=== PATIENT | male | born 1990 | race Caucasian/White ===

== ENCOUNTER 2020-01-31 00:13 | Inpatient (IN) ==
[2020-01-31 01:02] LABS: Hematocrit (blood only) 23.1 % (42-52); Mean Corpuscular Hemoglobin 30.9 pg (25-34); Mean Corpuscular Hgb Conc 34.6 g/dL (32-36); Mean Corpuscular Volume 89.2 fL (80-100); Mean Platelet Volume 8.6 fL (7.4-10.4); Platelet Count 344 K/uL (130-400); RDW Coefficient of Variation 12.5 % (11.5-14.5); RDW Standard Deviation 40.4 fL (36.4-46.3); Red Blood Count 2.59 M/uL (4.7-6.1); White Blood Count 6.82 K/uL (4.8-10.8)
--- NOTE | 2020-01-31 01:14 | Emergency Department Note ---
History of Present Illness General Chief complaint: Referred by Doctor Stated complaint: REF BY History of Present Illness This is a 29-year-old male that presents to the emergency department via private vehicle with complaints of "referred by ". The patient notes that he has a history of spina bifida with subsequent tethered spinal cord, and self caths via suprapubic catheter and has colostomy in place. He notes that he is status post kidney transplant performed at [facility] and when he turned 19 he transitioned to the [employer] system. He followed with Dr. Collado of nephrology. He currently is transitioning to the amount in the system from [employer] for his medical care. Patient denies any fevers, chills, chest pain or shortness of breath. He has had some muscle aches over the past few weeks but otherwise has been feeling okay. He did have Covid about a month ago. Patient also notes that he has been cathing normally. He does state that chronically the urine does appear cloudy which is not unusual for him. Home Medications Medication Instructions Recorded Confirmed Type cholecalciferol (vitamin D3) 50 50 mcg PO DAILY #30 cap 01/30/20 01/31/20 Rx mcg (2,000 unit) capsule ferrous fumarate-iron 1 cap PO .COMPLEX #100 cap 01/30/20 01/31/20 Rx polysaccharide cplx 162 mg-115.2 mg (106 mg) cap mycophenolate mofetil 250 mg 250 mg PO .COMPLEX cap 01/30/20 01/31/20 History capsule potassium chloride 20 mEq 20 meq PO DAILY #90 tab 01/30/20 01/31/20 Rx tablet,extended release pravastatin 20 mg tablet 20 mg PO DAILY #90 tab 01/30/20 01/31/20 Rx tacrolimus 1 mg capsule 4 mg PO Q12H cap 01/30/20 01/31/20 History testosterone 50 mg/5 gram (1 %) 1 packet TRANSDERMAL QAM 01/30/20 01/31/20 History transdermal gel Allergies Allergy/AdvReac Type Severity Reaction Status Date / Time bee venom protein (honey bee) Allergy edema, Verified 01/31/20 01:43 hives latex Allergy Unknown Verified 01/31/20 01:43 morphine Allergy nauea, Verified 01/31/20 01:43 vomitting Past Med/Surg History Medical History Self-catheterizes urinary bladder Surgical History Colostomy status H/O hernia repair spinal hernia History of esophagogastroduodenoscopy Hx of colonoscopy Hx of laminectomy lumbar spinal cord release Hx of removal of testicle bilateral Kidney transplanted Family History Mother Diabetes Heart disease Father Diabetes Social History Smoking Status: Never smoker Hx Alcohol Use: No Hx Substance Use: No Preferred Language: Yoruba marital status: Single Current Living Situation: Alone current occupational status: 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 Feels Safe at Home: Yes Do you think of yourself as: don't know Gender Identity: Male Review of Systems A total of 10 systems reviewed and were otherwise negative Physical Exam Vital Signs Vital Signs - 24 hr 01/31/20 00:18 01/31/20 00:53 01/31/20 01:40 Temperature 36.6 C Temperature Source Oral Pulse Rate 103 H 91 H 95 H Pulse Rate from SpO2 Sensor Respiratory Rate 16 18 12 Respiratory Depth Normal Blood Pressure 121/63 126/72 117/67 Blood Pressure Mean 82 81 79 Pulse Oximetry 97 96 97 Oxygen Delivery Method Room Air Room Air Room Air Sepsis Recent Fever Within 48 Hours No Sepsis New/Unexplained Change in Mental Status No Sepsis Action Taken by Nursing No Action Required 01/31/20 03:14 Temperature Temperature Source Pulse Rate 93 H Pulse Rate from SpO2 Sensor 90 Respiratory Rate 18 Respiratory Depth Blood Pressure 106/50 L Blood Pressure Mean 74 Pulse Oximetry 98 Oxygen Delivery Method Room Air Sepsis Recent Fever Within 48 Hours Sepsis New/Unexplained Change in Mental Status Sepsis Action Taken by Nursing VITAL SIGNS - Vital signs and nursing notes were reviewed. Stable and afebrile. GENERAL - 29-year-old male appearing his stated age who is in no acute distress. Communicates well with provider and answers questions appropriately. SKIN - Without rashes. No meningeal or petechial rash. HEAD - NC/AT. EYES - PERRL with EOMI bilaterally. Sclera anicteric. EARS - No deformities of external structures noted on gross examination bilaterally. NOSE - Midline and without cyanosis. MOUTH/OROPHARYNX - Without perioral cyanosis. NECK - Neck with FROM. No nuchal rigidity. LUNGS - Chest wall symmetric without accessory muscle use, intercostals retractions, or central cyanosis. Normal vesicular breath sounds CTA B/L. No wheezes, rales, or rhonchi appreciated. CARDIAC - RRR with S1/S2. No murmur, rubs, or gallops appreciated. EXTREMITIES - No clubbing or peripheral cyanosis. +5/5 strength noted in UE/LE bilaterally. NEUROLOGIC - Cranial nerves II through XII grossly intact. Sensory intact to light touch throughout. PSYCH - A&O, and cooperates fully with examiner. Pt is very pleasant and interacts well with examiner. Medical Decision Making Laboratory Data Result diagrams: 01/31/20 00:47 01/31/20 00:47 Lab Results 01/31/20 01/31/20 01/31/20 Range/Units 00:42 00:47 00:47 WBC 6.82 (4.8-10.8) K/uL RBC 2.59 L (4.7-6.1) M/uL Hgb 8.0 L (14.0-18.0) g/dL Hct 23.1 L (42-52) % MCV 89.2 (80-100) fL MCH 30.9 (25-34) pg MCHC 34.6 (32-36) g/dL RDW Std Deviation 40.4 (36.4-46.3) fL RDW Coeff of Abigail 12.5 (11.5-14.5) % Plt Count 344 (130-400) K/uL MPV 8.6 (7.4-10.4) fL PT (9.0-12.0) Seconds INR (0.9-1.1) APTT (21.0-31.0) Seconds PTT Ratio Sodium 132 L (136-145) mmol/L Potassium 3.1 L (3.5-5.1) mmol/L Chloride 86 L (98-107) mmol/L Carbon Dioxide 38 H (21-32) mmol/L Anion Gap 8.0 (3-11) BUN 59 H (7-18) mg/dl Creatinine 4.65 H* (0.6-1.4) mg/dl Est Cr Clr Drug Dosing Not Reportable Est GFR ( Amer) 18.4 Est GFR (Non-Af Amer) 15.9 BUN/Creatinine Ratio 12.7 (10-20) Glucose 113 H (70-99) mg/dl Calcium 8.6 (8.5-10.1) mg/dl Magnesium 1.7 L (1.8-2.4) mg/dl Total Bilirubin 0.2 (0.2-1) mg/dl AST 16 (15-37) U/L ALT 18 (12-78) U/L Alkaline Phosphatase 76 (45-117) U/L Total Protein 8.5 H (6.4-8.2) gm/dl Albumin 4.2 (3.4-5.0) gm/dl Globulin 4.3 H (2.5-4.0) gm/dl Albumin/Globulin Ratio 1.0 (0.9-2) Urine Color Yellow Urine Appearance Clear (Clear) Urine pH 7.5 (4.5-7.5) Ur Specific [place]sey 1.008 (1.000-1.030) Urine Protein Negative (Negative) Urine Glucose (UA) Negative (Negative) Urine Ketones Negative (Negative) Urine Blood 1+ H (Negative) Urine Nitrite Negative (Negative) Urine Bilirubin Negative (Negative) Urine Urobilinogen Negative (Negative) Ur Leukocyte Esterase 3+ H (Negative) Urine WBC (Auto) >30 H (0-5) /hpf Urine RBC (Auto) 0-4 (0-4) /hpf U Hyaline Cast (Auto) 5-10 H (0-5) /lpf U Epithel Cells (Auto) 5-10 H (0-5) /lpf Urine Bacteria (Auto) Negative (Negative) Blood Type Antibody Screen 01/31/20 01/31/20 Range/Units 00:47 00:47 WBC (4.8-10.8) K/uL RBC (4.7-6.1) M/uL Hgb (14.0-18.0) g/dL Hct (42-52) % MCV (80-100) fL MCH (25-34) pg MCHC (32-36) g/dL RDW Std Deviation (36.4-46.3) fL RDW Coeff of Abigail (11.5-14.5) % Plt Count (130-400) K/uL MPV (7.4-10.4) fL PT 10.8 (9.0-12.0) Seconds INR 1.0 (0.9-1.1) APTT 25.8 (21.0-31.0) Seconds PTT Ratio 0.9 Sodium (136-145) mmol/L Potassium (3.5-5.1) mmol/L Chloride (98-107) mmol/L Carbon Dioxide (21-32) mmol/L Anion Gap (3-11) BUN (7-18) mg/dl Creatinine (0.6-1.4) mg/dl Est Cr Clr Drug Dosing Est GFR ( Amer) Est GFR (Non-Af Amer) BUN/Creatinine Ratio (10-20) Glucose (70-99) mg/dl Calcium (8.5-10.1) mg/dl Magnesium (1.8-2.4) mg/dl Total Bilirubin (0.2-1) mg/dl AST (15-37) U/L ALT (12-78) U/L Alkaline Phosphatase (45-117) U/L Total Protein (6.4-8.2) gm/dl Albumin (3.4-5.0) gm/dl Globulin (2.5-4.0) gm/dl Albumin/Globulin Ratio (0.9-2) Urine Color Urine Appearance (Clear) Urine pH (4.5-7.5) Ur Specific [place] (1.000-1.030) Urine Protein (Negative) Urine Glucose (UA) (Negative) Urine Ketones (Negative) Urine Blood (Negative) Urine Nitrite (Negative) Urine Bilirubin (Negative) Urine Urobilinogen (Negative) Ur Leukocyte Esterase (Negative) Urine WBC (Auto) (0-5) /hpf Urine RBC (Auto) (0-4) /hpf U Hyaline Cast (Auto) (0-5) /lpf U Epithel Cells (Auto) (0-5) /lpf Urine Bacteria (Auto) (Negative) Blood Type A Positive Antibody Screen NEGATIVE MDM Narrative Patient was seen and evaluated as above in room C 11. Review was performed of nursing notes and vital signs. I did review pertinent previous visits and patient history. After obtaining a thorough history and physical examination the above work up was performed. He presents to us today referred by PCP over concerning and blood values from today's laboratory studies done in the outpatient setting. The patient notes that he received a phone call this evening around 10 PM. He has been feeling perhaps some muscle aches/cramps as of lately but otherwise feels okay. No fevers, chills, chest pain or shortness of breath. Unfortunately at the time of the patient's presentation we were in essentially a [facility] downtime as the sql server consultant appear to be down. Orders were placed for the patient via handwritten protocol and then entered into the system. He was given 500 cc of normal saline IV bolus. No leukocytosis. Anemia noted. There is hyponatremia, hypokalemia and creatinine of 4.65 with elevated BUN of 59. Patient does not appear to be overly dehydrated. Hypomagnesemia at 1.7. Urinalysis at this time does reveal evidence of potential UTI with urine culture pending. Type and screen initiated. It is felt that further evaluation and management the inpatient setting is warranted given the patient's laboratory abnormalities here at this time. I was notified by ER charge nurse that the clinical coordinator would like a Covid test performed on the patient. I will note that the patient stated he was Covid positive about a month ago and at this time is symptom-free. Testing is negative here. Please refer to further documentation regarding his stay. Case was discussed with the attending physician. EKG was reviewed by myself and found to be Normal Sinus Rhythm at a rate of 94 beats per minute and per my interpretation reveals no ectopy or ischemic change. QTc 460 and no previous EKGs for comparison. Patient was seen during the COVID-19 pandemic. An handwritten order was placed for continuous cardiac monitoring. The monitor shows a rate of 88 with sinus rhythm. GCS: 15 In the evaluation and treatment of this patient the following differential diagnoses were entertained: Dehydration, NATHANIEL, medication induced NATHANIEL, infection, UTI, pyelonephritis, COVID-19, among others. Impression & Plan NATHANIEL (acute kidney injury), Anemia Discharge Plan Visit Data Chief Complaint: Referred by Doctor Stated Complaint: REF BY ED Provider: Liam Kay ED Midlevel Provider: Anthony Neumann Discharge Problem: NATHANIEL (acute kidney injury), Anemia Patient Disposition: Admitted As Inpatient Condition: Good Forms Stand Alone Forms: My [facility] 20lines Prescriptions Prescriptions: No Action tacrolimus 1 mg capsule 4 mg PO Q12H RF: 0 potassium chloride 20 mEq tablet extended release 20 meq PO DAILY Qty: 90 RF: 3 mycophenolate mofetil 250 mg capsule 250 mg PO .COMPLEX RF: 0 testosterone 50 mg/5 gram (1 %) gel 1 packet transdermal QAM RF: 0 pravastatin 20 mg tablet 20 mg PO DAILY Qty: 90 RF: 3 ferrous fumarate-iron ps cmplx 162-115.2 (106) mg capsule 1 cap PO .COMPLEX Qty: 100 RF: 0 cholecalciferol (vitamin D3) 50 mcg (2,000 unit) capsule 50 mcg PO DAILY Qty: 30 RF: 0 Referrals Referrals: Grecia Bravo DO [Primary Care Provider] -
[2020-01-31 01:21] LABS: Partial Thromboplastin Ratio 0.9; Partial Thromboplastin Time 25.8 Seconds (21.0-31.0); Prothrombin Time 10.8 Seconds (9.0-12.0)
[2020-01-31 01:32] LABS: Alanine Aminotransferase 18 U/L (12-78); Albumin Level 4.2 gm/dl (3.4-5.0); Alkaline Phosphatase 76 U/L (45-117); Aspartate Aminotransferase 16 U/L (15-37); BUN Creatinine Ratio 12.7 (10-20); Bilirubin,Total 0.2 mg/dl (0.2-1); Blood Urea Nitrogen 59 mg/dl (7-18); Calcium 8.6 mg/dl (8.5-10.1); Carbon Dioxide 38 mmol/L (21-32); Chloride 86 mmol/L (98-107); Est GFR (African American) 18.4; Est GFR (Non-African American) 15.9; Globulin 4.3 gm/dl (2.5-4.0); Glucose 113 mg/dl (70-99); Magnesium 1.7 mg/dl (1.8-2.4); Potassium 3.1 mmol/L (3.5-5.1); Sodium 132 mmol/L (136-145); Total Protein 8.5 gm/dl (6.4-8.2)
[2020-01-31 01:43] LABS: Appearance Urine Clear (Clear); Bacteria Urine Automated Negative (Negative); Bilirubin Urine Negative (Negative); Blood Urine 1+ (Negative); Color Urine Yellow; Glucose Urine UA Negative (Negative); Ketones Urine Negative (Negative); Leukocyte Esterase Urine 3+ (Negative); Nitrite Urine Negative (Negative); RBC Urine Automated 0-4 /hpf (0-4); Specific Gravity Urine 1.008 (1.000-1.030); Urobilinogen Urine Negative (Negative); WBC Urine Automated >30 /hpf (0-5); pH Urine 7.5 (4.5-7.5)
[2020-01-31 02:11] LABS: Protein Urine Negative (Negative); Sulfosalicylic Acid Urine Negative (Negative)
--- NOTE | 2020-01-31 03:06 | History & Physical Report ---
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 He presents this evening for evaluation of elevated creatinine. #Acute kidney injury in the setting of a patient with a solitary transplanted kidney Patient patient was born with a congenital horseshoe kidney, surgically repaired CHOP when he was 19. Currently the patient has 1 transplanted kidney, given his solitary kidney elevated creatinine is quite concerning. Patient was in his normal state of health prior to presentation, reports no history of anything out of the ordinary that would cause renal harm. 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 He presents this evening for evaluation of elevated creatinine.Patient states other than his blood test he would have no idea of his elevated creatinine values, in other words he is asymptomatic. -LR at 125 -Avoid nephrotoxic meds -Consult nephrology -BMP twice daily until creatinine begins to trend in the correct direction -Continue transplant medications #Urinalysis concerning for urinary tract infection Given the patient's history and urinalysis findings it certainly possible the patient is developed a urinary tract infection. To that extent we will treat the patient with ceftriaxone pending culture results -DC antibiotics pending culture results #Anemia Chronic in nature, baseline hemoglobin appears to be around 8 -Trend CBC #Colostomy status Routine colostomy care FENa: LR at 125, regular diet Code Status: Full code DVT PPX: Ambulation PT/OT: Not indicated Dispo: Jorge Luisorlin Mayfield MD PGY 3, FCM This chart was completed utilizing [email or web address] voice recognition software. Grammatical errors, random word insertions, pronoun errors, and in complete sentences are an occasional consequence of the system. Any questions or concerns about the content, text, or information contained within the body of this dictation should be addressed directly to the physician for clarification. 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 He presents this evening for evaluation of elevated creatinine. The patient was in his normal state of health, reports no recent changes to his daily routine, reports no recent trauma, no recent muscle injury, no recent prolonged dehydration, no recent constitutional symptoms, reports a history of Covid approximately 1 month ago. He is currently transitioning from [facility] to [facility] for his medical care. Today he had an initial visit with his new primary care provider who obtained baseline labs.His creatinine resulted at 4.39, his baseline appears to be in the twos. Given these findings he was referred to the emergency department for further evaluation. In the emergency department a Chem-7 was repeated again demonstrating creatinine of 4.65, also hemoglobin of 8, this is a chronic issue related to his underlying kidney disease. Urinalysis demonstrated 3+ leuk esterase, and greater than 30 white blood cells. The primary team was consulted for admission given the patient's elevated creatinine in the setting of 1 transplant kidney, and questionable urinary tract infection. Primary Care Provider: Grecia Bravo, Allergies Allergy/AdvReac Type Severity Reaction Status Date / Time bee venom protein (honey bee) Allergy edema, Verified 01/31/20 01:43 hives latex Allergy Unknown Verified 01/31/20 01:43 morphine Allergy nauea, Verified 01/31/20 01:43 vomitting Home Medications Medication Instructions Recorded Confirmed Type cholecalciferol (vitamin D3) 50 50 mcg PO DAILY #30 cap 01/30/20 01/31/20 Rx mcg (2,000 unit) capsule ferrous fumarate-iron 1 cap PO .COMPLEX #100 cap 01/30/20 01/31/20 Rx polysaccharide cplx 162 mg-115.2 mg (106 mg) cap mycophenolate mofetil 250 mg 250 mg PO .COMPLEX cap 01/30/20 01/31/20 History capsule potassium chloride 20 mEq 20 meq PO DAILY #90 tab 01/30/20 01/31/20 Rx tablet,extended release pravastatin 20 mg tablet 20 mg PO DAILY #90 tab 01/30/20 01/31/20 Rx tacrolimus 1 mg capsule 4 mg PO Q12H cap 01/30/20 01/31/20 History Wheelchair (Manual or Powered) 1 ea .ROUTE DAILY #1 ea 01/31/20 01/31/20 Rx testosterone 20.25 mg/1.25 gram 2 pump TOPICAL DAILY #75 g 01/31/20 01/31/20 Rx (1.62 %) transdermal gel pump Past Med/Surg History Medical History Self-catheterizes urinary bladder Surgical History Colostomy status H/O hernia repair spinal hernia History of esophagogastroduodenoscopy Hx of colonoscopy Hx of laminectomy lumbar spinal cord release Hx of removal of testicle bilateral Kidney transplanted Family History Mother Diabetes Heart disease Father Diabetes Social History Smoking Status: Never smoker Second Hand Exposure: No; Hx Alcohol Use: Yes Hx Substance Use: No Preferred Language: Slovenian Communication Ability: Effective Filter Operator Required: No Beliefs That Will Affect Care: None marital status: Single Current Living Situation: Parent current occupational status: 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 Feels Safe at Home: Yes Do you think of yourself as: don't know Gender Identity: Male Assistive Devices: Cane Review of Systems Review of Systems: All systems reviewed & are unremarkable except as noted in HPI & below Physical Exam Physical Exam: General: No acute distress HEENT: Normocephalic atraumatic Neck: No significant lymphadenopathy, trachea midline, normal to visual inspection Cardiac: Regular rate and rhythm, normal S1, normal S2, I did not appreciated any significant murmurs rubs or gallops, I did not appreciate any significant pedal edema, No calf tenderness, capillary refill is less than 3 seconds Respiratory: Clear to auscultation bilaterally with symmetrical chest rise, I did not appreciate any significant wheezes, rales, rhonchi, no increased work of breathing GI: Normal bowel sounds, soft, nontender in all 4 quadrants, nondistended MSK: No sensory or motor changes, moves all extremities without issue, extremities are warm and well-perfused Skin: Bethany, clean, dry, intact. Neuro: Alert and oriented x4, has decreased sensation and motor innervation of the bilateral lower extremities Psych: Calm, cooperative, logical thought process Results & Data Results & Data ([facility]) Vital Signs (Past 12 Hours) Vital Signs Temp Pulse Resp BP Pulse Ox 01/31/20 01:40 95 H 12 117/67 97 01/31/20 00:53 91 H 18 126/72 96 01/31/20 00:18 36.6 C 103 H 16 121/63 97 Laboratory Results 01/31/20 01/31/20 01/31/20 Range/Units 00:47 00:47 00:47 WBC 6.82 (4.8-10.8) K/uL RBC 2.59 L (4.7-6.1) M/uL Hgb 8.0 L (14.0-18.0) g/dL Hct 23.1 L (42-52) % MCV 89.2 (80-100) fL MCH 30.9 (25-34) pg MCHC 34.6 (32-36) g/dL RDW Std Deviation 40.4 (36.4-46.3) fL RDW Coeff of Abigail 12.5 (11.5-14.5) % Plt Count 344 (130-400) K/uL MPV 8.6 (7.4-10.4) fL PT 10.8 (9.0-12.0) Seconds INR 1.0 (0.9-1.1) APTT 25.8 (21.0-31.0) Seconds PTT Ratio 0.9 Sodium (136-145) mmol/L Potassium (3.5-5.1) mmol/L Chloride (98-107) mmol/L Carbon Dioxide (21-32) mmol/L Anion Gap (3-11) BUN (7-18) mg/dl Creatinine (0.6-1.4) mg/dl Est Cr Clr Drug Dosing Est GFR ( Amer) Est GFR (Non-Af Amer) BUN/Creatinine Ratio (10-20) Glucose (70-99) mg/dl Calcium (8.5-10.1) mg/dl Magnesium (1.8-2.4) mg/dl Total Bilirubin (0.2-1) mg/dl AST (15-37) U/L ALT (12-78) U/L Alkaline Phosphatase (45-117) U/L Total Protein (6.4-8.2) gm/dl Albumin (3.4-5.0) gm/dl Globulin (2.5-4.0) gm/dl Albumin/Globulin Ratio (0.9-2) Urine Color Urine Appearance (Clear) Urine pH (4.5-7.5) Ur Specific [place] (1.000-1.030) Urine Protein (Negative) Urine Glucose (UA) (Negative) Urine Ketones (Negative) Urine Blood (Negative) Urine Nitrite (Negative) Urine Bilirubin (Negative) Urine Urobilinogen (Negative) Ur Leukocyte Esterase (Negative) Urine WBC (Auto) (0-5) /hpf Urine RBC (Auto) (0-4) /hpf U Hyaline Cast (Auto) (0-5) /lpf U Epithel Cells (Auto) (0-5) /lpf Urine Bacteria (Auto) (Negative) Blood Type A Positive Antibody Screen NEGATIVE 01/31/20 01/31/20 Range/Units 00:47 00:42 WBC (4.8-10.8) K/uL RBC (4.7-6.1) M/uL Hgb (14.0-18.0) g/dL Hct (42-52) % MCV (80-100) fL MCH (25-34) pg MCHC (32-36) g/dL RDW Std Deviation (36.4-46.3) fL RDW Coeff of Abigail (11.5-14.5) % Plt Count (130-400) K/uL MPV (7.4-10.4) fL PT (9.0-12.0) Seconds INR (0.9-1.1) APTT (21.0-31.0) Seconds PTT Ratio Sodium 132 L (136-145) mmol/L Potassium 3.1 L (3.5-5.1) mmol/L Chloride 86 L (98-107) mmol/L Carbon Dioxide 38 H (21-32) mmol/L Anion Gap 8.0 (3-11) BUN 59 H (7-18) mg/dl Creatinine 4.65 H* (0.6-1.4) mg/dl Est Cr Clr Drug Dosing Not Reportable Est GFR ( Amer) 18.4 Est GFR (Non-Af Amer) 15.9 BUN/Creatinine Ratio 12.7 (10-20) Glucose 113 H (70-99) mg/dl Calcium 8.6 (8.5-10.1) mg/dl Magnesium 1.7 L (1.8-2.4) mg/dl Total Bilirubin 0.2 (0.2-1) mg/dl AST 16 (15-37) U/L ALT 18 (12-78) U/L Alkaline Phosphatase 76 (45-117) U/L Total Protein 8.5 H (6.4-8.2) gm/dl Albumin 4.2 (3.4-5.0) gm/dl Globulin 4.3 H (2.5-4.0) gm/dl Albumin/Globulin Ratio 1.0 (0.9-2) Urine Color Yellow Urine Appearance Clear (Clear) Urine pH 7.5 (4.5-7.5) Ur Specific [place] 1.008 (1.000-1.030) Urine Protein Negative (Negative) Urine Glucose (UA) Negative (Negative) Urine Ketones Negative (Negative) Urine Blood 1+ H (Negative) Urine Nitrite Negative (Negative) Urine Bilirubin Negative (Negative) Urine Urobilinogen Negative (Negative) Ur Leukocyte Esterase 3+ H (Negative) Urine WBC (Auto) >30 H (0-5) /hpf Urine RBC (Auto) 0-4 (0-4) /hpf U Hyaline Cast (Auto) 5-10 H (0-5) /lpf U Epithel Cells (Auto) 5-10 H (0-5) /lpf Urine Bacteria (Auto) Negative (Negative) Blood Type Antibody Screen Code Status & VTE Plan Code Status full VTE Prophylaxis Plan VTE Prophylaxis will be ordered: Yes Supervising Physician Co-Signing Physician Notes Attending addendum: I have physically seen this patient, have supervised the medical residents activities, and agree with the H&P unless as otherwise noted. Assessment and Plan: Kidney transplant status/renal insufficiency- Referred to the hospital for increased creatinine of 4.39, with repeat 4.65 in ED. Will need adjustment of immunosuppressive agents baseline kidney dysfunction Wishes to change nephrology to [facility] nephrology. Rehydration with LR at 125 mils per hour Serial laboratories: BMP, magnesium and phosphorus levels Check levels of immunosuppressive agents. Empiric treatment ceftriaxone 1 g IV daily. Follow urine culture and sensitivity results Remaining orders and notations as noted Resident Activity Tracking Resident Involvement: Resident Care Provided Care Provided: Adult [facility] Medicine
[2020-01-31] MEDS ORDERED: ONDANSETRON INJ 2 MG/ML 2 ML VIAL IV PRN (06:11)
[2020-01-31] MEDS ORDERED: MELATONIN 3 MG TAB PO PRN (06:11)
[2020-01-31] MEDS ORDERED: PATIENT'S HEIGHT AND/OR WEIGHT NEEDED SCH (06:30)
[2020-01-31] MEDS: LACTATED RINGER'S 1,000 ML IV SCH ×3 (06:52→21:04)
[2020-01-31] MEDS ORDERED: TESTOSTERONE~ORDER AWAITING ACTION SCH (08:00)
[2020-01-31] MEDS: cefTRIAXone SODIUM 2,000 MG in DEXTROSE 5% 50 ML IV SCH (08:52)
[2020-01-31] MEDS: POLYETHYLENE (MIRALAX) 17 GM PACK PO SCH ×2 (08:53→21:02)
[2020-01-31] MEDS: MYCOPHENOLATE MOFETIL 250 MG CAP PO SCH ×2 (08:53→21:03)
[2020-01-31] MEDS: TACROLIMUS 1 MG CAP PO SCH ×2 (08:53→21:03)
[2020-01-31] MEDS: PRAVASTATIN SOD 20 MG TAB PO SCH (08:53)
[2020-01-31] MEDS: CHOLECALCIFEROL 1,000 UNITS 25 MCG TAB PO SCH (08:53)
[2020-01-31] MEDS: FERROUS SULFATE 325 MG TAB PO SCH ×2 (08:54→21:03)
--- NOTE | 2020-01-31 10:29 | Nephrology Consultation ---
Date of Consultation January 31, 2020 Assessment & Plan (1) NATHANIEL (acute kidney injury): Petros was admitted with NATHANIEL on routine lab with history of renal transplant, creatinine was 4.4 on admission, slightly worsened to 4.7 this morning, no baseline available. Has mild hyponatremia and hypokalemia. No hypotensive episode or any recent history of volume depletion. Unclear etiology for NATHANIEL, considering transplant status and immunosuppression differentials include acute /subacute rejection, calcium urine inhibitor nephrotoxicity, hemodynamically mediated NATHANIEL and others. blood pressure has been well controlled. Unlikely postrenal obstruction. 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 if etiology remained unclear for NATHANIEL, may need to transfer to the transplant center for allograft biopsy and further management. -- KCl 40 mEq x1 dose now will follow Thank you for allowing me to participate in your patient's care. It was a pleasure to see Petros (2) UTI (urinary tract infection): (3) Anemia: (4) Kidney transplanted: (5) Self-catheterizes urinary bladder: History of Present Illness Reason for Consultation: Acute kidney injury with history of renal transplant. Attending Physician: Trey Berger MD History of Present Illness Petros Forte is a 29-year-old young male with past medical history significant for end-stage renal disease, status post renal transplant admitted to the hospital with NATHANIEL found on routine lab. Nephrology consult was requested for further management of NATHANIEL with history of renal transplant. Electronic medical records reviewed in detail during patient's visit. 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 Petros has been otherwise in his usual state of health except some nonspecific muscle cramp for last 1 month. He had routine labs done on 01/30/2020 as part of evaluation and establishment of care with a new primary care provider. He was found to have creatinine of 4.4, BUN 60 for associated with hyponatremia and hypokalemia and was referred to ER for further management. Repeat lab in ER showed creatinine 4.7, continue to have mild hypokalemia and hyponatremia. Urinalysis was negative for proteinuria or significant hematuria but had pyuria. Blood pressure has been stable and has been otherwise asymptomatic. Was started on IV normal saline, currently LR at 125 mL/hour. he reports normal p.o. intake and urine output prior to the event. Denied any other acute illness, NSAID use, new antibiotic exposure. Denied increase colostomy output. No fever, chills, shortness of breath or chest pain. Of note he was diagnosed with coded 19 almost a month ago and he recovered from that. he has been taking his immunosuppressive medications without any side effects. 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 no records available however he reports an episode of rejection or opportunistic infection, has been tolerating his immunosuppressive medication, currently on tacrolimus 4 mg every 12 hours and mycophenolate 5 and mg twice a day. He has some chronic suprapubic catheter as well as colostomy. He reports repeated episodes of acute kidney injury requiring hospital admission which rapidly improved with IV hydration. No prior record available, unclear baseline but he reports baseline creatinine somewhere 1-2. No tenderness or pain at right lower quadrant allog raft area. he has not been following with the transplant center, has been following with [facility] nephrology, last visit was in October and recently he has been switching his care from [facility] to [facility]. Allergies Allergy/AdvReac Type Severity Reaction Status Date / Time bee venom protein (honey bee) Allergy edema, Verified 01/31/20 01:43 hives latex Allergy Unknown Verified 01/31/20 01:43 morphine Allergy nauea, Verified 01/31/20 01:43 vomitting Home Medications Medication Instructions Recorded Confirmed Type cholecalciferol (vitamin D3) 50 50 mcg PO DAILY #30 cap 01/30/20 01/31/20 Rx mcg (2,000 unit) capsule ferrous fumarate-iron 1 cap PO .COMPLEX #100 cap 01/30/20 01/31/20 Rx polysaccharide cplx 162 mg-115.2 mg (106 mg) cap mycophenolate mofetil 250 mg 250 mg PO .COMPLEX cap 01/30/20 01/31/20 History capsule potassium chloride 20 mEq 20 meq PO DAILY #90 tab 01/30/20 01/31/20 Rx tablet,extended release pravastatin 20 mg tablet 20 mg PO DAILY #90 tab 01/30/20 01/31/20 Rx tacrolimus 1 mg capsule 4 mg PO Q12H cap 01/30/20 01/31/20 History testosterone 50 mg/5 gram (1 %) 1 packet TRANSDERMAL QAM 01/30/20 01/31/20 History transdermal gel Wheelchair (Manual or Powered) 1 ea .ROUTE DAILY #1 ea 01/31/20 01/31/20 Rx Patient History Medical History Self-catheterizes urinary bladder Surgical History Colostomy status H/O hernia repair spinal hernia History of esophagogastroduodenoscopy Hx of colonoscopy Hx of laminectomy lumbar spinal cord release Hx of removal of testicle bilateral Kidney transplanted Family History Mother Diabetes Heart disease Father Diabetes Social History Smoking Status: Never smoker Second Hand Exposure: No; Hx Alcohol Use: Yes Hx Substance Use: No Preferred Language: Ug[place]an Communication Ability: Effective Hearing Care Practitioner Required: No Beliefs That Will Affect Care: None marital status: Single Current Living Situation: Parent current occupational status: 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 Feels Safe at Home: Yes Do you think of yourself as: don't know Gender Identity: Male Assistive Devices: Cane Review of Systems Review of Systems: All systems reviewed & are unremarkable except as noted in HPI & below Physical Exam Constitutional: WD/WN, vitals as above well developed and well nourished; no acute distress Eyes: PERRL, conjunctivae normal, anicteric sclerae ENMT: external ear and nose normal, oropharynx normal Ears: no hearing impairment Neck: trachea midline Respiratory: normal respiratory effort, lungs clear to auscultation no cough Auscultation: no crackles, no rales and no wheezes Cardiovascular: RRR, no murmur, no edema Gastrointestinal (Abdomen): Inspection/Auscultation: normal bowel sounds and + abdominal surgical scar Percussion/Palpation: abdomen nontender, no guarding and abdomen not rigid nontender right lower quadrant allograft area, has colostomy. Musculoskeletal: Extremities: extremities normal to inspection Gait: normal gait Skin: no rashes, warm and dry Neurologic: awake; not confused Psychiatric: A+Ox3, euthymic affect Results & Data ([facility]) Vital Signs (Past 12 Hours) Vital Signs Temp Pulse Pulse Resp BP BP Pulse Ox 01/31/20 07:20 36.6 C 88 20 111/69 96 01/31/20 06:20 36.7 C 86 18 101/57 L 98 01/31/20 05:00 88 18 100/57 L 99 01/31/20 03:14 93 H 18 106/50 L 98 01/31/20 01:40 95 H 12 117/67 97 01/31/20 00:53 91 H 18 126/72 96 01/31/20 00:18 36.6 C 103 H 16 121/63 97 PG Care Time/CCT Total # of Minutes Spent Total Time Spent with Patient: Total time spent is greater than 50% in coordination of care (as documented) at patient's floor/unit and/or counseling patient: Coding Level of Care Code 04344 Inpt Consult Level 5 Diagnoses NATHANIEL (acute kidney injury) N17.9 UTI (urinary tract infection) N39.0 Anemia D64.9 Kidney transplanted Z94.0 Self-catheterizes urinary bladder Z78.9
[2020-01-31] MEDS: POTASSIUM CHLORIDE CRTAB 20 MEQ TABCR PO SCH (11:58)
--- NOTE | 2020-01-31 14:08 | Hospitalist Progress Note ---
Date of Service January 31, 2020 Assessment & Plan (1) NATHANIEL (acute kidney injury): Unclear baseline but according to patient creatinine runs in the twos but frequently has issues keeping up with his oral intake likely secondary to colostomy. Most recently admitted to [facility] in October with Cr in 7s which improved to the 3s on discharge. Patient patient was born with a congenital horseshoe kidney, surgically repaired CHOP when he was 19. Currently the patient has 1 transplanted kidney, given his solitary kidney elevated creatinine is quite concerning. Will get US transplanted kidney with dopplers and CXR for baseline. HIM request for prior nephrology notes. (2) UTI (urinary tract infection): Possible UTI/asymptomatic bacteruria. Continue ceftriaxone pending blood and urine culture results (3) Anemia: Iron studies, B12, folate, retic count with AM labs. Suspect secondary to CKD. No signs of acute blood loss - FOB pending. (4) Kidney transplanted: -Continue mycophenolate and tacrolimus with levels with AM labs per nephrology recommendations. (5) Self-catheterizes urinary bladder: Admission and Anticipated Discharge Date Admission Date: January 31, 2020 Subjective Patient reports feeling generally well. No dysuria, flank pain, fever or chills. No chest pain, shortness of breath or dizziness with anemia. Review of Systems Review of Systems: All systems reviewed & are unremarkable except as noted in HPI & below Physical Exam Constitutional: well developed and well nourished; no acute distress Respiratory: normal respiratory effort, lungs clear to auscultation Cardiovascular: RRR, no murmur, no edema Gastrointestinal (Abdomen): normal bowel sounds, soft, nontender, no hepatosplenomegaly Genitourinary: no CVA tenderness Results & Data Results & Data ([facility]) Vital Signs (Past 12 Hours) Vital Signs Temp Pulse Pulse Resp BP BP Pulse Ox 01/31/20 07:20 36.6 C 88 20 111/69 96 01/31/20 06:20 36.7 C 86 18 101/57 L 98 01/31/20 05:00 88 18 100/57 L 99 01/31/20 03:14 93 H 18 106/50 L 98 PG Care Time/CCT Total # of Minutes Spent Total Time Spent with Patient: Total time spent is greater than 50% in coordination of care (as documented) at patient's floor/unit and/or counseling patient: Coding Level of Care Code 09743 Subseq Hosp Care Lvl 2 Diagnoses NATHANIEL (acute kidney injury) N17.9 UTI (urinary tract infection) N39.0 Anemia D64.9 Kidney transplanted Z94.0 Self-catheterizes urinary bladder Z78.9
--- NOTE | 2020-01-31 14:54 | XRay Report ---
SINGLE VIEW CHEST CLINICAL HISTORY: Acute renal insufficiency FINDINGS: An AP, portable, upright chest radiograph is obtained. No prior studies are available for c omparison at the time of dictation. The examination is degraded by portable technique and patient rot ation. The cardiomediastinal silhouette is unremarkable. The lungs and pleural spaces are clear. No pneumothorax is seen. The bony thorax is grossly intact. IMPRESSION: No active disease in the chest. ACT 112: Negative or not required by law. Electronically signed by: Brian Soares M.D. 01/31/2020 2:52 PM
--- NOTE | 2020-01-31 15:19 | Ultrasound Report ---
US renal transplant w Doppler CLINICAL HISTORY: Acute kidney injury. Evaluate renal transplant. COMPARISON STUDY: Abdomen and pelvis CT 05/12/2009. FINDINGS: The [place] kidneys are not visualized. There is a right lower quadrant renal transplant jayashree suring 13.7 cm in length. No hydronephrosis. Normal velocities within the renal transplant arteries a nd veins. No evidence for stenosis or occlusion. Normal corticomedullary differentiation of the right renal transplant. IMPRESSION: 1. The right renal transplant is within normal limits. 2. No evidence for stenosis or occlusion within the renal transplant arteries or veins. ACT 112: Negative or not required by law. Electronically signed by: Aniket Sepulveda M.D. 01/31/2020 3:17 PM
--- NOTE | 2020-01-31 17:04 | Electrocardiogram Report ---
Test Reason : Blood Pressure : / mmHG Vent. Rate : 094 BPM Atrial Rate : 094 BPM P-R Int : 116 ms QRS Dur : 094 ms QT Int : 368 ms P-R-T Axes : -12 045 025 degrees QTc Int : 460 ms Poor data quality, interpretation may be adversely affected Normal sinus rhythm Normal ECG No previous ECGs available Confirmed by Jose Larios ([id number]) on 01/31/2020 5:03:43 PM Referred By: Grecia Bravo Confirmed By:Jose Larios
[2020-01-31] MEDS: MAGNESIUM OXIDE 400 MG TAB PO SCH (17:09)
--- NOTE | 2020-01-31 22:00 | Billing Data ---
Date of Service January 31, 2020 Coding Level of Care Code 75261 Initial Inpt Care Lvl 2
[2020-02-01] MEDS: LACTATED RINGER'S 1,000 ML IV SCH ×4 (02:22→21:49)
[2020-02-01 06:40] LABS: BUN Creatinine Ratio 12.7 (10-20); Calcium 8.2 mg/dl (8.5-10.1); Creatinine Clr Calc Pharmacy 28.8 ml/min; Est GFR (African American) 23.3; Est GFR (Non-African American) 20.1; Potassium 3.3 mmol/L (3.5-5.1)
[2020-02-01 06:42] LABS: Basophils # (auto) 0.03 K/uL (0-0.2); Basophils % (auto) 0.6 %; Eosinophils # (auto) 0.07 K/uL (0-0.5); Eosinophils % (auto) 1.3 %; Hematocrit (blood only) 19.2 % (42-52); Hemoglobin 6.6 g/dL (14.0-18.0); Immature Granulocytes # (auto) 0.01 K/uL (0.00-0.02); Immature Granulocytes % (auto) 0.2 %; Lymphocytes # (auto) 1.94 K/uL (1.2-3.4); Lymphocytes % (auto) 37.2 %; Mean Corpuscular Hemoglobin 31.3 pg (25-34); Mean Corpuscular Hgb Conc 34.4 g/dL (32-36); Mean Platelet Volume 8.4 fL (7.4-10.4); Monocytes % (auto) 7.7 %; Neutrophils # (auto) 2.76 K/uL (1.4-6.5); Platelet Count 284 K/uL (130-400); RBC Morphology Unremarkable; RDW Coefficient of Variation 12.4 % (11.5-14.5); RDW Standard Deviation 40.7 fL (36.4-46.3); Red Blood Count 2.11 M/uL (4.7-6.1); Reticulocytes # 0.04 10^6/uL (0.02-0.10); White Blood Count 5.21 K/uL (4.8-10.8)
[2020-02-01 06:49] LABS: Ferritin 125.5 ng/ml (8-388)
[2020-02-01 06:52] LABS: Folate (Folic Acid) 5.8 ng/ml (>5.38)
[2020-02-01] MEDS: cefTRIAXone SODIUM 2,000 MG in DEXTROSE 5% 50 ML IV SCH (07:41)
[2020-02-01] MEDS ORDERED: POTASSIUM CHLORIDE CRTAB 20 MEQ TABCR PO ONE (08:00)
[2020-02-01] MEDS ORDERED: POTASSIUM CHLORIDE CRTAB 20 MEQ TABCR PO STA (08:50)
[2020-02-01] MEDS ORDERED: EPOETIN ALFA 40,000 UNITS/ML VIAL SQ ONE (08:54)
[2020-02-01] MEDS ORDERED: IRON SUCROSE 200 MG in 0.9 % SODIUM CHLORIDE 100 ML IV ONE (09:00)
[2020-02-01] MEDS: TACROLIMUS 1 MG CAP PO SCH ×2 (09:45→20:44)
[2020-02-01] MEDS: PRAVASTATIN SOD 20 MG TAB PO SCH (09:46)
[2020-02-01] MEDS: CHOLECALCIFEROL 1,000 UNITS 25 MCG TAB PO SCH (09:46)
[2020-02-01] MEDS: MAGNESIUM OXIDE 400 MG TAB PO SCH (09:47)
[2020-02-01] MEDS: MYCOPHENOLATE MOFETIL 250 MG CAP PO SCH ×2 (09:47→20:44)
[2020-02-01] MEDS: FERROUS SULFATE 325 MG TAB PO SCH ×2 (09:48→20:44)
[2020-02-01] MEDS: TESTOSTERONE GEL TOP SCH (09:49)
[2020-02-01] MEDS: POLYETHYLENE (MIRALAX) 17 GM PACK PO SCH ×2 (09:50→20:44)
[2020-02-01] MEDS: POTASSIUM CHLORIDE CRTAB 20 MEQ TABCR PO SCH (10:37)
--- NOTE | 2020-02-01 12:33 | Nephrology Progress Note ---
Date of Service February 01, 2020 Assessment & Plan (1) NATHANIEL (acute kidney injury): Petros was admitted with NATHANIEL on routine lab with history of renal transplant, creatinine was 4.4 on admission. He has been otherwise asymptomatic. Has history of recurrent episode of acute kidney injury several times a year over last 2 years he had several episodes of NATHANIEL and at 1 episode high his creatinine was above 7 and generally he responds very well with IV hydration and kidney function rapidly improves. Baseline seems to be around 2. had donor renal transplant ( 6 antigen mismatch, CMV positive kidney) in February 2006 at [facility] for ESRD secondary to obstructive uropathy with history of horseshoe kidney. 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 NATHANIEL resolving, hemoglobin dropped to 6.6, possibly some component of hemodilution. Patient has a history of chronic anemia, previously had many workup which was nonrevealing. he read did receive blood transfusion before. -- Okay to continue on IV fluid -- start on Venofer, will give Epogen 54788 units x1 dose today, repeat H&H in the afternoon if hemoglobin drops further, okay to give 2 units of leuko reduced PRBC. -- continue on current dose of tacrolimus and mycophenolate will follow (2) UTI (urinary tract infection): (3) Anemia: (4) Kidney transplanted: (5) Self-catheterizes urinary bladder: Admission and Anticipated Discharge Date Admission Date: January 31, 2020 Subjective Petros was seen and examined in his room this morning. Overall he is feeling well, appetite decent, now voiding normally. Denies hematuria or fresh blood with bowel movement. Blood pressure well controlled. Creatinine improved significantly, electrolyte better. Hemoglobin was found to be quite low at 6.6 this morning. Review of Systems Review of Systems: All systems reviewed & are unremarkable except as noted in Subjective Physical Exam Constitutional: WD/WN, vitals as above no acute distress and not ill appearing Neck: normal visual inspection Respiratory: normal respiratory effort, lungs clear to auscultation Cardiovascular: RRR, no murmur, no edema Skin: no rashes, warm and dry Neurologic: awake; no focal motor deficits and not confused Psychiatric: A+Ox3, euthymic affect Results & Data ([facility]) Vital Signs (Past 12 Hours) Vital Signs Temp Pulse Resp BP BP Pulse Ox 02/01/20 10:02 36.8 C 90 16 124/72 99 02/01/20 06:51 36.4 C L 97 H 20 115/68 98 PG Care Time/CCT Total # of Minutes Spent Total Time Spent with Patient: Total time spent is greater than 50% in coordination of care (as documented) at patient's floor/unit and/or counseling patient: Coding Level of Care Code 73845 Subseq Hosp Care Lvl 3 Diagnoses NATHANIEL (acute kidney injury) N17.9 UTI (urinary tract infection) N39.0 Anemia D64.9 Kidney transplanted Z94.0 Self-catheterizes urinary bladder Z78.9
[2020-02-01] MEDS: ACETAMINOPHEN 325 MG TAB PO PRN (15:21)
[2020-02-01 16:03] LABS: Hematocrit (blood only) 20.4 % (42-52)
--- NOTE | 2020-02-01 16:11 | Hospitalist Progress Note ---
Date of Service February 01, 2020 Assessment & Plan (1) NATHANIEL (acute kidney injury): Unclear baseline but according to patient creatinine runs in the twos but frequently has issues keeping up with his oral intake likely secondary to colostomy. Most recently admitted to [facility] in October with Cr in 7s which improved to the 3s on discharge. Patient patient was born with a congenital horseshoe kidney, surgically repaired CHOP when he was 19. Currently the patient has 1 transplanted kidney, given his solitary kidney elevated creatinine is quite concerning. Cr slowly improving to 4.65 -> 3.83 today. Renal US and CXR unremarkable. HIM request for prior nephrology notes - not yet obtained. Continue IV LR (can reduce rate today back to 125 ml/hr). Appreciate nephrology management. (2) UTI (urinary tract infection): Possible UTI/asymptomatic bacteruria. Continue ceftriaxone pending blood and urine culture results (3) Anemia: Iron sats 18%. Venofer per nephrology recommendations. B12 and folate WNL Reticulocyte count inappropriately normal (hopefully EPO should help with this) No signs of acute blood loss - FOB pending. (4) Kidney transplanted: Continue mycophenolate and tacrolimus. Tacrolimus levels pending. (5) Self-catheterizes urinary bladder: Admission and Anticipated Discharge Date Admission Date: January 31, 2020 Subjective Using intermittent suprapubic self catheterization with normal output per birgit ent. No significant changes to colostomy output. Feels at his baseline self. Hemoglobin decreased to 6.6 this morning. No chest pain, shortness of breath or dizziness. Discussed with Dr Boss and will try to avoid blood transfusions and use venofer and EPO. Mildly iron deficient with iron sats 18%. Patient denies any hematuria, melena or bright red blood in stool. Review of Systems Review of Systems: All systems reviewed & are unremarkable except as noted in HPI & below Physical Exam Constitutional: well developed and well nourished; no acute distress Respiratory: normal respiratory effort, lungs clear to auscultation Cardiovascular: RRR, no murmur, no edema Gastrointestinal (Abdomen): normal bowel sounds, soft, nontender, no hepatosplenomegaly Inspection/Auscultation: abdomen normal to inspection (colostomy working well, bag not removed) Skin: no rashes, warm and dry Genitourinary: no CVA tenderness Results & Data Results & Data ([facility]) Vital Signs (Past 12 Hours) Vital Signs Temp Pulse Resp BP BP Pulse Ox 02/01/20 14:26 36.9 C 96 H 16 121/67 97 02/01/20 10:02 36.8 C 90 16 124/72 99 02/01/20 06:51 36.4 C L 97 H 20 115/68 98 Diagnostic Findings US renal transplant w Doppler IMPRESSION: 1. The right renal transplant is within normal limits. 2. No evidence for stenosis or occlusion within the renal transplant arteries or veins. SINGLE VIEW CHEST IMPRESSION: No active disease in the chest. PG Care Time/CCT Total # of Minutes Spent Total Time Spent with Patient: Total time spent is greater than 50% in coordination of care (as documented) at patient's floor/unit and/or counseling patient: Coding Level of Care Code 66573 Subseq Hosp Care Lvl 2 Diagnoses NATHANIEL (acute kidney injury) N17.9 UTI (urinary tract infection) N39.0 Anemia D64.9 Kidney transplanted Z94.0 Self-catheterizes urinary bladder Z78.9
[2020-02-02] MEDS: LACTATED RINGER'S 1,000 ML IV SCH ×2 (05:24→12:58)
[2020-02-02 06:11] LABS: Hematocrit (blood only) 20.2 % (42-52); Hemoglobin 6.8 g/dL (14.0-18.0); Mean Corpuscular Hemoglobin 30.9 pg (25-34); Mean Corpuscular Hgb Conc 33.7 g/dL (32-36); Mean Corpuscular Volume 91.8 fL (80-100); Mean Platelet Volume 8.5 fL (7.4-10.4); Platelet Count 277 K/uL (130-400); RDW Coefficient of Variation 12.7 % (11.5-14.5); RDW Standard Deviation 42.3 fL (36.4-46.3)
[2020-02-02 06:37] LABS: BUN Creatinine Ratio 10.9 (10-20); Calcium 8.4 mg/dl (8.5-10.1); Creatinine Clr Calc Pharmacy 30.7 ml/min; Est GFR (African American) 25.2; Est GFR (Non-African American) 21.7; Potassium 3.8 mmol/L (3.5-5.1)
[2020-02-02] MEDS: MYCOPHENOLATE MOFETIL 250 MG CAP PO SCH ×2 (08:54→19:59)
[2020-02-02] MEDS: FERROUS SULFATE 325 MG TAB PO SCH ×2 (08:54→19:59)
[2020-02-02] MEDS: POTASSIUM CHLORIDE CRTAB 20 MEQ TABCR PO SCH (08:55)
[2020-02-02] MEDS: MAGNESIUM OXIDE 400 MG TAB PO SCH (08:55)
[2020-02-02] MEDS: POLYETHYLENE (MIRALAX) 17 GM PACK PO SCH ×2 (08:56→19:59)
[2020-02-02] MEDS: TACROLIMUS 1 MG CAP PO SCH ×2 (08:56→20:00)
[2020-02-02] MEDS: PRAVASTATIN SOD 20 MG TAB PO SCH (08:56)
[2020-02-02] MEDS: CHOLECALCIFEROL 1,000 UNITS 25 MCG TAB PO SCH (08:56)
[2020-02-02] MEDS: TESTOSTERONE GEL TOP SCH (08:57)
[2020-02-02] MEDS: IRON SUCROSE 200 MG in 0.9 % SODIUM CHLORIDE 100 ML IV SCH (09:47)
--- NOTE | 2020-02-02 11:55 | Nephrology Progress Note ---
Date of Service February 02, 2020 Assessment & Plan (1) NATHANIEL (acute kidney injury): Petros was admitted with NATHANIEL on routine lab with history of renal transplant, creatinine was 4.4 on admission. He has been otherwise asymptomatic. Has history of recurrent episode of acute kidney injury several times a year over last 2 years he had several episodes of NATHANIEL and at 1 episode high his creatinine was above 7 and generally he responds very well with IV hydration and kidney function rapidly improves. Baseline seems to be around 2. Had donor renal transplant ( 6 antigen mismatch, CMV positive kidney) in February 2006 at [facility] for ESRD secondary to obstructive uropathy with history of horseshoe kidney. 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 NATHANIEL resolving slowly, hemoglobin stable 6.8, asymptomatic, possibly some component of hemodilution. Patient has a history of chronic anemia, previously had workup which was nonrevealing. he read did receive blood transfusion before. -- decrease IV fluid to 75 ml/h -- continue on Venofer, received Epogen [id number] units x1 dose on 02/01/20 -- continue on current dose of tacrolimus and mycophenolate will follow (2) UTI (urinary tract infection): (3) Anemia: (4) Kidney transplanted: (5) Self-catheterizes urinary bladder: Admission and Anticipated Discharge Date Admission Date: January 31, 2020 Subjective Petros was seen and examined in his room this morning. Overall he is feeling well, appetite decent, now voiding normally. Blood pressure well controlled. Creatinine improving slowly, electrolyte better. Hemoglobin remained low at 6.8 this morning, no SOB, CP.. Review of Systems Review of Systems: All systems reviewed & are unremarkable except as noted in Subjective Physical Exam Constitutional: WD/WN, vitals as above no acute distress Respiratory: normal respiratory effort, lungs clear to auscultation Cardiovascular: RRR, no murmur, no edema Skin: no rashes, warm and dry Neurologic: awake; not confused Psychiatric: A+Ox3, euthymic affect Results & Data ([facility]) Vital Signs (Past 12 Hours) Vital Signs Temp Pulse Resp BP Pulse Ox 02/02/20 06:42 36.6 C 89 16 109/64 98 PG Care Time/CCT Total # of Minutes Spent Total Time Spent with Patient: Total time spent is greater than 50% in coordination of care (as documented) at patient's floor/unit and/or counseling patient: Coding Level of Care Code 64153 Subseq Hosp Care Lvl 3 Diagnoses NATHANIEL (acute kidney injury) N17.9 UTI (urinary tract infection) N39.0 Anemia D64.9 Kidney transplanted Z94.0 Self-catheterizes urinary bladder Z78.9
--- NOTE | 2020-02-02 13:28 | Hospitalist Progress Note ---
Date of Service February 02, 2020 Assessment & Plan (1) NATHANIEL (acute kidney injury): Unclear baseline but according to patient creatinine runs in the twos but frequently has issues keeping up with his oral intake likely secondary to colostomy. Most recently admitted to [facility] in October with Cr in 7s which improved to the 3s on discharge per patient recollection. 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 Cr slowly improving to 4.65 -> 3.83 -> 3.59 today. Renal US and CXR unremarkable. HIM request for prior nephrology notes - not yet obtained. Continue IV LR (reduce rate today to 75 ml/hr per nephrology recommendations). Appreciate nephrology management. (2) Anemia: Relatively stable but not improving with EPO and venofer. No signs of acute blood loss - however FOB positive therefore will start on pantoprazole 40mg IV BID and consult gastroenterology. Asymptomatic therefore will continue to hold off transfusion at present time. Iron sats 18%. Venofer per nephrology recommendations. B12 and folate WNL Reticulocyte count inappropriately normal (received EPO 01/01) (3) UTI (urinary tract infection): Ruled out. Discontinue further antibiotics. (4) Kidney transplanted: Continue mycophenolate and tacrolimus. Tacrolimus levels 5.5. (5) Self-catheterizes urinary bladder: Admission and Anticipated Discharge Date Admission Date: January 31, 2020 Subjective No change in his urine or colostomy output. Feels at his baseline self. Hemoglobin decreased to 6.8, probably hemodilution from admission hemoglobin. No chest pain, shortness of breath or dizziness. Patient denies any hematuria, melena or bright red blood in stool. Review of Systems Review of Systems: All systems reviewed & are unremarkable except as noted in HPI & below Physical Exam Constitutional: well developed and well nourished; no acute distress Respiratory: normal respiratory effort, lungs clear to auscultation Cardiovascular: RRR, no murmur, no edema Gastrointestinal (Abdomen): normal bowel sounds, soft, nontender, no hepatosplenomegaly Inspection/Auscultation: abdomen normal to inspection (colostomy working well, bag not removed) Skin: no rashes, warm and dry Neurologic: moves all extremities and awake; not confused Psychiatric: A+Ox3, euthymic affect Genitourinary: no CVA tenderness Results & Data Results & Data ([facility]) Vital Signs (Past 12 Hours) Vital Signs Temp Pulse Resp BP Pulse Ox 02/02/20 06:42 36.6 C 89 16 109/64 98 PG Care Time/CCT Total # of Minutes Spent Total Time Spent with Patient: Total time spent is greater than 50% in coordination of care (as documented) at patient's floor/unit and/or counseling patient: Coding Level of Care Code 41643 Subseq Hosp Care Lvl 2 Diagnoses NATHANIEL (acute kidney injury) N17.9 Anemia D64.9 UTI (urinary tract infection) N39.0 Kidney transplanted Z94.0 Self-catheterizes urinary bladder Z78.9
[2020-02-03] MEDS: LACTATED RINGER'S 1,000 ML IV SCH ×2 (01:37→15:07)
[2020-02-03] MEDS: ACETAMINOPHEN 325 MG TAB PO PRN ×2 (06:11→11:39)
[2020-02-03 07:35] LABS: Hematocrit (blood only) 20.1 % (42-52); Hemoglobin 6.8 g/dL (14.0-18.0); Mean Corpuscular Hemoglobin 30.8 pg (25-34); Mean Corpuscular Hgb Conc 33.8 g/dL (32-36); Mean Platelet Volume 8.3 fL (7.4-10.4); Platelet Count 278 K/uL (130-400); RDW Coefficient of Variation 12.8 % (11.5-14.5); RDW Standard Deviation 42.5 fL (36.4-46.3); Red Blood Count 2.21 M/uL (4.7-6.1); White Blood Count 4.76 K/uL (4.8-10.8)
[2020-02-03 07:50] LABS: BUN Creatinine Ratio 9.7 (10-20); Creatinine Clr Calc Pharmacy 35.6 ml/min; Est GFR (African American) 30.1
[2020-02-03] MEDS: MYCOPHENOLATE MOFETIL 250 MG CAP PO SCH ×2 (08:35→20:26)
[2020-02-03] MEDS: FERROUS SULFATE 325 MG TAB PO SCH ×2 (08:36→20:27)
[2020-02-03] MEDS: MAGNESIUM OXIDE 400 MG TAB PO SCH (08:37)
[2020-02-03] MEDS: POTASSIUM CHLORIDE CRTAB 20 MEQ TABCR PO SCH (08:37)
[2020-02-03] MEDS: POLYETHYLENE (MIRALAX) 17 GM PACK PO SCH ×3 (08:37→20:27)
[2020-02-03] MEDS: PRAVASTATIN SOD 20 MG TAB PO SCH (08:38)
[2020-02-03] MEDS: TACROLIMUS 1 MG CAP PO SCH ×2 (08:38→20:26)
[2020-02-03] MEDS: CHOLECALCIFEROL 1,000 UNITS 25 MCG TAB PO SCH (08:40)
[2020-02-03] MEDS: TESTOSTERONE GEL TOP SCH (08:40)
[2020-02-03] MEDS: IRON SUCROSE 200 MG in 0.9 % SODIUM CHLORIDE 100 ML IV SCH (08:47)
[2020-02-03] MEDS ORDERED: PANTOprazole 40 MG in SYRINGE 0 ML IV SCH (09:00)
--- NOTE | 2020-02-03 09:38 | Hospitalist Progress Note ---
Date of Service February 03, 2020 Assessment & Plan (1) NATHANIEL (acute kidney injury): * Unclear baseline but according to patient creatinine runs in the twos but frequently has issues keeping up with his oral intake likely secondary to colostomy. Did admit to lack of oral intake * Most recently admitted to [facility] in October with Cr in 7s which improved to the 3s on discharge per patient recollection. 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 * Cr slowly improving to 4.65 -> 3.83 -> 3.59 --> 3.10 today. * Renal US and CXR unremarkable. * HIM request for prior nephrology notes - not yet obtained. * Continue IV LR (reduce rate today to 75 ml/hr per nephrology recommendations). * Appreciate nephrology management-- to continue with IV Venofer transfusions * Labs in AM (2) Anemia: * Relatively stable but not improving with EPO and Venofer (although has been on continuous IVF). No signs of acute blood loss - however FOB positive therefore will start on pantoprazole 40mg IV BID and consult gastroenterology. * --> Per GI, no indication for scope at this time and will request prior records. PPI discontinued at this time * Asymptomatic therefore will continue to hold off transfusion at present time. * Iron sats 18%. * B12 and folate WNL * Reticulocyte count inappropriately normal (received EPO 01/01) * Continued venofer infusions per Nephrology (3) UTI (urinary tract infection): * Ruled out. * Discontinued further antibiotics. (4) Kidney transplanted: * Continue mycophenolate and tacrolimus. * Tacrolimus levels 5.5 Dispo: continued IVF/venofer. Possible d/c in the next 1-2 days pending repeat labs (5) Self-catheterizes urinary bladder: Admission and Anticipated Discharge Date Admission Date: January 31, 2020 Subjective Patient evaluated early this afternoon. Questioning when he would be able to eat. Discussed NPO given wait for Gi consultation but as no intervention, will order diet for now. Feeling generally well. Eating/drinking without difficulty when given something. No fever, chills, chest pain, shortness of breath, nausea, vomiting, abdominal pain, dysuria at this time. Hopeful for discharge in the next couple days. To continue IV iron transfusions as ordered by Nephrology. Questions/concerns addressed at this time. Review of Systems Review of Systems: All systems reviewed & are unremarkable except as noted in HPI & below Physical Exam Constitutional: WD/WN, vitals as above well developed and well nourished; no acute distress and not ill appearing Eyes: PERRL, conjunctivae normal, anicteric sclerae ENMT: external ear and nose normal, oropharynx normal Ears: no hearing impairment Neck: normal visual inspection and trachea midline Respiratory: normal respiratory effort, lungs clear to auscultation no cough Auscultation: no crackles, no rales and no wheezes Cardiovascular: RRR, no murmur, no edema Gastrointestinal (Abdomen): normal bowel sounds, soft, nontender, no hepatosplenomegaly Inspection/Auscultation: abdomen normal to inspection (colostomy working well, bag not removed), normal bowel sounds and + abdominal surgical scar Percussion/Palpation: abdomen nontender, no guarding and abdomen not rigid Musculoskeletal: Extremities: extremities normal to inspection Gait: normal gait Skin: no rashes, warm and dry Neurologic: moves all extremities and awake; no focal motor deficits and not confused Psychiatric: A+Ox3, euthymic affect Genitourinary: no CVA tenderness Results & Data Results & Data ([facility]) Vital Signs (Past 12 Hours) Vital Signs Temp Pulse Resp BP Pulse Ox 02/03/20 07:44 36.7 C 82 16 117/70 99 02/03/20 00:20 36.7 C 101 H 15 102/62 98 Laboratory Results 02/03/20 02/03/20 02/01/20 Range/Units 07:19 07:19 05:31 WBC 4.76 L (4.8-10.8) K/uL RBC 2.21 L (4.7-6.1) M/uL Hgb 6.8 L* (14.0-18.0) g/dL Hct 20.1 L* (42-52) % MCV 91.0 (80-100) fL MCH 30.8 (25-34) pg MCHC 33.8 (32-36) g/dL RDW Std Deviation 42.5 (36.4-46.3) fL RDW Coeff of Abigail 12.8 (11.5-14.5) % Plt Count 278 (130-400) K/uL MPV 8.3 (7.4-10.4) fL Sodium 145 (136-145) mmol/L Potassium 4.0 (3.5-5.1) mmol/L Chloride 111 H (98-107) mmol/L Carbon Dioxide 28 (21-32) mmol/L Anion Gap 6.0 (3-11) BUN 30 H (7-18) mg/dl Creatinine 3.10 H D (0.6-1.4) mg/dl Est Cr Clr Drug Dosing 35.6 ml/min Est GFR ( Amer) 30.1 Est GFR (Non-Af Amer) 26.0 BUN/Creatinine Ratio 9.7 L (10-20) Glucose 99 (70-99) mg/dl Calcium 9.0 (8.5-10.1) mg/dl Tacrolimus 5.5 PG Care Time/CCT Total # of Minutes Spent Total Time Spent with Patient: Total time spent is greater than 50% in coordination of care (as documented) at patient's floor/unit and/or counseling patient: Coding Level of Care Code 08378 Subseq Hosp Care Lvl 2 Diagnoses NATHANIEL (acute kidney injury) N17.9 Anemia D64.9 UTI (urinary tract infection) N39.0 Kidney transplanted Z94.0 Self-catheterizes urinary bladder Z78.9
--- NOTE | 2020-02-03 11:53 | Gastrointestinal Consultation ---
Date of Consultation February 03, 2020 History of Present Illness Attending Physician: Dru Espinoza MD Reason for consult: Anemia HPI: 29 yo M with complicated PMH, notable for renal transplant for horsehoe kidney, h/o colostomy for bowel obstruction, ho chronic anemia with baseline hgb around 8 per med records with nephro note stating that mult prior w/u has been negative. He was admit when he was found to have elevated creat on outpt labs; he was otherwise asymptomatic. He was also found to be anemic with hgb in 6's, without history of overt GIB, although FOBT positive. MCV is normal, ferritin 125 with low TIBC and trans sat 18%. PE: Comfortable, eating lunch, well developed. HEENT: OC clear CV: RRR Resp: CTA Abd: soft A/P: Anemia, presumably ACD or related to renal insuff - No need EGD at this time. Will obtain records from prior scopes. No need PPI therapy in pt without clinc evidence of UGIB. WIll sign off, but please reconsult as needed. Allergies Allergy/AdvReac Type Severity Reaction Status Date / Time bee venom protein (honey bee) Allergy edema, Verified 01/31/20 01:43 hives latex Allergy Unknown Verified 01/31/20 01:43 morphine Allergy nauea, Verified 01/31/20 01:43 vomitting Home Medications Medication Instructions Recorded Confirmed Type cholecalciferol (vitamin D3) 50 50 mcg PO DAILY #30 cap 01/30/20 01/31/20 Rx mcg (2,000 unit) capsule ferrous fumarate-iron 1 cap PO .COMPLEX #100 cap 01/30/20 01/31/20 Rx polysaccharide cplx 162 mg-115.2 mg (106 mg) cap mycophenolate mofetil 250 mg 250 mg PO .COMPLEX cap 01/30/20 01/31/20 History capsule potassium chloride 20 mEq 20 meq PO DAILY #90 tab 01/30/20 01/31/20 Rx tablet,extended release pravastatin 20 mg tablet 20 mg PO DAILY #90 tab 01/30/20 01/31/20 Rx tacrolimus 1 mg capsule 4 mg PO Q12H cap 01/30/20 01/31/20 History Wheelchair (Manual or Powered) 1 ea .ROUTE DAILY #1 ea 01/31/20 01/31/20 Rx testosterone 20.25 mg/1.25 gram 2 pump TOPICAL DAILY #75 g 01/31/20 01/31/20 Rx (1.62 %) transdermal gel pump Patient History Medical History Self-catheterizes urinary bladder Surgical History Colostomy status H/O hernia repair spinal hernia History of esophagogastroduodenoscopy Hx of colonoscopy Hx of laminectomy lumbar spinal cord release Hx of removal of testicle bilateral Kidney transplanted Family History Mother Diabetes Heart disease Father Diabetes Social History Smoking Status: Never smoker Second Hand Exposure: No; Hx Alcohol Use: Yes Hx Substance Use: No Preferred Language: Barbadian Communication Ability: Effective Incinerator Operator Required: No Beliefs That Will Affect Care: None marital status: Single Current Living Situation: Parent current occupational status: 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
--- NOTE | 2020-02-03 11:58 | Nephrology Progress Note ---
Date of Service February 03, 2020 Assessment & Plan (1) NATHANIEL (acute kidney injury): Petros was admitted with NATHANIEL on routine lab with history of renal transplant, creatinine was 4.4 on admission. He has been otherwise asymptomatic. Has history of recurrent episode of acute kidney injury several times a year over last 2 years he had several episodes of NATHANIEL and at 1 episode high his creatinine was above 7 and generally he responds very well with IV hydration and kidney function rapidly improves. Baseline seems to be around 2. 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 NATHANIEL resolving slowly cr down to 3.1, hemoglobin stable 6.8, asymptomatic, waiting on GI evaluation. Patient has a history of chronic anemia, previously had workup which was nonrevealing. He read did receive blood transfusion before. -- continue on IV fluid to 75 ml/h -- continue on Venofer, received Epogen 11831 units x1 dose on 02/01/20 -- continue on current dose of tacrolimus and mycophenolate --no need for blood transfusion at this time. will follow (2) UTI (urinary tract infection): (3) Anemia: (4) Kidney transplanted: (5) Self-catheterizes urinary bladder: Admission and Anticipated Discharge Date Admission Date: January 31, 2020 Subjective Petros was seen and examined in his room this morning. Overall he is feeling well, appetite decent, now voiding normally. Blood pressure well controlled. Creatinine improving slowly, down to 3.1 electrolyte better. Hemoglobin remained low but stable at 6.8 this morning, no SOB, CP. Review of Systems Review of Systems: All systems reviewed & are unremarkable except as noted in Subjective Physical Exam Constitutional: WD/WN, vitals as above no acute distress Neck: normal visual inspection Respiratory: normal respiratory effort, lungs clear to auscultation Cardiovascular: RRR, no murmur, no edema Skin: no rashes, warm and dry Neurologic: awake; not confused Psychiatric: A+Ox3, euthymic affect Results & Data ([facility]) Vital Signs (Past 12 Hours) Vital Signs Temp Pulse Resp BP Pulse Ox 02/03/20 07:44 36.7 C 82 16 117/70 99 02/03/20 00:20 36.7 C 101 H 15 102/62 98 PG Care Time/CCT Total # of Minutes Spent Total Time Spent with Patient: Total time spent is greater than 50% in coordination of care (as documented) at patient's floor/unit and/or counseling patient: Coding Level of Care Code 32355 Subseq Hosp Care Lvl 3 Diagnoses NATHANIEL (acute kidney injury) N17.9 UTI (urinary tract infection) N39.0 Anemia D64.9 Kidney transplanted Z94.0 Self-catheterizes urinary bladder Z78.9
[2020-02-04] MEDS: LACTATED RINGER'S 1,000 ML IV SCH (03:51)
[2020-02-04] MEDS: IRON SUCROSE 200 MG in 0.9 % SODIUM CHLORIDE 100 ML IV SCH (08:35)
[2020-02-04] MEDS: MYCOPHENOLATE MOFETIL 250 MG CAP PO SCH ×2 (08:39→08:40)
[2020-02-04] MEDS: POTASSIUM CHLORIDE CRTAB 20 MEQ TABCR PO SCH (08:40)
[2020-02-04] MEDS: FERROUS SULFATE 325 MG TAB PO SCH (08:40)
[2020-02-04] MEDS: PRAVASTATIN SOD 20 MG TAB PO SCH (08:41)
[2020-02-04] MEDS: POLYETHYLENE (MIRALAX) 17 GM PACK PO SCH (08:41)
[2020-02-04] MEDS: MAGNESIUM OXIDE 400 MG TAB PO SCH (08:41)
[2020-02-04] MEDS: TACROLIMUS 1 MG CAP PO SCH (08:42)
[2020-02-04] MEDS: CHOLECALCIFEROL 1,000 UNITS 25 MCG TAB PO SCH (08:43)
[2020-02-04] MEDS: TESTOSTERONE GEL TOP SCH (08:43)
[2020-02-04 08:54] LABS: Hematocrit (blood only) 20.3 % (42-52); Hemoglobin 6.9 g/dL (14.0-18.0); Mean Corpuscular Hemoglobin 31.1 pg (25-34); Mean Corpuscular Volume 91.4 fL (80-100); Mean Platelet Volume 8.5 fL (7.4-10.4); Platelet Count 274 K/uL (130-400); RDW Standard Deviation 42.9 fL (36.4-46.3); Red Blood Count 2.22 M/uL (4.7-6.1); White Blood Count 4.82 K/uL (4.8-10.8)
[2020-02-04 09:08] LABS: BUN Creatinine Ratio 8.2 (10-20); Calcium 8.7 mg/dl (8.5-10.1); Creatinine Clr Calc Pharmacy 35.4 ml/min; Est GFR (African American) 29.9; Est GFR (Non-African American) 25.8; Potassium 4.3 mmol/L (3.5-5.1)
[2020-02-04 09:10] LABS: Albumin Level 3.1 gm/dl (3.4-5.0); Calcium 8.6 mg/dl (8.5-10.1); Creatinine Clr Calc Pharmacy 35.3 ml/min; Est GFR (African American) 29.7; Est GFR (Non-African American) 25.7; Magnesium 1.3 mg/dl (1.8-2.4); Phosphorus 2.9 mg/dl (2.5-4.9); Potassium 4.2 mmol/L (3.5-5.1)
--- NOTE | 2020-02-04 10:50 | Discharge Summary ---
Date of Service February 04, 2020 Admission HPI Per Admitting Provider Patient is a 29-year-old male with a past medical history of a congenital horseshoe kidney which is been surgically corrected with a kidney transplant, currently the patient only has 1 kidney, patient has a colostomy in place, history of spina bifida with spinal cord tethering, which is been surgically repaired. He presents this evening for evaluation of elevated creatinine. The patient was in his normal state of health, reports no recent changes to his daily routine, reports no recent trauma, no recent muscle injury, no recent prolonged dehydration, no recent constitutional symptoms, reports a history of C ovid approximately 1 month ago. He is currently transitioning from [facility] to [facility] for his medical care. Today he had an initial visit with his new primary care provider who obtained baseline labs.His creatinine resulted at 4.39, his baseline appears to be in the twos. Given these findings he was referred to the emergency department for further evaluation. In the emergency department a Chem-7 was repeated again demonstrating creatinine of 4.65, also hemoglobin of 8, this is a chronic issue related to his underlying kidney disease. Urinalysis demonstrated 3+ leuk esterase, and greater than 30 white blood cells. The primary team was consulted for admission given the patient's elevated creatinine in the setting of 1 transplant kidney, and questionable urinary tract infection. Primary Care Provider: Grecia Bravo, DO Admission Exam Per Admitting Provider Physical Exam: General: No acute distress HEENT: Normocephalic atraumatic Neck: No significant lymphadenopathy, trachea midline, normal to visual inspection Cardiac: Regular rate and rhythm, normal S1, normal S2, I did not appreciated an y significant murmurs rubs or gallops, I did not appreciate any significant pedal edema, No calf tenderness, capillary refill is less than 3 seconds Respiratory: Clear to auscultation bilaterally with symmetrical chest rise, I did not appreciate any significant wheezes, rales, rhonchi, no increased work of breathing GI: Normal bowel sounds, soft, nontender in all 4 quadrants, nondistended MSK: No sensory or motor changes, moves all extremities without issue, extremities are warm and well-perfused Skin: [place], clean, dry, intact. Neuro: Alert and oriented x4, has decreased sensation and motor innervation of the bilateral lower extremities Psych: Calm, cooperative, logical thought process Principal Diagnosis Acute Kidney Injury Discharge Exam Temp Pulse Resp BP Pulse Ox 36.9 C 93 H 16 131/66 99 02/04/20 08:00 02/04/20 08:00 02/04/20 08:00 02/04/20 08:00 02/04/20 08:00 Patient is afebrile. Vital signs stable. Constitutional + overweight; no acute distress ENMT Ears: no hearing impairment Neck normal visual inspection Respiratory normal respiratory effort, lungs clear to auscultation Cardiovascular RRR, no murmur, no edema Gastrointestinal (Abdomen) Inspection/Auscultation: normal bowel sounds Percussion/Palpation: abdomen soft; abdomen nontender Colostomy bag intact Musculoskeletal Head/Neck/Chest: normocephalic and head atraumatic Psychiatric A+Ox3, euthymic affect Discharge Data Allergies Allergy/AdvReac Type Severity Reaction Status Date / Time bee venom protein (honey bee) Allergy edema, Verified 01/31/20 01:43 hives latex Allergy Unknown Verified 01/31/20 01:43 morphine Allergy nauea, Verified 01/31/20 01:43 vomitting Consultations 01/31/20 01:40 ED Decision to Admit Stat 01/31/20 06:11 Consult Nephrology Routine 01/31/20 18:01 Consult Health Information Management Routine 02/03/20 05:13 Consult Gastroenterology Routine 02/04/20 10:38 Consult [facility] patient coordinator Routine 02/04/20 10:40 Consult Health Information Management Routine Ordered Studies 01/31/20 14:30 US renal transplant w dop Routine Hospital Course (1) NATHANIEL (acute kidney injury): * Unclear baseline but according to patient creatinine runs in the twos but frequently has issues keeping up with his oral intake likely secondary to colostomy. Did admit to lack of oral intake * Most recently admitted to [facility] in October with Cr in 7s which improved to the 3s on discharge per patient recollection. 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 * Cr stable today at 3.12. Highest Cr was 4.65 on 01/30 this admission. * Renal US and CXR unremarkable. * Appreciate nephrology consult-- continue with IV Venofer transfusions (2) Anemia: * Relatively stable but not improving with EPO and Venofer (although has been on continuous IVF). No signs of acute blood loss - however FOB positive therefore was started on pantoprazole 40mg IV BID and consulted gastroenterology. * Per GI recommendations, no indication for scope at this time and will request prior records. PPI discontinued. * H&H remains stable this morning at 6.9 and 20.3. Patient remains asymptomatic. * Iron sats 18%. * B12 and folate WNL * Reticulocyte count inappropriately normal (received EPO 01/01) * Continued venofer infusions per Nephrology (3) UTI (urinary tract infection): * Ruled out. * Discontinued further antibiotics. (4) Kidney transplanted: * Continue mycophenolate and tacrolimus. * Tacrolimus levels 5.5 Dispo: Patient will be discharged home today as labs are stable and he is asymptomatic. F/u with nephrology as an outpatient in 1 week. (5) Self-catheterizes urinary bladder: Total Time Total Time Spent Total Time Spent (In Minutes): 60 minutes Total Time Includes: Examination of the Patient, Discharge Planning, Medication Reconciliation and Communication With Other Providers Discharge Plan Discharge Items Patient Disposition: Home - Self-Care Reason For Visit: NATHANIEL Discharge Diagnosis: Acute Kidney Injury Condition on Discharge: Good Activity: Resume your previous activity Lifting: None Bathing: No limitations Driving/Machine Use: Resume 3 days after discharge Non-emergency contact: Primary Care Provider Call non-emergency contact if: you have any medication questions, your symptoms worsen and you have a fever Follow-up/Referrals: Grecia Bravo DO [Primary Care Provider] - Diet: Regular Addtl Attending Provider Instructions: Follow-up with [facility] nephrology in 1 week. Follow-up with primary care in 1-2 weeks. Pending Studies at Discharge: No Stand-Alone Forms: [facility] Medications and DC Order Prescriptions: New magnesium oxide 400 mg (241.3 mg magnesium) Tablet 400 mg PO QAM 30 Days Qty: 30 RF: 0 ferrous sulfate 325 mg (65 mg iron) Tablet,Delayed Release (Dr/Ec) 650 mg PO QAM 30 Days Qty: 30 RF: 0 ferrous sulfate 325 mg (65 mg iron) Tablet,Delayed Release (Dr/Ec) 325 mg PO PM 30 Days Qty: 30 RF: 0 Continued tacrolimus 1 mg capsule 4 mg PO Q12H RF: 0 potassium chloride 20 mEq tablet extended release 20 meq PO DAILY Qty: 90 RF: 3 mycophenolate mofetil 250 mg capsule 250 mg PO .COMPLEX RF: 0 pravastatin 20 mg tablet 20 mg PO DAILY Qty: 90 RF: 3 cholecalciferol (vitamin D3) 50 mcg (2,000 unit) capsule 50 mcg PO DAILY Qty: 30 RF: 0 Wheelchair (Manual) Device 1 ea .Route DAILY Qty: 1 RF: 0 testosterone [AndroGel] 20.25 mg/1.25 gram (1.62 %) gel in metered-dose pump 2 pump topical DAILY Qty: 75 RF: 0 Discontinued ferrous fumarate-iron ps cmplx 162-115.2 (106) mg capsule 1 cap PO .COMPLEX Qty: 100 RF: 0 Discharge Orders: Discharge Order (Routine); Ordered 02/04/20 Ordered By: Gisella Gonzalez Admission Data Admit Date/Time: 01/31/20 03:11 Attending Provider: Dru Espinoza Admit Provider: Jani Mayfield I. Primary Care Provider: Grecia Bravo Other Providers: Myla Mayfield ; Gerardo Lopez ; Cole Vides ; Alayna Boss ; Jae Short ; Trey Berger ; Saeid Warren Coding Level of Care Code D/C Day Management >30 mins Diagnoses NATHANIEL (acute kidney injury) N17.9 Anemia D64.9 UTI (urinary tract infection) N39.0 Kidney transplanted Z94.0 Self-catheterizes urinary bladder Z78.9 Time Spent (min) 60
--- NOTE | 2020-02-04 11:27 | Nephrology Progress Note ---
Date of Service February 04, 2020 Assessment & Plan (1) NATHANIEL (acute kidney injury): Petros was admitted with NATHANIEL on routine lab with history of renal transplant, creatinine was 4.4 on admission. He has been otherwise asymptomatic. Has history of recurrent episode of acute kidney injury several times a year over last 2 years he had several episodes of NATHANIEL and at 1 episode high his creatinine was above 7 and generally he responds very well with IV hydration and kidney function rapidly improves. Baseline seems to be around 2. 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 NATHANIEL resolving slowly cr down to 3.1 And remained stable. hemoglobin stable 6.8, asymptomatic -- continue on oral iron on discharge, received 4 doses of Venofer, received Epogen 44325 units x1 dose on 02/01/20 -- continue on current dose of tacrolimus and mycophenolate --f/u at CKD clinic on 02/16/20, lab in 2 days and then next week. -- OK to DC home, advised due to avoid NSAID keep well hydrated. Pt was advised to contact if any evidence of active GI bleeding or hematuria. (2) UTI (urinary tract infection): (3) Anemia: (4) Kidney transplanted: (5) Self-catheterizes urinary bladder: Admission and Anticipated Discharge Date Admission Date: January 31, 2020 Subjective Petros was seen and examined in his room this morning. Overall he is feeling well, appetite decent, now voiding normally. Blood pressure well controlled. Creatinine stable at 3.1, Magnesium low, recent supplement. Hemoglobin remained low but stable at 6.9 this morning, no SOB, CP. Review of Systems Review of Systems: All systems reviewed & are unremarkable except as noted in Subjective Physical Exam Constitutional: well developed and well nourished; no acute distress Respiratory: normal respiratory effort, lungs clear to auscultation Cardiovascular: RRR, no murmur, no edema Neurologic: moves all extremities and awake; not confused Psychiatric: A+Ox3, euthymic affect Results & Data ([facility]) Vital Signs (Past 12 Hours) Vital Signs Temp Pulse Resp BP Pulse Ox 02/04/20 08:00 36.9 C 93 H 16 131/66 99 PG Care Time/CCT Total # of Minutes Spent Total Time Spent with Patient: Total time spent is greater than 50% in coordination of care (as documented) at patient's floor/unit and/or counseling patient: Coding Level of Care Code 89323 Subseq Hosp Care Lvl 3 Diagnoses NATHANIEL (acute kidney injury) N17.9 UTI (urinary tract infection) N39.0 Anemia D64.9 Kidney transplanted Z94.0 Self-catheterizes urinary bladder Z78.9
== END 2020-02-04 12:46 | disposition home or self-care (01) | DRG 683 ==
LOC: ED 00:13 → SUATTDRO 03:11 → 3N 03:11

== ENCOUNTER 2020-02-20 16:39 | Inpatient (IN) ==
[2020-02-20] MEDS ORDERED: SODIUM CHLORIDE 0.9% 1000ML 1,000 ML IV SCH (18:45)
--- NOTE | 2020-02-20 18:58 | Emergency Department Note ---
Impression & Plan NATHANIEL (acute kidney injury) ED Provider Note Provider: Cipriano Peters MD DATE OF SERVICE:02/20/2020 CHIEF COMPLAINT: Lab abnormalities HISTORY OF PRESENT ILLNESS: Patient is a 29-year-old gentleman with a history of congenital horseshoe kidney now status post transplant at [facility] 2006, colostomy, tethered spinal cord presenting today due to laboratory issues. Patient follows with [place] [facility] and has been having issues with worsening renal function with his kidney transplant. States he has been eating and drinking okay has had normal output from his ostomy but renal function worsened. States he is recently admitted for similar and usually improves with IV fluid. States a little bit of fatigue but denies URI symptoms of fever, sore throat, chest pain, or abdominal pain or nausea or vomiting. Patient states he still making a normal amount of urine. Patient states compliance with home mycophenolate and tacrolimus. Patient denies any abdominal pain or pain over his renal transp lant. REVIEW OF SYSTEMS: A total of 10 review of systems was obtained and negative except as stated above in the HPI. PAST MEDICAL HISTORY: As noted above MEDICATIONS: Reviewed home medication list SOCIAL HISTORY: Non-smoker. Single. PHYSICAL EXAM: GENERAL: alert and oriented in no acute distress on stretcher Head: normocephalic and atraumatic EYES: No injection, discharge or icterus. NECK: Trachea midline. LUNGS: Airway patent. No retractions. No tachypnea HEART: Regular rate and rhythm. No chest wall tenderness ABDOMEN: Soft and non-tender, with a colostomy in place. SKIN: Acyanotic, warm, dry, without rashes EXTREMITIES: Without swelling, tenderness or deformity NEUROLOGICAL: No aphasia. No facial droop or slurred speech. Patient's laboratory studies reviewed. Differential includes Infection, dehydration, metabolic abnormality, hypo/hyperglycemia, electrolyte disturbance, anemia, as well as other pathologies. IMPRESSION/MEDICAL DECISION MAKING: Patient presents due to worsening renal function recent admission for similar. Complicated history of renal transplant follows here with nephrology. Given some IV hydration and repeat labs were sent. Denies significant GI losses but states he is a somewhat difficult time to time maintaining good hydration. Doubt coronavirus infection. Doubt acute intra-abdominal pathology. Screening Covid test is negative. Stable anemia. No leukocytosis. Acute kidney injury noted with elevated BUN and mild hypokalemia. Patient given liter of IV fluid here and discussed with the hospitalist team and the patient were both in agreement to monitor here in the hospital renal function and hydrate for hopeful improvement. DIAGNOSIS: Acute kidney injury DISPOSITION: Hospitalist will evaluate Patient was agreeable with this plan. Past Med/Surg History Medical History (Updated 02/20/20 @ 20:01 by Cipriano Peters M.D.) Hypokalemia Hypomagnesemia Self-catheterizes urinary bladder Tethered spinal cord Surgical History Colostomy status H/O hernia repair spinal hernia History of esophagogastroduodenoscopy Hx of colonoscopy Hx of laminectomy lumbar spinal cord release Hx of removal of testicle bilateral Family History Mother Diabetes Heart disease Father Diabetes Social History Smoking Status: Never smoker Second Hand Exposure: No; Hx Alcohol Use: Yes Hx Substance Use: No Preferred Language: Yoruba Communication Ability: Effective 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 Beliefs That Will Affect Care: None marital status: Single Current Living Situation: Parent current occupational status: 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 Other Information That Helps Us Care for You: No Feels Safe at Home: Yes Safety Concerns: Feels Safe At This Time Do you think of yourself as: don't know Gender Identity: Male Assistive Devices: Cane Allergies Allergies Allergy/AdvReac Type Severity Reaction Status Date / Time bee venom protein (honey bee) Allergy edema, Verified 02/15/20 11:04 hives latex Allergy Unknown Verified 02/15/20 11:04 morphine Allergy nauea, Verified 02/15/20 11:04 vomitting Home Meds Home Medications Medication Instructions Recorded Confirmed mycophenolate mofetil 250 mg 250 mg PO .COMPLEX cap 01/30/20 02/20/20 capsule tacrolimus 1 mg capsule 4 mg PO Q12H cap 01/30/20 02/20/20 Previous Rx's Medication Instructions Recorded cholecalciferol (vitamin D3) 50 50 mcg PO DAILY #30 cap 01/30/20 mcg (2,000 unit) capsule pravastatin 20 mg tablet 20 mg PO DAILY #90 tab 01/30/20 testosterone 20.25 mg/1.25 gram 2 pump TOPICAL DAILY #75 g 01/31/20 (1.62 %) transdermal gel pump ferrous sulfate 325 mg PO PM 30 Days #30 tab 02/04/20 ferrous sulfate 650 mg PO QAM 30 Days #30 tab 02/04/20 Wheelchair (Manual or Powered) 1 ea .ROUTE DAILY #1 ea 02/13/20 epoetin jeffy 40,000 unit/mL 40,000 unit SUBCUT MONTHLY 30 Days 02/15/20 injection solution #30 ml magnesium oxide 400 mg (241.3 mg 400 mg PO DAILY #30 tab 02/15/20 magnesium) tablet Results & Data (ED) Vital Signs Vital Signs - 24 hr 02/20/20 16:53 02/20/20 19:22 02/20/20 19:23 Temperature 37.0 C Temperature Source Oral Pulse Rate 107 H Pulse Rate [Apical] 101 H Pulse Rhythm Regular Pulse Strength Normal Respiratory Rate 16 18 Respiratory Effort / Characteristics Non-Labored Respiratory Depth Normal Respiratory Pattern Regular Blood Pressure 123/72 Blood Pressure [Right Arm] 117/67 Blood Pressure Mean 89 Blood Pressure Mean [Right Arm] 83 Blood Pressure Position Sitting Pulse Oximetry 96 97 Oxygen Delivery Method Room Air Room Air Room Air Sepsis Recent Fever Within 48 Hours No Sepsis New/Unexplained Change in Mental Status N/A Sepsis Action Taken by Nursing No Action Required Laboratory Data Result diagrams: 02/20/20 19:17 02/20/20 19:17 Lab Results 02/20/20 02/20/20 02/20/20 Range/Units 19:17 19:17 19:17 WBC 5.59 (4.8-10.8) K/uL RBC 3.09 L (4.7-6.1) M/uL Hgb 9.7 L (14.0-18.0) g/dL Hct 28.5 L (42-52) % MCV 92.2 (80-100) fL MCH 31.4 (25-34) pg MCHC 34.0 (32-36) g/dL RDW Std Deviation 44.1 (36.4-46.3) fL RDW Coeff of Abigail 13.3 (11.5-14.5) % Plt Count 434 H (130-400) K/uL MPV 9.0 (7.4-10.4) fL Immature Gran % (Auto) 0.2 % Neut % (Auto) 56.6 % Lymph % (Auto) 32.9 % [place] % (Auto) 8.9 % Eos % (Auto) 0.7 % Baso % (Auto) 0.7 % Neut # (Auto) 3.16 (1.4-6.5) K/uL Lymph # (Auto) 1.84 (1.2-3.4) K/uL [place] # (Auto) 0.50 (0.11-0.59) K/uL Eos # (Auto) 0.04 (0-0.5) K/uL Baso # (Auto) 0.04 (0-0.2) K/uL Immature Gran # (Auto) 0.01 (0.00-0.02) K/uL Sodium 134 L (136-145) mmol/L Potassium 3.1 L (3.5-5.1) mmol/L Chloride 84 L (98-107) mmol/L Carbon Dioxide 41 H* (21-32) mmol/L Anion Gap 11.0 (3-11) BUN 73 H (7-18) mg/dl Creatinine 4.70 H* (0.6-1.4) mg/dl Est Cr Clr Drug Dosing Not Reportable Est GFR ( Amer) 18.2 Est GFR (Non-Af Amer) 15.7 BUN/Creatinine Ratio 15.4 (10-20) Glucose 144 H (70-99) mg/dl Calcium 8.5 (8.5-10.1) mg/dl Magnesium 1.8 (1.8-2.4) mg/dl Total Bilirubin 0.3 (0.2-1) mg/dl AST 10 L (15-37) U/L ALT 16 (12-78) U/L Alkaline Phosphatase 111 (45-117) U/L Total Protein 8.3 H (6.4-8.2) gm/dl Albumin 3.9 (3.4-5.0) gm/dl Globulin 4.4 H (2.5-4.0) gm/dl Albumin/Globulin Ratio 0.9 (0.9-2) Urine Color Yellow Urine Appearance Cloudy A (Clear) Urine pH 5.0 (4.5-7.5) Ur Specific [place] >= 1.030 (1.000-1.030) Urine Protein Negative (Negative) Urine Glucose (UA) Negative (Negative) Urine Ketones Negative (Negative) Urine Blood 3+ H (Negative) Urine Nitrite Negative (Negative) Urine Bilirubin Negative (Negative) Urine Urobilinogen Negative (Negative) Ur Leukocyte Esterase 2+ H (Negative) Urine RBC 0-4 (0-4) /hpf Urine WBC 5-10 H (0-5) /hpf Ur Epithelial Cells 0-5 (0-5) /lpf Urine Bacteria 1+ H (Negative) COVID-19 Eval Order SARS-CoV-2, RNA, NAAT (NEGATIVE) 02/20/20 02/20/20 Range/Units 19:17 19:17 WBC (4.8-10.8) K/uL RBC (4.7-6.1) M/uL Hgb (14.0-18.0) g/dL Hct (42-52) % MCV (80-100) fL MCH (25-34) pg MCHC (32-36) g/dL RDW Std Deviation (36.4-46.3) fL RDW Coeff of Abigail (11.5-14.5) % Plt Count (130-400) K/uL MPV (7.4-10.4) fL Immature Gran % (Auto) % Neut % (Auto) % Lymph % (Auto) % [place] % (Auto) % Eos % (Auto) % Baso % (Auto) % Neut # (Auto) (1.4-6.5) K/uL Lymph # (Auto) (1.2-3.4) K/uL [place] # (Auto) (0.11-0.59) K/uL Eos # (Auto) (0-0.5) K/uL Baso # (Auto) (0-0.2) K/uL Immature Gran # (Auto) (0.00-0.02) K/uL Sodium (136-145) mmol/L Potassium (3.5-5.1) mmol/L Chloride (98-107) mmol/L Carbon Dioxide (21-32) mmol/L Anion Gap (3-11) BUN (7-18) mg/dl Creatinine (0.6-1.4) mg/dl Est Cr Clr Drug Dosing Est GFR ( Amer) Est GFR (Non-Af Amer) BUN/Creatinine Ratio (10-20) Glucose (70-99) mg/dl Calcium (8.5-10.1) mg/dl Magnesium (1.8-2.4) mg/dl Total Bilirubin (0.2-1) mg/dl AST (15-37) U/L ALT (12-78) U/L Alkaline Phosphatase (45-117) U/L Total Protein (6.4-8.2) gm/dl Albumin (3.4-5.0) gm/dl Globulin (2.5-4.0) gm/dl Albumin/Globulin Ratio (0.9-2) Urine Color Urine Appearance (Clear) Urine pH (4.5-7.5) Ur Specific [place] (1.000-1.030) Urine Protein (Negative) Urine Glucose (UA) (Negative) Urine Ketones (Negative) Urine Blood (Negative) Urine Nitrite (Negative) Urine Bilirubin (Negative) Urine Urobilinogen (Negative) Ur Leukocyte Esterase (Negative) Urine RBC (0-4) /hpf Urine WBC (0-5) /hpf Ur Epithelial Cells (0-5) /lpf Urine Bacteria (Negative) COVID-19 Eval Order Covid19 IDNow atMDEC SARS-CoV-2, RNA, NAAT NEGATIVE (NEGATIVE) Administered Medications Discontinued Medications Sodium Chloride (Nss 1000ml) 1,000 mls @ 999 mls/hr IV .Q1H1M IGNACIO Stop: 02/20/20 19:45 Last Admin: 02/20/20 19:22 Dose: 999 mls/hr Documented by: [id number] Discharge Plan Visit Data Chief Complaint: Abnormal Labs/Diagnostic Testing Stated Complaint: REF'D ABNORMAL LABS ED Provider: Cipriano Peters Discharge Problem: NATHANIEL (acute kidney injury) Patient Disposition: Being Evaluated by Hospitalist Prescriptions Prescriptions: No Action Wheelchair (Manual) Device 1 ea .Route DAILY Qty: 1 RF: 0 tacrolimus 1 mg capsule 4 mg PO Q12H RF: 0 mycophenolate mofetil 250 mg capsule 250 mg PO .COMPLEX RF: 0 pravastatin 20 mg tablet 20 mg PO DAILY Qty: 90 RF: 3 cholecalciferol (vitamin D3) 50 mcg (2,000 unit) capsule 50 mcg PO DAILY Qty: 30 RF: 0 testosterone [AndroGel] 20.25 mg/1.25 gram (1.62 %) gel in metered-dose pump 2 pump topical DAILY Qty: 75 RF: 0 magnesium oxide 400 mg (241.3 mg magnesium) tablet 400 mg PO DAILY Qty: 30 RF: 2 Procrit 40,000 unit/mL solution 40,000 unit subcut MONTHLY 30 Days Qty: 30 RF: 0 ferrous sulfate 325 mg (65 mg iron) Tablet,Delayed Release (Dr/Ec) 650 mg PO QAM 30 Days Qty: 30 RF: 0 ferrous sulfate 325 mg (65 mg iron) Tablet,Delayed Release (Dr/Ec) 325 mg PO PM 30 Days Qty: 30 RF: 0 Referrals Referrals: Grecia Bravo DO [Primary Care Provider] -
[2020-02-20 19:26] LABS: Basophils # (auto) 0.04 K/uL (0-0.2); Basophils % (auto) 0.7 %; Eosinophils # (auto) 0.04 K/uL (0-0.5); Eosinophils % (auto) 0.7 %; Hematocrit (blood only) 28.5 % (42-52); Hemoglobin 9.7 g/dL (14.0-18.0); Immature Granulocytes # (auto) 0.01 K/uL (0.00-0.02); Immature Granulocytes % (auto) 0.2 %; Lymphocytes # (auto) 1.84 K/uL (1.2-3.4); Lymphocytes % (auto) 32.9 %; Mean Corpuscular Hemoglobin 31.4 pg (25-34); Mean Corpuscular Volume 92.2 fL (80-100); Monocytes % (auto) 8.9 %; Neutrophils # (auto) 3.16 K/uL (1.4-6.5); Neutrophils % (auto) 56.6 %; Platelet Count 434 K/uL (130-400); RDW Coefficient of Variation 13.3 % (11.5-14.5); RDW Standard Deviation 44.1 fL (36.4-46.3); Red Blood Count 3.09 M/uL (4.7-6.1); White Blood Count 5.59 K/uL (4.8-10.8)
[2020-02-20 19:51] LABS: Appearance Urine Cloudy (Clear); Bilirubin Urine Negative (Negative); Blood Urine 3+ (Negative); Color Urine Yellow; Glucose Urine UA Negative (Negative); Ketones Urine Negative (Negative); Leukocyte Esterase Urine 2+ (Negative); Nitrite Urine Negative (Negative); Protein Urine Negative (Negative); Specific Gravity Urine >= 1.030 (1.000-1.030); Urobilinogen Urine Negative (Negative)
[2020-02-20 19:59] LABS: Alanine Aminotransferase 16 U/L (12-78); Albumin Globulin Ratio 0.9 (0.9-2); Albumin Level 3.9 gm/dl (3.4-5.0); Alkaline Phosphatase 111 U/L (45-117); Aspartate Aminotransferase 10 U/L (15-37); BUN Creatinine Ratio 15.4 (10-20); Bilirubin,Total 0.3 mg/dl (0.2-1); Blood Urea Nitrogen 73 mg/dl (7-18); Calcium 8.5 mg/dl (8.5-10.1); Carbon Dioxide 41 mmol/L (21-32); Chloride 84 mmol/L (98-107); Est GFR (African American) 18.2; Est GFR (Non-African American) 15.7; Globulin 4.4 gm/dl (2.5-4.0); Glucose 144 mg/dl (70-99); Magnesium 1.8 mg/dl (1.8-2.4); Potassium 3.1 mmol/L (3.5-5.1); Sodium 134 mmol/L (136-145); Total Protein 8.3 gm/dl (6.4-8.2)
--- NOTE | 2020-02-20 20:01 | History & Physical Report ---
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 - pt with periodic admissions for NATHANIEL which improve with IVF treatment independent of oral intake change/output change in the last few months - Last d/c 02/01 with Cr 3.12, baseline ~3.1 - Outpt Cr acutely increased to 4.57 and 4.7 in ED - Continue mycophenolate 500/250 AM/HS - Continue tacrolimus 4mg BID - NSS + 30KCl 100cc/hr - Nephrology consulted Hypokalemia - K 3.1, Mg 1.8 - IVFM as above - KCl 20meq Q4H x3 doses - BMP daily - Mg 200mg qHS Asymptomatic Bacteruria - Pt reports has to cath at baseline, but has sensation - Urine chronically cloudy for many years - Pt denies urinary sx - Defer abx at this time History of chronic anemia 2/2 CKD - Continue iron supplementation - CBC daily - Pt on epoetin monthly - No clinical signs of bleeding at this time HLD - Continue pravastatin Hx of orchiectomy - Continue testosterone gel. Patient has brought his home medication. 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 Petros reports he had lab work done yesterday and his kidney numbers were up- trending so Dr. Boss asked him to come in for assessment. Reports it is an ongoing issue. Transplant in 2006 and last few years has been having issues with his kidney where his creatine will jump with no change in output or input and generally improves with fluid. Last admission in Dec w/ d/c on 02/03. Does not any inciting factors, but notes his kidney number flares seems to be increases in the last few months. Eating and drinking normally. Tries to drink 100oz of water a day. Appetite has been normal. Denies decreased appetite, nausea, vomiting. Eats ~3 meals a day. Reports he has been peeing normally, last about 15 minutes ago. No burning with urination. Always has cloudy urine which he says does NOT improve with antibiotics. Urine is always cloudy for years. No blood in the urine. He has some urinary incontinence at baseline, has to cath in order to urinate as baseline. no change in volume. No recent illness. No fever chills or sweats. No diarrhea or constipation. No problems with bowel incontinence or constipation at baseline. No cough, shortness of breath, chest pain, chest pressure. No recent sick contacts. He has a colostomy. Uses catheter for urination. Hx of spina bifida, can walk with a cane. Is pending evaluation by [facility] for tethered spinal cord reassessment. had surgery a few years ago, but has had slowly progressive lower extremity weakness and decreased sensation. Pending appointment setup, hasn't heard yet. no recent change in last few days. MHx: Reviewed Medications: Reviewed, las took this morning. Due for evening medications. Shx: reviewed Allergies: Morphine (nausea/vomiting), latex contact allergy (cites precautionary, hasn't had a severe skin reaction to his knowledge), and bee vencom (hives). Social: Lives in his own apartment, parents live in the apartment above. No one in his family has been ill. No tobacco product use. Rare social alcohol use, none recently. No recreational drug or medical marijuana use. Allergies Allergy/AdvReac Type Severity Reaction Status Date / Time bee venom protein (honey bee) Allergy edema, Verified 02/15/20 11:04 hives latex Allergy Unknown Verified 02/15/20 11:04 morphine Allergy nauea, Verified 02/15/20 11:04 vomitting Home Medications Medication Instructions Recorded Confirmed Type cholecalciferol (vitamin D3) 50 50 mcg PO DAILY #30 cap 01/30/20 02/20/20 Rx mcg (2,000 unit) capsule mycophenolate mofetil 250 mg 250 mg PO .COMPLEX cap 01/30/20 02/20/20 History capsule pravastatin 20 mg tablet 20 mg PO DAILY #90 tab 01/30/20 02/20/20 Rx tacrolimus 1 mg capsule 4 mg PO Q12H cap 01/30/20 02/20/20 History testosterone 20.25 mg/1.25 gram 2 pump TOPICAL DAILY #75 g 01/31/20 02/20/20 Rx (1.62 %) transdermal gel pump ferrous sulfate 325 mg PO PM 30 Days #30 tab 02/04/20 02/20/20 Rx ferrous sulfate 650 mg PO QAM 30 Days #30 tab 02/04/20 02/20/20 Rx Wheelchair (Manual or Powered) 1 ea .ROUTE DAILY #1 ea 02/13/20 02/20/20 Rx epoetin jeffy 40,000 unit/mL 40,000 unit SUBCUT MONTHLY 30 Days 02/15/20 02/15/20 Rx injection solution #30 ml magnesium oxide 400 mg (241.3 mg 400 mg PO DAILY #30 tab 02/15/20 02/20/20 Rx magnesium) tablet Past Med/Surg History Medical History (Updated 02/20/20 @ 20:01 by Cipriano Peters M.D.) Hypokalemia Hypomagnesemia Self-catheterizes urinary bladder Tethered spinal cord Surgical History Colostomy status H/O hernia repair spinal hernia History of esophagogastroduodenoscopy Hx of colonoscopy Hx of laminectomy lumbar spinal cord release Hx of removal of testicle bilateral Family History Mother Diabetes Heart disease Father Diabetes Social History Smoking Status: Never smoker Second Hand Exposure: No; Do You Dip or Chew Tobacco: No; Hx Alcohol Use: Yes Hx Substance Use: No Preferred Language: Cymro Communication Ability: Effective Deputy Editor In Chief Required: No Beliefs That Will Affect Care: None marital status: Single Current Living Situation: Parent current occupational status: 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 Other Information That Helps Us Care for You: No Feels Safe at Home: Yes Safety Concerns: Feels Safe At This Time Do you think of yourself as: don't know Gender Identity: Male Assistive Devices: Cane Review of Systems Review of Systems: Constitutional: Denies fever, chills, malaise, Eyes: Denies double vision, vision change, eye pain ENT: Denies ear pain, sore throat, sinus pain Cardiovascular: Denies chest pain, chest pressure, palpitations, extremity swelling Respiratory: Denies shortness of breath, cough, sputum production, difficulty breathing Gastrointestinal: See HPI Genitourinary: See HPI Musculoskeletal: See HPI Integumentary:Denies rash, lesions, bruising Neurological: Denies headache, numbness, tingling. See HPI Physical Exam Physical Exam: General: A&Ox3. NAD. Cooperative. HEENT: Atraumatic, normocephalic. Pulm: CTAB A&P. -wheezes, -rales, -rhonchi. Symmetrical chest rise. No increase work of breathing. No respiratory distress. Cardiac: RRR, -mrg. Radial pulses intact and symmetrical. Abdominal: Ostomy in place. Nontender, nondistended, soft. BS present. CRANIAL NERVES: II: Pupils equal and reactive, no relative afferent pupillary defect, no VF cuts III, IV, : EOM intact, no gaze preference or deviation, no nystagmus. VIII: normal hearing to speech IX, X: normal palatal elevation, no uvular deviation XII: midline tongue protrusion MOTOR: RUE: 5/5 Shoulder internal rotation, external rotation 5/5 Elbow flexion/extension, wrist flexion/extension 5/5 bicycle taxi driver strength, finger flexion/extension, interosseus LUE: 5/5 Shoulder internal rotation, external rotation 5/5 Elbow flexion/extension, wrist flexion/extension 5/5 bicycle taxi driver strength, finger flexion/extension, interosseus RLE: 5/5 to hip flexion. 4-/5 ankle dorsiflexion/plantarflexion LLE: 5/5 to hip flexion. 4-/5 ankle dorsiflexion/plantarflexion SENSORY: Sensation intact in distal extremities to soft touch without asymmetry, but bilaterally decreased in foot and ankle. Results & Data Results & Data ([facility]) Vital Signs (Past 12 Hours) Vital Signs Temp Pulse Pulse Resp BP BP Pulse Ox 02/20/20 19:23 101 H 18 117/67 97 02/20/20 16:53 37.0 C 107 H 16 123/72 96 Laboratory Results Lab Results 02/20/20 02/20/20 02/20/20 Range/Units 19:17 19:17 19:17 WBC 5.59 (4.8-10.8) K/uL RBC 3.09 L (4.7-6.1) M/uL Hgb 9.7 L (14.0-18.0) g/dL Hct 28.5 L (42-52) % MCV 92.2 (80-100) fL MCH 31.4 (25-34) pg MCHC 34.0 (32-36) g/dL RDW Std Deviation 44.1 (36.4-46.3) fL RDW Coeff of Abigail 13.3 (11.5-14.5) % Plt Count 434 H (130-400) K/uL MPV 9.0 (7.4-10.4) fL Immature Gran % (Auto) 0.2 % Neut % (Auto) 56.6 % Lymph % (Auto) 32.9 % [place] % (Auto) 8.9 % Eos % (Auto) 0.7 % Baso % (Auto) 0.7 % Neut # (Auto) 3.16 (1.4-6.5) K/uL Lymph # (Auto) 1.84 (1.2-3.4) K/uL [place] # (Auto) 0.50 (0.11-0.59) K/uL Eos # (Auto) 0.04 (0-0.5) K/uL Baso # (Auto) 0.04 (0-0.2) K/uL Immature Gran # (Auto) 0.01 (0.00-0.02) K/uL Sodium 134 L (136-145) mmol/L Potassium 3.1 L (3.5-5.1) mmol/L Chloride 84 L (98-107) mmol/L Carbon Dioxide 41 H* (21-32) mmol/L Anion Gap 11.0 (3-11) BUN 73 H (7-18) mg/dl Creatinine 4.70 H* (0.6-1.4) mg/dl Est Cr Clr Drug Dosing Not Reportable Est GFR ( Amer) 18.2 Est GFR (Non-Af Amer) 15.7 BUN/Creatinine Ratio 15.4 (10-20) Glucose 144 H (70-99) mg/dl Calcium 8.5 (8.5-10.1) mg/dl Magnesium 1.8 (1.8-2.4) mg/dl Total Bilirubin 0.3 (0.2-1) mg/dl AST 10 L (15-37) U/L ALT 16 (12-78) U/L Alkaline Phosphatase 111 (45-117) U/L Total Protein 8.3 H (6.4-8.2) gm/dl Albumin 3.9 (3.4-5.0) gm/dl Globulin 4.4 H (2.5-4.0) gm/dl Albumin/Globulin Ratio 0.9 (0.9-2) Urine Color Yellow Urine Appearance Cloudy A (Clear) Urine pH 5.0 (4.5-7.5) Ur Specific [place] >= 1.030 (1.000-1.030) Urine Protein Negative (Negative) Urine Glucose (UA) Negative (Negative) Urine Ketones Negative (Negative) Urine Blood 3+ H (Negative) Urine Nitrite Negative (Negative) Urine Bilirubin Negative (Negative) Urine Urobilinogen Negative (Negative) Ur Leukocyte Esterase 2+ H (Negative) Urine RBC 0-4 (0-4) /hpf Urine WBC 5-10 H (0-5) /hpf Ur Epithelial Cells 0-5 (0-5) /lpf Urine Bacteria 1+ H (Negative) COVID-19 Eval Order SARS-CoV-2, RNA, NAAT (NEGATIVE) 02/20/20 02/20/20 Range/Units 19:17 19:17 WBC (4.8-10.8) K/uL RBC (4.7-6.1) M/uL Hgb (14.0-18.0) g/dL Hct (42-52) % MCV (80-100) fL MCH (25-34) pg MCHC (32-36) g/dL RDW Std Deviation (36.4-46.3) fL RDW Coeff of Abigail (11.5-14.5) % Plt Count (130-400) K/uL MPV (7.4-10.4) fL Immature Gran % (Auto) % Neut % (Auto) % Lymph % (Auto) % [place] % (Auto) % Eos % (Auto) % Baso % (Auto) % Neut # (Auto) (1.4-6.5) K/uL Lymph # (Auto) (1.2-3.4) K/uL [place] # (Auto) (0.11-0.59) K/uL Eos # (Auto) (0-0.5) K/uL Baso # (Auto) (0-0.2) K/uL Immature Gran # (Auto) (0.00-0.02) K/uL Sodium (136-145) mmol/L Potassium (3.5-5.1) mmol/L Chloride (98-107) mmol/L Carbon Dioxide (21-32) mmol/L Anion Gap (3-11) BUN (7-18) mg/dl Creatinine (0.6-1.4) mg/dl Est Cr Clr Drug Dosing Est GFR ( Amer) Est GFR (Non-Af Amer) BUN/Creatinine Ratio (10-20) Glucose (70-99) mg/dl Calcium (8.5-10.1) mg/dl Magnesium (1.8-2.4) mg/dl Total Bilirubin (0.2-1) mg/dl AST (15-37) U/L ALT (12-78) U/L Alkaline Phosphatase (45-117) U/L Total Protein (6.4-8.2) gm/dl Albumin (3.4-5.0) gm/dl Globulin (2.5-4.0) gm/dl Albumin/Globulin Ratio (0.9-2) Urine Color Urine Appearance (Clear) Urine pH (4.5-7.5) Ur Specific [place] (1.000-1.030) Urine Protein (Negative) Urine Glucose (UA) (Negative) Urine Ketones (Negative) Urine Blood (Negative) Urine Nitrite (Negative) Urine Bilirubin (Negative) Urine Urobilinogen (Negative) Ur Leukocyte Esterase (Negative) Urine RBC (0-4) /hpf Urine WBC (0-5) /hpf Ur Epithelial Cells (0-5) /lpf Urine Bacteria (Negative) COVID-19 Eval Order Covid19 [facility] SARS-CoV-2, RNA, NAAT NEGATIVE (NEGATIVE) Supervising Physician Co-Signing Physician Notes Patient seen and examined, chart reviewed, case discussed with Dr. Juan and I agree with his assessment and plan as documented above. Briefly, patient is a 29yo C male with history of renal transplant with chronic allograft nephropathy presenting with elevated BUN and Cr. No additional complaints. Specifically, no fevers/chilly/dysuria/abdominal pain/nausea/vomiting/tenderness of transplant On exam he is afebrile, HD stable, NAD, resting comfortably Skin - warm, dry, intact, no rashes/lesions HEENT - NC/AT, PERRL, EOMI, MMM, Neck supple Heart - +S1/S2, regular, no m/r/g Lungs - CTA Abd - palpable transplant right lower abdomen, nontender Ext - No edema Labs and images reviewed Assessment/Plan: -IVF -Monitor renal function -Neprhology consultation appreciated -Continue immunosuppressive therapy with Mycophenolate mofetil and Tacrolimus -Remainder of plan as above Resident Activity Tracking Resident Involvement: Resident Care Provided Care Provided: Adult [facility] Medicine
[2020-02-20 20:03] LABS: Bacteria Urine 1+ (Negative); Epithelial Cell Urine 0-5 /lpf (0-5); RBC Urine 0-4 /hpf (0-4)
[2020-02-20] MEDS: POTASSIUM CHLORIDE 30 MEQ in SODIUM CHLORIDE 0.9% 1000ML 1,000 ML IV SCH (22:05)
[2020-02-20] MEDS: FERROUS SULFATE 325 MG TAB PO SCH (22:05)
[2020-02-20] MEDS: TACROLIMUS 1 MG CAP PO SCH (22:05)
[2020-02-20] MEDS: MYCOPHENOLATE MOFETIL 250 MG CAP PO SCH (22:05)
[2020-02-20] MEDS: POTASSIUM CHLORIDE CRTAB 20 MEQ TABCR PO SCH (22:06)
--- NOTE | 2020-02-20 22:40 | Billing Data ---
Date of Service February 20, 2020 Coding Level of Care Code 66897 Initial Inpt Care Lvl 3
[2020-02-21] MEDS: POTASSIUM CHLORIDE CRTAB 20 MEQ TABCR PO SCH ×2 (01:58→05:20)
--- NOTE | 2020-02-21 06:49 | Hospitalist Progress Note ---
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 - pt with periodic admissions for NATHANIEL which improve with IVF treatment independent of oral intake change/output change in the last few months - Last d/c 02/01 with Cr 3.12, baseline ~3.1 - Outpt Cr acutely increased to 4.57 and 4.7 in ED - [facility] - Continue mycophenolate 500/250 AM/HS - Continue tacrolimus 4mg BID - NSS + 30KCl 100cc/hr - Nephrology consulted Hypokalemia - K 3.1, Mg 1.8 - IVFM as above - KCl 20meq Q4H x3 doses - BMP daily - Mg 200mg qHS Asymptomatic Bacteruria - Pt reports has to cath at baseline, but has sensation - Urine chronically cloudy for many years - Pt denies urinary sx - Defer abx at this time History of chronic anemia 2/2 CKD - Continue iron supplementation - CBC daily - Pt on epoetin monthly - No clinical signs of bleeding at this time HLD - Continue pravastatin Hx of orchiectomy - Continue testosterone gel. Patient has brought his home medication. DVT PPx: SCDs Diet: Regular Dispo: Med/Surg CODE STATUS: Full Code (2) Tethered spinal cord: (3) Hypokalemia: (4) Hypomagnesemia: (5) Hx of laminectomy: (6) Colostomy status: Admission and Anticipated Discharge Date Admission Date: February 20, 2020 Subjective kidney issues last several years. labwork wednesday showed high creatinine. 2007 transplant from [facility] born w/ horseshoe kidney only symptoms was slight bilat thigh cramping. no decreased uop or dysuria denies hx kidney stones or infxns caths at home since childhood because of incontinence. no bladder control. says no change in output amojnts. no color change or blood. 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 no tobacco Review of Systems Review of Systems: Constitutional: Denies fever, chills, weight change Eyes: Denies blurry vision, vision changes Cardiovascular: Denies chest pain, palpitations Respiratory: Denies shortness of breath Gastrointestinal: Denies abdominal pain, nausea, vomiting, constipation, diarrhea Genitourinary: Denies urinary symptoms including dysuria Musculoskeletal: Denies weakness. see hpi Neurological: Denies headache, numbness, tingling, focal weakness Physical Exam Physical Exam: General: Grossly A&O. NAD. Cooperative. HEENT: Atraumatic, normocephalic. Pulm: CTAB. -wheezes, -rales, -rhonchi. No respiratory distress. Cardiac: RRR, -mrg. no le edema Abdominal: Nontender, nondistended, soft. no cva ttp Results & Data Results & Data ([facility]) Vital Signs (Past 12 Hours) Vital Signs Temp Pulse Pulse Pulse Resp BP BP 02/20/20 23:05 36.7 C 99 H 16 115/79 02/20/20 21:09 36.7 C 98 H 16 120/69 02/20/20 20:01 98 H 16 120/67 02/20/20 19:23 101 H 18 BP Pulse Ox 02/20/20 23:05 97 02/20/20 21:09 96 02/20/20 20:01 98 02/20/20 19:23 117/67 97 Resident Activity Tracking Resident Involvement: Resident Care Provided Care Provided: Adult Hospital Medicine
[2020-02-21] MEDS: POTASSIUM CHLORIDE 30 MEQ in SODIUM CHLORIDE 0.9% 1000ML 1,000 ML IV SCH ×2 (07:37→22:54)
[2020-02-21] MEDS: PRAVASTATIN SOD 20 MG TAB PO SCH (08:08)
[2020-02-21] MEDS: TACROLIMUS 1 MG CAP PO SCH ×2 (08:08→20:15)
[2020-02-21] MEDS: FERROUS SULFATE 325 MG TAB PO SCH ×2 (08:09→20:15)
[2020-02-21] MEDS: MYCOPHENOLATE MOFETIL 250 MG CAP PO SCH ×2 (08:09→20:15)
[2020-02-21] MEDS: CHOLECALCIFEROL 1,000 UNITS 25 MCG TAB PO SCH (08:09)
[2020-02-21] MEDS: MAGNESIUM OXIDE 400 MG TAB PO SCH (08:09)
[2020-02-21] MEDS: TESTOSTERONE EXT SCH (08:10)
[2020-02-21 08:16] LABS: White Blood Count 4.23 K/uL (4.8-10.8)
[2020-02-21 08:17] LABS: Basophils # (auto) 0.04 K/uL (0-0.2); Basophils % (auto) 0.9 %; Eosinophils # (auto) 0.08 K/uL (0-0.5); Eosinophils % (auto) 1.9 %; Hematocrit (blood only) 25.8 % (42-52); Hemoglobin 8.5 g/dL (14.0-18.0); Immature Granulocytes # (auto) 0.01 K/uL (0.00-0.02); Immature Granulocytes % (auto) 0.2 %; Lymphocytes # (auto) 1.78 K/uL (1.2-3.4); Lymphocytes % (auto) 42.1 %; Mean Corpuscular Hemoglobin 30.7 pg (25-34); Mean Corpuscular Hgb Conc 32.9 g/dL (32-36); Mean Corpuscular Volume 93.1 fL (80-100); Mean Platelet Volume 8.7 fL (7.4-10.4); Monocytes # (auto) 0.54 K/uL (0.11-0.59); Monocytes % (auto) 12.8 %; Neutrophils # (auto) 1.78 K/uL (1.4-6.5); Neutrophils % (auto) 42.1 %; Platelet Count 363 K/uL (130-400); RDW Coefficient of Variation 13.4 % (11.5-14.5); RDW Standard Deviation 45.3 fL (36.4-46.3); Red Blood Count 2.77 M/uL (4.7-6.1)
[2020-02-21 08:49] LABS: BUN Creatinine Ratio 16.6 (10-20); Calcium 8.8 mg/dl (8.5-10.1); Creatinine Clr Calc Pharmacy 26.3 ml/min; Est GFR (African American) 20.6; Est GFR (Non-African American) 17.8; Potassium 3.8 mmol/L (3.5-5.1)
--- NOTE | 2020-02-21 14:39 | Medical Student Progress Note ---
Date of Service February 21, 2020 Assessment & Plan (1) NATHANIEL (acute kidney injury): Petros Rand is a 29-year-old male with a pmh of chronic allograft nephropathy, renal interstitial fibrosis and tubular atrophy, calcineurin inhibitor toxicity, and recurrent NATHANIEL status post kidney transplant here for elevated Cr. Acute Kidney Injury Secondary to Hypovolemia - Outpt Cr acutely increased to 4.57 and 4.7 in ED - Last d/c 02/01 with Cr 3.12, baseline ~3.1 - pt with periodic admissions for NATHANIEL which improves with IVF treatment likely hypovolemia; however BUN/Cr ratio <20 which does not align with prerenal azotemia - FeNa Ordered, awaiting results - Order tacrolimus level to rule out nephrotoxicity - Continue mycophenolate 500/250 AM/HS - Continue tacrolimus 4mg BID - Continue rescuscitation with NSS + 30KCl 100cc/hr - Nephrology consulted; awaiting reccomendations - Continue BMP labs q24 Hypokalemia - K normalized to 3.8 from 3.1 - Repleted K with KCl 20meq Q4H x3 doses - Continue BMP q24 Asymptomatic Bacteruria - U/A on admission: 3+ blood, 2+ leukocytes, 5-10 urine WBC, 1+ bacteria - Pt self caths at baseline, has sensation, and denies f/u/d -awaiting urinary culture, defer abx at this time unless urinary culture grows bacteria History of Anemia of Chronic Disease Secondary to Renal Disease - Hgb stable 8.5 from 9.7, change in Hgb likely dilutional following fluid administration - Continue home iron supplementation - CBC daily - Pt on erythropoetin monthly - No clinical signs of bleeding at this time HLD - Continue pravastatin Hx of orchiectomy - Continue testosterone gel. Patient has brought his home medication. DVT PPx: SCDs Diet: Regular Dispo: Med/Surg CODE STATUS: Full Code (2) Tethered spinal cord: (3) Hypokalemia: (4) Hypomagnesemia: (5) Hx of laminectomy: (6) Colostomy status: Admission and Anticipated Discharge Date Admission Date: February 20, 2020 Supervising Attestation Medical Student Supervision Note: I was personally present during medical student patient encounter and independently interviewed and examined the patient and verified the restrepo history and physical, reviewed labs and image studies, discussed the case with Shameka Joyce and agree with the findings and care plan. Acute on chronic renal failure in the setting of renal transplant and chronic self catheterization - sec to dehydration - continue IV hydration. - appreciate nephrology recommendation. - Per nephro - Patient may benefit from referral to transplant Nephrology as outpatient to determine whether to substitute enteric coated mycophenolate or change to alternative immunosuppressant due to his diarrhea. Transplant referral will also be beneficial due to his advance allograft impairment Subjective Pt is a 29 yo M with a pmh of chronic allograft nephropathy, renal interstitial fibrosis, calcineurin inhibitor toxicity, and recurrent NATHANIEL status post renal transplant (2006) for horseshoe kidney on day 1 of inpatient stay for elevated Creatinine found on outpatient labs. [facility] and had labs completed 02/18 that showed elevated Creatinine. He was told to go to the ED for further assessment. He has had issues in the past where hea has had sudden elevations in Creatinine that require admission and usually resolve following fluid administration. He was last here with the same concern on 02/03. Pt states there are no inciting factors, but has noted his Creatinine elevations have become more frequent over the last few months. Today, the patient is fee ling well and has no complaints. He denies any pain. He ambulates with a cane per baseline, and has been able to do so in his room with no difficulty. He has been eating his meals accordingly and has no changes in appetite or any abdominal pain. He uses a self catheter per baseline, and has continued to do so in the inpatient setting with no sx of burning, urgency, or increased frequency.Pt has a colostomy, which has had no changes in output since admission. Review of Systems Constitutional: + fatigue (part of his baseline due to his anemia ) denies fever, chills, headache, dizziness Eyes: denies changes in vision Ear, Nose, Mouth, Throat: denies hearing loss Respiratory: denies cough, dyspnea Cardiovascular: Additional Comments: denies chest pain, palpitations Gastrointestinal: denies nausea, vomiting, abdominal pain Neurologic: +weakness, numbness Physical Exam Constitutional: WD/WN, vitals as above Eyes: PERRL, conjunctivae normal, anicteric sclerae ENMT: external ear and nose normal, oropharynx normal Neck: normal visual inspection Respiratory: normal respiratory effort, lungs clear to auscultation Cardiovascular: RRR, no murmur, no edema Gastrointestinal (Abdomen): normal bowel sounds, soft, nontender, no hepatosplenomegaly colostomy site intact Musculoskeletal: Extremities: extremities normal to inspection Neurologic: CN II-XII intact; Motor: RUE 5/5 strength, LUE 5/5 strength, RLE 4/5 strength, LLE 4/5; Sensory: decreased bilaterally on foot, ankle, and negron Results & Data ([facility]) Vital Signs (Past 12 Hours) Vital Signs Temp Pulse Resp BP Pulse Ox 02/21/20 07:50 36.4 C L 88 16 92/54 L 95
--- NOTE | 2020-02-21 15:30 | Nephrology Consultation ---
Date of Consultation February 21, 2020 Assessment & Plan (1) NATHANIEL (acute kidney injury): * Creatinine trending down w/ IV hydration * Continue hydration w/ 0.9NS at 80cc/hr (2) Kidney transplant recipient: * Baseline Cr ~ 3.0 * Continue current immunosuppressant regimen (Tacrolimus 4 mg po BID, Mycophenolate 500 mg po qAM/250 mg po qPM) (3) Dehydration: * Recurrent problem resulting in NATHANIEL * Will ask staff sonographer to measure UO and stool volume * If patient has large stool volume, may consider adding fiber supplement to slow intestinal transit * Patient may benefit from referral to transplant Nephrology as outpatient to determine whether to substitute enteric coated mycophenolate or change to alternative immunosuppressant due to his diarrhea. Transplant referral will also be beneficial due to his advance allograft impairment History of Present Illness Reason for Consultation: NATHANIEL/CKD Attending Physician: Kathy Falcon MD History of Present Illness Mr. Forte is a 29 year old white male who is seen at the request of Dr. Falcon for evaluation of NATHANIEL/CKD. Medical records in the EMR were reviewed today and are summarized as follows: Mr. Forte has a h/o spina bifida, horseshoe kidney and obstructive uropathy. He developed progressive renal dysfunction and underwent DDRT (6 antigen mismatch, CMV positive) 02/14 at [facility]. As an adult, Mr. Forte has been cared for by [facility]. Their records detail a complex history including cloacal exstrophy, gastrocystoplasty and appendicovesicostomy w/ q4 hour cath, colostomy, hypogonadism, hyperlipidemia and hypertension. Mr. Fotre has been hospitalized at least once a year due to dehydration resulting in NATHANIEL. 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 In 10/28 his creatinine was ~ 3.0. Mr. Forte established care w/ Dr. Boss 01/27. He was hospitalized at [facility] w/ dehydration and NATHANIEL. His creatinine had improved to 3.1 at the time of discharge. Recently Mr. Forte completed blood work in preparation for his Nephrology outpatient visit. Cr had risen to 4.[address] Boss advised admission for IV hydration. Mr. Forte reports drinking 100 oz (3L) water per day. He has never measured his UO. He does empty his colostomy 4 - 5x/day and reports liquid stool. He lives in [place], [place] and indicates that he would consider evaluation at [facility] or [facility] if his kidney function worsens Allergies Allergy/AdvReac Type Severity Reaction Status Date / Time bee venom protein (honey bee) Allergy edema, Verified 02/15/20 11:04 hives latex Allergy Unknown Verified 02/15/20 11:04 morphine Allergy nauea, Verified 02/15/20 11:04 vomitting Home Medications Medication Instructions Recorded Confirmed Type cholecalciferol (vitamin D3) 50 50 mcg PO DAILY #30 cap 01/30/20 02/20/20 Rx mcg (2,000 unit) capsule mycophenolate mofetil 250 mg 250 mg PO .COMPLEX cap 01/30/20 02/20/20 History capsule pravastatin 20 mg tablet 20 mg PO DAILY #90 tab 01/30/20 02/20/20 Rx tacrolimus 1 mg capsule 4 mg PO Q12H cap 01/30/20 02/20/20 History testosterone 20.25 mg/1.25 gram 2 pump TOPICAL DAILY #75 g 01/31/20 02/20/20 Rx (1.62 %) transdermal gel pump ferrous sulfate 325 mg PO PM 30 Days #30 tab 02/04/20 02/20/20 Rx ferrous sulfate 650 mg PO QAM 30 Days #30 tab 02/04/20 02/20/20 Rx Wheelchair (Manual or Powered) 1 ea .ROUTE DAILY #1 ea 02/13/20 02/20/20 Rx epoetin jeffy 40,000 unit/mL 40,000 unit SUBCUT MONTHLY 30 Days 02/15/20 02/15/20 Rx injection solution #30 ml magnesium oxide 400 mg (241.3 mg 400 mg PO DAILY #30 tab 02/15/20 02/20/20 Rx magnesium) tablet Patient History Medical History Hypokalemia Hypomagnesemia Self-catheterizes urinary bladder Tethered spinal cord Surgical History Colostomy status H/O hernia repair spinal hernia History of esophagogastroduodenoscopy Hx of colonoscopy Hx of laminectomy lumbar spinal cord release Hx of removal of testicle bilateral Family History Mother Diabetes Heart disease Father Diabetes Social History (Updated 02/21/20 @ 16:03 by Gerardo Lopez MD) Smoking Status: Never smoker Second Hand Exposure: No; Do You Dip or Chew Tobacco: No; Hx Alcohol Use: Yes Hx Substance Use: No Preferred Language: Pashto Communication Ability: Effective Head Up Operator Required: No Beliefs That Will Affect Care: None marital status: Single Current Living Situation: Parent current occupational status: 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[employer] Other Information That Helps Us Care for You: No Feels Safe at Home: Yes Safety Concerns: Feels Safe At This Time Do you think of yourself as: don't know Gender Identity: Male Assistive Devices: Cane Review of Systems Constitutional: no fever Eyes: no problem reported Ear, Nose, Mouth, Throat: no problem reported Respiratory: no dyspnea Cardiovascular: no chest pain and no edema Gastrointestinal: + diarrhea/loose stools; no abdominal pain Neurologic: no dizziness and no confusion Physical Exam Constitutional: not in distress Eyes: PERRL, conjunctivae normal, anicteric sclerae ENMT: external ear and nose normal, oropharynx normal Neck: trachea midline, no thyromegaly Respiratory: normal respiratory effort, lungs clear to auscultation Cardiovascular: RRR, no murmur, no edema Gastrointestinal (Abdomen): normal bowel sounds, soft, nontender, no hepatosplenomegaly (LLQ colostomy) Skin: no rashes, warm and dry Neurologic: awake; not confused Results & Data ([facility]) Vital Signs (Past 12 Hours) Vital Signs Temp Pulse Resp BP BP Pulse Ox 02/21/20 15:07 36.6 C 99 H 16 116/66 96 02/21/20 07:50 36.4 C L 88 16 92/54 L 95 Laboratory Tests 02/21/20 02/21/20 08:08 08:08 WBC 4.23 L Hgb 8.5 L Hct 25.8 L Plt Count 363 Sodium 138 Potassium 3.8 D Chloride 95 L Carbon Dioxide 35 H BUN 71 H Creatinine 4.24 H D Glucose 106 H PG Care Time/CCT Total # of Minutes Spent Total Time Spent with Patient: Total time spent is greater than 50% in coordination of care (as documented) at patient's floor/unit and/or counseling patient: Coding Level of Care Code 77895 Inpt Consult Level 5 Diagnoses NATHANIEL (acute kidney injury) N17.9 Kidney transplant recipient Z94.0 Dehydration E86.0
[2020-02-21] MEDS: SODIUM CHLORIDE 0.9% 1000ML 1,000 ML IV SCH (18:18)
[2020-02-21] MEDS ORDERED: Nursing to Pharmacy Communication SCH (19:45)
[2020-02-22] MEDS: SODIUM CHLORIDE 0.9% 1000ML 1,000 ML IV SCH ×3 (05:35→17:36)
[2020-02-22 07:53] LABS: Hematocrit (blood only) 24.6 % (42-52); Hemoglobin 8.2 g/dL (14.0-18.0); Mean Corpuscular Hemoglobin 31.4 pg (25-34); Mean Corpuscular Hgb Conc 33.3 g/dL (32-36); Mean Corpuscular Volume 94.3 fL (80-100); Mean Platelet Volume 8.6 fL (7.4-10.4); Platelet Count 356 K/uL (130-400); RDW Coefficient of Variation 13.2 % (11.5-14.5); RDW Standard Deviation 44.7 fL (36.4-46.3); Red Blood Count 2.61 M/uL (4.7-6.1); White Blood Count 4.74 K/uL (4.8-10.8)
[2020-02-22] MEDS: TACROLIMUS 1 MG CAP PO SCH ×2 (08:24→20:44)
[2020-02-22] MEDS: CHOLECALCIFEROL 1,000 UNITS 25 MCG TAB PO SCH (08:24)
[2020-02-22] MEDS: FERROUS SULFATE 325 MG TAB PO SCH ×2 (08:25→20:44)
[2020-02-22] MEDS: PRAVASTATIN SOD 20 MG TAB PO SCH (08:25)
[2020-02-22] MEDS: MYCOPHENOLATE MOFETIL 250 MG CAP PO SCH ×2 (08:25→20:44)
[2020-02-22] MEDS: TESTOSTERONE EXT SCH (08:26)
[2020-02-22 08:35] LABS: BUN Creatinine Ratio 15.8 (10-20); Calcium 8.5 mg/dl (8.5-10.1); Creatinine Clr Calc Pharmacy 30.1 ml/min; Est GFR (African American) 24.2; Est GFR (Non-African American) 20.9; Potassium 3.7 mmol/L (3.5-5.1)
[2020-02-22 09:34] LABS: Ferritin 166.9 ng/ml (8-388)
[2020-02-22] MEDS: MAGNESIUM OXIDE 400 MG TAB PO SCH (09:51)
--- NOTE | 2020-02-22 12:05 | Nephrology Progress Note ---
Date of Service February 22, 2020 Assessment & Plan (1) NATHANIEL (acute kidney injury): * Creatinine trending down w/ IV hydration * Continue hydration w/ 0.9NS at 80cc/hr (2) Kidney transplant recipient: * Baseline Cr ~ 3.0 * Continue current immunosuppressant regimen (Tacrolimus 4 mg po BID, Mycophenolate 500 mg po qAM/250 mg po qPM) (3) Dehydration: * Recurrent problem resulting in NATHANIEL * production staff worker has recorded 1100 cc liquid stool and 2.5L UO over the last 24 hours * Will start fiber supplement to slow intestinal transit. Will schedule for noon each day to avoid administration w/ immunosuppressant medications * As an outpatient Mr. Forte may benefit from transplant Nephrology evaluation: (1) consider substituting enteric coated mycophenolate or changing to alternative immunosuppressant due to diarrhea, (2) initiate transplant evaluation due to his advanced allograft dysfunction Admission and Anticipated Discharge Date Admission Date: February 20, 2020 Subjective Mr. Forte was seen & examined in his hospital room this morning. He reports that he is tolerating IV hydration well. He denies dyspnea. production staff worker has recorded 1100 cc liquid stool and 2.5L UO over the last 24 hours. Review of Systems Constitutional: no fever Eyes: no problem reported Ear, Nose, Mouth, Throat: no problem reported Respiratory: no dyspnea Cardiovascular: no chest pain and no edema Gastrointestinal: + diarrhea/loose stools; no abdominal pain Neurologic: no confusion Physical Exam Constitutional: not in distress Eyes: PERRL, conjunctivae normal, anicteric sclerae ENMT: external ear and nose normal, oropharynx normal Neck: trachea midline, no thyromegaly Respiratory: normal respiratory effort, lungs clear to auscultation Cardiovascular: RRR, no murmur, no edema Gastrointestinal (Abdomen): normal bowel sounds, soft, nontender, no hepatosplenomegaly (LLQ colostomy) Skin: no rashes, warm and dry Neurologic: awake; not confused Results & Data ([facility]) Vital Signs (Past 12 Hours) Vital Signs Temp Pulse Resp BP Pulse Ox 02/22/20 07:35 36.6 C 84 16 112/67 97 Laboratory Tests 02/22/20 02/22/20 07:34 07:34 WBC 4.74 L Hgb 8.2 L Hct 24.6 L Plt Count 356 Sodium 141 Potassium 3.7 Chloride 102 Carbon Dioxide 31 BUN 59 H Creatinine 3.71 H D Glucose 104 H Calcium 8.5 PG Care Time/CCT Total # of Minutes Spent Total Time Spent with Patient: Total time spent is greater than 50% in coordination of care (as documented) at patient's floor/unit and/or counseling patient: Coding Level of Care Code 91962 Subseq Hosp Care Lvl 3 Diagnoses NATHANIEL (acute kidney injury) N17.9 Kidney transplant recipient Z94.0 Dehydration E86.0
[2020-02-22] MEDS: IRON SUCROSE 200 MG in 0.9 % SODIUM CHLORIDE 100 ML IV SCH (12:57)
--- NOTE | 2020-02-22 14:43 | Hospitalist Progress Note ---
Date of Service February 22, 2020 Assessment & Plan (1) NATHANIEL (acute kidney injury): Petros Forte is a 29 y/o M w/ hx of chronic allograft nephropathy, renal interstitial fibrosis and tubular atrophy, calcineurin inhibitor toxicity, and recurrent NATHANIEL status post kidney transplant here for elevated Cr. He has remained asymptomatic and is doing well. Continue Cr downtrending w/ tentative dispo 02/23/20. Acute Kidney Injury Secondary to Hypovolemia - recurrent issue requiring hospital admissions, usually w/ resolution after IV fluids - hypovolemia 2/2 inadequate intake and diarrhea (from immunosuppressives) - Outpt Cr acutely increased to 4.57 and 4.7 in ED. - Last d/c 02/01 with Cr 3.12, baseline ~3.1 - pt with periodic admissions for NATHANIEL which improves with IVF treatment likely hypovolemia; however BUN/Cr ratio <20 which does not align with prerenal azotemia - Continue mycophenolate 500/250 AM/HS - Continue tacrolimus 4mg BID - urine osmolality low at 308 may be from chronic renal tubular damage - Nephrology consulted; continue IVF NSS 80/hr. recommends renal transplant referral outpatient to consider adjustment of renal immunosuppressives and transplant list referral - good UOP. 24 hr in/out. 4.3L in 3.7L out (2.5L straight cath, 1.1L ileostomy). - 02/20-02/21 Cr 4.24->3.71. Continue trending Cr via daily BMPs History of Anemia of Chronic Disease Secondary to Renal Disease - Hgb stable 8.5 from 9.7, change in Hgb likely dilutional following fluid administration - continue home ferrous sulfate PO - 02/21 Hb 8.2. normocytic. Per nephrology, Iron saturation 27% w/ ferritin 167 Will start IV Venofer 200 mg daily x5 dose. - Pt on erythropoietin monthly - hemmocult neg 02/21 - No clinical signs of bleeding at this time. - CBC daily Kidney transplant recipient - 2006 at [facility]) - hx of horseshoe kidney - continue immunosuppressive regimen as per above Hypokalemia, resolved - K normalized to 3.8 from 3.1 after repletion. 3.7 02/1420. - Continue BMP q24 Asymptomatic Bacteruria - U/A on admission: 3+ blood, 2+ leukocytes, 5-10 urine WBC, 1+ bacteria - Pt self caths at baseline, has sensation - urine culture negative. no indication for abx Ileostomy - continue routine care - good output HLD - Continue pravastatin Hx of orchiectomy - Continue testosterone gel FENGI: NSS 80/hr. regular diet. metamucil at noon daily started to slow diarrhea DVT PPx: SCDs Diet: Regular Dispo: Med/Surg. tentative dispo home if Cr decreases sufficiently (low 3s) CODE STATUS: Full (2) Hypokalemia: (3) Colostomy status: (4) Kidney transplant recipient: (5) Ileostomy care: (6) Self-catheterizes urinary bladder: (7) Hx of removal of testicle: Admission and Anticipated Discharge Date Admission Date: February 20, 2020 Supervising Physician Co-Signing Physician Notes Resident Physician Supervision Note: I independently interviewed and examined the patient and verified the restrepo history and physical, reviewed labs and image studies, discussed the case with the resident Dr. Johnson and agree with the findings and care plan. Subjective Mr. Forte feels well. No complaints. Denies any fever/chills, abdominal pain, or urinary symptoms. No problems w/ eating. Self-caths periodically and denies any issues. Review of Systems Review of Systems: Constitutional: Denies fever, chills Cardiovascular: Denies chest pain Respiratory: Denies shortness of breath Gastrointestinal: Denies abdominal pain, nausea, vomiting Genitourinary: Denies new urinary symptoms or dysuria Neurological: Denies headache, numbness, tingling Physical Exam 2 Physical Exam: General: Grossly A&O. NAD. Cooperative. HEENT: Atraumatic, normocephalic. Pulm: CTAB. -wheezes, -rales, -rhonchi. No respiratory distress. Cardiac: RRR, -mrg. Radial pulses intact and symmetrical. No bilateral lower extremity edema. Abdominal: Nontender, nondistended, soft. Results & Data Results & Data ([facility]) Vital Signs (Past 12 Hours) Vital Signs Temp Pulse Resp BP Pulse Ox 02/22/20 07:35 36.6 C 84 16 112/67 97 Resident Activity Tracking Resident Involvement: Resident Care Provided Care Provided: Adult [facility]
[2020-02-22] MEDS ORDERED: Nursing to Pharmacy Communication SCH (17:45)
[2020-02-22] MEDS: PSYLLIUM 58.6% POWDER PACKET PO SCH (17:47)
[2020-02-23] MEDS: SODIUM CHLORIDE 0.9% 1000ML 1,000 ML IV SCH (04:47)
[2020-02-23 06:25] LABS: Hematocrit (blood only) 25.1 % (42-52); Hemoglobin 8.4 g/dL (14.0-18.0); Mean Corpuscular Hgb Conc 33.5 g/dL (32-36); Mean Corpuscular Volume 92.6 fL (80-100); Mean Platelet Volume 8.9 fL (7.4-10.4); Platelet Count 402 K/uL (130-400); RDW Coefficient of Variation 13.2 % (11.5-14.5); RDW Standard Deviation 44.2 fL (36.4-46.3); Red Blood Count 2.71 M/uL (4.7-6.1); White Blood Count 5.11 K/uL (4.8-10.8)
[2020-02-23 07:04] LABS: BUN Creatinine Ratio 14.2 (10-20); Calcium 8.8 mg/dl (8.5-10.1); Creatinine Clr Calc Pharmacy 32.3 ml/min; Est GFR (African American) 26.4; Est GFR (Non-African American) 22.8; Potassium 3.7 mmol/L (3.5-5.1)
[2020-02-23] MEDS: MYCOPHENOLATE MOFETIL 250 MG CAP PO SCH (08:08)
[2020-02-23] MEDS: TESTOSTERONE EXT SCH (08:09)
[2020-02-23] MEDS: FERROUS SULFATE 325 MG TAB PO SCH (08:10)
[2020-02-23] MEDS: TACROLIMUS 1 MG CAP PO SCH (08:10)
[2020-02-23] MEDS: MAGNESIUM OXIDE 400 MG TAB PO SCH (08:11)
[2020-02-23] MEDS: PRAVASTATIN SOD 20 MG TAB PO SCH (08:12)
[2020-02-23] MEDS: CHOLECALCIFEROL 1,000 UNITS 25 MCG TAB PO SCH (08:12)
[2020-02-23] MEDS: IRON SUCROSE 200 MG in 0.9 % SODIUM CHLORIDE 100 ML IV SCH (08:23)
[2020-02-23] MEDS ORDERED: SODIUM CHLORIDE 0.9% 1000ML 1,000 ML IV SCH ×2 (08:30→17:00)
[2020-02-23] MEDS ORDERED: PSYLLIUM 58.6% POWDER PACKET PO SCH (09:00)
--- NOTE | 2020-02-23 11:30 | Nephrology Progress Note ---
Date of Service February 23, 2020 Assessment & Plan (1) NATHANIEL (acute kidney injury): * Creatinine trending down w/ IV hydration * Will recheck PRP this afternoon. If creatinine drops further then Mr. Forte may be discharged and follow up w/ Dr. Boss as outpatient (2) Kidney transplant recipient: * Baseline Cr ~ 3.0 * Continue current immunosuppressant regimen (Tacrolimus 4 mg po BID, Mycophenolate 500 mg po qAM/250 mg po qPM) (3) Dehydration: * Recurrent problem resulting in NATHANIEL * Continue Metamucil each day at noon to avoid administration w/ immunosuppressant medications * As an outpatient Mr. Forte may benefit from transplant Nephrology evaluation: (1) consider substituting enteric coated mycophenolate or changing to alternative immunosuppressant due to diarrhea, (2) initiate transplant evaluation due to his advanced allograft dysfunction Admission and Anticipated Discharge Date Admission Date: February 20, 2020 Subjective Mr. Forte was seen & examined in his hospital room this morning. He reports more formed stool since the addition of Metamucil. Review of Systems Constitutional: no fever Eyes: no problem reported Ear, Nose, Mouth, Throat: no problem reported Respiratory: no dyspnea Cardiovascular: no chest pain and no edema Gastrointestinal: no abdominal pain Neurologic: no confusion Physical Exam Constitutional: not in distress Eyes: PERRL, conjunctivae normal, anicteric sclerae ENMT: external ear and nose normal, oropharynx normal Neck: trachea midline, no thyromegaly Respiratory: normal respiratory effort, lungs clear to auscultation Cardiovascular: RRR, no murmur, no edema Gastrointestinal (Abdomen): normal bowel sounds, soft, nontender, no hepatosplenomegaly (LLQ colostomy) Skin: no rashes, warm and dry Neurologic: awake; not confused Results & Data ([facility]) Vital Signs (Past 12 Hours) Vital Signs Temp Pulse Resp BP Pulse Ox 02/23/20 07:43 36.5 C 94 H 14 117/68 97 02/22/20 23:36 36.6 C 86 18 90/54 L 97 Laboratory Tests 02/23/20 02/23/20 05:54 05:54 WBC 5.11 Hgb 8.4 L Hct 25.1 L Plt Count 402 H Sodium 141 Potassium 3.7 Chloride 102 Carbon Dioxide 30 BUN 49 H Creatinine 3.45 H Glucose 92 PG Care Time/CCT Total # of Minutes Spent Total Time Spent with Patient: Total time spent is greater than 50% in coordination of care (as documented) at patient's floor/unit and/or counseling patient: Coding Level of Care Code 06983 Subseq Hosp Care Lvl 3 Diagnoses NATHANIEL (acute kidney injury) N17.9 Kidney transplant recipient Z94.0 Dehydration E86.0
[2020-02-23] MEDS: PSYLLIUM 58.6% POWDER PACKET PO SCH (13:02)
[2020-02-23 13:11] LABS: BUN Creatinine Ratio 13.9 (10-20); Calcium 8.6 mg/dl (8.5-10.1); Creatinine Clr Calc Pharmacy 31.8 ml/min; Est GFR (African American) 25.9; Est GFR (Non-African American) 22.3; Potassium 3.9 mmol/L (3.5-5.1)
--- NOTE | 2020-02-23 23:28 | Discharge Summary ---
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 Petros reports he had lab work done yesterday and his kidney numbers were up- trending so Dr. Boss asked him to come in for assessment. Reports it is an ongoing issue. Transplant in 2006 and last few years has been having issues with his kidney where his creatine will jump with no change in output or input and generally improves with fluid. Last admission in Jan w/ d/c on 02/03. Does not any inciting factors, but notes his kidney number flares seems to be increases in the last few months. Eating and drinking normally. Tries to drink 100oz of water a day. Appetite has been normal. Denies decreased appetite, nausea, vomiting. Eats ~3 meals a day. Reports he has been peeing normally, last about 15 minutes ago. No burning with urination. Always has cloudy urine which he says does NOT improve with antibiotics. Urine is always cloudy for years. No blood in the urine. He has some urinary incontinence at baseline, has to cath in order to urinate as baseline. no change in volume. No recent illness. No fever chills or sweats. No diarrhea or constipation. No problems with bowel incontinence or constipation at baseline. No cough, shortness of breath, chest pain, chest pressure. No recent sick contacts. He has a colostomy. Uses catheter for urination. Hx of spina bifida, can walk with a cane. Is pending evaluation by [facility] for tethered spinal cord reassessment. had surgery a few years ago, but has had slowly progressive lower extremity weakness and decreased sensation. Pending appointment setup, hasn't heard yet. no recent change in last few days. MHx: Reviewed Medications: Reviewed, las took this morning. Due for evening medications. Shx: reviewed Allergies: Morphine (nausea/vomiting), latex contact allergy (cites precautionary, hasn't had a severe skin reaction to his knowledge), and bee vencom (hives). Social: Lives in his own apartment, parents live in the apartment above. No one in his family has been ill. No tobacco product use. Rare social alcohol use, none recently. No recreational drug or medical marijuana use. Admission Exam Per Admitting Provider General: A&Ox3. NAD. Cooperative. HEENT: Atraumatic, normocephalic. Pulm: CTAB A&P. -wheezes, -rales, -rhonchi. Symmetrical chest rise. No increase work of breathing. No respiratory distress. Cardiac: RRR, -mrg. Radial pulses intact and symmetrical. Abdominal: Ostomy in place. Nontender, nondistended, soft. BS present. CRANIAL NERVES: II: Pupils equal and reactive, no relative afferent pupillary defect, no VF cuts III, IV, : EOM intact, no gaze preference or deviation, no nystagmus. VIII: normal hearing to speech IX, X: normal palatal elevation, no uvular deviation XII: midline tongue protrusion MOTOR: RUE: 5/5 Shoulder internal rotation, external rotation 5/5 Elbow flexion/extension, wrist flexion/extension 5/5 frame tender strength, finger flexion/extension, interosseus LUE: 5/5 Shoulder internal rotation, external rotation 5/5 Elbow flexion/extension, wrist flexion/extension 5/5 frame tender strength, finger flexion/extension, interosseus RLE: 5/5 to hip flexion. 4-/5 ankle dorsiflexion/plantarflexion LLE: 5/5 to hip flexion. 4-/5 ankle dorsiflexion/plantarflexion SENSORY: Sensation intact in distal extremities to soft touch without asymmetry, but bilaterally decreased in foot and ankle. Principal Diagnosis acute kidney injury on chronic kidney disease, history of renal transplant Discharge Exam General: Grossly A&O. NAD. Cooperative. HEENT: Atraumatic, normocephalic. Pulm: CTAB. -wheezes, -rales, -rhonchi. No respiratory distress. Cardiac: RRR, -mrg. Radial pulses intact and symmetrical. Abdominal: Nontender, nondistended, soft. Ileostomy site noted. No erythema. 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 on 02/20/20 for elevated Cr. He was stable this admission and denied symptomatic complaints related to the NATHANIEL. Acute Kidney Injury Secondary to Hypovolemia - on background of CKD (~stage 4) and hx renal transplant - pt with periodic admissions for NATHANIEL which improves with IVF treatment likely hypovolemia; however BUN/Cr ratio <20 which does not align with prerenal azotemia - hypovolemia 2/2 inadequate intake and diarrhea (from outpatient immunosup pressives mycophenolate 500/250 AM/HS and tacrolimus 4mg BID, both continued this admission) - Outpt Cr acutely increased to 4.57 and 4.7 in ED. - Last d/c 02/01 with Cr 3.12, baseline ~3.1 - urine osmolality low at 308 may be from chronic renal tubular damage - no renal imaging performed this admission - IVF NSS 80/hr provided this admission. Cr improved to 3.45 (3.51 on repeat) on day of dispo. - cumulative Is/Os this admission 02/20/20-02/23/20: 10.7L in (7.5L IV fluids, 3L PO) 8L out (5.9 straight cath, 2L ileostomy). - recurrent episodes of rise in creatinine likely due to diarrhea as side effect of mycophenolate. - Nephrology consult (Dr. Lopez) recommends transplant Nephrology evaluation: (1) consider substituting enteric coated mycophenolate or changing to alternativ e immunosuppressant due to diarrhea, (2) initiate transplant evaluation due to his advanced allograft dysfunction - continue 1 packet metamucil (take separately from immunosuppressant medications) daily at noon (started this admission) to reduce diarrhea - f/u w/ outpatient nephrology (Dr. Boss) in 2 wks History of Anemia of Chronic Disease Secondary to Renal Disease - Hgb 9.7->low-mid8s this admission, change in Hgb likely partially dilutional following IV fluid administration - heme occult neg 02/21 - No clinical signs of bleeding - received 2 doses of IV Venofer 200 mg this admission - hx of receiving epo in past, none provided this admission - continue home ferrous sulfate PO as outpatient (and recheck cbc) Kidney transplant recipient - 2006 at [facility] ([facility]), hx of congenital horshoe kidney - continue immunosuppressive regimen as per above Hypokalemia, resolved - s/p repletion Asymptomatic Bacteruria - U/A on admission: 3+ blood, 2+ leukocytes, 5-10 urine WBC, 1+ bacteria - Pt self caths at baseline, has sensation - urine culture negative. no indication for abx Ileostomy - good output - continue routine care HLD - Continue pravastatin Hx of orchiectomy - Continue testosterone gel FENGI: NSS 80/hr. regular diet. metamucil at noon daily started to slow diarrhea DVT PPx: SCDs Diet: Regular Dispo: Med/Surg. tentative dispo home if Cr decreases sufficiently (low 3s) CODE STATUS: Full (2) Hypokalemia: (3) Colostomy status: (4) Kidney transplant recipient: (5) Ileostomy care: (6) Self-catheterizes urinary bladder: (7) Hx of removal of testicle: Total Time Total Time Spent Total Time Spent (In Minutes): Please see attending documentation. Discharge Plan Discharge Items Patient Disposition: Home - Self-Care Reason For Visit: NATHANIEL ON CKD, HX RENAL TRANSPLANT Discharge Diagnosis: acute kidney injury on chronic kidney disease, history of renal transplant Activity: Per Instructions section Non-emergency contact: Primary Care Provider and Electric Solderer Call non-emergency contact if: you have any medication questions, your symptoms worsen, your pain is not controlled and you have a fever Follow-up/Referrals: Alayna Boss MD [Physician] - (nephrology follow up in 2 wks after hosp discharge (02/23/20)) Grecia Bravo DO [Primary Care Provider] - (hospital follow up in 1 week) Diet: Regular Addtl Attending Provider Instructions: You were admitted to [facility] for acute kidney injury with a creatinine elevated to 4.7. You received IV fluids and nephrology (Dr. Lopez) provided recommendations. Your kidney function returned closer to your baseline and is 3.5 day of discharge home. During the admission, you did not have any symptoms. Your hemoglobin was low to 8.2. You were given IV Venofer (iron) in the hospital) Continue your home regimen of oral iron supplements. Continue Metamucil (available over the counter) 1 packet each day at noon. Avoid administration at same time w/ immunosuppressant medications. Continue your other home medications that you were taking previously. Please follow up w/ your sterile supervisor Dr. Boss ([phone]) in 2 weeks. She can help optimize your immunosuppression medications to decrease diarrhea and look into transplant referral. Follow up with primary care doctor Dr. Bravo ([phone]) in ~1 week. The appointments will be made for you and you will receive a call from the schedulers, but if you do not hear back, please call. If you develop any new or worsening symptoms including fever, chills, sweats, chest pain, chest pressure, difficulty breathing, uncontrolled nausea/vomiting, rash, wheezing, passing out or nearly passing out, bleeding, black/bloody bowel movements, or other new or concerning symptoms please call your primary care physician, or call 911 for re-evaluation in the emergency department if you are very concerned. Pending Studies at Discharge: No Stand-Alone Forms: My Spotlight, Smoking Cessation Medications and DC Order Prescriptions: New Metamucil (with sugar) 3.4 gram Powder In Packet 1 pkg PO DAILY@1200 30 Days Qty: 1 RF: 0 Continued Wheelchair (Manual) Device 1 ea .Route DAILY Qty: 1 RF: 0 tacrolimus 1 mg capsule 4 mg PO Q12H RF: 0 mycophenolate mofetil 250 mg capsule 250 mg PO .COMPLEX RF: 0 pravastatin 20 mg tablet 20 mg PO DAILY Qty: 90 RF: 3 cholecalciferol (vitamin D3) 50 mcg (2,000 unit) capsule 50 mcg PO DAILY Qty: 30 RF: 0 testosterone [AndroGel] 20.25 mg/1.25 gram (1.62 %) gel in metered-dose pump 2 pump topical DAILY Qty: 75 RF: 0 magnesium oxide 400 mg (241.3 mg magnesium) tablet 400 mg PO DAILY Qty: 30 RF: 2 Procrit 40,000 unit/mL solution 40,000 unit subcut MONTHLY 30 Days Qty: 30 RF: 0 ferrous sulfate 325 mg (65 mg iron) Tablet,Delayed Release (Dr/Ec) 650 mg PO QAM 30 Days Qty: 30 RF: 0 ferrous sulfate 325 mg (65 mg iron) Tablet,Delayed Release (Dr/Ec) 325 mg PO PM 30 Days Qty: 30 RF: 0 Discharge Orders: Discharge Order (Routine); Ordered 02/23/20 Ordered By: Shoaib Yañez/Other Patient Handouts: Dehydration Admission Data Admit Date/Time: 02/20/20 20:33 Attending Provider: Kathy Falcon Admit Provider: Cj Juan Primary Care Provider: Grecia Bravo Other Providers: Kaylan Mayfield ; Alayna Boss Other Interventions: Discharge Summary Assessment (RN) Last Done: 02/23/20 18:11 Supervising Physician Co-Signing Physician Notes Resident Physician Supervision Note: I independently interviewed and examined the patient and verified the restrepo history and physical, reviewed labs and image studies, discussed the case with the resident Dr. Johnson and agree with the findings and care plan. Resident Activity Tracking Resident Involvement: Resident Care Provided Care Provided: Adult Hospital Medicine
== END 2020-02-23 19:08 | disposition home or self-care (01) | DRG 683 ==
LOC: ED 16:39 → 3W 20:33 → SUATTDRO 20:33 → 3W 20:53

== ENCOUNTER 2020-03-05 12:22 | Inpatient (IN) ==
[2020-03-05] MEDS ORDERED: SODIUM CHLORIDE 0.9% 1000ML 1,000 ML IV SCH (12:45)
--- NOTE | 2020-03-05 12:46 | Emergency Department Note ---
History of Present Illness General Chief complaint: Abnormal Labs/Diagnostic Testing Stated complaint: ABNORMAL LAB RESULTS, REFERRED Time Seen by Provider: 03/05/20 12:39 History of Present Illness This is a 29-year-old male that presents to the emergency department via private vehicle with complaints of "referred by ". The patient notes that he has a history of spina bifida. He self caths and has been doing this as usual without difficulty. Kidney transplant was performed at [facility] >10 years ago and now that he is an adult has transitioned care to the [facility]. The patient notes that he had routine labs performed yesterday and was notified of significant creatinine elevation and recommended to go to the ED for further evaluation and management. The patient notes that he does not have any symptoms at this time. He notes he feels well. He denies any fevers, chills, nausea, vomiting, chest pain or shortness of breath. No diarrhea. He denies any pain at all. Home Medications Medication Instructions Recorded Confirmed Type mycophenolate mofetil 250 mg 250 mg PO .COMPLEX cap 01/30/20 03/05/20 History capsule tacrolimus 1 mg capsule 4 mg PO Q12H cap 01/30/20 03/05/20 History testosterone 20.25 mg/1.25 gram 2 pump TOPICAL DAILY #75 g 01/31/20 03/05/20 Rx (1.62 %) transdermal gel pump Wheelchair (Manual or Powered) 1 ea .ROUTE DAILY #1 ea 02/13/20 03/04/20 Rx magnesium oxide 400 mg (241.3 mg 400 mg PO DAILY #30 tab 02/15/20 03/05/20 Rx magnesium) tablet psyllium husk (with sugar) 1 pkg PO DAILY@1200 30 Days #1 ea 02/23/20 03/05/20 Rx [Metamucil (with sugar)] cholecalciferol (vitamin D3) 50 mcg PO QAM 03/05/20 03/05/20 History pravastatin 20 mg PO QAM 03/05/20 03/05/20 History Allergies Allergy/AdvReac Type Severity Reaction Status Date / Time bee venom protein (honey bee) Allergy edema, Verified 03/05/20 13:47 hives latex Allergy Unknown Verified 03/05/20 13:47 morphine Allergy nauea, Verified 03/05/20 13:47 vomitting Past Med/Surg History Medical History Hypokalemia Hypomagnesemia Self-catheterizes urinary bladder Tethered spinal cord Surgical History Colostomy status History of orchiectomy Kidney transplant recipient Family History Mother Diabetes Heart disease Father Diabetes Social History Smoking Status: Never smoker Second Hand Exposure: No; Hx Alcohol Use: Yes Hx Substance Use: No Preferred Language: [place] Communication Ability: Effective Head Of Ict Required: No Beliefs That Will Affect Care: None marital status: Single Current Living Situation: Parent current occupational status: 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[employer], [employer] Feels Safe at Home: Yes Do you think of yourself as: don't know Gender Identity: Male Assistive Devices: Cane Review of Systems A total of 10 systems reviewed and were otherwise negative Physical Exam Vital Signs Vital Signs - 24 hr 03/05/20 12:36 03/05/20 14:08 03/05/20 14:23 Temperature 36.2 C L Temperature Source Temporal Artery Scan Pulse Rate 106 H 93 H 100 H Respiratory Rate 18 23 17 Respiratory Effort / Characteristics Non-Labored Spontaneous Respiratory Depth Normal Respiratory Pattern Regular Blood Pressure 115/70 117/63 Blood Pressure [Right Arm] Blood Pressure Mean 85 81 Blood Pressure Mean [Right Arm] Blood Pressure Position Sitting Pulse Oximetry 97 Oxygen Delivery Method Room Air Sepsis Recent Fever Within 48 Hours No Sepsis New/Unexplained Change in Mental Status N/A Sepsis Action Taken by Nursing No Action Required 03/05/20 14:30 03/05/20 15:00 03/05/20 15:30 Temperature Temperature Source Pulse Rate 99 H 93 H 93 H Respiratory Rate 19 20 23 Respiratory Effort / Characteristics Respiratory Depth Respiratory Pattern Blood Pressure Blood Pressure [Right Arm] Blood Pressure Mean Blood Pressure Mean [Right Arm] Blood Pressure Position Pulse Oximetry Oxygen Delivery Method Sepsis Recent Fever Within 48 Hours Sepsis New/Unexplained Change in Mental Status Sepsis Action Taken by Nursing 03/05/20 16:00 03/05/20 16:30 03/05/20 16:34 Temperature Temperature Source Pulse Rate 93 H 91 H Respiratory Rate 16 18 Respiratory Effort / Characteristics Respiratory Depth Respiratory Pattern Blood Pressure Blood Pressure [Right Arm] 120/60 Blood Pressure Mean Blood Pressure Mean [Right Arm] 80 Blood Pressure Position Pulse Oximetry Oxygen Delivery Method Sepsis Recent Fever Within 48 Hours Sepsis New/Unexplained Change in Mental Status Sepsis Action Taken by Nursing VITAL SIGNS - Vital signs and nursing notes were reviewed. Stable and afebrile. GENERAL - 29-year-old male appearing his stated age who is in no acute distress. Communicates well with provider and answers questions appropriately. SKIN - Without rashes. No meningeal or petechial rash. HEAD - NC/AT. EYES - PERRL with EOMI bilaterally. Sclera anicteric. EARS - No deformities of external structures noted on gross examination bilaterally. NOSE - Midline and without cyanosis. No epistaxis or purulent drainage noted. MOUTH/OROPHARYNX - Without perioral cyanosis. NECK - Neck with FROM. No nuchal rigidity. LUNGS - Chest wall symmetric without accessory muscle use, intercostals retractions, or central cyanosis. Normal vesicular breath sounds CTA B/L. No wheezes, rales, or rhonchi appreciated. CARDIAC - RRR with S1/S2. No murmur, rubs, or gallops appreciated. ABDOMEN - Abdominal contour normal without pulsations or visible masses. BS normoactive all four quadrants. No tenderness, palpable masses, hepatosplenomegaly, or ascites noted. NEUROLOGIC - Cranial nerves II through XII grossly intact. PSYCH - A&O, and cooperates fully with examiner. Pt is very pleasant and interacts well with examiner. Course Administered Medications Discontinued Medications Sodium Chloride (Nss 1000ml) 1,000 mls @ 500 mls/hr IV .Q2H IGNACIO Stop: 03/05/20 14:44 Last Admin: 03/05/20 13:26 Dose: 500 mls/hr Documented by: [id number] Potassium Chloride ([place] / Wtr) 10 meq in 100 mls @ 100 mls/hr IV ONE ONE Stop: 03/05/20 14:54 Last Admin: 03/05/20 14:05 Dose: 100 mls/hr Documented by: [id number] Medical Decision Making Laboratory Data Result diagrams: 03/05/20 13:00 03/05/20 13:00 Lab Results 03/05/20 03/05/20 03/05/20 Range/Units 13:00 13:00 15:12 WBC 6.38 (4.8-10.8) K/uL RBC 3.06 L (4.7-6.1) M/uL Hgb 9.6 L (14.0-18.0) g/dL Hct 27.3 L (42-52) % MCV 89.2 (80-100) fL MCH 31.4 (25-34) pg MCHC 35.2 (32-36) g/dL RDW Std Deviation 41.9 (36.4-46.3) fL RDW Coeff of Abigail 12.8 (11.5-14.5) % Plt Count 345 (130-400) K/uL MPV 9.5 (7.4-10.4) fL Immature Gran % (Auto) 0.2 % Neut % (Auto) 66.1 % Lymph % (Auto) 25.1 % Louisa % (Auto) 7.5 % Eos % (Auto) 0.8 % Baso % (Auto) 0.3 % Neut # (Auto) 4.22 (1.4-6.5) K/uL Lymph # (Auto) 1.60 (1.2-3.4) K/uL Louisa # (Auto) 0.48 (0.11-0.59) K/uL Eos # (Auto) 0.05 (0-0.5) K/uL Baso # (Auto) 0.02 (0-0.2) K/uL Immature Gran # (Auto) 0.01 (0.00-0.02) K/uL Sodium 132 L (136-145) mmol/L Potassium 2.8 L (3.5-5.1) mmol/L Chloride 81 L (98-107) mmol/L Carbon Dioxide 40 H (21-32) mmol/L Anion Gap 11.0 (3-11) BUN 89 H (7-18) mg/dl Creatinine 5.80 H* D (0.6-1.4) mg/dl Est Cr Clr Drug Dosing 19.1 ml/min Est GFR ( Amer) 14.1 Est GFR (Non-Af Amer) 12.2 BUN/Creatinine Ratio 15.6 (10-20) Glucose 160 H (70-99) mg/dl Calcium 7.8 L (8.5-10.1) mg/dl Magnesium 1.9 (1.8-2.4) mg/dl Total Bilirubin 0.3 (0.2-1) mg/dl AST 8 L (15-37) U/L ALT 14 (12-78) U/L Alkaline Phosphatase 104 (45-117) U/L Total Protein 7.8 (6.4-8.2) gm/dl Albumin 3.9 (3.4-5.0) gm/dl Globulin 3.9 (2.5-4.0) gm/dl Albumin/Globulin Ratio 1.0 (0.9-2) COVID-19 Eval [facility] SARS-CoV-2, RNA, NAAT (NEGATIVE) 03/05/20 Range/Units 15:12 WBC (4.8-10.8) K/uL RBC (4.7-6.1) M/uL Hgb (14.0-18.0) g/dL Hct (42-52) % MCV (80-100) fL MCH (25-34) pg MCHC (32-36) g/dL RDW Std Deviation (36.4-46.3) fL RDW Coeff of Abigail (11.5-14.5) % Plt Count (130-400) K/uL MPV (7.4-10.4) fL Immature Gran % (Auto) % Neut % (Auto) % Lymph % (Auto) % Louisa % (Auto) % Eos % (Auto) % Baso % (Auto) % Neut # (Auto) (1.4-6.5) K/uL Lymph # (Auto) (1.2-3.4) K/uL Louisa # (Auto) (0.11-0.59) K/uL Eos # (Auto) (0-0.5) K/uL Baso # (Auto) (0-0.2) K/uL Immature Gran # (Auto) (0.00-0.02) K/uL Sodium (136-145) mmol/L Potassium (3.5-5.1) mmol/L Chloride (98-107) mmol/L Carbon Dioxide (21-32) mmol/L Anion Gap (3-11) BUN (7-18) mg/dl Creatinine (0.6-1.4) mg/dl Est Cr Clr Drug Dosing ml/min Est GFR ( Amer) Est GFR (Non-Af Amer) BUN/Creatinine Ratio (10-20) Glucose (70-99) mg/dl Calcium (8.5-10.1) mg/dl Magnesium (1.8-2.4) mg/dl Total Bilirubin (0.2-1) mg/dl AST (15-37) U/L ALT (12-78) U/L Alkaline Phosphatase (45-117) U/L Total Protein (6.4-8.2) gm/dl Albumin (3.4-5.0) gm/dl Globulin (2.5-4.0) gm/dl Albumin/Globulin Ratio (0.9-2) COVID-19 Eval Order SARS-CoV-2, RNA, NAAT NEGATIVE (NEGATIVE) MDM Narrative Patient was seen and evaluated as above in room A12. Review was performed of nursing notes and vital signs. I did review pertinent previous visits and patient history. After obtaining a thorough history and physical examination the above work up was performed. Patient presents to us today after being notified of significantly elevated creatinine based on most recent blood draw yesterday. The patient is nontoxic on examination. He is well-appearing. He has no complaints at this time noting no unusual symptoms. Options of care were discussed with the patient. IV access established. Labs w ere obtained. He was hydrated here with IV fluids. There is no leukocytosis. There is stable anemia. The patient does have significant elevation of his creatinine at this time at 5.8. BUN 89. Patient does have decreased sodium, potassium, chloride. Glucose 160. Calcium 7.8. COVID-19 testing negative. Given the patient's elevation of creatinine beyond his baseline in the setting of kidney transplant do believe that further evaluation and management in inpatient setting is warranted. Case discussed with the hospitalist. Please refer to further documentation regarding his stay. Case was discussed with the attending physician. GCS: 15 In the evaluation and treatment of this patient the following differential diagnoses were entertained: Infection, electrolyte disturbance, bladder outlet obstruction, dehydration, among others. Impression & Plan NATHANIEL (acute kidney injury), Anemia, Hyponatremia, Hypokalemia Discharge Plan Visit Data Chief Complaint: Abnormal Labs/Diagnostic Testing Stated Complaint: ABNORMAL LAB RESULTS, REFERRED ED Provider: Sang An ED Midlevel Provider: Anthony Neumann Discharge Problem: NATHANIEL (acute kidney injury), Anemia, Hyponatremia, Hypokalemia Patient Disposition: Admitted As Inpatient Condition: Good Discharge Instructions Interventions: ED Discharge Assessment Last Done: 03/05/20 16:53
[2020-03-05 13:12] LABS: Basophils # (auto) 0.02 K/uL (0-0.2); Basophils % (auto) 0.3 %; Eosinophils # (auto) 0.05 K/uL (0-0.5); Eosinophils % (auto) 0.8 %; Hematocrit (blood only) 27.3 % (42-52); Hemoglobin 9.6 g/dL (14.0-18.0); Immature Granulocytes # (auto) 0.01 K/uL (0.00-0.02); Immature Granulocytes % (auto) 0.2 %; Lymphocytes % (auto) 25.1 %; Mean Corpuscular Hemoglobin 31.4 pg (25-34); Mean Corpuscular Hgb Conc 35.2 g/dL (32-36); Mean Corpuscular Volume 89.2 fL (80-100); Mean Platelet Volume 9.5 fL (7.4-10.4); Monocytes # (auto) 0.48 K/uL (0.11-0.59); Monocytes % (auto) 7.5 %; Neutrophils # (auto) 4.22 K/uL (1.4-6.5); Neutrophils % (auto) 66.1 %; Platelet Count 345 K/uL (130-400); RDW Coefficient of Variation 12.8 % (11.5-14.5); RDW Standard Deviation 41.9 fL (36.4-46.3); Red Blood Count 3.06 M/uL (4.7-6.1); White Blood Count 6.38 K/uL (4.8-10.8)
[2020-03-05 13:39] LABS: Albumin Level 3.9 gm/dl (3.4-5.0); BUN Creatinine Ratio 15.6 (10-20); Bilirubin,Total 0.3 mg/dl (0.2-1); Calcium 7.8 mg/dl (8.5-10.1); Creatinine Clr Calc Pharmacy 19.1 ml/min; Est GFR (African American) 14.1; Est GFR (Non-African American) 12.2; Globulin 3.9 gm/dl (2.5-4.0); Magnesium 1.9 mg/dl (1.8-2.4); Potassium 2.8 mmol/L (3.5-5.1); Total Protein 7.8 gm/dl (6.4-8.2)
[2020-03-05] MEDS ORDERED: POTASSIUM CHLORIDE / WTR 10 MEQ/100 ML PLCT IV ONE (13:55)
--- NOTE | 2020-03-05 14:40 | History & Physical Report ---
Date of Service March 05, 2020 Assessment & Plan (1) NATHANIEL (acute kidney injury): Mr. 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 His abnormal laboratory results including a serum Creatinine of 5.80 mg/dl (baseline is 3.0), serum K of 2.8 mmol/L, serum Na of 132 mmol/L, elevated bicarb level, and a BUN of 89. His serum Creatinine climbed from 3.45 mg/dl on 02/23/2020 up to 4.89 mg/dl yesterday, and up to 5.8 mg/dl today. Overall, patient feels fatigued and has noticed mild cramping of peripheral muscles -- but otherwise feels at baseline. He denies any twitches or involuntary muscle movements. He has been eating and drinking normally. He drinks about 50 to 100 ounces of fluid daily. He straight caths himself 4 to 5 time per day. His stool/colostomy output is less since being on Metamucil. Patient denies any nausea, vomiting, diarrhea, or focal abdominal pain. He denies any discomfort at his renal graft site. He denies any urinary symptoms, specifically denying any urinary urgency or frequency. Urinary outputs are stable. He denies any dark urine, cloudy urine, or malodorous urine. No back or flank pain or colic. He denies any fevers or chills. Recommend the following: -- Admit to Med-Surg unit. -- Rehydrate with IV NSS at 125 ml/hour x 2 liters . -- Monitor daily labs, daily renal panel, CBC with diff. -- Urine analysis, C&S ordered and obtained. -- Nephrology consult. Dr. [place] aware. -- Continue usual medications. -- Check BMP after 1st 500 ml NSS with KCl infusion complete. (2) Hypokalemia: -- As outlined above. (3) Hyponatremia: -- As outlined above. (4) CKD (chronic kidney disease) stage 4, GFR 15-29 ml/min: -- Followed by Dr. Boss. -- Serum Creatinine climbed from 3.45 mg/dl on 02/23/2020 up to 4.89 mg/dl ye , and up to 5.8 mg/dl today. (5) Anemia: -- Associated with Kidney disease. -- Current Hgb is 9.6 g/dl. -- Received Venofer during last hospitalization in Mid February 2020. -- Approved to begin Epogen 20,000 units q 2 weeks. History of Present Illness Chief Complaint: -- NATHANIEL. -- Abnormal Labs. Primary Care Provider: Grecia Bravo DO Mr. 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 These include a serum Creatinine of 5.80 mg/dl (baseline is 3.0), serum K of 2.8 mmol/L, serum Na of 132 mmol/L, elevated bicarb level, and a BUN of 89. Overall, patient feels fatigued and has noticed mild cramping of peripheral muscles -- but otherwise feels at baseline. He denies any twitches or involuntary muscle movements. He has been eating and drinking normally. He drinks about 50 to 100 ounces of fluid daily. He straight caths himself 4 to 5 time per. His stool/colostomy output is much less since being on Metamucil. Patient denies any nausea, vomiting, diarrhea, or focal abdominal pain. He denies any discomfort at his renal graft site. He denies any urinary symptoms, specifically denying any urinary urgency or frequency. Urinary outputs are stable. He denies any dark urine, cloudy urine, or malodorous urine. No back or flank pain or colic. He denies any fevers or chills. Allergies Allergy/AdvReac Type Severity Reaction Status Date / Time bee venom protein (honey bee) Allergy edema, Verified 03/05/20 13:47 hives latex Allergy Unknown Verified 03/05/20 13:47 morphine Allergy nauea, Verified 03/05/20 13:47 vomitting Home Medications Medication Instructions Recorded Confirmed Type mycophenolate mofetil 250 mg 250 mg PO .COMPLEX cap 01/30/20 03/05/20 History capsule tacrolimus 1 mg capsule 4 mg PO Q12H cap 01/30/20 03/05/20 History testosterone 20.25 mg/1.25 gram 2 pump TOPICAL DAILY #75 g 01/31/20 03/05/20 Rx (1.62 %) transdermal gel pump Wheelchair (Manual or Powered) 1 ea .ROUTE DAILY #1 ea 02/13/20 03/04/20 Rx magnesium oxide 400 mg (241.3 mg 400 mg PO DAILY #30 tab 02/15/20 03/05/20 Rx magnesium) tablet psyllium husk (with sugar) 1 pkg PO DAILY@1200 30 Days #1 ea 02/23/20 03/05/20 Rx [Metamucil (with sugar)] cholecalciferol (vitamin D3) 50 mcg PO QAM 03/05/20 03/05/20 History pravastatin 20 mg PO QAM 03/05/20 03/05/20 History Past Med/Surg History Medical History Hypokalemia Hypomagnesemia Self-catheterizes urinary bladder Tethered spinal cord Surgical History Colostomy status History of orchiectomy Kidney transplant recipient Family History Mother Diabetes Heart disease Father Diabetes Social History Smoking Status: Never smoker Second Hand Exposure: No; Hx Alcohol Use: Yes Hx Substance Use: No Preferred Language: Welsh Communication Ability: Effective Picture Booker Required: No Beliefs That Will Affect Care: None marital status: Single Current Living Situation: Parent current occupational status: 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 Mucous membranes are dry. HEENT: Head is atraumatic, normocephalic. EOM's intact. Facies symmetric. No perioral cyanosis. No uremic robert. NECK: No JVD. JVP is at the level of the clavicle sitting upright. Carotid upstrokes are + 2 bilaterally. CHEST/LUNGS: Clear to auscultation throughout all lung roberson. No wheezes, rales, or crackles. CVS: S1 and S2 are regular without obvious murmurs, gallops, or rubs. PMI is nondisplaced. No lifts, heaves, or thrills. No abdominal aortic or renal bruits. ABDOMINAL EXAM: Bowel sounds are present. No masses, organomegaly, or tenderness. LLQ colostomy is present. No RLQ tenderness over his grafted kidney . EXTREMITIES: No clubbing or cyanosis. No edema. Intact posterior tibial and radial pulses bilaterally. NEUROLOGIC EXAM: Patient is awake, alert, and oriented. Pleasant and cooperative. Answers questions appropriately. Speech is clear. Gait pattern not assessed. He ambulates with cane. Heating [employer] Cooling Technician shows NSR with rates in the 90's. Constitutional: WD/WN, vitals as above Eyes: normal visual roberson by confrontation and + anicteric sclerae Neck: normal visual inspection and trachea midline Respiratory: normal respiratory effort, lungs clear to auscultation Cardiovascular: Rate/Rhythm: regular rate and regular rhythm Gastrointestinal (Abdomen): Inspection/Auscultation: abdomen not distended Percussion/Palpation: abdomen soft; abdomen nontender Musculoskeletal: Head/Neck/Chest: normocephalic and head atraumatic Neg for peripheral LE edema, + pedal pulses Skin: no rashes, warm and dry Neurologic: awake; not confused Speech / Cognition: normal speech Psychiatric: A+Ox3, euthymic affect Lymphatic: Exam as done by Nydia Thornton DO Results & Data Results & Data ([facility]) Vital Signs (Past 12 Hours) Vital Signs Temp Pulse Resp BP Pulse Ox 03/05/20 12:36 36.2 C L 106 H 18 115/70 97 Laboratory Results Laboratory Results - last 24 hr 03/05/20 03/05/20 13:00 13:00 WBC 6.38 RBC 3.06 L Hgb 9.6 L Hct 27.3 L MCV 89.2 MCH 31.4 MCHC 35.2 RDW Std Deviation 41.9 RDW Coeff of Abigail 12.8 Plt Count 345 MPV 9.5 Immature Gran % (Auto) 0.2 Neut % (Auto) 66.1 Lymph % (Auto) 25.1 [place] % (Auto) 7.5 Eos % (Auto) 0.8 Baso % (Auto) 0.3 Neut # (Auto) 4.22 Lymph # (Auto) 1.60 [place] # (Auto) 0.48 Eos # (Auto) 0.05 Baso # (Auto) 0.02 Immature Gran # (Auto) 0.01 Sodium 132 L Potassium 2.8 L Chloride 81 L Carbon Dioxide 40 H Anion Gap 11.0 BUN 89 H Creatinine 5.80 H* D Est Cr Clr Drug Dosing 19.1 Est GFR ( Amer) 14.1 Est GFR (Non-Af Amer) 12.2 BUN/Creatinine Ratio 15.6 Glucose 160 H Calcium 7.8 L Magnesium 1.9 Total Bilirubin 0.3 AST 8 L ALT 14 Alkaline Phosphatase 104 Total Protein 7.8 Albumin 3.9 Globulin 3.9 Albumin/Globulin Ratio 1.0 Diagnostic Findings US Renal Transplant with Doppler 01/31/2020: FINDINGS: The [place] kidneys are not visualized. There is a right lower quadrant renal transplant measuring 13.7 cm in length. No hydronephrosis. Normal velocities within the renal transplant arteries and veins. No evidence for stenosis or occlusion. Normal corticomedullary differentiation of the right nhi al transplant. IMPRESSION: 1. The right renal transplant is within normal limits. 2. No evidence for stenosis or occlusion within the renal transplant arteries or veins. Medications Administered Discontinued Medications Sodium Chloride (Nss 1000ml) 1,000 mls @ 500 mls/hr IV .Q2H IGNACIO Stop: 03/05/20 14:44 Last Admin: 03/05/20 13:26 Dose: 500 mls/hr Documented by: [id number] Potassium Chloride ([place] / Wtr) 10 meq in 100 mls @ 100 mls/hr IV ONE ONE Stop: 03/05/20 14:54 Last Admin: 03/05/20 14:05 Dose: 100 mls/hr Documented by: [id number] Code Status & VTE Plan VTE Prophylaxis Plan VTE Prophylaxis will be ordered: Yes Supervising Physician Co-Signing Physician Notes Pt seen and examined by me. Pt was referred to the ED after labs drawn after an outpt visit showed worsening renal function. He has had some muscle cramping, but otherwise feels his usual. Denies chest pain or SOB. Tolerating PO without issue. Agree with HPI/ROS as noted by [place] See above for my exam in PE section Agree with plan as outlined above ARF with hypoK with hx of renal transplant Cr was 4.8 yesterday, 5.8 on admission Follows with Dr. Boss as outpt, renal c/s pending Baseline cr is 3.4 PG Care Time/CCT Total # of Minutes Spent Total Time Spent with Patient: Total time spent is greater than 50% in coordination of care (as documented) at patient's floor/unit and/or counseling patient: 50 Coding Level of Care Code 62154 Initial Inpt Care Lvl 3 Diagnoses NATHANIEL (acute kidney injury) N17.9 Hypokalemia E87.6 Hyponatremia E87.1 CKD (chronic kidney disease) stage 4, GFR 15-29 ml/min N18.4 Anemia D64.9 Time Spent (min) 65
[2020-03-05] MEDS ORDERED: ZOLPIDEM TARTRATE 5 MG TAB PO PRN (17:19)
[2020-03-05] MEDS ORDERED: ACETAMINOPHEN 325 MG TAB PO PRN (17:19)
[2020-03-05] MEDS ORDERED: ALUMINUM/MAGNESIUM SUSP 30 ML UDC PO PRN (17:19)
[2020-03-05] MEDS ORDERED: ONDANSETRON INJ 2 MG/ML 2 ML VIAL IV PRN (17:19)
[2020-03-05 18:24] LABS: BUN Creatinine Ratio 16.7 (10-20); Calcium 7.7 mg/dl (8.5-10.1); Creatinine Clr Calc Pharmacy 20.8 ml/min; Est GFR (African American) 15.5; Est GFR (Non-African American) 13.4
[2020-03-05 18:44] LABS: Appearance Urine Turbid (Clear); Bacteria Urine Automated 1+ (Negative); Bilirubin Urine Negative (Negative); Blood Urine 3+ (Negative); Color Urine Yellow; Glucose Urine UA Negative (Negative); Ketones Urine Negative (Negative); Leukocyte Esterase Urine 3+ (Negative); Nitrite Urine Negative (Negative); Protein Urine Trace (Negative); RBC Urine Automated 0-4 /hpf (0-4); Specific Gravity Urine 1.014 (1.000-1.030); Urobilinogen Urine Negative (Negative); WBC Urine Automated >30 /hpf (0-5)
[2020-03-05] MEDS: SODIUM CHLORIDE 0.9% 1000ML 1,000 ML IV SCH (19:03)
[2020-03-05] MEDS: TACROLIMUS 1 MG CAP PO SCH (20:35)
[2020-03-05] MEDS: MYCOPHENOLATE MOFETIL 250 MG CAP PO SCH (20:35)
--- NOTE | 2020-03-05 21:43 | Nephrology Consultation ---
Date of Consultation March 05, 2020 Assessment & Plan (1) NATHANIEL (acute kidney injury): Non-oliguric. Prerenal physiology related to a history of high ostomy output. Noted significant chronic changes on last biopsy, notably IFTA. IVF being appropriately provided to encourage positive fluid balance at least 1-1.5 L/d. Allograft US from January reviewed. No obstruction or vascular compromise. Document strict I/O's. Repeat metabolic profile in the AM. Petros had noted at [facility] suggested to him that IVF could be arranged outpatient as needed. 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 He is ~14 years post transplant. He denies any history of rejection. PRA unknown. [place] level acceptable at 5.5 in January. At this time, it would be reasonable to minimize CNI use. I deferred adjusting the dose without talking to Petros in more detail but would certainly consider dose reduction if kidney function does not significantly improve in the next 24-48 hours. Continue CellCept as Rx. Referral for relisting to be made once discharged. (3) Hypokalemia: Replacement ordered. Recheck in AM with Mg+ level. (4) Anemia: Venofer infusions provided during prior admission. Epo will be provided in the AM. History of Present Illness Reason for Consultation: NATHANIEL, kidney transplant Requesting Physician: Nydia Thornton DO Attending Physician: Nydia Thornton DO History of Present Illness Mr. Petros Forte is a 29 year-old white male with a h/o spina bifida, horseshoe kidney, and obstructive uropathy. He developed progressive renal dysfunction and underwent DDRT (6 antigen mismatch, CMV positive) 02/14 at [facility]. Medical history includes cloacal exstrophy, gastrocystoplasty and appendicovesicostomy w/ q4 hour cath, colostomy with high output, hypogonadism, hyperlipidemia and hypertension. This is Petros's 3rd hospitalization at [facility] in the past 2 months. Petros was hospitalized earlier in this month and in January with dehydration resulting in NATHANIEL. In 2018 a transplant allograft biopsy revealed IFTA w/ chronic changes c/w CNI toxicity as well as ATN. Tacro level was found to be 5.5 in January. Earlier this month, he was discharged from [facility] with a creatinine of 3.5 mg/dL. In 10/28 creatinine was ~ 3.0. Mr. Forte established care w/ Dr. Boss 01/27. He was hospitalized at [facility] w/ dehydration and NATHANIEL. His creatinine had improved to 3.1 at the time of discharge. Today, after follow up laboratory studies demonstrated worsening kidney function, Petros was referred back to the ER for admission. I discussed the patient's case and overall plan of care with Dr. Boss as well as Beau Mendosa PA-C today. Mr. Forte reports drinking 100 oz (3L) water per day. He has never measured his UO. He does empty his colostomy 4 - 5x/day and reports liquid stool. He lives in [place], [place] and indicates that he would consider evaluation at [facility] or [facility] if his kidney function worsens. He has briefly discussed dialysis options with Dr. Boss in the past but states that he has not personally explored home dialysis options. Allergies Allergy/AdvReac Type Severity Reaction Status Date / Time bee venom protein (honey bee) Allergy edema, Verified 03/05/20 13:47 hives latex Allergy Unknown Verified 03/05/20 13:47 morphine Allergy nauea, Verified 03/05/20 13:47 vomitting Home Medications Medication Instructions Recorded Confirmed Type mycophenolate mofetil 250 mg 250 mg PO .COMPLEX cap 01/30/20 03/05/20 History capsule tacrolimus 1 mg capsule 4 mg PO Q12H cap 01/30/20 03/05/20 History testosterone 20.25 mg/1.25 gram 2 pump TOPICAL DAILY #75 g 01/31/20 03/05/20 Rx (1.62 %) transdermal gel pump Wheelchair (Manual or Powered) 1 ea .ROUTE DAILY #1 ea 02/13/20 03/04/20 Rx magnesium oxide 400 mg (241.3 mg 400 mg PO DAILY #30 tab 02/15/20 03/05/20 Rx magnesium) tablet psyllium husk (with sugar) 1 pkg PO DAILY@1200 30 Days #1 ea 02/23/20 03/05/20 Rx [Metamucil (with sugar)] cholecalciferol (vitamin D3) 50 mcg PO QAM 03/05/20 03/05/20 History pravastatin 20 mg PO QAM 03/05/20 03/05/20 History Patient History Medical History Hypokalemia Hypomagnesemia Self-catheterizes urinary bladder Tethered spinal cord Surgical History Colostomy status History of orchiectomy Kidney transplant recipient Family History Mother Diabetes Heart disease Father Diabetes Social History Smoking Status: Never smoker Second Hand Exposure: No; Hx Alcohol Use: Yes Alcohol type: wine Hx Substance Use: No Preferred Language: [place]se Communication Ability: Effective Mechanical Oxidizer Required: No Beliefs That Will Affect Care: None marital status: Single Current Living Situation: Parent and Family current occupational status: 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[employer], 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 Other Information That Helps Us Care for You: No Feels Safe at Home: Yes Safety Concerns: Feels Safe At This Time Do you think of yourself as: don't know Gender Identity: Male Assistive Devices: Contacts Review of Systems Review of Systems: All systems reviewed & are unremarkable except as noted in HPI & below Physical Exam Constitutional: well developed; no acute distress Eyes: no scleral abnormality and no corneal abnormality ENMT: Mouth: no oral mucosal abnormality and oral mucous membranes not dry Neck: normal visual inspection and trachea midline Respiratory: normal respiratory effort Auscultation: lungs clear to auscultation bilaterally Cardiovascular: Rate/Rhythm: regular rate Heart Sounds: normal S1 and normal S2 Extremities: no edema Musculoskeletal: Extremities: no cyanosis and no clubbing Skin: normal turgor; no lesions Neurologic: Motor/Sensory: no tremor and no asterixis Psychiatric: Orientation: alert and oriented x 3 Results & Data ([facility]) Vital Signs (Past 12 Hours) Vital Signs Temp Pulse Pulse Resp BP BP Pulse Ox 03/05/20 17:20 36.6 C 92 H 20 120/72 95 03/05/20 16:34 120/60 03/05/20 16:30 91 H 18 03/05/20 16:00 93 H 16 03/05/20 15:30 93 H 23 03/05/20 15:00 93 H 20 03/05/20 14:30 99 H 19 03/05/20 14:23 100 H 17 03/05/20 14:08 93 H 23 117/63 03/05/20 12:36 36.2 C L 106 H 18 115/70 97 Laboratory Results Laboratory Results - last 24 hr 03/05/20 03/05/20 03/05/20 13:00 13:00 15:12 WBC 6.38 RBC 3.06 L Hgb 9.6 L Hct 27.3 L MCV 89.2 MCH 31.4 MCHC 35.2 RDW Std Deviation 41.9 RDW Coeff of Abigail 12.8 Plt Count 345 MPV 9.5 Immature Gran % (Auto) 0.2 Neut % (Auto) 66.1 Lymph % (Auto) 25.1 [place] % (Auto) 7.5 Eos % (Auto) 0.8 Baso % (Auto) 0.3 Neut # (Auto) 4.22 Lymph # (Auto) 1.60 [place] # (Auto) 0.48 Eos # (Auto) 0.05 Baso # (Auto) 0.02 Immature Gran # (Auto) 0.01 Sodium 132 L Potassium 2.8 L Chloride 81 L Carbon Dioxide 40 H Anion Gap 11.0 BUN 89 H Creatinine 5.80 H* D Est Cr Clr Drug Dosing 19.1 Est GFR ( Amer) 14.1 Est GFR (Non-Af Amer) 12.2 BUN/Creatinine Ratio 15.6 Glucose 160 H Calcium 7.8 L Magnesium 1.9 Total Bilirubin 0.3 AST 8 L ALT 14 Alkaline Phosphatase 104 Total Protein 7.8 Albumin 3.9 Globulin 3.9 Albumin/Globulin Ratio 1.0 Urine Color Urine Appearance Urine pH Ur Specific [place] Urine Protein Urine Glucose (UA) Urine Ketones Urine Blood Urine Nitrite Urine Bilirubin Urine Urobilinogen Ur Leukocyte Esterase Urine WBC (Auto) Urine RBC (Auto) U Hyaline Cast (Auto) U Epithel Cells (Auto) Urine Bacteria (Auto) COVID-19 Eval Order Covid19 IDNow [facility] SARS-CoV-2, RNA, NAAT 03/05/20 03/05/20 03/05/20 15:12 17:47 Unknown WBC RBC Hgb Hct MCV MCH MCHC RDW Std Deviation RDW Coeff of Abigail Plt Count MPV Immature Gran % (Auto) Neut % (Auto) Lymph % (Auto) [place] % (Auto) Eos % (Auto) Baso % (Auto) Neut # (Auto) Lymph # (Auto) [place] # (Auto) Eos # (Auto) Baso # (Auto) Immature Gran # (Auto) Sodium 134 L Potassium 3.0 L Chloride 86 L Carbon Dioxide 40 H Anion Gap 8.0 BUN 90 H Creatinine 5.36 H* D Est Cr Clr Drug Dosing 20.8 Est GFR ( Amer) 15.5 Est GFR (Non-Af Amer) 13.4 BUN/Creatinine Ratio 16.7 Glucose 103 H Calcium 7.7 L Magnesium Total Bilirubin AST ALT Alkaline Phosphatase Total Protein Albumin Globulin Albumin/Globulin Ratio Urine Color Yellow Urine Appearance Turbid A Urine pH 5.0 Ur Specific [place] 1.014 Urine Protein Trace H Urine Glucose (UA) Negative Urine Ketones Negative Urine Blood 3+ H Urine Nitrite Negative Urine Bilirubin Negative Urine Urobilinogen Negative Ur Leukocyte Esterase 3+ H Urine WBC (Auto) >30 H Urine RBC (Auto) 0-4 U Hyaline Cast (Auto) 1-5 U Epithel Cells (Auto) 10-20 H Urine Bacteria (Auto) 1+ H COVID-19 Eval Order SARS-CoV-2, RNA, NAAT NEGATIVE PG Care Time/CCT Total # of Minutes Spent Total Time Spent with Patient: Total time spent is greater than 50% in coordination of care (as documented) at patient's floor/unit and/or counseling patient: Coding Level of Care Code 73436 Inpt Consult Level 4 Diagnoses NATHANIEL (acute kidney injury) N17.9 Kidney transplant status Z94.0 Hypokalemia E87.6 Anemia D64.9
[2020-03-06] MEDS ORDERED: TESTOSTERONE SCH
[2020-03-06] MEDS: SODIUM CHLORIDE 0.9% 1000ML 1,000 ML IV SCH ×3 (03:23→23:38)
[2020-03-06] MEDS: TACROLIMUS 1 MG CAP PO SCH ×2 (06:26→16:58)
[2020-03-06 07:00] LABS: Basophils # (auto) 0.02 K/uL (0-0.2); Basophils % (auto) 0.4 %; Eosinophils # (auto) 0.07 K/uL (0-0.5); Eosinophils % (auto) 1.4 %; Hematocrit (blood only) 23.1 % (42-52); Immature Granulocytes # (auto) 0.01 K/uL (0.00-0.02); Immature Granulocytes % (auto) 0.2 %; Lymphocytes % (auto) 39.3 %; Mean Corpuscular Hemoglobin 31.1 pg (25-34); Mean Corpuscular Hgb Conc 34.6 g/dL (32-36); Mean Corpuscular Volume 89.9 fL (80-100); Mean Platelet Volume 9.4 fL (7.4-10.4); Monocytes # (auto) 0.49 K/uL (0.11-0.59); Monocytes % (auto) 9.6 %; Neutrophils % (auto) 49.1 %; Platelet Count 298 K/uL (130-400); RDW Coefficient of Variation 12.8 % (11.5-14.5); RDW Standard Deviation 41.2 fL (36.4-46.3); Red Blood Count 2.57 M/uL (4.7-6.1); White Blood Count 5.09 K/uL (4.8-10.8)
[2020-03-06 07:35] LABS: Albumin Level 3.2 gm/dl (3.4-5.0); Calcium 7.4 mg/dl (8.5-10.1); Creatinine Clr Calc Pharmacy 23.1 ml/min; Est GFR (African American) 17.6; Est GFR (Non-African American) 15.2; Phosphorus 6.3 mg/dl (2.5-4.9); Potassium 2.9 mmol/L (3.5-5.1)
[2020-03-06] MEDS: MYCOPHENOLATE MOFETIL 250 MG CAP PO SCH ×2 (08:39→20:27)
[2020-03-06] MEDS: CHOLECALCIFEROL 1,000 UNITS 25 MCG TAB PO SCH (08:40)
[2020-03-06] MEDS: PRAVASTATIN SOD 20 MG TAB PO SCH (08:40)
[2020-03-06] MEDS: TESTOSTERONE 50 MG TOP SCH (08:41)
[2020-03-06] MEDS ORDERED: POTASSIUM CHLORIDE CRTAB 20 MEQ TABCR PO ONE (09:00)
[2020-03-06] MEDS ORDERED: MAGNESIUM OXIDE 400 MG TAB PO SCH (09:00)
[2020-03-06] MEDS ORDERED: EPOETIN ALFA 40,000 UNITS/ML VIAL SQ ONE (09:00)
[2020-03-06] MEDS ORDERED: POTASSIUM CHLORIDE / WTR 10 MEQ/100 ML PLCT IV ONE (09:00)
--- NOTE | 2020-03-06 10:44 | Nephrology Progress Note ---
Date of Service March 06, 2020 Assessment & Plan (1) NATHANIEL (acute kidney injury): Non-oliguric. No emergent role for HD. Electrolytes and volume status acceptable. Denies uremic symptoms. Prerenal physiology related to a history of high ostomy output. Significant chronic changes on last biopsy, notably IFTA. IVF being appropriately provided to encourage positive fluid balance at least 1- 1.5 L/d. Will continue once current infusion complete. Allograft US from January reviewed. No obstruction or vascular compromise. Document strict I/O's. Repeat metabolic profile in the AM. Petros had noted at [facility] suggested to him that IVF could be arranged outpatient as needed. Potassium replacement for hypokalemia ordered today. Will recheck labs this afternoon. 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 He is ~14 years post transplant. He denies any history of rejection. PRA unknown. Tacro level acceptable at 5.5 in January. At this time, it would be reasonable to minimize CNI use. Tacro reduced to 1 mg twice daily for now. (3) Hypokalemia: Replacement ordered. Recheck in AM with Mg+ level. (4) Anemia: Venofer infusions provided during prior admission. Procrit [id number] units SQ provided today. Admission and Anticipated Discharge Date Admission Date: March 05, 2020 Subjective No acute events overnight. No complaints this AM. Tolerating IVF. No change in ostomy output. No fevers or chills. Appetite is good. Review of Systems Review of Systems: All systems reviewed & are unremarkable except as noted in HPI & below Physical Exam Constitutional: well developed; no acute distress Eyes: no scleral abnormality and no corneal abnormality ENMT: Mouth: no oral mucosal abnormality and oral mucous membranes not dry Neck: normal visual inspection and trachea midline Respiratory: normal respiratory effort Auscultation: lungs clear to auscultation bilaterally Cardiovascular: Rate/Rhythm: regular rate Heart Sounds: normal S1 and normal S2 Extremities: no edema Gastrointestinal (Abdomen): Percussion/Palpation: abdomen soft; abdomen nontender RLQ renal allograft not tender, no bruit Musculoskeletal: Extremities: no cyanosis and no clubbing Skin: normal turgor; no lesions Neurologic: Motor/Sensory: no tremor and no asterixis Psychiatric: Orientation: alert and oriented x 3 Results & Data ([facility]) Vital Signs (Past 12 Hours) Vital Signs Temp Pulse Resp BP Pulse Ox 03/06/20 07:10 36.6 C 95 H 18 111/61 94 03/05/20 22:59 36.7 C 95 H 18 112/68 97 Laboratory Results Laboratory Results - last 24 hr 03/05/20 03/05/20 03/05/20 13:00 13:00 15:12 WBC 6.38 RBC 3.06 L Hgb 9.6 L Hct 27.3 L MCV 89.2 MCH 31.4 MCHC 35.2 RDW Std Deviation 41.9 RDW Coeff of Abigail 12.8 Plt Count 345 MPV 9.5 Immature Gran % (Auto) 0.2 Neut % (Auto) 66.1 Lymph % (Auto) 25.1 [place] % (Auto) 7.5 Eos % (Auto) 0.8 Baso % (Auto) 0.3 Neut # (Auto) 4.22 Lymph # (Auto) 1.60 [place] # (Auto) 0.48 Eos # (Auto) 0.05 Baso # (Auto) 0.02 Immature Gran # (Auto) 0.01 Sodium 132 L Potassium 2.8 L Chloride 81 L Carbon Dioxide 40 H Anion Gap 11.0 BUN 89 H Creatinine 5.80 H* D Est Cr Clr Drug Dosing 19.1 Est GFR ( Amer) 14.1 Est GFR (Non-Af Amer) 12.2 BUN/Creatinine Ratio 15.6 Glucose 160 H Calcium 7.8 L Phosphorus Magnesium 1.9 Total Bilirubin 0.3 AST 8 L ALT 14 Alkaline Phosphatase 104 Total Protein 7.8 Albumin 3.9 Globulin 3.9 Albumin/Globulin Ratio 1.0 Urine Color Urine Appearance Urine pH Ur Specific [place] Urine Protein Urine Glucose (UA) Urine Ketones Urine Blood Urine Nitrite Urine Bilirubin Urine Urobilinogen Ur Leukocyte Esterase Urine WBC (Auto) Urine RBC (Auto) U Hyaline Cast (Auto) U Epithel Cells (Auto) Urine Bacteria (Auto) Tacrolimus COVID-19 Eval Order Covid19 IDNow [facility] SARS-CoV-2, RNA, NAAT 03/05/20 03/05/20 03/05/20 15:12 17:47 Unknown WBC RBC Hgb Hct MCV MCH MCHC RDW Std Deviation RDW Coeff of Abigail Plt Count MPV Immature Gran % (Auto) Neut % (Auto) Lymph % (Auto) [place] % (Auto) Eos % (Auto) Baso % (Auto) Neut # (Auto) Lymph # (Auto) [place] # (Auto) Eos # (Auto) Baso # (Auto) Immature Gran # (Auto) Sodium 134 L Potassium 3.0 L Chloride 86 L Carbon Dioxide 40 H Anion Gap 8.0 BUN 90 H Creatinine 5.36 H* D Est Cr Clr Drug Dosing 20.8 Est GFR ( Amer) 15.5 Est GFR (Non-Af Amer) 13.4 BUN/Creatinine Ratio 16.7 Glucose 103 H Calcium 7.7 L Phosphorus Magnesium Total Bilirubin AST ALT Alkaline Phosphatase Total Protein Albumin Globulin Albumin/Globulin Ratio Urine Color Yellow Urine Appearance Turbid A Urine pH 5.0 Ur Specific [place] 1.014 Urine Protein Trace H Urine Glucose (UA) Negative Urine Ketones Negative Urine Blood 3+ H Urine Nitrite Negative Urine Bilirubin Negative Urine Urobilinogen Negative Ur Leukocyte Esterase 3+ H Urine WBC (Auto) >30 H Urine RBC (Auto) 0-4 U Hyaline Cast (Auto) 1-5 U Epithel Cells (Auto) 10-20 H Urine Bacteria (Auto) 1+ H Tacrolimus COVID-19 Eval Order SARS-CoV-2, RNA, NAAT NEGATIVE 03/06/20 03/06/20 03/06/20 06:25 06:25 06:25 WBC 5.09 RBC 2.57 L Hgb 8.0 L Hct 23.1 L MCV 89.9 MCH 31.1 MCHC 34.6 RDW Std Deviation 41.2 RDW Coeff of Abigail 12.8 Plt Count 298 MPV 9.4 Immature Gran % (Auto) 0.2 Neut % (Auto) 49.1 Lymph % (Auto) 39.3 [place] % (Auto) 9.6 Eos % (Auto) 1.4 Baso % (Auto) 0.4 Neut # (Auto) 2.50 Lymph # (Auto) 2.00 [place] # (Auto) 0.49 Eos # (Auto) 0.07 Baso # (Auto) 0.02 Immature Gran # (Auto) 0.01 Sodium 137 Potassium 2.9 L Chloride 91 L Carbon Dioxide 40 H Anion Gap 6.0 BUN 87 H Creatinine 4.84 H* D Est Cr Clr Drug Dosing 23.1 Est GFR ( Amer) 17.6 Est GFR (Non-Af Amer) 15.2 BUN/Creatinine Ratio 18.0 Glucose 122 H Calcium 7.4 L Phosphorus 6.3 H Magnesium Total Bilirubin AST ALT Alkaline Phosphatase Total Protein Albumin 3.2 L Globulin Albumin/Globulin Ratio Urine Color Urine Appearance Urine pH Ur Specific [place] Urine Protein Urine Glucose (UA) Urine Ketones Urine Blood Urine Nitrite Urine Bilirubin Urine Urobilinogen Ur Leukocyte Esterase Urine WBC (Auto) Urine RBC (Auto) U Hyaline Cast (Auto) U Epithel Cells (Auto) Urine Bacteria (Auto) Tacrolimus Pending COVID-19 Eval Order SARS-CoV-2, RNA, NAAT PG Care Time/CCT Total # of Minutes Spent Total Time Spent with Patient: Total time spent is greater than 50% in coordination of care (as documented) at patient's floor/unit and/or counseling patient: Coding Level of Care Code 80777 Subseq Hosp Care Lvl 3 Diagnoses NATHANIEL (acute kidney injury) N17.9 Kidney transplant status Z94.0 Hypokalemia E87.6 Anemia D64.9
[2020-03-06] MEDS: PSYLLIUM 58.6% POWDER PACKET PO SCH (12:53)
[2020-03-06 17:32] LABS: Calcium 7.7 mg/dl (8.5-10.1); Creatinine Clr Calc Pharmacy 23.1 ml/min; Est GFR (African American) 17.7; Est GFR (Non-African American) 15.2; Potassium 3.3 mmol/L (3.5-5.1)
[2020-03-06] MEDS: POTASSIUM CHLORIDE CRTAB 20 MEQ TABCR PO SCH (20:27)
--- NOTE | 2020-03-06 22:21 | Hospitalist Progress Note ---
Date of Service March 06, 2020 Assessment & Plan (1) NATHANIEL (acute kidney injury): [facility] [place] [address] History & Physical ReportSigned Patient: SAMSON FORTEAdmit Date: 03/05/20MR#: [id number] Phy: Nydia ThorntonDOAcct ID:[id number] Phy: Grecia Bravo DOBirth Date: 1990Fam Phy:Age: 29Location: 3NSex: M Room/Bed: [facility] cc: Alayna Boss MD; aJe Short DO; Grecia Bravo DO~ *NOTICE TO RECEIVING CONSTITUTION PARTY/AGENCY This information is strictly Confidential and protected under [place] law. [place] law prohibits you from making any further disclosure of this information unless further disclosure is expressly permitted by the written consent of the person to whom it pertains or is authorized by law. A general authorization for the release of medical or other information is not sufficient for this purpose. Hospital accepts no responsibility if the information is made available to any other person, INCLUDING THE PATIENT. Date of Service March 05, 2020 Assessment & Plan (1) NATHANIEL (acute kidney injury): Mr. 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 His abnormal laboratory results including a serum Creatinine of 5.80 mg/dl (baseline is 3.0), serum K of 2.8 mmol/L, serum Na of 132 mmol/L, elevated bicarb level, and a BUN of 89. His serum Creatinine climbed from 3.45 mg/dl on 02/23/2020 up to 4.89 mg/dl yesterday, and up to 5.8 mg/dl today. Overall, patient feels fatigued and has noticed mild cramping of peripheral muscles -- but otherwise feels at baseline. He denies any twitches or involuntary muscle movements. He has been eating and drinking normally. He drinks about 50 to 100 ounces of fluid daily. He straight caths himself 4 to 5 time per day. His stool/colostomy output is less since being on Metamucil. Patient denies any nausea, vomiting, diarrhea, or focal abdominal pain. He denies any discomfort at his renal graft site. He denies any urinary symptoms, specifically denying any urinary urgency or frequency. Urinary outputs are stable. He denies any dark urine, cloudy urine, or malodorous urine. No back or flank pain or colic. He denies any fevers or chills. Recommend the following: -- Admit to Med-Surg unit. -- Rehydrate with IV NSS at 125 ml/hour x 2 liters . -- Monitor daily labs, daily renal panel, CBC with diff. -- Urine analysis, C&S ordered and obtained. -- Nephrology consult. Dr. Short aware. -- Continue usual medications. -- Check BMP after 1st 500 ml NSS with KCl infusion complete. On day 2 of hopsital stay: Will continue IVF and closely monitor renal function. This has gradually improved from 5.8 to 4.8 (2) Hypokalemia: \ -- As outlined above. (3) Hyponatremia: as above. (4) CKD (chronic kidney disease) stage 4, GFR 15-29 ml/min: -- Followed by Dr. Boss. -- Serum Creatinine climbed from 3.45 mg/dl on 02/23/2020 up to 4.89 mg/dl yesterday, and up to 5.8 mg/dl today. (5) Anemia: -- Associated with Kidney disease. -- Current Hgb is 9.6 g/dl. -- Received Venofer during last hospitalization in Mid February 2020. -- Approved to begin Epogen 20,000 units q 2 weeks. Admission and Anticipated Discharge Date Admission Date: March 05, 2020 Subjective Patient reports feeling well, he has no new complaints. Review of Systems Review of Systems: All systems reviewed & are unremarkable except as noted in HPI & below Physical Exam Physical Exam: Constitutional: WD/WN, vitals as above Eyes: normal visual roberson by confrontation and + anicteric sclerae Neck: normal visual inspection and trachea midline Respiratory: normal respiratory effort, lungs clear to auscultation Cardiovascular: Rate/Rhythm: regular rate and regular rhythm Gastrointestinal (Abdomen): Inspection/Auscultation: abdomen not distended Percussion/Palpation: abdomen soft; abdomen nontender Musculoskeletal: Head/Neck/Chest: normocephalic and head atraumatic Neg for peripheral LE edema, + pedal pulses Skin: no rashes, warm and dry Neurologic: awake; not confused Speech / Cognition: normal speech Psychiatric: A+Ox3, euthymic affect Results & Data Results & Data ([facility]) Vital Signs (Past 12 Hours) Vital Signs Temp Pulse Resp BP Pulse Ox 03/06/20 15:53 36.6 C 87 18 102/64 97 PG Care Time/CCT Total # of Minutes Spent Total Time Spent with Patient: Total time spent is greater than 50% in coordination of care (as documented) at patient's floor/unit and/or counseling patient: Coding Level of Care Code 35745 Subseq Hosp Care Lvl 3 Diagnoses NATHANIEL (acute kidney injury) N17.9 Hypokalemia E87.6 Hyponatremia E87.1 CKD (chronic kidney disease) stage 4, GFR 15-29 ml/min N18.4 Anemia D64.9 Time Spent (min) 35
[2020-03-07] MEDS: TACROLIMUS 1 MG CAP PO SCH ×2 (05:13→16:38)
[2020-03-07] MEDS: SODIUM CHLORIDE 0.9% 1000ML 1,000 ML IV SCH ×2 (05:14→10:20)
[2020-03-07 07:18] LABS: Basophils # (auto) 0.03 K/uL (0-0.2); Basophils % (auto) 0.6 %; Eosinophils # (auto) 0.06 K/uL (0-0.5); Eosinophils % (auto) 1.2 %; Hematocrit (blood only) 23.2 % (42-52); Hemoglobin 7.9 g/dL (14.0-18.0); Immature Granulocytes # (auto) 0.01 K/uL (0.00-0.02); Immature Granulocytes % (auto) 0.2 %; Lymphocytes # (auto) 1.78 K/uL (1.2-3.4); Lymphocytes % (auto) 35.4 %; Mean Corpuscular Hemoglobin 31.1 pg (25-34); Mean Corpuscular Hgb Conc 34.1 g/dL (32-36); Mean Corpuscular Volume 91.3 fL (80-100); Mean Platelet Volume 9.3 fL (7.4-10.4); Monocytes # (auto) 0.46 K/uL (0.11-0.59); Monocytes % (auto) 9.1 %; Neutrophils # (auto) 2.69 K/uL (1.4-6.5); Neutrophils % (auto) 53.5 %; Platelet Count 294 K/uL (130-400); RDW Standard Deviation 43.1 fL (36.4-46.3); Red Blood Count 2.54 M/uL (4.7-6.1); White Blood Count 5.03 K/uL (4.8-10.8)
[2020-03-07 07:53] LABS: Albumin Level 3.1 gm/dl (3.4-5.0); BUN Creatinine Ratio 16.2 (10-20); Calcium 8.2 mg/dl (8.5-10.1); Creatinine Clr Calc Pharmacy 27.5 ml/min; Est GFR (African American) 21.8; Est GFR (Non-African American) 18.8; Potassium 3.2 mmol/L (3.5-5.1)
[2020-03-07 07:54] LABS: Phosphorus 4.7 mg/dl (2.5-4.9)
[2020-03-07 07:55] LABS: Anisocytosis Present; Basophilic Stippling 1+
[2020-03-07] MEDS ORDERED: POTASSIUM CHLORIDE / WTR 10 MEQ/100 ML PLCT IV ONE (08:43)
[2020-03-07] MEDS: MYCOPHENOLATE MOFETIL 250 MG CAP PO SCH ×2 (08:52→21:02)
[2020-03-07] MEDS: PRAVASTATIN SOD 20 MG TAB PO SCH (08:53)
[2020-03-07] MEDS: CHOLECALCIFEROL 1,000 UNITS 25 MCG TAB PO SCH (08:53)
[2020-03-07] MEDS: POTASSIUM CHLORIDE CRTAB 20 MEQ TABCR PO SCH ×3 (08:54→21:02)
[2020-03-07] MEDS: TESTOSTERONE 50 MG TOP SCH (08:56)
--- NOTE | 2020-03-07 10:39 | Nephrology Progress Note ---
Date of Service March 07, 2020 Assessment & Plan (1) NATHANIEL (acute kidney injury): Non-oliguric. No emergent role for HD. Electrolytes and volume status acceptable. Denies uremic symptoms. Prerenal physiology related to a history of high ostomy output. Significant chronic changes on last biopsy, notably IFTA. IVF being appropriately provided to encourage positive fluid balance at least 1- 1.5 L/d. Will complete current infusion as a 500 ml bolus and monitor I/O's. Additional fluid bolus to be provided this afternoon as needed. Allograft US from January reviewed. No obstruction or vascular compromise. Document strict I/O's. Repeat metabolic profile in the AM. Petros had noted at [facility] suggested to him that IVF could be arranged outpatient as needed. Potassium replacement for hypokalemia ordered today. Will recheck labs this afternoon. 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 He is ~14 years post transplant. He denies any history of rejection. PRA unknown. Tacro level acceptable at 5.5 in January. To minimize CNI exposure, Tacro reduced to 1 mg twice daily yesterday. (3) Hypokalemia: Replacement ordered. Recheck in AM with Mg+ level. (4) Anemia: Venofer infusions provided during prior admission. Procrit 89574 units SQ provided yesterday. Admission and Anticipated Discharge Date Admission Date: March 05, 2020 Subjective No acute events overnight. Petros feels well. Appetite is good. Ostomy output stable. Tolerating IVF well. Review of Systems Review of Systems: All systems reviewed & are unremarkable except as noted in HPI & below Physical Exam Constitutional: well developed; no acute distress Eyes: no scleral abnormality and no corneal abnormality ENMT: Mouth: no oral mucosal abnormality and oral mucous membranes not dry Neck: normal visual inspection and trachea midline Respiratory: normal respiratory effort Auscultation: lungs clear to auscultation bilaterally Cardiovascular: Rate/Rhythm: regular rate Heart Sounds: normal S1 and normal S2 Extremities: no edema Gastrointestinal (Abdomen): Percussion/Palpation: abdomen soft; abdomen nontender Allograft non tender. No bruit. Musculoskeletal: Extremities: no cyanosis and no clubbing Skin: normal turgor; no lesions Neurologic: Motor/Sensory: no tremor and no asterixis Psychiatric: Orientation: alert and oriented x 3 Results & Data ([facility]) Vital Signs (Past 12 Hours) Vital Signs Temp Pulse Resp BP BP Pulse Ox 03/07/20 07:30 36.7 C 93 H 18 123/76 97 03/06/20 23:00 36.6 C 93 H 16 111/65 96 Laboratory Results Laboratory Results - last 24 hr 03/06/20 03/06/20 03/06/20 06:25 06:31 16:48 WBC RBC Hgb Hct MCV MCH MCHC RDW Std Deviation RDW Coeff of Abigail Plt Count MPV Immature Gran % (Auto) Neut % (Auto) Lymph % (Auto) [place] % (Auto) Eos % (Auto) Baso % (Auto) Neut # (Auto) Lymph # (Auto) [place] # (Auto) Eos # (Auto) Baso # (Auto) Immature Gran # (Auto) Basophilic Stippling Anisocytosis Sodium 139 Potassium 3.3 L Chloride 94 L Carbon Dioxide 38 H Anion Gap 7.0 BUN 81 H Creatinine 4.82 H* Est Cr Clr Drug Dosing 23.1 Est GFR ( Amer) 17.7 Est GFR (Non-Af Amer) 15.2 BUN/Creatinine Ratio 17.0 Glucose 117 H Calcium 7.7 L Phosphorus Magnesium 1.8 Albumin Tacrolimus 03/07/20 03/07/20 06:50 06:50 WBC 5.03 RBC 2.54 L Hgb 7.9 L Hct 23.2 L MCV 91.3 MCH 31.1 MCHC 34.1 RDW Std Deviation 43.1 RDW Coeff of Abigail 13.0 Plt Count 294 MPV 9.3 Immature Gran % (Auto) 0.2 Neut % (Auto) 53.5 Lymph % (Auto) 35.4 [place] % (Auto) 9.1 Eos % (Auto) 1.2 Baso % (Auto) 0.6 Neut # (Auto) 2.69 Lymph # (Auto) 1.78 [place] # (Auto) 0.46 Eos # (Auto) 0.06 Baso # (Auto) 0.03 Immature Gran # (Auto) 0.01 Basophilic Stippling 1+ Anisocytosis Present Sodium 142 Potassium 3.2 L Chloride 102 Carbon Dioxide 34 H Anion Gap 6.0 BUN 66 H Creatinine 4.05 H D Est Cr Clr Drug Dosing 27.5 Est GFR ( Amer) 21.8 Est GFR (Non-Af Amer) 18.8 BUN/Creatinine Ratio 16.2 Glucose 102 H Calcium 8.2 L Phosphorus 4.7 D Magnesium Albumin 3.1 L Tacrolimus PG Care Time/CCT Total # of Minutes Spent Total Time Spent with Patient: Total time spent is greater than 50% in coordination of care (as documented) at patient's floor/unit and/or counseling patient: Coding Level of Care Code 06498 Subseq Hosp Care Lvl 3 Diagnoses NATHANIEL (acute kidney injury) N17.9 Kidney transplant status Z94.0 Hypokalemia E87.6 Anemia D64.9
[2020-03-07] MEDS: PSYLLIUM 58.6% POWDER PACKET PO SCH (11:35)
[2020-03-07 15:50] LABS: BUN Creatinine Ratio 14.3 (10-20); Creatinine Clr Calc Pharmacy 26.8 ml/min; Est GFR (African American) 21.1; Est GFR (Non-African American) 18.2; Magnesium 1.5 mg/dl (1.8-2.4); Potassium 3.4 mmol/L (3.5-5.1)
[2020-03-07] MEDS ORDERED: NORMOSOL-R 1,000 ML IV ONE (17:40)
--- NOTE | 2020-03-07 18:02 | Hospitalist Progress Note ---
Date of Service March 07, 2020 Assessment & Plan (1) NATHANIEL (acute kidney injury): Mr. 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 His abnormal laboratory results including a serum Creatinine of 5.80 mg/dl (baseline is 3.0), serum K of 2.8 mmol/L, serum Na of 132 mmol/L, elevated bicarb level, and a BUN of 89. His serum Creatinine climbed from 3.45 mg/dl on 02/23/2020 up to 4.89 mg/dl yesterday, and up to 5.8 mg/dl today. Overall, patient feels fatigued and has noticed mild cramping of peripheral muscles -- but otherwise feels at baseline. He denies any twitches or involuntary muscle movements. He has been eating and drinking normally. He drinks about 50 to 100 ounces of fluid daily. He straight caths himself 4 to 5 time per day. His stool/colostomy output is less since being on Metamucil. Patient denies any nausea, vomiting, diarrhea, or focal abdominal pain. He denies any discomfort at his renal graft site. He denies any urinary symptoms, specifically denying any urinary urgency or frequency. Urinary outputs are stable. He denies any dark urine, cloudy urine, or malodorous urine. No back or flank pain or colic. He denies any fevers or chills. Recommend the following: -- Admit to Med-Surg unit. -- Rehydrate with IV NSS at 125 ml/hour x 2 liters . -- Monitor daily labs, daily renal panel, CBC with diff. -- Urine analysis, C&S ordered and obtained. -- Nephrology consult. Dr. Han aware. -- Continue usual medications. -- Check BMP after 1st 500 ml NSS with KCl infusion complete. On day 3 of hospital stay: Creatinine has improved from 5.8 to 4.0. Will continue with intermittent boluses of IVF. will continue to monitor BMP. (2) Hypokalemia: -- As outlined above. (3) Hyponatremia: as above. (4) CKD (chronic kidney disease) stage 4, GFR 15-29 ml/min: -- Followed by Dr. Boss. -- as above. (5) Anemia: -- Associated with Kidney disease. -- Current Hgb is 9.6 g/dl. -- Received Venofer during last hospitalization in Mid February 2020. -- Approved to begin Epogen 20,000 units q 2 weeks. Admission and Anticipated Discharge Date Admission Date: March 05, 2020 Subjective Patient reports feeling well. He has no new complaints at this time. Review of Systems Review of Systems: All systems reviewed & are unremarkable except as noted in HPI & below Physical Exam Physical Exam: Constitutional: WD/WN, vitals as above Eyes: normal visual roberson by confrontation and + anicteric sclerae Neck: normal visual inspection and trachea midline Respiratory: normal respiratory effort, lungs clear to auscultation Cardiovascular: Rate/Rhythm: regular rate and regular rhythm Gastrointestinal (Abdomen): Inspection/Auscultation: abdomen not distended Percussion/Palpation: abdomen soft; abdomen nontender Musculoskeletal: Head/Neck/Chest: normocephalic and head atraumatic Neg for peripheral LE edema, + pedal pulses Skin: no rashes, warm and dry Neurologic: awake; not confused Speech / Cognition: normal speech Psychiatric: A+Ox3, euthymic affect Results & Data Results & Data ([facility]) Vital Signs (Past 12 Hours) Vital Signs Temp Pulse Resp BP BP Pulse Ox 03/07/20 15:21 36.7 C 83 18 141/84 H 99 03/07/20 07:30 36.7 C 93 H 18 123/76 97 PG Care Time/CCT Total # of Minutes Spent Total Time Spent with Patient: Total time spent is greater than 50% in coordination of care (as documented) at patient's floor/unit and/or counseling p atient: Coding Level of Care Code 17340 Subseq Hosp Care Lvl 2 Diagnoses NATHANIEL (acute kidney injury) N17.9 Hypokalemia E87.6 Hyponatremia E87.1 CKD (chronic kidney disease) stage 4, GFR 15-29 ml/min N18.4 Anemia D64.9
[2020-03-07] MEDS: MAGNESIUM SULFATE / D5W 1 GM/100 ML BAG IV SCH ×2 (19:17→21:02)
[2020-03-08] MEDS: TACROLIMUS 1 MG CAP PO SCH ×2 (05:13→17:10)
[2020-03-08 06:34] LABS: Basophils # (auto) 0.02 K/uL (0-0.2); Basophils % (auto) 0.3 %; Eosinophils # (auto) 0.08 K/uL (0-0.5); Eosinophils % (auto) 1.3 %; Hematocrit (blood only) 24.4 % (42-52); Hemoglobin 8.2 g/dL (14.0-18.0); Immature Granulocytes # (auto) 0.04 K/uL (0.00-0.02); Immature Granulocytes % (auto) 0.6 %; Lymphocytes # (auto) 1.81 K/uL (1.2-3.4); Lymphocytes % (auto) 28.5 %; Mean Corpuscular Hemoglobin 30.9 pg (25-34); Mean Corpuscular Hgb Conc 33.6 g/dL (32-36); Mean Corpuscular Volume 92.1 fL (80-100); Monocytes # (auto) 0.51 K/uL (0.11-0.59); Neutrophils # (auto) 3.88 K/uL (1.4-6.5); Neutrophils % (auto) 61.3 %; Platelet Count 297 K/uL (130-400); RDW Coefficient of Variation 13.1 % (11.5-14.5); RDW Standard Deviation 43.6 fL (36.4-46.3); Red Blood Count 2.65 M/uL (4.7-6.1); White Blood Count 6.34 K/uL (4.8-10.8)
[2020-03-08 07:02] LABS: Albumin Level 3.1 gm/dl (3.4-5.0); BUN Creatinine Ratio 13.5 (10-20); Calcium 8.9 mg/dl (8.5-10.1); Creatinine Clr Calc Pharmacy 30.7 ml/min; Est GFR (African American) 24.9; Est GFR (Non-African American) 21.5; Potassium 3.8 mmol/L (3.5-5.1)
[2020-03-08 07:10] LABS: Phosphorus 3.9 mg/dl (2.5-4.9)
[2020-03-08] MEDS ORDERED: NORMOSOL-R 1,000 ML IV ONE ×2 (08:35→17:34)
[2020-03-08] MEDS: MAGNESIUM SULFATE / D5W 1 GM/100 ML BAG IV SCH ×2 (09:25→11:11)
[2020-03-08] MEDS: TESTOSTERONE 50 MG TOP SCH (09:25)
[2020-03-08] MEDS: PRAVASTATIN SOD 20 MG TAB PO SCH (09:26)
[2020-03-08] MEDS: POTASSIUM CHLORIDE CRTAB 20 MEQ TABCR PO SCH ×2 (09:26→20:23)
[2020-03-08] MEDS: CHOLECALCIFEROL 1,000 UNITS 25 MCG TAB PO SCH (09:27)
[2020-03-08] MEDS: MYCOPHENOLATE MOFETIL 250 MG CAP PO SCH ×2 (09:27→20:23)
--- NOTE | 2020-03-08 10:14 | Nephrology Progress Note ---
Date of Service March 08, 2020 Assessment & Plan (1) NATHANIEL (acute kidney injury): Non-oliguric. No emergent role for HD. Electrolytes and volume status acceptable. Denies uremic symptoms. Prerenal physiology related to a history of high ostomy output. Significant chronic changes on last biopsy, notably IFTA. IVF being appropriately provided to encourage positive fluid balance at least 1- 1.5 L/d. Additional 1 L Normosol bolus provided this AM. Additional fluid bolus to be provided this afternoon as needed. Allograft US from January reviewed. No obstruction or vascular compromise. Document strict I/O's. Repeat metabolic profile this afternoon. I reached out to [employer] contact Lottie Schneider ([phone]) for Petros this AM. Ostomy output ~1-1.5 L per day. Unclear at this time if additional fluid might be required on an outpatient basis to prevent future hospitalization but this is certainly a consideration. Additional Magnesium Sulfate 2 gm provided this AM. 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 He is ~14 years post transplant. He denies any history of rejection. PRA unknown. Tacro level acceptable at 5.5 in January. To minimize CNI exposure, Tacro reduced to 1 mg BID. (3) Hypokalemia: Remains on KCl 20 mEq BID. (4) Anemia: Venofer infusions provided during prior admission. Procrit [id number] units SQ provided 03/06/20. Admission and Anticipated Discharge Date Admission Date: March 05, 2020 Subjective No acute events overnight. Petros feels well this AM. Appetite is good. Ostomy output stable. SBP dropped ~10 mmHg with sitting to standing. No orthostatic symptoms reported. Review of Systems Review of Systems: All systems reviewed & are unremarkable except as noted in HPI & below Physical Exam Constitutional: well developed; no acute distress Eyes: no scleral abnormality and no corneal abnormality ENMT: Mouth: no oral mucosal abnormality and oral mucous membranes not dry Neck: normal visual inspection and trachea midline Respiratory: normal respiratory effort Auscultation: lungs clear to auscultation bilaterally Cardiovascular: Rate/Rhythm: regular rate Heart Sounds: normal S1 and rojas l S2 Extremities: no edema Gastrointestinal (Abdomen): Percussion/Palpation: abdomen soft; abdomen nontender Musculoskeletal: Extremities: no cyanosis and no clubbing Skin: normal turgor; no lesions Neurologic: Motor/Sensory: no tremor and no asterixis Psychiatric: Orientation: alert and oriented x 3 Results & Data ([facility]) Vital Signs (Past 12 Hours) Vital Signs Temp Pulse Resp BP BP Pulse Ox 03/08/20 07:20 36.8 C 80 16 102/62 94 03/07/20 22:56 36.8 C 77 15 110/71 97 Laboratory Results Laboratory Results - last 24 hr 03/07/20 03/08/20 03/08/20 15:16 06:08 06:08 WBC 6.34 RBC 2.65 L Hgb 8.2 L Hct 24.4 L MCV 92.1 MCH 30.9 MCHC 33.6 RDW Std Deviation 43.6 RDW Coeff of Abigail 13.1 Plt Count 297 MPV 9.0 Immature Gran % (Auto) 0.6 Neut % (Auto) 61.3 Lymph % (Auto) 28.5 Dickens % (Auto) 8.0 Eos % (Auto) 1.3 Baso % (Auto) 0.3 Neut # (Auto) 3.88 Lymph # (Auto) 1.81 Dickens # (Auto) 0.51 Eos # (Auto) 0.08 Baso # (Auto) 0.02 Immature Gran # (Auto) 0.04 H Sodium 143 143 Potassium 3.4 L 3.8 Chloride 105 105 Carbon Dioxide 34 H 29 Anion Gap 4.0 9.0 BUN 59 H 49 H Creatinine 4.16 H 3.63 H D Est Cr Clr Drug Dosing 26.8 30.7 Est GFR ( Amer) 21.1 24.9 Est GFR (Non-Af Amer) 18.2 21.5 BUN/Creatinine Ratio 14.3 13.5 Glucose 139 H 107 H Calcium 8.0 L 8.9 Phosphorus 3.9 Magnesium 1.5 L Albumin 3.1 L PG Care Time/CCT Total # of Minutes Spent Total Time Spent with Patient: Total time spent is greater than 50% in coordination of care (as documented) at patient's floor/unit and/or counseling patient: Coding Level of Care Code 11861 Subseq Hosp Care Lvl 3 Diagnoses NATHANIEL (acute kidney injury) N17.9 Kidney transplant status Z94.0 Hypokalemia E87.6 Anemia D64.9
[2020-03-08] MEDS: PSYLLIUM 58.6% POWDER PACKET PO SCH (12:27)
[2020-03-08 15:49] LABS: BUN Creatinine Ratio 12.3 (10-20); Calcium 8.7 mg/dl (8.5-10.1); Creatinine Clr Calc Pharmacy 31.1 ml/min; Est GFR (African American) 25.2; Est GFR (Non-African American) 21.7; Magnesium 2.7 mg/dl (1.8-2.4)
--- NOTE | 2020-03-08 21:19 | Hospitalist Progress Note ---
Date of Service March 08, 2020 Assessment & Plan (1) NATHANIEL (acute kidney injury): Mr. 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 His abnormal laboratory results including a serum Creatinine of 5.80 mg/dl (baseline is 3.0), serum K of 2.8 mmol/L, serum Na of 132 mmol/L, elevated bicarb level, and a BUN of 89. His serum Creatinine climbed from 3.45 mg/dl on 02/23/2020 up to 4.89 mg/dl yesterday, and up to 5.8 mg/dl today. Overall, patient feels fatigued and has noticed mild cramping of peripheral muscles -- but otherwise feels at baseline. He denies any twitches or involuntary muscle movements. He has been eating and drinking normally. He drinks about 50 to 100 ounces of fluid daily. He straight caths himself 4 to 5 time per day. His stool/colostomy output is less since being on Metamucil. Patient denies any nausea, vomiting, diarrhea, or focal abdominal pain. He denies any discomfort at his renal graft site. He denies any urinary symptoms, specifically denying any urinary urgency or frequency. Urinary outputs are stable. He denies any dark urine, cloudy urine, or malodorous urine. No back or flank pain or colic. He denies any fevers or chills. Recommend the following: -- Admit to Med-Surg unit. -- Rehydrate with IV NSS at 125 ml/hour x 2 liters . -- Monitor daily labs, daily renal panel, CBC with diff. -- Urine analysis, C&S ordered and obtained. -- Nephrology consult. Dr. Han aware. -- Continue usual medications. -- Check BMP after 1st 500 ml NSS with KCl infusion complete. On day 4 of hospital stay: Creatinine has improved from 5.8 to below 4. Will continue with intermittent boluses of IVF. will continue to monitor BMP. Possible discharge in AM. (2) Hypokalemia: -- As outlined above. (3) Hyponatremia: as above. (4) CKD (chronic kidney disease) stage 4, GFR 15-29 ml/min: -- Followed by Dr. Boss. -- as above. (5) Anemia: -- Associated with Kidney disease. -- Current Hgb is 9.6 g/dl. -- Received Venofer during last hospitalization in Mid February 2020. -- Approved to begin Epogen 20,000 units q 2 weeks. Admission and Anticipated Discharge Date Admission Date: March 05, 2020 Subjective Patient reports feeling well. He has no new complaints. Review of Systems Review of Systems: All systems reviewed & are unremarkable except as noted in HPI & below Physical Exam Physical Exam: Constitutional: WD/WN, vitals as above Eyes: normal visual roberson by confrontation and + anicteric sclerae Neck: normal visual inspection and trachea midline Respiratory: normal respiratory effort, lungs clear to auscultation Cardiovascular: Rate/Rhythm: regular rate and regular rhythm Gastrointestinal (Abdomen): Inspection/Auscultation: abdomen not distended Percussion/Palpation: abdomen soft; abdomen nontender Musculoskeletal: Head/Neck/Chest: normocephalic and head atraumatic Neg for peripheral LE edema, + pedal pulses Skin: no rashes, warm and dry Neurologic: awake; not confused Speech / Cognition: normal speech Psychiatric: A+Ox3, euthymic affect Results & Data Results & Data ([facility]) Vital Signs (Past 12 Hours) Vital Signs Temp Pulse Resp BP Pulse Ox 03/08/20 15:44 36.7 C 93 H 18 109/68 95 PG Care Time/CCT Total # of Minutes Spent Total Time Spent with Patient: Total time spent is greater than 50% in coordination of care (as documented) at patient's floor/unit and/or counseling patient: Coding Level of Care Code 46019 Subseq Hosp Care Lvl 2 Diagnoses NATHANIEL (acute kidney injury) N17.9 Hypokalemia E87.6 Hyponatremia E87.1 CKD (chronic kidney disease) stage 4, GFR 15-29 ml/min N18.4 Anemia D64.9 Time Spent (min) 25
[2020-03-09] MEDS: TACROLIMUS 1 MG CAP PO SCH ×2 (05:50→17:19)
[2020-03-09 06:24] LABS: Albumin Level 3.1 gm/dl (3.4-5.0); BUN Creatinine Ratio 11.6 (10-20); Calcium 8.6 mg/dl (8.5-10.1); Creatinine Clr Calc Pharmacy 32.7 ml/min; Est GFR (African American) 26.8; Est GFR (Non-African American) 23.1; Magnesium 2.3 mg/dl (1.8-2.4)
[2020-03-09 06:25] LABS: Phosphorus 4.1 mg/dl (2.5-4.9)
[2020-03-09] MEDS ORDERED: NORMOSOL-R 2,000 ML IV ONE (09:05)
[2020-03-09] MEDS ORDERED: LOPERAMIDE HCL 2 MG CAP PO STA (09:05)
[2020-03-09] MEDS: POTASSIUM CHLORIDE CRTAB 20 MEQ TABCR PO SCH ×2 (09:27→21:06)
[2020-03-09] MEDS: MYCOPHENOLATE MOFETIL 250 MG CAP PO SCH ×2 (09:28→21:07)
[2020-03-09] MEDS: CHOLECALCIFEROL 1,000 UNITS 25 MCG TAB PO SCH (09:28)
[2020-03-09] MEDS: PRAVASTATIN SOD 20 MG TAB PO SCH (09:28)
[2020-03-09] MEDS: TESTOSTERONE 50 MG TOP SCH (09:29)
--- NOTE | 2020-03-09 10:18 | Nephrology Progress Note ---
Date of Service March 09, 2020 Assessment & Plan (1) NATHANIEL (acute kidney injury): * NATHANIEL improved w/ IV hydration * Patient has 1 - 1.5 L liquid stool/day + 1 - 1.5 L UO/day + 0.8 - 1 L insensible losses * Continue IV hydration * Start Loperamide 4 mg po daily to slow intestinal transit. Consider consultation w/ GI if patient has continued liquid stool * Monitor PRP * May need to consider weekly IV hydration via home health at time of discharge ([facility] Lottie Schneider [phone]) (2) Kidney transplant status: * Baseline Cr ~ 3.0 * Continue current immunosuppressant regimen (Tacrolimus 1 mg po BID, Mycophenolate 500 mg po qAM/250 mg po qPM) (3) Hypokalemia: * Corrected * Remains on KCl 20 mEq BID (4) Anemia: * Venofer infusions provided during prior admission. Procrit [id number] units SQ provided 03/06/20 Admission and Anticipated Discharge Date Admission Date: March 05, 2020 Subjective Mr. Forte was seen & examined in his hospital room this morning. He reports that his ostomy output is still liquid but the volume has been less while using Psyllium each day. He is tolerating IV hydration without dyspnea or LE swelling. Review of Systems Constitutional: no fever Eyes: no problem reported Ear, Nose, Mouth, Throat: no problem reported Respiratory: no dyspnea Cardiovascular: no chest pain and no edema Gastrointestinal: + diarrhea/loose stools; no abdominal pain Genitourinary: no dysuria, no urinary hesitancy and no hematuria Musculoskeletal: no back pain Integumentary: no rash Neurologic: no confusion Physical Exam Constitutional: not in distress Eyes: PERRL, conjunctivae normal, anicteric sclerae ENMT: external ear and nose normal, oropharynx normal Neck: trachea midline, no thyromegaly Respiratory: normal respiratory effort, lungs clear to auscultation Cardiovascular: RRR, no murmur, no edema Gastrointestinal (Abdomen): normal bowel sounds, soft, nontender, no hepatosplenomegaly (ostomy w/ liquid stool) Skin: no rashes, warm and dry Neurologic: awake; not confused Results & Data ([facility]) Vital Signs (Past 12 Hours) Vital Signs Temp Pulse Resp BP Pulse Ox 03/09/20 07:12 36.4 C L 78 16 101/62 98 03/08/20 22:59 36.8 C 93 H 16 127/79 100 Laboratory Tests 03/08/20 03/09/20 06:08 05:39 WBC 6.34 Hgb 8.2 L Hct 24.4 L Plt Count 297 Sodium 142 Potassium 4.0 Chloride 108 H Carbon Dioxide 30 BUN 40 H Creatinine 3.41 H Glucose 109 H Calcium 8.6 Phosphorus 4.1 Magnesium 2.3 Albumin 3.1 L PG Care Time/CCT Total # of Minutes Spent Total Time Spent with Patient: Total time spent is greater than 50% in coordination of care (as documented) at patient's floor/unit and/or counseling patient: Coding Level of Care Code 22058 Subseq Hosp Care Lvl 3 Diagnoses NATHANIEL (acute kidney injury) N17.9 Kidney transplant status Z94.0 Hypokalemia E87.6 Anemia D64.9
[2020-03-09] MEDS: PSYLLIUM 58.6% POWDER PACKET PO SCH (11:43)
[2020-03-09 14:49] LABS: BUN Creatinine Ratio 10.1 (10-20); Creatinine Clr Calc Pharmacy 32.5 ml/min; Est GFR (African American) 26.6; Potassium 4.2 mmol/L (3.5-5.1)
--- NOTE | 2020-03-09 15:57 | Hospitalist Progress Note ---
Date of Service March 09, 2020 Assessment & Plan (1) NATHANIEL (acute kidney injury): Mr. 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 His abnormal laboratory results including a serum Creatinine of 5.80 mg/dl (baseline is 3.0), serum K of 2.8 mmol/L, serum Na of 132 mmol/L, elevated bicarb level, and a BUN of 89. His serum Creatinine climbed from 3.45 mg/dl on 02/23/2020 up to 4.89 mg/dl yesterday, and up to 5.8 mg/dl today. Overall, patient feels fatigued and has noticed mild cramping of peripheral muscles -- but otherwise feels at baseline. He denies any twitches or involuntary muscle movements. He has been eating and drinking normally. He drinks about 50 to 100 ounces of fluid daily. He straight caths himself 4 to 5 time per day. His stool/colostomy output is less since being on Metamucil. Patient denies any nausea, vomiting, diarrhea, or focal abdominal pain. He denies any discomfort at his renal graft site. He denies any urinary symptoms, specifically denying any urinary urgency or frequency. Urinary outputs are stable. He denies any dark urine, cloudy urine, or malodorous urine. No back or flank pain or colic. He denies any fevers or chills. Recommend the following: -- Admit to Med-Surg unit. -- Rehydrate with IV NSS at 125 ml/hour x 2 liters . -- Monitor daily labs, daily renal panel, CBC with diff. -- Urine analysis, C&S ordered and obtained. -- Nephrology consult. Dr. Han aware. -- Continue usual medications. On day 5 of hospital stay: Creatinine has improved from 5.8 to 3.4. Will continue with intermittent boluses of IVF. will continue to monitor BMP. -- will do another bolus today in afternoon. -appears main culprit is elevated output of ileostomy (2) Hypokalemia: -- As outlined above. (3) Hyponatremia: as above. (4) CKD (chronic kidney disease) stage 4, GFR 15-29 ml/min: -- Followed by Dr. Boss. -- as above. (5) Anemia: -- Associated with Kidney disease. -- Current Hgb is 9.6 g/dl. -- Received Venofer during last hospitalization in Mid February 2020. -- Approved to begin Epogen 20,000 units q 2 weeks. Admission and Anticipated Discharge Date Admission Date: March 05, 2020 Subjective Patient reports doing well. He has no new complaints at this time. Review of Systems Review of Systems: All systems reviewed & are unremarkable except as noted in HPI & below Physical Exam Constitutional: WD/WN, vitals as above well developed and well nourished Neck: normal visual inspection Respiratory: normal respiratory effort; no respiratory distress Psychiatric: A+Ox3, euthymic affect Results & Data Results & Data ([facility]) Vital Signs (Past 12 Hours) Vital Signs Temp Pulse Resp BP Pulse Ox 03/09/20 07:12 36.4 C L 78 16 101/62 98 PG Care Time/CCT Total # of Minutes Spent Total Time Spent with Patient: Total time spent is greater than 50% in coordination of care (as documented) at patient's floor/unit and/or counseling patient: Coding Level of Care Code 30451 Subseq Hosp Care Lvl 2 Diagnoses NATHANIEL (acute kidney injury) N17.9 Hypokalemia E87.6 Hyponatremia E87.1 CKD (chronic kidney disease) stage 4, GFR 15-29 ml/min N18.4 Anemia D64.9 Time Spent (min) 25
[2020-03-09] MEDS ORDERED: NORMOSOL-R 500 ML IV ONE (19:38)
[2020-03-10] MEDS: TACROLIMUS 1 MG CAP PO SCH (05:52)
[2020-03-10 06:54] LABS: BUN Creatinine Ratio 9.9 (10-20); Calcium 9.1 mg/dl (8.5-10.1); Creatinine Clr Calc Pharmacy 34.9 ml/min; Potassium 4.6 mmol/L (3.5-5.1)
[2020-03-10] MEDS ORDERED: NORMOSOL-R 2,000 ML IV ONE (08:05)
[2020-03-10] MEDS ORDERED: LOPERAMIDE HCL 2 MG CAP PO STA (08:05)
[2020-03-10] MEDS: TESTOSTERONE 50 MG TOP SCH (08:17)
[2020-03-10] MEDS: MYCOPHENOLATE MOFETIL 250 MG CAP PO SCH (08:18)
[2020-03-10] MEDS: PRAVASTATIN SOD 20 MG TAB PO SCH (08:19)
[2020-03-10] MEDS: CHOLECALCIFEROL 1,000 UNITS 25 MCG TAB PO SCH (08:19)
[2020-03-10] MEDS ORDERED: LOPERAMIDE HCL 2 MG CAP PO SCH (09:00)
--- NOTE | 2020-03-10 09:51 | Nephrology Progress Note ---
Date of Service March 10, 2020 Assessment & Plan (1) NATHANIEL (acute kidney injury): * NATHANIEL improved w/ IV hydration (Cr down to 3.2 this am) * Patient has 1 - 1.5 L liquid stool/day + 1 - 1.5 L UO/day + 0.8 - 1 L insensible losses * Continue IV hydration * Start Loperamide 2 mg po daily to slow intestinal transit. Consider consultation w/ GI if patient has continued liquid stool * Monitor PRP * If discharge is anticipated, recommend continuing Psyllium & Loperamide. Please arrange for [employer] to place peripheral IV and provide 1 L 0.9 NS IV on a weekly basis ([facility] Lottie Levinez [phone]). Have patient follow up w/ Dr. Boss within 7 - 14 days ([phone]) for ongoing monitoring/management (2) Kidney transplant status: * Baseline Cr ~ 3.0 * Continue current immunosuppressant regimen (Tacrolimus 1 mg po BID, M ycophenolate 500 mg po qAM/250 mg po qPM) (3) Hypokalemia: * Corrected * Remains on KCl 20 mEq BID (4) Anemia: * Venofer infusions provided during prior admission. Procrit [id number] units SQ provided 03/06/20 Admission and Anticipated Discharge Date Admission Date: March 05, 2020 Subjective Mr. Forte was seen & examined in his hospital room this morning. He reports that his ostomy output is still liquid but the volume has been less while using Psyllium each day. He received one dose loperamide yesterday. He denies abdominal pain. Review of Systems Constitutional: no fever Eyes: no problem reported Ear, Nose, Mouth, Throat: no problem reported Respiratory: no dyspnea Cardiovascular: no chest pain and no edema Gastrointestinal: + diarrhea/loose stools; no abdominal pain Genitourinary: no dysuria, no urinary hesitancy and no hematuria Musculoskeletal: no back pain Integumentary: no rash Neurologic: no confusion Physical Exam Constitutional: not in distress Eyes: PERRL, conjunctivae normal, anicteric sclerae ENMT: external ear and nose normal, oropharynx normal Neck: trachea midline, no thyromegaly Respiratory: normal respiratory effort, lungs clear to auscultation Cardiovascular: RRR, no murmur, no edema Gastrointestinal (Abdomen): normal bowel sounds, soft, nontender, no hepatosplenomegaly (ostomy w/ liquid stool) Skin: no rashes, warm and dry Neurologic: awake; not confused Results & Data ([facility]) Vital Signs (Past 12 Hours) Vital Signs Temp Pulse Resp BP BP Pulse Ox 03/10/20 09:30 36.4 C L 81 16 96/58 L 114/73 98 03/10/20 07:43 36.4 C L 81 16 96/58 L 98 03/09/20 23:02 36.8 C 79 16 114/73 98 Laboratory Tests 03/10/20 05:50 Sodium 140 Potassium 4.6 Chloride 108 H Carbon Dioxide 26 BUN 32 H Creatinine 3.20 H Glucose 100 H PG Care Time/CCT Total # of Minutes Spent Total Time Spent with Patient: Total time spent is greater than 50% in coordination of care (as documented) at patient's floor/unit and/or counseling patient: Coding Level of Care Code 87284 Subseq Hosp Care Lvl 3 Diagnoses NATHANIEL (acute kidney injury) N17.9 Kidney transplant status Z94.0 Hypokalemia E87.6 Anemia D64.9
--- NOTE | 2020-03-10 12:59 | Discharge Summary ---
Date of Service March 10, 2020 Admission HPI Per Admitting Provider Mr. 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 These include a serum Creatinine of 5.80 mg/dl (baseline is 3.0), serum K of 2.8 mmol/L, serum Na of 132 mmol/L, elevated bicarb level, and a BUN of 89. Overall, patient feels fatigued and has noticed mild cramping of peripheral muscles -- but otherwise feels at baseline. He denies any twitches or involuntary muscle movements. He has been eating and drinking normally. He drinks about 50 to 100 ounces of fluid daily. He straight caths himself 4 to 5 time per. His stool/colostomy output is much less since being on Metamucil. Patient denies any nausea, vomiting, diarrhea, or focal abdominal pain. He denies any discomfort at his renal graft site. He denies any urinary symptoms, specifically denying any urinary urgency or frequency. Urinary outputs are stable. He denies any dark urine, cloudy urine, or malodorous urine. No back or flank pain or colic. He denies any fevers or chills. Principal Diagnosis NATHANIEL Discharge Exam Constitutional WD/WN, vitals as above well developed and well nourished Neck normal visual inspection Respiratory normal respiratory effort, lungs clear to auscultation normal respiratory effort; no respiratory distress Auscultation: lungs clear to auscultation bilaterally Cardiovascular RRR, no murmur, no edema Skin no rashes, warm and dry Psychiatric A+Ox3, euthymic affect Discharge Data Allergies Allergy/AdvReac Type Severity Reaction Status Date / Time bee venom protein (honey bee) Allergy edema, Verified 03/05/20 13:47 hives latex Allergy Unknown Verified 03/05/20 13:47 morphine Allergy nauea, Verified 03/05/20 13:47 vomitting Consultations 03/05/20 14:23 ED Decision to Admit Stat 03/05/20 17:19 Consult Nephrology Routine Hospital Course (1) NATHANIEL (acute kidney injury): Mr. 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 His abnormal laboratory results including a serum Creatinine of 5.80 mg/dl (baseline is 3.0), serum K of 2.8 mmol/L, serum Na of 132 mmol/L, elevated bicarb level, and a BUN of 89. His serum Creatinine climbed from 3.45 mg/dl on 02/23/2020 up to 4.89 mg/dl yesterday, and up to 5.8 mg/dl today. Overall, patient feels fatigued and has noticed mild cramping of peripheral muscles -- but otherwise feels at baseline. He denies any twitches or involuntary muscle movements. He has been eating and drinking normally. He drinks about 50 to 100 ounces of fluid daily. He straight caths himself 4 to 5 time per day. His stool/colostomy output is less since being on Metamucil. Patient denies any nausea, vomiting, diarrhea, or focal abdominal pain. He denies any discomfort at his renal graft site. He denies any urinary symptoms, specifically denying any urinary urgency or frequency. Urinary outputs are stable. He denies any dark urine, cloudy urine, or malodorous urine. No back or flank pain or colic. He denies any fevers or chills. Recommend the following: -- Admit to Med-Surg unit. -- Patient rehydrated with IVF -- Nephrology consult. Dr. Han barth. -- Continue usual medications. On day 6 of hospital stay: Creatinine has improved from 5.8 to 3.2. ordered additional 2 liter bolus of IVF -appears main culprit is elevated output of ileostomy. will follow up with home health and nephro as an outpatient. may require intermittent IVF likely at [facility]. will recommend loperamide to help improve GI water reabsorption by increasing GI transit time (2) Hypokalemia: -- As outlined above. (3) Hyponatremia: as above. (4) CKD (chronic kidney disease) stage 4, GFR 15-29 ml/min: -- Followed by Dr. Boss. -- as above. (5) Anemia: -- Associated with Kidney disease. -- Current Hgb is 9.6 g/dl. -- Received Venofer during last hospitalization in Mid February 2020. -- Approved to begin Epogen 20,000 units q 2 weeks. Total Time Total Time Spent Total Time Spent (In Minutes): 32 Total Time Includes: Examination of the Patient, Discharge Planning and Medication Reconciliation Discharge Plan Discharge Items Patient Disposition: Home - Home Health Services Reason For Visit: NATHANIEL Discharge Diagnosis: Acute kidney injury Condition on Discharge: Good Activity: Resume your previous activity Non-emergency contact: Primary Care Provider Call non-emergency contact if: you have any medication questions Follow-up/Referrals: Grecia Bravo DO [Primary Care Provider] - Diet: Regular Addtl Attending Provider Instructions: You have been hospitalized for an acute medical problem. During your stay at [facility], we have made an effort to correct the problem that brought you to the hospital while keeping you as comfortable as possible. IV fluids and medications were used to bring your condition under control and your discharge instructions will include directions for any medications you should take after leaving the hospital. Please make sure you see your Primary Care Provider as part of your follow up plan. Will recommend that home helath comes to your house twice a week. Check blood work and give you IV fluids on an as needed basis. Pending Studies at Discharge: No Stand-Alone Forms: My [facility], Smoking Cessation Medications and DC Order Prescriptions: New loperamide 2 mg Capsule 4 mg PO DAILY Qty: 60 RF: 0 potassium chloride [Klor-Con M20] 20 mEq Tablet,Er Particles/Crystals 20 meq PO DAILY Qty: 30 RF: 0 Continued Wheelchair (Manual) Device 1 ea .Route DAILY Qty: 1 RF: 0 tacrolimus 1 mg capsule 4 mg PO Q12H RF: 0 mycophenolate mofetil 250 mg capsule 250 mg PO .COMPLEX RF: 0 testosterone [AndroGel] 20.25 mg/1.25 gram (1.62 %) gel in metered-dose pump 2 pump topical DAILY Qty: 75 RF: 0 magnesium oxide 400 mg (241.3 mg magnesium) tablet 400 mg PO DAILY Qty: 30 RF: 2 pravastatin 20 mg tablet 20 mg PO QAM RF: 0 cholecalciferol (vitamin D3) 50 mcg (2,000 unit) capsule 50 mcg PO QAM RF: 0 Metamucil (with sugar) 3.4 gram Powder In Packet 1 pkg PO DAILY@1200 30 Days Qty: 1 RF: 0 Discharge Orders: Discharge Order (Routine); Ordered 03/10/20 Ordered By: Kush Yañez/Other Patient Handouts: Kidney Failure Self Care, Acute Kidney Failure Dc Admission Data Admit Date/Time: 03/05/20 15:35 Attending Provider: Kush Morse Admit Provider: Nydia Thornton Primary Care Provider: Grecia Bravo Other Providers: Nydia Thornton ; Myla Mayfield ; Gerardo Lopez ; Cole Vides ; Alayna Boss ; Jae Short Other Interventions: Discharge Summary Assessment (RN) Last Done: 03/10/20 09:30 Coding Level of Care Code D/C Day Management >30 mins Diagnoses NATHANIEL (acute kidney injury) N17.9 Hypokalemia E87.6 Hyponatremia E87.1 CKD (chronic kidney disease) stage 4, GFR 15-29 ml/min N18.4 Anemia D64.9 Time Spent (min) 32
== END 2020-03-10 12:26 | disposition home health service (06) | DRG 683 ==
LOC: ED 12:22 → 3N 15:35 → SUATTDRO 15:35 → 3N 16:53

== ENCOUNTER 2020-10-17 12:59 | Inpatient (IN) ==
[2020-10-17 14:25] LABS: Alanine Aminotransferase 11 U/L (12-78); Albumin Level 4.6 gm/dl (3.4-5.0); Alkaline Phosphatase 66 U/L (45-117); Aspartate Aminotransferase 13 U/L (15-37); BUN Creatinine Ratio 10.4 (10-20); Bilirubin,Total 0.7 mg/dl (0.2-1); Blood Urea Nitrogen 103 mg/dl (7-18); Calcium 10.3 mg/dl (8.5-10.1); Carbon Dioxide 43 mmol/L (21-32); Chloride 63 mmol/L (98-107); Est GFR (African American) 7.4 ml/min; Est GFR (Non-African American) 6.3 ml/min; Globulin 4.6 gm/dl (2.5-4.0); Glucose 185 mg/dl (70-99); Lipase 113 U/L (73-393); Potassium 2.1 mmol/L (3.5-5.1); Sodium 124 mmol/L (136-145); Total Protein 9.2 gm/dl (6.4-8.2)
[2020-10-17] MEDS ORDERED: SODIUM CHLORIDE 0.9% 1000ML 500 ML IV ONE (14:30)
[2020-10-17] MEDS ORDERED: SODIUM CHLORIDE 0.9% 1000ML 1,000 ML IV STA (14:30)
[2020-10-17] MEDS ORDERED: POTASSIUM CHLORIDE / WTR 10 MEQ/100 ML PLCT IV ONE (14:30)
[2020-10-17 14:35] LABS: Basophils # (auto) 0.02 K/uL (0-0.2); Basophils % (auto) 0.3 %; Eosinophils # (auto) 0.01 K/uL (0-0.5); Eosinophils % (auto) 0.1 %; Hematocrit (blood only) 26.5 % (42-52); Hemoglobin 9.4 g/dL (14.0-18.0); Immature Granulocytes # (auto) 0.02 K/uL (0.00-0.02); Immature Granulocytes % (auto) 0.3 %; Lymphocytes # (auto) 0.59 K/uL (1.2-3.4); Mean Corpuscular Hemoglobin 31.6 pg (25-34); Mean Corpuscular Hgb Conc 35.5 g/dL (32-36); Mean Corpuscular Volume 89.2 fL (80-100); Mean Platelet Volume 9.7 fL (7.4-10.4); Monocytes # (auto) 0.56 K/uL (0.11-0.59); Monocytes % (auto) 7.6 %; Neutrophils # (auto) 6.17 K/uL (1.4-6.5); Neutrophils % (auto) 83.7 %; Platelet Count 329 K/uL (130-400); RDW Standard Deviation 39.3 fL (36.4-46.3); Red Blood Count 2.97 M/uL (4.7-6.1); White Blood Count 7.37 K/uL (4.8-10.8)
[2020-10-17] MEDS ORDERED: ONDANSETRON INJ 2 MG/ML 2 ML VIAL ONE (14:37)
[2020-10-17] MEDS ORDERED: ONDANSETRON INJ 2 MG/ML 2 ML VIAL IV STA (14:37)
--- NOTE | 2020-10-17 14:37 | Emergency Department Note ---
Impression & Plan Acute renal failure (ARF), End-stage renal disease (ESRD), Acute hyponatremia, Hypokalemia, Vomiting ED Provider Note INFORMANT: Patient ED PROVIDER(S): Jose Marlow MD CHIEF COMPLAINT: Vomiting PLAN: Disposition: Admitted Condition: Good Outpatient prescription management: none Referral: None MEDICAL DECISION MAKING: Patient presented because of nausea and vomiting. He was concerned by dehydration. He has end-stage renal disease. Patient was hydrated with normal saline. He was given IV Zofran. His electrolytes revealed a sodium of 124 and potassium of 2.1. IV potassium was administered. CT imaging of the abdomen pelvis did not reveal any acute findings. Further management will be necessary in the hospital. Consultation was made with the [facility] service. The patient was evaluated and admitted for further management. Triage Nursing notes reviewed and agree them. Vital Signs: reviewed and remarkable for tachycardia Differential diagnosis: Etiologies such as NATHANIEL, dehydration, electrolyte abnormality, gastroenteritis, food borne illness, infections, appendicitis, diverticulitis, inflammatory bowel disease, GI bleed, biliary pathology, as well as others were entertained. Diagnostics interpreted by me: ECG: none Cardiac Monitoring: Cardiac monitoring ordered by me: The patient was placed on continuous cardiac monitoring and observed. It revealed a sinus tachycardia at 115 beats per minute without ectopy or evidence of dysrhythmia. Imaging studies: CT scan of pelvis reveals renal transplant. No acute pathology noted. I refer you to the EMR for further details. HPI: The patient is a 30 year old male who presents to the Emergency Room with complaints of vomiting. This started last few days and is persisting. The patient also notes the following associated symptoms, weakness, fatigue, nausea, abdominal discomfort. Hx of renal transplant followed by Dr Boss. The patient has found no relieving factors. Current pain is rated as 0/10. Pt denies LOC, headache, fevers, chills, diaphoresis, visual changes, neck pain, chest pain, breathing difficulties, back pain, melena, hematochezia, urinary symptoms, numbness, lymphadenopathy, rash, or other complaints. ROS: See above HPI for pertinent positives & negatives. A total of 10 systems reviewed and were otherwise negative. PAST MEDICAL HISTORY:See Below , ESRD PAST SURGICAL HISTORY:See Below, renal transplant FAMILY HISTORY:See Below SOCIAL HISTORY:See Below, never smoker HOME MEDICATIONS:See Below ALLERGIES:See Below VITALS:See Below PHYSICAL EXAMINATION: GENERAL: Awake, alert, ill-appearing, in mild distress HENT: Normocephalic, atraumatic. Oropharynx unremarkable. EYES: Normal conjunctiva. Sclera non-icteric. NECK: Inspection normal. Non-tender. Supple. No nuchal rigidity. FROM. No masses. RESPIRATORY: Clear to auscultation. No wheezes. No rales. Normal respiratory effort. CARDIAC: tachycardic rate. Normal rhythm. No murmurs. No rubs. Extremities warm and well perfused. Pulses equal. No JVD. GI: Soft, non-distended. Mild diffuse tenderness to palpation. No rebound or guarding. No masses. RECTAL: Deferred. MUSCULOSKELETAL: Atraumatic. Chest examination reveals no tenderness. The back is symmetrical on inspection without obvious abnormality. There is no CVA tenderness to palpation. No joint edema. LOWER EXTREMITIES: Calves are equal size bilaterally and non-tender. No edema. No discoloration. NEURO: Normal sensorium. No sensory or motor deficits noted. SKIN: No rash or jaundice noted. 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 Boss, upcoming AVF for possible future dialysis History of COVID-19 Dx 12/28/19 ([facility]) > symptoms at time of decreased taste and smell, mild cough > recovered at home/resolved Hyperlipidemia Low bone mass Primary hypogonadism in male Secondary hyperparathyroidism of renal origin Self-catheterizes urinary bladder ~4x/day Tethered spinal cord Spina Bifida - s/p neurosurgical intervention "several years ago" - has had gradually progressive subsequent distal weakness/numbness Vitamin D deficiency Surgical History A-V fistula Left AVF creation (04/19/20): MAC + PNB at [facility] Revision left AV fistula (05/31/20): LMA#5.0 unique Colostomy status Since History of colonoscopy History of orchiectomy History of surgery s/p Gastrocystoplasty, 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 Kidney transplant recipient 2006 Family History Mother Diabetes Heart disease Father Diabetes Other No family history of adverse response to anesthesia Social History Smoking Status: Never smoker Second Hand Exposure: No; Do You Dip or Chew Tobacco: No; Tobacco Cessation Education Requested by Patient: No Hx Alcohol Use: Yes Alcohol type: beer and wine Hx Substance Use: No Preferred Language: Senegalese Communication Ability: Effective Chief Accounting Officer Required: No Beliefs That Will Affect Care: None marital status: Single Current Living Situation: Parent and Family current occupational status: 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[employer] Other Information That Helps Us Care for You: No Feels Safe at Home: Yes Safety Concerns: Feels Safe At This Time Do you think of yourself as: don't know Gender Identity: Male Assistive Devices: Walker and Wheelchair Allergies Allergies Allergy/AdvReac Type Severity Reaction Status Date / Time bee venom protein (honey bee) Allergy Intermediate Edema, Verified 10/17/20 16:44 hives latex Allergy Unknown Unknown Verified 10/17/20 16:44 morphine AdvReac Mild N/V Verified 10/17/20 16:44 Home Meds Home Medications Medication Instructions Recorded Confirmed tacrolimus 1 mg capsule, 5 mg PO Q12H cap 01/30/20 10/17/20 immediate-release (Prograf) cholecalciferol (vitamin D3) 50 50 mcg PO QAM 03/05/20 10/17/20 mcg (2,000 unit) capsule pravastatin 20 mg tablet 20 mg PO QAM 03/05/20 10/17/20 testosterone 1 % (50 mg/5 gram) 50 mg TRANSDERMAL QAM 04/09/20 10/17/20 transdermal gel packet loperamide 2 mg capsule 4 mg PO QAM PRN 10/17/20 10/17/20 Previous Rx's Medication Instructions Recorded calcitriol 0.5 mcg capsule 0.5 mcg PO DAILY #90 cap 07/18/20 potassium chloride 20 mEq 20 meq PO QAM #90 tab 07/24/20 tablet,extended release(part/cryst) (Klor-Con M) sevelamer carbonate 800 mg tablet 800 mg PO TID #90 tab 07/28/20 (Renvela) mycophenolate mofetil 250 mg 250 mg PO .COMPLEX #270 cap 09/27/20 capsule Results & Data (ED) Vital Signs Vital Signs - 24 hr 10/17/20 13:04 10/17/20 13:46 10/17/20 13:48 Temperature 36.8 C Temperature Source Temporal Artery Scan Pulse Rate 113 H 106 H Pulse Rate [Apical] 109 H Pulse Rate from SpO2 Sensor 108 H Respiratory Rate 20 20 24 Respiratory Effort / Characteristics Non-Labored Spontaneous Non-Labored Spontaneous Respiratory Depth Normal Normal Respiratory Pattern Regular Blood Pressure 96/63 L Blood Pressure [Left Arm] Blood Pressure Mean 74 Blood Pressure Mean [Left Arm] Blood Pressure Position Sitting Pulse Oximetry 100 99 100 Oxygen Delivery Method Room Air Room Air Sepsis Recent Fever Within 48 Hours No Sepsis New/Unexplained Change in Mental Status N/A Sepsis Action Taken by Nursing No Action Required 10/17/20 14:00 10/17/20 14:03 10/17/20 16:10 Temperature Temperature Source Pulse Rate 101 H 106 H Pulse Rate [Apical] Pulse Rate from SpO2 Sensor 101 H 106 H Respiratory Rate 24 17 Respiratory Effort / Characteristics Respiratory Depth Respiratory Pattern Blood Pressure 106/63 Blood Pressure [Left Arm] 101/69 Blood Pressure Mean 77 Blood Pressure Mean [Left Arm] 79 Blood Pressure Position Pulse Oximetry 96 100 Oxygen Delivery Method Sepsis Recent Fever Within 48 Hours Sepsis New/Unexplained Change in Mental Status Sepsis Action Taken by Nursing Laboratory Data Result diagrams: 10/17/20 13:42 10/17/20 18:10 Lab Results 10/17/20 10/17/20 10/17/20 Range/Units 13:42 13:42 14:53 WBC 7.37 (4.8-10.8) K/uL RBC 2.97 L (4.7-6.1) M/uL Hgb 9.4 L (14.0-18.0) g/dL Hct 26.5 L (42-52) % MCV 89.2 (80-100) fL MCH 31.6 (25-34) pg MCHC 35.5 (32-36) g/dL RDW Std Deviation 39.3 (36.4-46.3) fL RDW Coeff of Abigail 12.0 (11.5-14.5) % Plt Count 329 (130-400) K/uL MPV 9.7 (7.4-10.4) fL Immature Gran % (Auto) 0.3 % Neut % (Auto) 83.7 % Lymph % (Auto) 8.0 % [place] % (Auto) 7.6 % Eos % (Auto) 0.1 % Baso % (Auto) 0.3 % Neut # (Auto) 6.17 (1.4-6.5) K/uL Lymph # (Auto) 0.59 L (1.2-3.4) K/uL [place] # (Auto) 0.56 (0.11-0.59) K/uL Eos # (Auto) 0.01 (0-0.5) K/uL Baso # (Auto) 0.02 (0-0.2) K/uL Immature Gran # (Auto) 0.02 (0.00-0.02) K/uL Sodium 124 L (136-145) mmol/L Potassium 2.1 L* (3.5-5.1) mmol/L Chloride 63 L (98-107) mmol/L Carbon Dioxide 43 H* (21-32) mmol/L Anion Gap 18.0 H (3-11) BUN 103 H (7-18) mg/dl Creatinine 9.89 H* (0.6-1.4) mg/dl Est Cr Clr Drug Dosing Not Reportable Est GFR ( Amer) 7.4 ml/min Est GFR (Non-Af Amer) 6.3 ml/min BUN/Creatinine Ratio 10.4 (10-20) Glucose 185 H (70-99) mg/dl Calcium 10.3 H (8.5-10.1) mg/dl Total Bilirubin 0.7 (0.2-1) mg/dl AST 13 L (15-37) U/L ALT 11 L (12-78) U/L Alkaline Phosphatase 66 (45-117) U/L Total Protein 9.2 H (6.4-8.2) gm/dl Albumin 4.6 (3.4-5.0) gm/dl Globulin 4.6 H (2.5-4.0) gm/dl Albumin/Globulin Ratio 1.0 (0.9-2) Lipase 113 (73-393) U/L COVID-19 Eval Order Covid19 at [facility] SARS-CoV-2 (PCR) (Negative) 10/17/20 Range/Units 14:53 WBC (4.8-10.8) K/uL RBC (4.7-6.1) M/uL Hgb (14.0-18.0) g/dL Hct (42-52) % MCV (80-100) fL MCH (25-34) pg MCHC (32-36) g/dL RDW Std Deviation (36.4-46.3) fL RDW Coeff of Abigail (11.5-14.5) % Plt Count (130-400) K/uL MPV (7.4-10.4) fL Immature Gran % (Auto) % Neut % (Auto) % Lymph % (Auto) % [place] % (Auto) % Eos % (Auto) % Baso % (Auto) % Neut # (Auto) (1.4-6.5) K/uL Lymph # (Auto) (1.2-3.4) K/uL [place] # (Auto) (0.11-0.59) K/uL Eos # (Auto) (0-0.5) K/uL Baso # (Auto) (0-0.2) K/uL Immature Gran # (Auto) (0.00-0.02) K/uL Sodium (136-145) mmol/L Potassium (3.5-5.1) mmol/L Chloride (98-107) mmol/L Carbon Dioxide (21-32) mmol/L Anion Gap (3-11) BUN (7-18) mg/dl Creatinine (0.6-1.4) mg/dl Est Cr Clr Drug Dosing Est GFR ( Amer) ml/min Est GFR (Non-Af Amer) ml/min BUN/Creatinine Ratio (10-20) Glucose (70-99) mg/dl Calcium (8.5-10.1) mg/dl Total Bilirubin (0.2-1) mg/dl AST (15-37) U/L ALT (12-78) U/L Alkaline Phosphatase (45-117) U/L Total Protein (6.4-8.2) gm/dl Albumin (3.4-5.0) gm/dl Globulin (2.5-4.0) gm/dl Albumin/Globulin Ratio (0.9-2) Lipase (73-393) U/L COVID-19 Eval Order SARS-CoV-2 (PCR) NEGATIVE (Negative) Administered Medications Acetaminophen (Acetaminophen 325 Mg Tab) 650 mg PO Q4H PRN PRN Reason: Pain or Fever Stop: 11/16/20 18:02 Last Admin: 10/17/20 22:44 Dose: 650 mg Documented by: [id number] Lactated Ringer's (Lr) 1,000 mls @ 125 mls/hr IV .Q8H IGNACIO Stop: 11/16/20 16:14 Last Admin: 10/17/20 18:44 Dose: 125 mls/hr Documented by: [id number] Famotidine 20 mg/ Syringe 5 mls @ 2.5 mls/min IV DAILY IGNACIO Stop: 11/16/20 18:29 Last Admin: 10/17/20 19:57 Dose: 2.5 mls/min Documented by: [id number] Melatonin (Melatonin 3 Mg Tab) 3 mg PO HS PRN PRN Reason: Sleep Stop: 11/16/20 21:28 Last Admin: 10/17/20 21:49 Dose: 3 mg Documented by: [id number] Miscellaneous (Order Awaiting Action [Testosterone 1 % (50 Mg/5 Gram) Gel In Packet]) 1 ea N/A QS IGNACIO Stop: 11/17/20 00:00 Last Admin: 10/17/20 23:01 Dose: Not Given Documented by: [id number] Mycophenolate Mofetil (Mycophenolate Mofetil 250 Mg Cap) 250 mg PO HS IGNACIO Stop: 11/16/20 20:59 Last Admin: 10/17/20 20:49 Dose: 250 mg Documented by: [id number] Tacrolimus (Tacrolimus 1 Mg Cap) 5 mg PO Q12H IGNACIO Stop: 11/16/20 18:59 Last Admin: 10/17/20 20:49 Dose: 5 mg Documented by: [id number] Discontinued Medications Sodium Chloride (Nss 1000ml) 1,000 mls @ 125 mls/hr IV .Q8H STA Stop: 10/17/20 22:29 Last Infusion: 10/17/20 19:00 Dose: 0 mls/hr Documented by: [id number] Admin: 10/17/20 16:08 Dose: 125 mls/hr Documented by: [id number] Sodium Chloride (Nss 1000ml) 500 mls @ 999 mls/hr IV .Q31M ONE Stop: 10/17/20 15:00 Last Infusion: 10/17/20 16:06 Dose: 0 mls/hr Documented by: [id number] Admin: 10/17/20 14:45 Dose: 999 mls/hr Documented by: [id number] Potassium Chloride ([place] / Wtr) 10 meq in 100 mls @ 100 mls/hr IV ONE ONE Stop: 10/17/20 15:29 Last Infusion: 10/17/20 15:50 Dose: 0 mls/hr Documented by: [id number] Admin: 10/17/20 14:46 Dose: 100 mls/hr Documented by: [id number] Potassium Chloride ([place] / Wtr) 10 meq in 100 mls @ 100 mls/hr IV Q1H STA Stop: 10/17/20 17:14 Last Infusion: 10/17/20 17:39 Dose: 0 mls/hr Documented by: [id number] Admin: 10/17/20 16:33 Dose: 100 mls/hr Documented by: [id number] Potassium Chloride ([place] / Wtr) 10 meq in 100 mls @ 100 mls/hr IV Q1H IGNACIO Stop: 10/17/20 23:14 Last Admin: 10/17/20 22:44 Dose: 100 mls/hr Documented by: [id number] Infusion: 10/17/20 22:44 Dose: 100 mls/hr Documented by: [id number] Admin: 10/17/20 21:49 Dose: 100 mls/hr Documented by: [id number] Metoclopramide HCl (Metoclopramide Hcl Inj 5 Mg/Ml 2 Ml Vial) 5 mg IV ONE ONE Stop: 10/17/20 15:32 Last Admin: 10/17/20 16:06 Dose: 5 mg Documented by: [id number] Ondansetron HCl (Ondansetron Inj 2 Mg/Ml 2 Ml Vial) 4 mg IV NOW STA Stop: 10/17/20 14:38 Last Admin: 10/17/20 14:45 Dose: 4 mg Documented by: [id number] Ondansetron HCl (Ondansetron Inj 2 Mg/Ml 2 Ml Vial) Confirm Administered Dose 4 mg .ROUTE .STK-MED ONE Stop: 10/17/20 14:38 Last Admin: 10/17/20 14:45 Dose: Not Given Documented by: [id number] Potassium Chloride (Potassium Chloride Crtab 20 Meq Tabcr) 20 meq PO NOW STA Stop: 10/17/20 16:17 Last Admin: 10/17/20 16:35 Dose: 20 meq Documented by: [id number] Potassium Chloride (Potassium Chloride Crtab 20 Meq Tabcr) 40 meq PO NOW STA Stop: 10/17/20 20:53 Last Admin: 10/17/20 21:19 Dose: 40 meq Documented by: [id number] Potassium Chloride (Potassium Chloride Crtab 20 Meq Tabcr) 20 meq PO NOW STA Stop: 10/17/20 20:53 Last Admin: 10/17/20 21:19 Dose: 20 meq Documented by: [id number] Imaging Data Radiologist's Impression: Abdomen/Pelvis CT 10/17/20 14:[address] WITHOUT CONTRAST CT DOSE: 428.06 mGy.cm HISTORY: Acute vomiting with renal failure vomiting, acute renal failure TECHNIQUE: Multiaxial CT images of the abdomen and pelvis were performed without contrast. A dose lowering technique was utilized adhering to the principles of ALARA. COMPARISON STUDY: CT abdomen and pelvis 09/27/2020, 03/27/2020 FINDINGS: Trace pericardial effusion. Clear lung bases. No pneumatosis or pneumoperitoneum. The unenhanced spleen, pancreas, adrenal glands, gallbladder and liver appear unremarkable. Right lower quadrant renal allograft limits. Hydronephrosis. Atrophic left lower quadrant renal allograft with associated hydronephrosis is unchanged. Partial distention of the urinary bladder with chronic wall thickening. Unchanged calcification of the central pelvis on image 362. There is decreased size of the previously described retroperitoneal adenopathy with several subcentimeter para-aortic and pericaval lymph nodes measuring up to approximately 7 mm. No bowel obstruction or bowel wall thickening. Left lower quadrant ostomy redemonstrated. 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 No acute fracture or suspicious bone lesion identified. IMPRESSION: 1. Unremarkable appearance of the right pelvic kidney allograft without hydronephrosis. 2. Unchanged appearance of the atrophic left lower quadrant renal allograft with associated hydronephrosis. 3. No bowel obstruction or bowel wall thickening. Left lower quadrant colostomy redemonstrated. 4. Chronic findings as above. ACT 112: Negative or not required by law. The above report was generated using voice recognition software. It may contain grammatical, syntax or spelling errors. Electronically signed by: Cholo Bonilla M.D. 10/17/2020 4:11 PM Discharge Plan Visit Data Chief Complaint: Vomiting Stated Complaint: KIDNEY ISSUES, VOMITING ED Provider: Jose Marlow Discharge Problem: Acute renal failure (ARF), End-stage renal disease (ESRD), Acute hyponatremia, Hypokalemia, Vomiting Patient Disposition: Admitted As Inpatient Discharge Instructions Interventions: ED Discharge Assessment Last Done: 10/17/20 17:31
[2020-10-17] MEDS ORDERED: METOCLOPRAMIDE HCL INJ 5 MG/ML 2 ML VIAL IV ONE (15:31)
--- NOTE | 2020-10-17 15:51 | History & Physical Report ---
Date of Service October 17, 2020 Assessment & Plan (1) Nausea & vomiting: Plan: Acute onset- ? VGE as source- normal WBC no abdominal tenderness - doubt toxicity as he has been on his tacrolimus for years- tacrolimus level sent - normal CT scan of abdomen and pelvis, normal biliary labs - Supportive care for now with symptom control - IVF LR at 125ml/hour - Zofran and Reglan IV for nausea/vomitting - Famotidine 20mg IV - Clears - Urine culture pending - VBG- - Lactate- (2) Acute renal failure (ARF): Plan: PARADI OPERATOR increase from 3-9.8 -- ARF - Appears pre-renal on chronic ESRD - Hydrate as above - Follow K, PARADI OPERATOR, NA - Appreciate Nephrology assistance (3) Acute hyponatremia: Plan: Likley secondary to volume loss from vomitting - LR at 125- BMP q6 hours, more frequently if needed - Goal would be 6-8MMOL correction over 24 hours - Likely to increase quickly once intravascular volume is restored- follow - Asymptomatic (4) Metabolic alkalosis: Plan: Consistent with vomiting and contraction alkalosis - VBG pedning - replete volume - control vomiting - Gap 18 with normal lactate - gap secondary to BUN/PARADI OPERATOR and vomiting (5) End-stage renal disease (ESRD): Plan: As above - no acute dialysis need at this time - continues to work through creation of fistulas as per HPI - Continue sevelimir, cholecalciferol, vitamin D (6) Hypokalemia: Plan: As above K 2.1- 30MEQ IV and 20 MEQ PO - BMP q4-6 hours - follow (7) Kidney transplant status: Plan: Continue tacrolimus and mycophenelate - Tacrolimus level sent- this is a send out - Is back on the waiting list for another transplant (8) History of immunosuppressive therapy: Plan: As above (9) Tethered spinal cord: Plan: As per HPI- wheelchair dependant follows with neurology (10) Self-catheterizes urinary bladder: Plan: Patient brought his catheters from home - 14Fr - continue QID or more as needed History of Present Illness Primary Care Provider: Grecia Perry-Shelley Bravo, DO 30 YOM with past medical history of: COVID, CKD 4, chronic allograft nephropathy, CNI toxicity and recurrent NATHANIEL, renal transplant (14 years ago), spina bifida, cloacal exstrophy and myelomeningocele repair, bladder augmentation, catheterization channel for bladder emptying at age 7, does have urine come through urethra as well. He is currently back on the transplant list secondary to length of time from first transplant and CKD. He is maintained on mycophenolate and tacrolimus for his transplant medications. His baseline PARADI OPERATOR is normally around 3. Patient has been following with vascular surgery for creation and planning of fistula creation. He had a creation x3 to his left brachiocephalic which failed x3, he is supposed to have another attempt next month and vein mapping to his right arm has been completed. Patient comes in today for nausea/vomiting, weakness, and feeling run down. The patient states that this has been ongoing for the past week but got worse over the past 24 hours. He denies any food intake that started these symptoms and denies any other sick contacts with same symptoms. The patient reports that he has thrown up about 3-4 times per day for the past 2 days and it is green bilious in nature. He denies any fevers or chills, or any abdominal pain. He also has an ostomy with no change in his output in terms of volume or consistency. He continues to straight cath himself through his channel 3-4 times per day and has not noticed any change in his urine color or odor. The vomiting starts with nausea, and then followed by a wave of heat and then cold feeling, he has felt like he was going pass out twice since this started, but he denies any room spinning or other vertiginousness feelings. In the EMD the patient received 10meq of KCL, 500ml saline bolus, and CT scan of the abdomen and pelvis and routine labs. His lab work resulted with hypokalemia, hyponatremia, elevated HCO3, and increase in PARADI OPERATOR to 9.89. I have added on a tacrolimus level, VBG, and lactate levels. IVF of LR of 125ml/hour, and continue with potassium supplementation and symptom control. Nephrology has been consulted and appreciate Dr. Hinson assistance. Allergies Allergy/AdvReac Type Severity Reaction Status Date / Time bee venom protein (honey bee) Allergy Intermediate Edema, Verified 10/17/20 16:44 hives latex Allergy Unknown Unknown Verified 10/17/20 16:44 morphine AdvReac Mild N/V Verified 10/17/20 16:44 Home Medications Medication Instructions Recorded Confirmed Type tacrolimus 1 mg capsule, 5 mg PO Q12H cap 01/30/20 10/17/20 History immediate-release (Prograf) cholecalciferol (vitamin D3) 50 50 mcg PO QAM 03/05/20 10/17/20 History mcg (2,000 unit) capsule pravastatin 20 mg tablet 20 mg PO QAM 03/05/20 10/17/20 History testosterone 1 % (50 mg/5 gram) 50 mg TRANSDERMAL QAM 04/09/20 10/17/20 History transdermal gel packet calcitriol 0.5 mcg capsule 0.5 mcg PO DAILY #90 cap 07/18/20 10/17/20 Rx potassium chloride 20 mEq 20 meq PO QAM #90 tab 07/24/20 10/17/20 Rx tablet,extended release(part/cryst) (Klor-Con M) sevelamer carbonate 800 mg tablet 800 mg PO TID #90 tab 07/28/20 10/17/20 Rx (Renvela) mycophenolate mofetil 250 mg 250 mg PO .COMPLEX #270 cap 09/27/20 10/17/20 Rx capsule loperamide 2 mg capsule 4 mg PO QAM PRN 10/17/20 10/17/20 History Past Med/Surg History Medical History (Updated 10/18/20 @ 11:14 by Alayna Boss MD) Anemia Secondary to chronic disease and iron deficiency AV fistula LUE (non-functioning) Chronic kidney disease, stage 4 (severe) s/p kidney transplant (2006), 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 Boss, upcoming AVF for possible future dialysis ESRD needing dialysis History of COVID-19 Dx 12/28/19 ([facility]) > symptoms at time of decreased taste and smell, mild cough > recovered at home/resolved Hyperlipidemia Low bone mass Primary hypogonadism in male Secondary hyperparathyroidism of renal origin Self-catheterizes urinary bladder ~4x/day Tethered spinal cord Spina Bifida - s/p neurosurgical intervention "several years ago" - has had gradually progressive subsequent distal weakness/numbness Vitamin D deficiency Surgical History A-V fistula Left AVF creation (04/19/20): MAC + PNB at [facility] Revision left AV fistula (05/31/20): LMA#5.0 unique Colostomy status Since History of colonoscopy History of orchiectomy History of surgery s/p Gastrocystoplasty, Appendicovesicostomy w/ q4 hour cath (secondary to cloacal exstrophy) LENA Boyce as Kidney transplant recipient 2006 Family History Mother Diabetes Heart disease Father Diabetes Other No family history of adverse response to anesthesia Social History Smoking Status: Never smoker Second Hand Exposure: No; Do You Dip or Chew Tobacco: No; Tobacco Cessation Education Requested by Patient: No Hx Alcohol Use: Yes Alcohol type: beer and wine Hx Substance Use: No Preferred Language: Slovenian Communication Ability: Effective Pharmaceutical Engineer Required: No Beliefs That Will Affect Care: None marital status: Single Current Living Situation: Parent and Family current occupational status: 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[employer], [employer] Other Information That Helps Us Care for You: No Feels Safe at Home: Yes Safety Concerns: Feels Safe At This Time Do you think of yourself as: don't know Gender Identity: Male Assistive Devices: Wheelchair Review of Systems Review of Systems: REVIEW OF SYSTEMS: Constitutional: No fever, sweats or chills Eyes: No diplopia, no worsening or blurred vision ENT: normal hearing, no trouble swallowing Respiratory: (+) URI symptoms last week (cough and throat mucous), currently No cough, sputum, dyspnea at rest or on exertion Cardiovascular: No chest pain, tightness or palpitations Abdomen: (+) nausea, vomiting, No pain, diarrhea or constipation Musculoskeletal: No joint pain, calf pain, swelling Neurologic: as per HPI, mostly wheelchair dependant : (+) straight cath and chronic urine leakage from urethra Psychiatric: No anxiety or depression Skin: No rash or itch Physical Exam Physical Exam: PHYSICAL EXAM: General: awake, alert, no apparent distress Head: Normocephalic, atraumatic ENT: PERRL, EOMI, no pharyngeal exudate, mucous membranes dry Neuro: AAO x 3, speech clear and appropriate, Chest: equal rise and fall of the chest, no accessory muscle use, no heaves or thrills, Clear to auscultation, on room air, Cardiac: Regular rate and rhythm, telemetry reviewed-NSR, skin warm dry, cap refill <3 seconds, peripheral pulses +2 no JVD, no murmur, no edema GI: NABS x 4 quadrants, soft, nontender to palpation, no rebound, guarding or tenderness : catheterization channel has no drainage and not tender, no CVA tenderness, Extremities: Normal inspection, no peripheral edema or erythema, calfs nontender to palpation Psych: Normal mood and affect Skin: no rash or erythema Results & Data Results & Data ([facility]) Vital Signs (Past 12 Hours) Vital Signs Temp Pulse Pulse Resp BP BP Pulse Ox 10/17/20 14:03 101/69 10/17/20 14:00 101 H 24 96 10/17/20 13:48 106 H 24 100 10/17/20 13:46 109 H 20 99 10/17/20 13:04 36.8 C 113 H 20 96/63 L 100 Laboratory Results Abnormal lab results 10/17/20 10/17/20 Range/Units 13:42 13:42 RBC 2.97 L (4.7-6.1) M/uL Hgb 9.4 L (14.0-18.0) g/dL Hct 26.5 L (42-52) % Lymph # (Auto) 0.59 L (1.2-3.4) K/uL Sodium 124 L (136-145) mmol/L Potassium 2.1 L* (3.5-5.1) mmol/L Chloride 63 L (98-107) mmol/L Carbon Dioxide 43 H* (21-32) mmol/L Anion Gap 18.0 H (3-11) BUN 103 H (7-18) mg/dl Creatinine 9.89 H* (0.6-1.4) mg/dl Glucose 185 H (70-99) mg/dl Calcium 10.3 H (8.5-10.1) mg/dl AST 13 L (15-37) U/L ALT 11 L (12-78) U/L Total Protein 9.2 H (6.4-8.2) gm/dl Globulin 4.6 H (2.5-4.0) gm/dl Diagnostic Findings Abdomen/Pelvis CT 10/17/20 14:[address] WITHOUT CONTRAST CT DOSE: 428.06 mGy.cm HISTORY: Acute vomiting with renal failure vomiting, acute renal failure TECHNIQUE: Multiaxial CT images of the abdomen and pelvis were performed without contrast. A dose lowering technique was utilized adhering to the principles of ALARA. COMPARISON STUDY: CT abdomen and pelvis 09/27/2020, 03/27/2020 FINDINGS: Trace pericardial effusion. Clear lung bases. No pneumatosis or pneumoperitoneum. The unenhanced spleen, pancreas, adrenal glands, gallbladder and liver appear unremarkable. Right lower quadrant renal allograft limits. Hydronephrosis. Atrophic left lower quadrant renal allograft with associated hydronephrosis is unchanged. Partial distention of the urinary bladder with chronic wall thickening. Unchanged calcification of the central pelvis on image 362. There is decreased size of the previously described retroperitoneal adenopathy with several subcentimeter para-aortic and pericaval lymph nodes measuring up to approximately 7 mm. No bowel obstruction or bowel wall thickening. Left lower quadrant ostomy redemonstrated. 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 No acute fracture or suspicious bone lesion identified. IMPRESSION: 1. Unremarkable appearance of the right pelvic kidney allograft without hydronephrosis. 2. Unchanged appearance of the atrophic left lower quadrant renal allograft with associated hydronephrosis. 3. No bowel obstruction or bowel wall thickening. Left lower quadrant colostomy redemonstrated. 4. Chronic findings as above. ACT 112: Negative or not required by law. The above report was generated using voice recognition software. It may contain grammatical, syntax or spelling errors. Electronically signed by: Cholo Bonilla M.D. 10/17/2020 4:11 PM Medications Administered Home Medications tacrolimus 1 mg capsule, immediate-release (Prograf) 4 mg PO Q12H cap 01/30/20 [History Confirmed 08/22/20] cholecalciferol (vitamin D3) 50 mcg (2,000 unit) capsule 50 mcg PO QAM 03/05/20 [History Confirmed 08/22/20] pravastatin 20 mg tablet 20 mg PO QAM 03/05/20 [History Confirmed 08/22/20] testosterone 1 % (50 mg/5 gram) transdermal gel packet 50 mg TRANSDERMAL QAM 04/09/20 [History Confirmed 08/22/20] calcitriol 0.5 mcg capsule 0.5 mcg PO DAILY #90 cap 07/18/20 [Rx Confirmed 08/22/20] potassium chloride 20 mEq tablet,extended release(part/cryst) (Klor-Con M) 20 meq PO QAM #90 tab 07/24/20 [Rx Confirmed 08/22/20] sevelamer carbonate 800 mg tablet (Renvela) 800 mg PO TID #90 tab 07/28/20 [Rx Confirmed 08/22/20] mycophenolate mofetil 250 mg capsule 250 mg PO .COMPLEX #270 cap 09/27/20 [Rx] loperamide 2 mg capsule 4 mg PO QAM PRN 10/17/20 [History Confirmed 10/17/20] Active Medications Sodium Chloride (Nss 1000ml) 1,000 mls @ 125 mls/hr IV .Q8H STA Stop: 10/17/20 22:29 Last Admin: 10/17/20 16:08 Dose: 125 mls/hr Documented by: Lactated Ringer's (Lr) 1,000 mls @ 125 mls/hr IV .Q8H IGNACIO Stop: 11/16/20 16:14 Potassium Chloride (K Nato / Wtr) 10 meq in 100 mls @ 100 mls/hr IV Q1H STA Stop: 10/17/20 17:14 Last Admin: 10/17/20 16:33 Dose: 100 mls/hr Documented by: Sodium Chloride (Nss 1000ml) 1,000 mls @ 125 mls/hr IV .Q8H STA Stop: 10/17/20 22:29 Last Admin: 10/17/20 16:08 Dose: 125 mls/hr Documented by: [id number] Potassium Chloride (K [place]ato / Wtr) 10 meq in 100 mls @ 100 mls/hr IV Q1H STA Stop: 10/17/20 17:14 Last Admin: 10/17/20 16:33 Dose: 100 mls/hr Documented by: [id number] Discontinued Medications Sodium Chloride (Nss 1000ml) 500 mls @ 999 mls/hr IV .Q31M ONE Stop: 10/17/20 15:00 Last Infusion: 10/17/20 16:06 Dose: 0 mls/hr Documented by: [id number] Admin: 10/17/20 14:45 Dose: 999 mls/hr Documented by: [id number] Potassium Chloride (K Nato / Wtr) 10 meq in 100 mls @ 100 mls/hr IV ONE ONE Stop: 10/17/20 15:29 Last Infusion: 10/17/20 15:50 Dose: 0 mls/hr Documented by: [id number] Admin: 10/17/20 14:46 Dose: 100 mls/hr Documented by: [id number] Metoclopramide HCl (Metoclopramide Hcl Inj 5 Mg/Ml 2 Ml Vial) 5 mg IV ONE ONE Stop: 10/17/20 15:32 Last Admin: 10/17/20 16:06 Dose: 5 mg Documented by: [id number] Ondansetron HCl (Ondansetron Inj 2 Mg/Ml 2 Ml Vial) 4 mg IV NOW STA Stop: 10/17/20 14:38 Last Admin: 10/17/20 14:45 Dose: 4 mg Documented by: [id number] Ondansetron HCl (Ondansetron Inj 2 Mg/Ml 2 Ml Vial) Confirm Administered Dose 4 mg .ROUTE .STK-MED ONE Stop: 10/17/20 14:38 Last Admin: 10/17/20 14:45 Dose: Not Given Documented by: [id number] Potassium Chloride (Potassium Chloride Crtab 20 Meq Tabcr) 20 meq PO NOW STA Stop: 10/17/20 16:17 Last Admin: 10/17/20 16:35 Dose: 20 meq Documented by: [id number] ECG Additional Comments: pending on admission Code Status & VTE Plan Code Status CODE: FULL VTE: SCDs Supervising Physician Co-Signing Physician Notes During face to face encounter with patient, obtained a physical and history. My history and physcial examination did not differ from above. I reviewed above note and agree with it. I discussed plan with SOM Schaffer and the patient. All questions were answered. will consult Nephro, as patient may require hemodialysis. PG Care Time/CCT Total # of Minutes Spent Total Time Spent with Patient: Total time spent is greater than 50% in coordination of care (as documented) at patient's floor/unit and/or counseling patient: Coding Level of Care Code 86596 Initial Inpt Care Lvl 3 Diagnoses Nausea & vomiting R11.2 End-stage renal disease (ESRD) N18.6 Acute hyponatremia E87.1 Hypokalemia E87.6 Kidney transplant status Z94.0 History of immunosuppressive therapy Z92.25 Tethered spinal cord Q06.8 Self-catheterizes urinary bladder Z78.9 Acute renal failure (ARF) N17.9 Metabolic alkalosis E87.3
--- NOTE | 2020-10-17 16:13 | CT Scan Report ---
ABDOMEN AND PELVIS CT WITHOUT CONTRAST CT DOSE: 428.06 mGy.cm HISTORY: Acute vomiting with renal failure vomiting, acute renal failure TECHNIQUE: Multiaxial CT images of the abdomen and pelvis were performed without contrast. A dose lo wering technique was utilized adhering to the principles of ALARA. COMPARISON STUDY: CT abdomen and pelvis 09/27/2020, 03/27/2020 FINDINGS: Trace pericardial effusion. Clear lung bases. No pneumatosis or pneumoperitoneum. The unenh anced spleen, pancreas, adrenal glands, gallbladder and liver appear unremarkable. Right lower quadrant renal allograft limits. Hydronephrosis. Atrophic left lower quadrant renal allograft with associated hydronephrosis is unchan ged. Partial distention of the urinary bladder with chronic wall thickening. Unchanged calcification of the central pelvis on image 362. There is decreased size of the previously described retroperitone al adenopathy with several subcentimeter para-aortic and pericaval lymph nodes measuring up to approx imately 7 mm. No bowel obstruction or bowel wall thickening. Left lower quadrant ostomy redemonstrated. 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 No acute fracture or suspicious bone lesion identified. IMPRESSION: 1. Unremarkable appearance of the right pelvic kidney allograft without hydronephrosis. 2. Unchanged appearance of the atrophic left lower quadrant renal allograft with associated hydroneph rosis. 3. No bowel obstruction or bowel wall thickening. Left lower quadrant colostomy redemonstrated. 4. Chronic findings as above. ACT 112: Negative or not required by law. The above report was generated using voice recognition software. It may contain grammatical, syntax o r spelling errors. Electronically signed by: Cholo Bonilla M.D. 10/17/2020 4:11 PM
[2020-10-17] MEDS ORDERED: POTASSIUM CHLORIDE / WTR 10 MEQ/100 ML PLCT IV STA (16:15)
[2020-10-17] MEDS ORDERED: POTASSIUM CHLORIDE CRTAB 20 MEQ TABCR PO STA ×3 (16:16→20:52)
[2020-10-17] MEDS ORDERED: LOPERAMIDE HCL 2 MG CAP PO PRN (18:03)
[2020-10-17] MEDS ORDERED: METOCLOPRAMIDE HCL INJ 5 MG/ML 2 ML VIAL IV PRN (18:03)
[2020-10-17] MEDS ORDERED: ONDANSETRON INJ 2 MG/ML 2 ML VIAL IV PRN (18:03)
[2020-10-17] MEDS: LACTATED RINGER'S 1,000 ML IV SCH (18:44)
[2020-10-17 19:04] LABS: BUN Creatinine Ratio 11.2 (10-20); Blood Urea Nitrogen 107 mg/dl (7-18); Calcium 9.5 mg/dl (8.5-10.1); Carbon Dioxide 45 mmol/L (21-32); Chloride 69 mmol/L (98-107); Est GFR (African American) 7.5 ml/min; Est GFR (Non-African American) 6.5 ml/min; Glucose 115 mg/dl (70-99); Sodium 125 mmol/L (136-145)
[2020-10-17 19:37] LABS: Base Excess VBG 30.3 mEq/L; Oxygen Saturation VBG 64.8 %; pH VBG 7.71 (7.36-7.41)
[2020-10-17] MEDS: FAMOTIDINE 20 MG in SYRINGE 3 ML IV SCH (19:57)
[2020-10-17 20:44] LABS: Potassium 2.6 mmol/L (3.5-5.1)
[2020-10-17] MEDS: TACROLIMUS 1 MG CAP PO SCH (20:49)
[2020-10-17] MEDS ORDERED: MYCOPHENOLATE MOFETIL 250 MG CAP PO SCH (21:00)
[2020-10-17] MEDS ORDERED: SEVELAMER HCL 800 MG TABLET PO SCH (21:00)
[2020-10-17] MEDS: MELATONIN 3 MG TAB PO PRN (21:49)
[2020-10-17] MEDS: POTASSIUM CHLORIDE / WTR 10 MEQ/100 ML PLCT IV SCH ×2 (21:49→22:44)
[2020-10-17] MEDS: ACETAMINOPHEN 325 MG TAB PO PRN (22:44)
[2020-10-18 01:55] LABS: Anion Gap 0 (3-11); Blood Urea Nitrogen 104 mg/dl (7-18); Calcium 8.9 mg/dl (8.5-10.1); Carbon Dioxide 55 mmol/L (21-32); Chloride 72 mmol/L (98-107); Est GFR (African American) 7.8 ml/min; Est GFR (Non-African American) 6.7 ml/min; Glucose 128 mg/dl (70-99); Sodium 127 mmol/L (136-145)
[2020-10-18] MEDS ORDERED: POTASSIUM CHLORIDE CRTAB 20 MEQ TABCR PO STA (02:01)
[2020-10-18] MEDS: NORMOSOL-R 1,000 ML IV SCH ×4 (02:40→23:15)
[2020-10-18] MEDS: ACETAMINOPHEN 325 MG TAB PO PRN ×2 (02:42→19:28)
[2020-10-18] MEDS: POTASSIUM CHLORIDE / WTR 10 MEQ/100 ML PLCT IV SCH ×2 (02:43→03:46)
[2020-10-18] MEDS: LACTATED RINGER'S 1,000 ML IV SCH (02:49)
[2020-10-18 03:03] LABS: Appearance Urine Clear (Clear); Bacteria Urine Automated Negative (Negative); Bilirubin Urine Negative (Negative); Blood Urine 2+ (Negative); Color Urine Yellow; Epithelial Cell Urine Auto >30 /lpf (0-5); Glucose Urine UA Negative (Negative); Ketones Urine Negative (Negative); Leukocyte Esterase Urine 3+ (Negative); Nitrite Urine Negative (Negative); RBC Urine Automated 0-4 /hpf (0-4); Specific Gravity Urine 1.013 (1.000-1.030); Urobilinogen Urine Negative (Negative); pH Urine >= 9.0 (4.5-7.5)
[2020-10-18 03:07] LABS: Protein Urine 2+ (Negative)
[2020-10-18] MEDS ORDERED: ACETAMINOPHEN 500 MG TAB PO STA (05:07)
[2020-10-18] MEDS: TACROLIMUS 1 MG CAP PO SCH ×2 (05:23→21:15)
[2020-10-18 07:19] LABS: Hematocrit (blood only) 20.2 % (42-52); Mean Corpuscular Hemoglobin 31.5 pg (25-34); Mean Corpuscular Hgb Conc 34.7 g/dL (32-36); Mean Platelet Volume 9.3 fL (7.4-10.4); Platelet Count 243 K/uL (130-400); RDW Coefficient of Variation 12.3 % (11.5-14.5); RDW Standard Deviation 40.7 fL (36.4-46.3); Red Blood Count 2.22 M/uL (4.7-6.1); White Blood Count 4.79 K/uL (4.8-10.8)
[2020-10-18 07:40] LABS: Albumin Level 3.4 gm/dl (3.4-5.0); BUN Creatinine Ratio 10.7 (10-20); Calcium 8.8 mg/dl (8.5-10.1); Creatinine Clr Calc Pharmacy 11.6 ml/min; Est GFR (African American) 7.8 ml/min; Est GFR (Non-African American) 6.7 ml/min; Magnesium 2.1 mg/dl (1.8-2.4); Potassium 3.4 mmol/L (3.5-5.1)
[2020-10-18 07:43] LABS: Basophils # (auto) 0.01 K/uL (0-0.2); Basophils % (auto) 0.2 %; Eosinophils # (auto) 0.04 K/uL (0-0.5); Eosinophils % (auto) 0.8 %; Immature Granulocytes # (auto) 0.01 K/uL (0.00-0.02); Immature Granulocytes % (auto) 0.2 %; Lymphocytes # (auto) 1.71 K/uL (1.2-3.4); Lymphocytes % (auto) 35.7 %; Monocytes % (auto) 8.4 %; Neutrophils # (auto) 2.62 K/uL (1.4-6.5); Neutrophils % (auto) 54.7 %; RBC Morphology Unremarkable
[2020-10-18 08:07] LABS: Phosphorus 6.8 mg/dl (2.5-4.9)
[2020-10-18] MEDS ORDERED: EPOETIN ALFA 40,000 UNITS/ML VIAL IV SCH (08:30)
[2020-10-18] MEDS ORDERED: MYCOPHENOLATE MOFETIL 250 MG CAP PO SCH (09:00)
[2020-10-18] MEDS: SEVELAMER HCL 800 MG TABLET PO SCH ×3 (09:16→17:10)
[2020-10-18] MEDS: CHOLECALCIFEROL 1,000 UNITS 25 MCG TAB PO SCH (09:18)
[2020-10-18] MEDS: CALCITRIOL 0.25 MCG CAPSULE PO SCH (09:18)
[2020-10-18] MEDS: POTASSIUM CHLORIDE CRTAB 20 MEQ TABCR PO SCH (09:18)
[2020-10-18] MEDS: PRAVASTATIN SOD 20 MG TAB PO SCH (09:18)
[2020-10-18] MEDS: FAMOTIDINE 20 MG in SYRINGE 3 ML IV SCH (09:25)
[2020-10-18 09:55] LABS: Ferritin 748.6 ng/ml (8-388)
[2020-10-18] MEDS ORDERED: ceFAZolin 1000MG 1,000 MG/7.5 ML SYR IV ONE (10:17)
--- NOTE | 2020-10-18 10:17 | Consultation ---
Date of Consultation October 18, 2020 Assessment & Plan (1) Acute renal failure (ARF): Patient for permcath insertion for dialysis. I have discussed the risks options and benefits of the procedure with the patient. The patient understands the risks options and benefits and agrees to the procedure. History of Present Illness Reason for Consultation: Acute kidney injury Attending Physician: Kush Morse History of Present Illness This is a 30yo male with a failing kidney transplant. He has had failed fistul as in the past. He was admitted at this time with dehydration and acute kidney injury. He is need of dialysis at this time. Permcath is recommended for access at this time. Allergies Allergy/AdvReac Type Severity Reaction Status Date / Time bee venom protein (honey bee) Allergy Intermediate Edema, Verified 10/17/20 16:44 hives latex Allergy Unknown Unknown Verified 10/17/20 16:44 morphine AdvReac Mild N/V Verified 10/17/20 16:44 Home Medications Medication Instructions Recorded Confirmed Type tacrolimus 1 mg capsule, 5 mg PO Q12H cap 01/30/20 10/17/20 History immediate-release (Prograf) cholecalciferol (vitamin D3) 50 50 mcg PO QAM 03/05/20 10/17/20 History mcg (2,000 unit) capsule pravastatin 20 mg tablet 20 mg PO QAM 03/05/20 10/17/20 History testosterone 1 % (50 mg/5 gram) 50 mg TRANSDERMAL QAM 04/09/20 10/17/20 History transdermal gel packet calcitriol 0.5 mcg capsule 0.5 mcg PO DAILY #90 cap 07/18/20 10/17/20 Rx potassium chloride 20 mEq 20 meq PO QAM #90 tab 07/24/20 10/17/20 Rx tablet,extended release(part/cryst) (Klor-Con M) sevelamer carbonate 800 mg tablet 800 mg PO TID #90 tab 07/28/20 10/17/20 Rx (Renvela) mycophenolate mofetil 250 mg 250 mg PO .COMPLEX #270 cap 09/27/20 10/17/20 Rx capsule loperamide 2 mg capsule 4 mg PO QAM PRN 10/17/20 10/17/20 History Patient History Medical History Anemia Secondary to chronic disease and iron deficiency AV fistula LUE (non-functioning) Chronic kidney disease, stage 4 (severe) s/p kidney transplant (2006), 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 Boss, upcoming AVF for possible future dialysis History of COVID-19 Dx 12/28/19 ([facility]) > symptoms at time of decreased taste and smell, mild cough > recovered at home/resolved Hyperlipidemia Low bone mass Primary hypogonadism in male Secondary hyperparathyroidism of renal origin Self-catheterizes urinary bladder ~4x/day Tethered spinal cord Spina Bifida - s/p neurosurgical intervention "several years ago" - has had gradually progressive subsequent distal weakness/numbness Vitamin D deficiency Surgical History A-V fistula Left AVF creation (04/19/20): MAC + PNB at [facility] Revision left AV fistula (05/31/20): LMA#5.0 unique Colostomy status Since History of colonoscopy History of orchiectomy History of surgery s/p Gastrocystoplasty, Appendicovesicostomy w/ q4 hour cath (secondary to cloacal exstrophy) LENA Carli as infant Kidney transplant recipient 2006 Family History Mother Diabetes Heart disease Father Diabetes Other No family history of adverse response to anesthesia Social History Smoking Status: Never smoker Second Hand Exposure: No; Do You Dip or Chew Tobacco: No; Tobacco Cessation Education Requested by Patient: No Hx Alcohol Use: Yes Alcohol type: beer and wine Hx Substance Use: No Preferred Language: Cape Verdean Communication Ability: Effective Track Rider Required: No Beliefs That Will Affect Care: None marital status: Single Current Living Situation: Parent and Family current occupational status: 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[employer], [employer] Other Information That Helps Us Care for You: No Feels Safe at Home: Yes Safety Concerns: Feels Safe At This Time Do you think of yourself as: don't know Gender Identity: Male Assistive Devices: Walker and Wheelchair Review of Systems Review of Systems: All systems reviewed & are unremarkable except as noted in HPI & below Physical Exam Constitutional: WD/WN, vitals as above Respiratory: normal respiratory effort, lungs clear to auscultation Cardiovascular: RRR, no murmur, no edema Extremities: normal capillary refill; no AV fistula Gastrointestinal (Abdomen): normal bowel sounds, soft, nontender, no hepatosplenomegaly Musculoskeletal: no cyanosis or clubbing, extremities motor strength 5/5 Neurologic: CN's II-XI intact bilaterally and moves all extremities Psychiatric: Orientation: alert and oriented x 3 Results & Data ([facility]) Vital Signs (Past 12 Hours) Vital Signs Temp Pulse Pulse Resp BP Pulse Ox 10/18/20 07:47 36.4 C L 82 18 99/57 L 97 10/18/20 03:42 36.3 C L 90 16 93/60 L 96 10/17/20 23:27 104 H 10/17/20 22:39 36.8 C 94 H 17 103/56 L 99
--- NOTE | 2020-10-18 10:21 | Nephrology Consultation ---
Date of Consultation October 18, 2020 Assessment & Plan (1) ESRD needing dialysis: (2) Hypokalemia: (3) Acute hyponatremia: (4) Acute renal failure (ARF): (5) Metabolic alkalosis: (6) Anemia: (7) Secondary hyperparathyroidism of renal origin: (8) Kidney transplant status: Petros was admitted with NATHANIEL and multiple electrolyte abnormality with advanced CKD with history of renal transplant. Has been having repeated hospitalization last more than a year with AK I which eventually improved with volume resuscitation. He has been getting IV fluid weekly at home but currently he seems to have developed advanced uremic symptoms including fatigue, low energy, nausea and vomiting, as well as worsening anemia and multiple electrolyte abnormality. We discussed in detail that overall clinical scenario suggests that he reached end-stage renal disease and need to be started on intermittent hemodialysis. Patient is agreeable to the plan. -- Appreciate vascular surgery help with tunneled dialysis catheter placement. Plan for 2 hours dialysis this afternoon with low blood flow and 3 hours tomorrow. -- Consult case management for outpatient dialysis set up at [facility] -- will discontinue mycophenolate and continue on current dose of tacrolimus and in future will start tapering down slowly. -- Epogen 23432 units x 1 dose with dialysis today. -- Start on Nephrocaps daily and continue on Renvela with each meal. -- Right arm nephrology precaution for future vascular access, has follow-up with vascular surgery in 2 weeks. will follow Thank you for the consult. It was a pleasure to see Petros History of Present Illness Reason for Consultation: End-stage renal disease, in need for hemodialysis Attending Physician: Kush Morse History of Present Illness Petros Forte is a 30-year-old young male with advanced CKD with status post renal transplant admitted to the hospital with NATHANIEL and multiple electrolyte abnormality. Nephrology consult was requested for further management of NATHANIEL with history of renal transplant. Electronic medical records reviewed in detail during patient's visit. 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 Petros has advanced CKD, baseline creatinine lately has been running around 4.5. He has repeated episodes of hospital admission for acute kidney injury over last 1 year. Usually he improves within few days with IV hydration. With his history of ostomy, it was thought that he gets volume depleted with high ostomy output and he has been getting IV hydration weekly for last 3-4 months. His ostomy output has been normal. He has been voiding normally. However, over last few weeks he has been having generalized weakness with and fatigue and overall feeling exhausted and having no energy. Around with car so he started having nausea, poor p.o. intake and over last 24 hour the nausea worsened and he started having bilious vomiting. he denies abdominal pain, shortness of breath, chest pain. No fever or chills. On admission his creatinine was 9.5 with BUN around 105. Had multiple electrolyte abnormality including hypokalemia, metabolic alkalosis and hyponatremia. Blood pressure was acceptable. Clinically he was thought to be volume depleted and started on IV fluid and electrolyte replacement. His renal function and electrolyte monitored every 6 hours and this morning his creatinine and BUN stayed same with slight improvement in electrolyte abnormality. Overall he feels about the same, no energy, appetite poor. CT abdomen pelvis was otherwise unremarkable but concerning for mild pericardial effusion although he denies any chest pain. Petros has history of spina Bifida and horseshoe kidney, the he received a renal transplant in 2017 at [facility] ( [facility] no records available however he reports an episode of rejection or opportunistic infection, has been tolerating his immunosuppressive medication, currently on tacrolimus 4 mg every 12 hours and mycophenolate 5 and mg twice a day. He has chronic suprapubic catheter as well as colostomy. Baseline creatinine lately has been around 4-4.5. He had 3 AVF in left upper extremity and all 3 of them failed to mature. Currently following with vascular surgery and plan to have a percutaneous AV fistula in next 2-3 weeks. He was referred for kidney transplant evaluation however refused from , [facility] and valente mancini, now following with Elan Hamilton. Last night we had long discussion and explained to Petros that he is in need of starting on dialysis however he was hesitant and wanted to think about it more.This morning he still feels about the same and renal function staying same without significant improvement. After detailed discussion he was agreeable to start on dialysis. Allergies Allergy/AdvReac Type Severity Reaction Status Date / Time bee venom protein (honey bee) Allergy Intermediate Edema, Verified 10/17/20 16:44 hives latex Allergy Unknown Unknown Verified 10/17/20 16:44 morphine AdvReac Mild N/V Verified 10/17/20 16:44 Home Medications Medication Instructions Recorded Confirmed Type tacrolimus 1 mg capsule, 5 mg PO Q12H cap 01/30/20 10/17/20 History immediate-release (Prograf) cholecalciferol (vitamin D3) 50 50 mcg PO QAM 03/05/20 10/17/20 History mcg (2,000 unit) capsule pravastatin 20 mg tablet 20 mg PO QAM 03/05/20 10/17/20 History testosterone 1 % (50 mg/5 gram) 50 mg TRANSDERMAL QAM 04/09/20 10/17/20 History transdermal gel packet calcitriol 0.5 mcg capsule 0.5 mcg PO DAILY #90 cap 07/18/20 10/17/20 Rx potassium chloride 20 mEq 20 meq PO QAM #90 tab 07/24/20 10/17/20 Rx tablet,extended release(part/cryst) (Klor-Con M) sevelamer carbonate 800 mg tablet 800 mg PO TID #90 tab 07/28/20 10/17/20 Rx (Renvela) mycophenolate mofetil 250 mg 250 mg PO .COMPLEX #270 cap 09/27/20 10/17/20 Rx capsule loperamide 2 mg capsule 4 mg PO QAM PRN 10/17/20 10/17/20 History Patient History Medical History (Updated 10/18/20 @ 11:14 by Alayna Boss MD) Anemia Secondary to chronic disease and iron deficiency AV fistula LUE (non-functioning) Chronic kidney disease, stage 4 (severe) s/p kidney transplant (2006), 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 Boss, upcoming AVF for possible future dialysis ESRD needing dialysis History of COVID-19 Dx 12/28/19 ([facility]) > symptoms at time of decreased taste and smell, mild cough > recovered at home/resolved Hyperlipidemia Low bone mass Primary hypogonadism in male Secondary hyperparathyroidism of renal origin Self-catheterizes urinary bladder ~4x/day Tethered spinal cord Spina Bifida - s/p neurosurgical intervention "several years ago" - has had gradually progressive subsequent distal weakness/numbness Vitamin D deficiency Surgical History A-V fistula Left AVF creation (04/19/20): MAC + PNB at [facility] Revision left AV fistula (05/31/20): LMA#5.0 unique Colostomy status Since History of colonoscopy History of orchiectomy History of surgery s/p Gastrocystoplasty, 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 Kidney transplant recipient 2006 Family History Mother Diabetes Heart disease Father Diabetes Other No family history of adverse response to anesthesia Social History Smoking Status: Never smoker Second Hand Exposure: No; Do You Dip or Chew Tobacco: No; Tobacco Cessation Education Requested by Patient: No Hx Alcohol Use: Yes Alcohol type: beer and wine Hx Substance Use: No Preferred Language: Venezuelan Communication Ability: Effective Air Crew Officer Required: No Beliefs That Will Affect Care: None marital status: Single Current Living Situation: Parent and Family current occupational status: 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 Physical Exam Constitutional: no acute distress pale Eyes: + anicteric sclerae ENMT: external ear and nose normal, oropharynx normal Ears: no hearing impairment Neck: trachea midline Respiratory: normal respiratory effort, lungs clear to auscultation no cough Auscultation: no crackles, no rales and no wheezes Cardiovascular: RRR, no murmur, no edema Gastrointestinal (Abdomen): Inspection/Auscultation: abdomen normal to inspection and normal bowel sounds Percussion/Palpation: abdomen nontender, no guarding and abdomen not rigid Musculoskeletal: Extremities: extremities normal to inspection Skin: no rashes, warm and dry Neurologic: moves all extremities and awake Psychiatric: A+Ox3, euthymic affect Results & Data ([facility]) Vital Signs (Past 12 Hours) Vital Signs Temp Pulse Pulse Resp BP Pulse Ox 10/18/20 07:47 36.4 C L 82 18 99/57 L 97 10/18/20 03:42 36.3 C L 90 16 93/60 L 96 10/17/20 23:27 104 H 10/17/20 22:39 36.8 C 94 H 17 103/56 L 99 PG Care Time/CCT Total # of Minutes Spent Total Time Spent with Patient: Total time spent is greater than 50% in coordination of care (as documented) at patient's floor/unit and/or counseling patient: Coding Level of Care Code 61490 Initial Inpt Care Lvl 3 Diagnoses ESRD needing dialysis N18.6; Z99.2 Hypokalemia E87.6 Acute hyponatremia E87.1 Acute renal failure (ARF) N17.9 Metabolic alkalosis E87.3 Anemia D64.9 Secondary hyperparathyroidism of renal origin N25.81 Kidney transplant status Z94.0
[2020-10-18] MEDS ORDERED: HEPARIN SOD (PORCINE) 5,000 UNITS/ML VIAL ONE (10:32)
--- NOTE | 2020-10-18 10:32 | Pre Anesthesia Assessment ---
Date of Service October 18, 2020 Pre Sedation Assessment Vital Signs Temp Pulse Pulse Pulse Resp BP BP 10/18/20 10:19 36.8 C 89 89 18 10/18/20 07:47 36.4 C L 82 18 99/57 L 10/18/20 03:42 36.3 C L 90 16 93/60 L 10/17/20 23:27 104 H 10/17/20 22:39 36.8 C 94 H 17 103/56 L 10/17/20 19:58 36.6 C 100 H 16 10/17/20 18:10 36.5 C 95 H 18 110/61 10/17/20 18:06 10/17/20 16:10 106 H 17 106/63 10/17/20 14:03 101/69 10/17/20 14:00 101 H 24 10/17/20 13:48 106 H 24 10/17/20 13:46 109 H 20 10/17/20 13:04 36.8 C 113 H 20 96/63 L BP Pulse Ox 10/18/20 10:19 107/59 L 95 10/18/20 07:47 97 10/18/20 03:42 96 10/17/20 23:27 10/17/20 22:39 99 10/17/20 19:58 102/65 100 10/17/20 18:10 100 10/17/20 18:06 100 10/17/20 16:10 100 10/17/20 14:03 10/17/20 14:00 96 10/17/20 13:48 100 10/17/20 13:46 99 10/17/20 13:04 100 Cardiovascular RRR, no murmur, no edema Respiratory normal respiratory effort, lungs clear to auscultation Pre-Sedation Airway Assessment Smoking Status: Never smoker Hx Sleep Apnea: No Short, Thick Neck: No Thyromental Distance: > or= 3.5 Finger Breadths Oral Cavity: + WNL Mallampati Class: I ASA: ASA4 NPO Status Date of Last Intake of Fluids: 10/18/20 Time of Last Intake of Fluids: 00:00 Last Oral Intake of Fluids Comment: sip of water with meds this am Date of Last Intake of Solid Food: 10/18/20 Time of Last Intake of Solid Foods: 00:00 Procedure Planning Contraindications for Sedation: none Current Medications Reviewed: Yes Notes The planned sedation has been discussed with the patient. Informed Consent was obtained. I have identified the patient, determined the appropriateness of sedation and have assessed the patient immediately prior to the procedure. All medicine(s) and interventions are by my order.
[2020-10-18] MEDS ORDERED: MIDAZOLAM HCL 1 MG/ML 2ML VIAL ONE (10:33)
[2020-10-18] MEDS ORDERED: fentaNYL citrate 100 MCG/2 ML VIAL ONE (10:33)
--- NOTE | 2020-10-18 11:05 | Operative Report ---
Post Operative Report Pre & Post Diagnosis Operation Date: 10/18/20 10:00 Pre-Op Diagnosis: Acute Kidney Injury Post-Op Diagnosis: Acute Kidney Injury I identified the patient and participated in the time-out.: Yes Procedure Operation Date: 10/18/20 10:00 Actual Procedures p Perm Catheter Insertion, Right Internal Jugular Approach, Ultrasound Localization of Right Internal Jugular Vein, Fluroscopy for Positioning, Moderate Sedation [id number] - Christos Tobin MD Surgeon Christos Tobin MD University Registrar none Estimated Blood Loss 3 Findings Consistent with Post-Op Diagnosis Specimens none Anesthesia Type RN Sedation Complications none Disposition Accompanied Patient To Recovery: No Disposition: Recovery Room Indications This is a 30-year-old male with a failing kidney transplant. He was admitted with dehydration and acute worsening of his renal function. Dialysis was recommended. PermCath was recommended for temporary access. I have discussed the risks options and benefits of the procedure with the patient. The patient understands the risks options and benefits and agrees to the procedure. Description of Procedure Patient was taken to the angio suite and placed in the supine position. The right side of the neck and chest wall were prepped and draped in a sterile manner. The patient was identified and a timeout performed. Local anesthesia was then administered to the appropriate areas of the neck and chest wall. Ultrasound was then used to locate the right internal jugular vein. The vein compressed easily, had no filing defects, and was patent. The vein was then punctured under direct ultrasound imaging. A guidewire was then passed centrally under fluoroscopic imaging. A stab wound was then made in the anterior chest wall and a 19 cm permcath was passed from the stab wound on the chest wall to the puncture site on the neck. The puncture site was then dilated till the 14Fr peel away sheath was inserted. The permcath was then inserted through the sheath to a central position in the distal superior vena cava. The peel away sheath was then removed. The catheter was then sutured in place using nylon sutures. The puncture was then closed using a 4-0 Vicryl subcuticular suture. Dermabond was used for a dressing on the puncture site. Both ports aspirated and flushed easily and were then packed with heparin. A sterile dressing was applied to the catheter. The patient left the operation room in satisfactory condition and tolerated the procedure well. All needle and sponge counts were correct at the end of the procedure. I attest to the content of the Intraoperative Record and any orders documented therein. Any exceptions are noted below.
--- NOTE | 2020-10-18 11:10 | Post Anesthesia Assessment ---
Date of Service October 18, 2020 Post Sedation Assessment Vital Signs Temp Pulse Pulse Pulse Resp BP BP 10/18/20 11:06 89 18 113/67 10/18/20 11:01 89 18 115/66 10/18/20 10:57 89 18 116/63 10/18/20 10:52 91 H 18 115/67 10/18/20 10:47 91 H 18 118/64 10/18/20 10:42 96 H 18 114/72 10/18/20 10:19 36.8 C 89 89 18 10/18/20 07:47 36.4 C L 82 18 99/57 L 10/18/20 03:42 36.3 C L 90 16 93/60 L 10/17/20 23:27 104 H 10/17/20 22:39 36.8 C 94 H 17 103/56 L 10/17/20 19:58 36.6 C 100 H 16 10/17/20 18:10 36.5 C 95 H 18 110/61 10/17/20 18:06 10/17/20 16:10 106 H 17 106/63 10/17/20 14:03 101/69 10/17/20 14:00 101 H 24 10/17/20 13:48 106 H 24 10/17/20 13:46 109 H 20 10/17/20 13:04 36.8 C 113 H 20 96/63 L BP Pulse Ox 10/18/20 11:06 99 10/18/20 11:01 99 10/18/20 10:57 100 10/18/20 10:52 100 10/18/20 10:47 100 10/18/20 10:42 100 10/18/20 10:19 107/59 L 95 10/18/20 07:47 97 10/18/20 03:42 96 10/17/20 23:27 10/17/20 22:39 99 10/17/20 19:58 102/65 100 10/17/20 18:10 100 10/17/20 18:06 100 10/17/20 16:10 100 10/17/20 14:03 10/17/20 14:00 96 10/17/20 13:48 100 10/17/20 13:46 99 10/17/20 13:04 100 Recovery Score Activity: Moves 4 extremities Respiration: Deep Breath/Cough Circulation: +/-20% PreAnes Value Consciousness: Fully Awake Oxygen Saturation: > 92% On Room Air Post Anesthesia Score: 10 Discharge Sedation Level of Care: Fast Track Phase II Post Sedation Plan On clinical assessment, the patient appears to have tolerated the sedation without complications. Patient is recovering as anticipated. Patient will continue to be monitored by nursing and may be discharged when sedation discharge criteria are met per below protocol. Upon Completions of procedure up to 15 minutes continue every 5 minute vital signs and the P.A.R. score; then discharge to a Phase I or Fast Track to Phase II per the following guidelines: * Discharge Patient to appropriate Phase II area if PAR is 8 or greater or return to pre- procedure baseline. The post - procedure orders will be as directed. * If PAR score is less than 8 or not return to pre-procedure baseline then patient will follow Phase I monitoring till PAR is reached for Phase II. The Phase I may be done in procedure room or may call to secure a Phase I area. * If naloxone or flumazenil are used for reversal, hold in Phase I for continued monitoring from when last reversal dose was given for a minimum of 60 minutes or longer pending the nurse and/or physician discretion of patient condition before discharge to Phase II. Please call the Sedation Physician to re-evaluate and complete post-note for discharge to Phase II area. Do NOT discharge from procedure sedation or Phase 1 until post- sedation evaluation note is complete by procedure /sedation MD Sedation Discharge Instructions to be given to the patient at discharge to home.
[2020-10-18] MEDS ORDERED: LIDOCAINE 1% LOCAL 20 ML VIAL INJ ONE (11:11)
[2020-10-18 12:45] LABS: Hepatitis B Surface Ab Quant < 3.10 mIU/mL (>or=10mIU/mL Immune); Hepatitis B Surface Antibody Non-Immune
[2020-10-18 12:56] LABS: Hepatitis B Surf Ag Rflx Conf Neg (Neg)
[2020-10-18] MEDS ORDERED: SODIUM CHLORIDE 0.9% 250 ML IV PRN (14:18)
[2020-10-18 14:25] LABS: Hematocrit (blood only) 21.7 % (42-52); Hemoglobin 7.2 g/dL (14.0-18.0)
--- NOTE | 2020-10-18 18:00 | Electrocardiogram Report ---
Test Reason : Blood Pressure : / mmHG Vent. Rate : 082 BPM Atrial Rate : 082 BPM P-R Int : 142 ms QRS Dur : 106 ms QT Int : 412 ms P-R-T Axes : 073 071 042 degrees QTc Int : 481 ms Normal sinus rhythm Prolonged QT Abnormal ECG When compared with ECG of 27-MAR-2020 13:20, Nonspecific T wave abnormality no longer evident in Lateral leads Confirmed by Hernesto Juárez ([id number]) on 10/18/2020 5:59:44 PM Referred By: REFERRED SELF Confirmed By:Amol Juárez
--- NOTE | 2020-10-18 21:13 | Hospitalist Progress Note ---
Date of Service October 18, 2020 Assessment & Plan (1) Nausea & vomiting: Plan: Acute onset- ? VGE as source- normal WBC no abdominal tenderness - doubt toxicity as he has been on his tacrolimus for years- tacrolimus level sent - normal CT scan of abdomen and pelvis, normal biliary labs - Supportive care for now with symptom control - IVF LR at 125ml/hour - Zofran and Reglan IV for nausea/vomitting - Famotidine 20mg IV (2) Acute renal failure (ARF): Plan: CARD DOFFER increase from 3-9.8 -- ARF - Appears pre-renal on chronic ESRD - Hydrate as above - Follow K, CARD DOFFER, NA - Appreciate Nephrology assistance will get Hemodyalisis today (3) Acute hyponatremia: Plan: Likley secondary to volume loss from vomitting - LR at 125- improved to 127 - Goal would be 6-8MMOL correction over 24 hours - Likely to increase quickly once intravascular volume is restored- follow - Asymptomatic (4) Metabolic alkalosis: Plan: Consistent with vomiting and contraction alkalosis - will have Hemodialysis. (5) End-stage renal disease (ESRD): Plan: As above - no acute dialysis need at this time - continues to work through creation of fistulas as per HPI - Continue sevelimir, cholecalciferol, vitamin D (6) Hypokalemia: Plan: As above replaced. (7) Kidney transplant status: Plan: Continue tacrolimus and mycophenelate - Tacrolimus level sent- this is a send out - Is back on the waiting list for another transplant (8) History of immunosuppressive therapy: Plan: As above (9) Tethered spinal cord: Plan: As per HPI- wheelchair dependant follows with neurology (10) Self-catheterizes urinary bladder: Plan: Patient brought his catheters from home - 14Fr - continue QID or more as needed Admission and Anticipated Discharge Date Admission Date: October 17, 2020 Subjective Patient reports no new symptoms. Review of Systems Review of Systems: All systems reviewed & are unremarkable except as noted in HPI & below Physical Exam Physical Exam: General: awake, alert, no apparent distress Head: Normocephalic, atraumatic ENT: PERRL, EOMI, no pharyngeal exudate, mucous membranes dry Neuro: AAO x 3, speech clear and appropriate, Chest: equal rise and fall of the chest, no accessory muscle use, no heaves or thrills, Clear to auscultation, on room air, Cardiac: Regular rate and rhythm, telemetry reviewed-NSR, skin warm dry, cap refill <3 seconds, peripheral pulses +2 no JVD, no murmur, no edema GI: NABS x 4 quadrants, soft, nontender to palpation, no rebound, guarding or tenderness : catheterization channel has no drainage and not tender, no CVA tenderness, Extremities: Normal inspection, no peripheral edema or erythema, calfs nontender to palpation Psych: Normal mood and affect Skin: no rash or erythema Results & Data Results & Data ([facility]) Vital Signs (Past 12 Hours) Vital Signs Temp Pulse Pulse Pulse Pulse Resp BP 10/18/20 20:30 36.9 C 86 10/18/20 20:00 87 94/68 L 10/18/20 19:40 85 104/62 10/18/20 19:20 96 H 98/62 L 10/18/20 19:00 85 105/53 L 10/18/20 18:40 88 103/57 L 10/18/20 18:20 94 H 99/52 L 10/18/20 18:13 87 105/60 10/18/20 18:06 36.6 C 88 10/18/20 15:46 36.6 C 90 22 10/18/20 12:47 96 H 18 10/18/20 12:15 96 H 16 10/18/20 11:55 36.4 C L 92 H 18 10/18/20 11:45 96 H 16 10/18/20 11:30 95 H 16 10/18/20 11:06 89 18 10/18/20 11:01 89 18 10/18/20 10:57 89 18 10/18/20 10:52 91 H 18 10/18/20 10:47 91 H 18 10/18/20 10:42 96 H 18 10/18/20 10:19 36.8 C 89 89 18 BP BP Pulse Ox 10/18/20 20:30 108/66 10/18/20 20:00 10/18/20 19:40 10/18/20 19:20 10/18/20 19:00 10/18/20 18:40 10/18/20 18:20 10/18/20 18:13 10/18/20 18:06 09/10/21 15:46 135/78 96 10/18/20 12:47 112/67 98 10/18/20 12:15 108/66 97 10/18/20 11:55 102/63 97 10/18/20 11:45 99/68 L 97 10/18/20 11:30 110/65 98 10/18/20 11:06 113/67 99 10/18/20 11:01 115/66 99 10/18/20 10:57 116/63 100 10/18/20 10:52 115/67 100 10/18/20 10:47 118/64 100 10/18/20 10:42 114/72 100 10/18/20 10:19 107/59 L 95 PG Care Time/CCT Total # of Minutes Spent Total Time Spent with Patient: Total time spent is greater than 50% in coordination of care (as documented) at patient's floor/unit and/or counseling patient: Coding Level of Care Code 28068 Subseq Hosp Care Lvl 2 Diagnoses Nausea & vomiting R11.2 Acute renal failure (ARF) N17.9 Acute hyponatremia E87.1 Metabolic alkalosis E87.3 End-stage renal disease (ESRD) N18.6 Hypokalemia E87.6 Kidney transplant status Z94.0 History of immunosuppressive therapy Z92.25 Tethered spinal cord Q06.8 Self-catheterizes urinary bladder Z78.9 Time Spent (min) 25
[2020-10-18] MEDS ORDERED: MoRPHine SULFATE 2 MG/ML CARP IV PRN (21:59)
[2020-10-18] MEDS ORDERED: traMADol HCL 50 MG TABLET PO PRN ×2 (22:18→22:24)
[2020-10-18] MEDS: MELATONIN 3 MG TAB PO PRN (23:15)
[2020-10-18] MEDS ORDERED: traMADol HCL 50 MG TABLET PO STA (23:50)
[2020-10-19] MEDS ORDERED: HYDROmorphone INJ 0.5 MG/0.5 ML SYR IV STA ×2 (01:56→05:54)
[2020-10-19] MEDS: ACETAMINOPHEN 325 MG TAB PO PRN ×3 (05:15→18:26)
[2020-10-19] MEDS: TACROLIMUS 1 MG CAP PO SCH ×2 (06:04→18:24)
[2020-10-19 07:12] LABS: Basophils # (auto) 0.02 K/uL (0-0.2); Basophils % (auto) 0.5 %; Eosinophils # (auto) 0.06 K/uL (0-0.5); Eosinophils % (auto) 1.4 %; Hematocrit (blood only) 21.7 % (42-52); Hemoglobin 7.2 g/dL (14.0-18.0); Immature Granulocytes # (auto) 0.03 K/uL (0.00-0.02); Immature Granulocytes % (auto) 0.7 %; Lymphocytes # (auto) 1.67 K/uL (1.2-3.4); Lymphocytes % (auto) 39.5 %; Mean Corpuscular Hemoglobin 31.2 pg (25-34); Mean Corpuscular Hgb Conc 33.2 g/dL (32-36); Mean Corpuscular Volume 93.9 fL (80-100); Mean Platelet Volume 8.8 fL (7.4-10.4); Monocytes # (auto) 0.44 K/uL (0.11-0.59); Monocytes % (auto) 10.4 %; Neutrophils # (auto) 2.01 K/uL (1.4-6.5); Neutrophils % (auto) 47.5 %; Platelet Count 251 K/uL (130-400); RDW Coefficient of Variation 12.4 % (11.5-14.5); RDW Standard Deviation 42.2 fL (36.4-46.3); Red Blood Count 2.31 M/uL (4.7-6.1); White Blood Count 4.23 K/uL (4.8-10.8)
[2020-10-19 07:38] LABS: RBC Morphology Unremarkable
[2020-10-19 08:05] LABS: Albumin Level 3.5 gm/dl (3.4-5.0); BUN Creatinine Ratio 9.4 (10-20); Calcium 9.4 mg/dl (8.5-10.1); Creatinine Clr Calc Pharmacy 16.3 ml/min; Est GFR (African American) 12.1 ml/min; Est GFR (Non-African American) 10.4 ml/min; Phosphorus 4.8 mg/dl (2.5-4.9); Potassium 3.6 mmol/L (3.5-5.1)
[2020-10-19] MEDS: SEVELAMER HCL 800 MG TABLET PO SCH ×3 (08:05→17:29)
[2020-10-19] MEDS: POTASSIUM CHLORIDE CRTAB 20 MEQ TABCR PO SCH (08:05)
[2020-10-19] MEDS: PRAVASTATIN SOD 20 MG TAB PO SCH (08:05)
[2020-10-19] MEDS: CALCITRIOL 0.25 MCG CAPSULE PO SCH (08:05)
[2020-10-19] MEDS: NEPHROCAPS PO SCH (08:06)
[2020-10-19] MEDS: CHOLECALCIFEROL 1,000 UNITS 25 MCG TAB PO SCH (08:06)
[2020-10-19] MEDS: traMADol HCL 50 MG TABLET PO PRN ×2 (09:37→22:05)
--- NOTE | 2020-10-19 12:15 | Nephrology Progress Note ---
Date of Service October 19, 2020 Assessment & Plan (1) ESRD needing dialysis: Plan: TDC placed by Dr. Tobin 10/18. 1st HD treatment completed 10/18 without complications. Adequate clearance. Orders for treatment today entered into EMR and reviewed with dialysis nurse. 2.5 hrs at Qb 300 with minimal UF. Petros was seen and evaluated during HD. He is tolerating HD well. Medications are appropriately dosed for IHD. (2) Hypokalemia: Plan: Encourage dietary intake. Repeat metabolic profile tomorrow AM. (3) Acute hyponatremia: Plan: Improved with HD. Monitor I/O's. (4) Metabolic alkalosis: Plan: HCO3 adjusted with HD. (5) Anemia: Plan: Epogen 37566 units provided yesterday. Hgb stable. Tsat 36 is acceptable. Will monitor. (6) Secondary hyperparathyroidism of renal origin: Plan: Calcitriol 0.5 daily. Sevelamer QAC. (7) Kidney transplant status: Plan: Remains on tacro + Cellcept per home Rx. Admission and Anticipated Discharge Date Admission Date: October 17, 2020 Subjective No acute events overnight. Completed 1st HD treatment yesterday without complications. Petros was seen and evaluated during hemodialysis today. He is tolerating HD well. No complaints or concerns. Qb at goal via TDC. Review of Systems Review of Systems: All systems reviewed & are unremarkable except as noted in HPI & below Constitutional: + fatigue Physical Exam Constitutional: well developed; no acute distress Eyes: no scleral abnormality and no corneal abnormality ENMT: Mouth: no oral mucosal abnormality and oral mucous membranes not dry Neck: normal visual inspection and trachea midline RIJ TDC Respiratory: normal respiratory effort Auscultation: lungs clear to auscultation bilaterally Cardiovascular: Rate/Rhythm: regular rate Heart Sounds: normal S1 and normal S2 Extremities: no edema Musculoskeletal: Extremities: no cyanosis and no clubbing Skin: normal turgor; no lesions Neurologic: Motor/Sensory: no tremor and no asterixis Psychiatric: Orientation: alert and oriented x 3 Results & Data ([facility]) Vital Signs (Past 12 Hours) Vital Signs Temp Pulse Pulse Resp BP BP Pulse Ox 10/19/20 12:00 82 92/62 L 10/19/20 11:40 90 111/60 10/19/20 11:19 85 101/61 10/19/20 11:00 92 H 104/67 10/19/20 10:40 91 H 101/61 10/19/20 10:20 91 H 105/70 10/19/20 09:55 89 113/69 10/19/20 09:45 36.5 C 92 H 10/19/20 08:00 89 10/19/20 07:35 36.6 C 83 18 103/65 96 10/19/20 04:18 36.7 C 79 18 104/64 98 10/19/20 00:25 36.6 C 72 18 104/75 95 Laboratory Results Laboratory Results - last 24 hr 10/18/20 10/18/20 10/18/20 11:52 11:52 14:10 WBC RBC Hgb 7.2 L Hct 21.7 L MCV MCH MCHC RDW Std Deviation RDW Coeff of Abigail Plt Count MPV Immature Gran % (Auto) Neut % (Auto) Lymph % (Auto) Cecil % (Auto) Eos % (Auto) Baso % (Auto) Neut # (Auto) Lymph # (Auto) Cecil # (Auto) Eos # (Auto) Baso # (Auto) Immature Gran # (Auto) RBC Morphology Sodium Potassium Chloride Carbon Dioxide Anion Gap BUN Creatinine Est Cr Clr Drug Dosing Est GFR ( Amer) Est GFR (Non-Af Amer) BUN/Creatinine Ratio Glucose Calcium Phosphorus Albumin Hep Bs Antigen Neg Hep Bs Antibody Non-Immune Hep Bs Antibody, Quant < 3.10 L Hep B Core IgM Ab NON-REACTIVE Blood Type Antibody Screen Crossmatch 10/18/20 10/19/20 10/19/20 14:14 06:48 06:48 WBC 4.23 L RBC 2.31 L Hgb 7.2 L Hct 21.7 L MCV 93.9 MCH 31.2 MCHC 33.2 RDW Std Deviation 42.2 RDW Coeff of Abigail 12.4 Plt Count 251 MPV 8.8 Immature Gran % (Auto) 0.7 Neut % (Auto) 47.5 Lymph % (Auto) 39.5 Cecil % (Auto) 10.4 Eos % (Auto) 1.4 Baso % (Auto) 0.5 Neut # (Auto) 2.01 Lymph # (Auto) 1.67 Cecil # (Auto) 0.44 Eos # (Auto) 0.06 Baso # (Auto) 0.02 Immature Gran # (Auto) 0.03 H RBC Morphology Unremarkable Sodium 136 D Potassium 3.6 Chloride 95 L Carbon Dioxide 35 H Anion Gap 5.0 BUN 62 H Creatinine 6.57 H* D Est Cr Clr Drug Dosing 16.3 Est GFR ( Amer) 12.1 Est GFR (Non-Af Amer) 10.4 BUN/Creatinine Ratio 9.4 L Glucose 106 H Calcium 9.4 Phosphorus 4.8 D Albumin 3.5 Hep Bs Antigen Hep Bs Antibody Hep Bs Antibody, Quant Hep B Core IgM Ab Blood Type A Positive Antibody Screen NEGATIVE Crossmatch See Detail PG Care Time/CCT Total # of Minutes Spent Total Time Spent with Patient: Total time spent is greater than 50% in coordination of care (as documented) at patient's floor/unit and/or counseling patient: Coding Level of Care Code 81871 Subseq Hosp Care Lvl 3 Diagnoses ESRD needing dialysis N18.6; Z99.2 Hypokalemia E87.6 Acute hyponatremia E87.1 Metabolic alkalosis E87.3 Anemia D64.9 Secondary hyperparathyroidism of renal origin N25.81 Kidney transplant status Z94.0
[2020-10-19] MEDS: NORMOSOL-R 1,000 ML IV SCH ×2 (13:07→16:27)
[2020-10-19] MEDS: FAMOTIDINE 20 MG in SYRINGE 3 ML IV SCH (13:21)
--- NOTE | 2020-10-19 20:59 | Hospitalist Progress Note ---
Date of Service October 19, 2020 Assessment & Plan (1) Nausea & vomiting: Plan: Acute onset- ? VGE as source- normal WBC no abdominal tenderness - doubt toxicity as he has been on his tacrolimus for years- tacrolimus level sent - normal CT scan of abdomen and pelvis, normal biliary labs - Supportive care for now with symptom control -symptoms imprved. -IVF cut down. -patient received second dialysis today. 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 (5) End-stage renal disease (ESRD): Plan: As above - no acute dialysis need at this time - continues to work through creation of fistulas as per HPI - Continue sevelimir, cholecalciferol, vitamin D (6) Hypokalemia: Plan: As above replaced. 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 He states dialysis has taen a lot out of him. Review of Systems Review of Systems: All systems reviewed & are unremarkable except as noted in HPI & below Physical Exam Physical Exam: General: awake, alert, no apparent distress Head: Normocephalic, atraumatic ENT: PERRL, EOMI, no pharyngeal exudate, mucous membranes dry Neuro: AAO x 3, speech clear and appropriate, Chest: equal rise and fall of the chest, no accessory muscle use, no heaves or thrills, Clear to auscultation, on room air, Cardiac: Regular rate and rhythm, telemetry reviewed-NSR, skin warm dry, cap refill <3 seconds, peripheral pulses +2 no JVD, no murmur, no edema GI: NABS x 4 quadrants, soft, nontender to palpation, no rebound, guarding or tenderness : catheterization channel has no drainage and not tender, no CVA tenderness, Extremities: Normal inspection, no peripheral edema or erythema, calfs nontender to palpation Psych: Normal mood and affect Skin: no rash or erythema Results & Data Results & Data ([facility]) Vital Signs (Past 12 Hours) Vital Signs Temp Pulse Pulse Pulse Resp BP BP 10/19/20 19:43 36.6 C 84 17 108/70 10/19/20 15:19 36.4 C L 84 18 99/63 L 10/19/20 15:00 91 H 10/19/20 13:00 36.6 C 84 16 106/62 10/19/20 12:41 36.5 C 80 99/57 L 10/19/20 12:39 83 90/59 L 10/19/20 12:22 82 91/57 L 10/19/20 12:00 82 92/62 L 10/19/20 11:40 90 111/60 10/19/20 11:19 85 101/61 10/19/20 11:00 92 H 104/67 10/19/20 10:40 91 H 101/61 10/19/20 10:20 91 H 105/70 10/19/20 09:55 89 113/69 10/19/20 09:45 36.5 C 92 H Pulse Ox 10/19/20 19:43 100 10/19/20 15:19 99 10/19/20 15:00 10/19/20 13:00 98 10/19/20 12:41 10/19/20 12:39 10/19/20 12:22 10/19/20 12:00 10/19/20 11:40 10/19/20 11:19 10/19/20 11:00 10/19/20 10:40 10/19/20 10:20 10/19/20 09:55 10/19/20 09:45 PG Care Time/CCT Total # of Minutes Spent Total Time Spent with Patient: Total time spent is greater than 50% in coordination of care (as documented) at patient's floor/unit and/or counseling patient: Coding Level of Care Code 98082 Subseq Hosp Care Lvl 2 Diagnoses Nausea & vomiting R11.2 Acute renal failure (ARF) N17.9 Acute hyponatremia E87.1 Metabolic alkalosis E87.3 End-stage renal disease (ESRD) N18.6 Hypokalemia E87.6 Kidney transplant status Z94.0 History of immunosuppressive therapy Z92.25 Tethered spinal cord Q06.8 Self-catheterizes urinary bladder Z78.9 Time Spent (min) 25
[2020-10-20] MEDS: ACETAMINOPHEN 325 MG TAB PO PRN ×2 (02:10→22:43)
[2020-10-20] MEDS: MELATONIN 3 MG TAB PO PRN ×2 (02:10→22:43)
[2020-10-20] MEDS: NORMOSOL-R 1,000 ML IV SCH ×2 (02:58→16:10)
[2020-10-20 06:13] LABS: Basophils # (auto) 0.02 K/uL (0-0.2); Basophils % (auto) 0.4 %; Eosinophils # (auto) 0.13 K/uL (0-0.5); Eosinophils % (auto) 2.6 %; Hematocrit (blood only) 21.8 % (42-52); Hemoglobin 7.6 g/dL (14.0-18.0); Immature Granulocytes # (auto) 0.06 K/uL (0.00-0.02); Immature Granulocytes % (auto) 1.2 %; Lymphocytes % (auto) 39.9 %; Mean Corpuscular Hemoglobin 31.7 pg (25-34); Mean Corpuscular Hgb Conc 34.9 g/dL (32-36); Mean Corpuscular Volume 90.8 fL (80-100); Mean Platelet Volume 8.7 fL (7.4-10.4); Neutrophils % (auto) 47.9 %; Platelet Count 243 K/uL (130-400); RDW Coefficient of Variation 12.5 % (11.5-14.5); RDW Standard Deviation 41.7 fL (36.4-46.3); White Blood Count 5.01 K/uL (4.8-10.8)
[2020-10-20 06:30] LABS: RBC Morphology Unremarkable
[2020-10-20] MEDS: TACROLIMUS 1 MG CAP PO SCH ×2 (06:31→18:02)
[2020-10-20 06:54] LABS: BUN Creatinine Ratio 6.8 (10-20); Calcium 9.1 mg/dl (8.5-10.1); Creatinine Clr Calc Pharmacy 25.4 ml/min; Est GFR (African American) 20.5 ml/min; Est GFR (Non-African American) 17.7 ml/min; Potassium 3.7 mmol/L (3.5-5.1)
[2020-10-20] MEDS: POTASSIUM CHLORIDE CRTAB 20 MEQ TABCR PO SCH (08:02)
[2020-10-20] MEDS: CHOLECALCIFEROL 1,000 UNITS 25 MCG TAB PO SCH (08:02)
[2020-10-20] MEDS: SEVELAMER HCL 800 MG TABLET PO SCH ×3 (08:02→16:10)
[2020-10-20] MEDS: FAMOTIDINE 20 MG in SYRINGE 3 ML IV SCH (08:02)
[2020-10-20] MEDS: CALCITRIOL 0.25 MCG CAPSULE PO SCH (08:03)
[2020-10-20] MEDS: PRAVASTATIN SOD 20 MG TAB PO SCH (08:03)
[2020-10-20] MEDS: NEPHROCAPS PO SCH (08:03)
--- NOTE | 2020-10-20 10:44 | Nephrology Progress Note ---
Date of Service October 20, 2020 Assessment & Plan (1) ESRD needing dialysis: Plan: TDC placed by Dr. Tobin 10/18. 1st HD treatment completed 10/18 without complications. 2nd treatment completed yesterday. Adequate clearance achieved with dialysis. Electrolytes controlled. Volume status acceptable. Next HD treatment will be tomorrow. Medications are appropriately dosed for IHD. Care coordination consulted to assist with arranging outpatient HD at [facility] as outpatient. (2) Anemia: Plan: Epogen 26744 units provided 10/18. Hgb stable. Tsat 36 is acceptable. Will monitor. (3) Secondary hyperparathyroidism of renal origin: Plan: Calcitriol 0.5 daily. Sevelamer QAC. (4) Kidney transplant status: Plan: Remains on tacro + Cellcept per home Rx. Tacro trough pending. Admission and Anticipated Discharge Date Admission Date: October 17, 2020 Subjective No acute events overnight. Petros feels well this AM. He notes that dialysis was tiring but he feels better this AM. Nausea improved. Appetite remains decreased. Petros would like to continue IVF for now. Review of Systems Review of Systems: All systems reviewed & are unremarkable except as noted in HPI & below Constitutional: + fatigue Physical Exam Constitutional: well developed; no acute distress Eyes: no scleral abnormality and no corneal abnormality ENMT: Mouth: no oral mucosal abnormality and oral mucous membranes not dry Neck: normal visual inspection and trachea midline RIJ TDC Respiratory: normal respiratory effort Auscultation: lungs clear to auscultation bilaterally Cardiovascular: Rate/Rhythm: regular rate Heart Sounds: normal S1 and normal S2 Extremities: no edema Musculoskeletal: Extremities: no cyanosis and no clubbing Skin: normal turgor; no lesions Neurologic: Motor/Sensory: no tremor and no asterixis Psychiatric: Orientation: alert and oriented x 3 Results & Data ([facility]) Vital Signs (Past 12 Hours) Vital Signs Temp Pulse Pulse Pulse Resp BP BP 10/20/20 08:00 86 10/20/20 07:56 36.5 C 89 18 110/63 10/20/20 05:00 36.5 C 91 H 18 101/60 10/19/20 22:47 36.6 C 83 17 126/80 Pulse Ox 10/20/20 08:00 10/20/20 07:56 98 10/20/20 05:00 99 10/19/20 22:47 100 Laboratory Results Laboratory Results - last 24 hr 10/20/20 10/20/20 05:58 05:58 WBC 5.01 RBC 2.40 L Hgb 7.6 L Hct 21.8 L MCV 90.8 MCH 31.7 MCHC 34.9 RDW Std Deviation 41.7 RDW Coeff of Abigail 12.5 Plt Count 243 MPV 8.7 Immature Gran % (Auto) 1.2 Neut % (Auto) 47.9 Lymph % (Auto) 39.9 [place] % (Auto) 8.0 Eos % (Auto) 2.6 Baso % (Auto) 0.4 Neut # (Auto) 2.40 Lymph # (Auto) 2.00 [place] # (Auto) 0.40 Eos # (Auto) 0.13 Baso # (Auto) 0.02 Immature Gran # (Auto) 0.06 H RBC Morphology Unremarkable Sodium 136 Potassium 3.7 Chloride 99 Carbon Dioxide 30 Anion Gap 7.0 BUN 29 H D Creatinine 4.23 H D Est Cr Clr Drug Dosing 25.4 Est GFR ( Amer) 20.5 Est GFR (Non-Af Amer) 17.7 BUN/Creatinine Ratio 6.8 L Glucose 134 H Calcium 9.1 PG Care Time/CCT Total # of Minutes Spent Total Time Spent with Patient: Total time spent is greater than 50% in coordination of care (as documented) at patient's floor/unit and/or counseling patient: Coding Level of Care Code 78828 Subseq Hosp Care Lvl 3 Diagnoses ESRD needing dialysis N18.6; Z99.2 Anemia D64.9 Secondary hyperparathyroidism of renal origin N25.81 Kidney transplant status Z94.0
[2020-10-20] MEDS: traMADol HCL 50 MG TABLET PO PRN (12:24)
--- NOTE | 2020-10-20 19:39 | Hospitalist Progress Note ---
Date of Service October 20, 2020 Assessment & Plan (1) Nausea & vomiting: Plan: Acute onset like secondary to Acute renal failure. - doubt toxicity as he has been on his tacrolimus for years- tacrolimus level sent - normal CT scan of abdomen and pelvis, normal biliary labs - Supportive care for now with symptom control -symptoms improved. -Patient has had 2 sessions of hemodialysis which he has tolerated. 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 (5) End-stage renal disease (ESRD): Plan: As above - no acute dialysis need at this time - continues to work through creation of fistulas as per HPI - Continue sevelimir, cholecalciferol, vitamin D (6) Hypokalemia: Plan: As above replaced. 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 Review of Systems Review of Systems: All systems reviewed & are unremarkable except as noted in HPI & below Physical Exam Physical Exam: General: awake, alert, no apparent distress Head: Normocephalic, atraumatic ENT: PERRL, EOMI, no pharyngeal exudate, mucous membranes dry Neuro: AAO x 3, speech clear and appropriate, Chest: Clear to auscultation, on room air, perm cath noted on right side of chest. Cardiac: Regular rate and rhythm, telemetry reviewed-NSR, skin warm dry, cap refill <3 seconds, peripheral pulses +2 no JVD, no murmur, no edema GI: NABS x 4 quadrants, soft, nontender to palpation, no rebound, guarding or tenderness : catheterization channel has no drainage and not tender, no CVA tenderness, Extremities: Normal inspection, no peripheral edema or erythema, calfs nontender to palpation Psych: Normal mood and affect Skin: no rash or erythema Results & Data Results & Data ([facility]) Vital Signs (Past 12 Hours) Vital Signs Temp Pulse Pulse Resp BP Pulse Ox 10/20/20 16:00 88 10/20/20 15:29 36.8 C 88 18 124/73 100 10/20/20 11:56 37.0 C 95 H 20 121/82 98 10/20/20 08:00 86 10/20/20 07:56 36.5 C 89 18 110/63 98 PG Care Time/CCT Total # of Minutes Spent Total Time Spent with Patient: Total time spent is greater than 50% in coordination of care (as documented) at patient's floor/unit and/or counseling patient: Coding Level of Care Code 90943 Subseq Hosp Care Lvl 2 Diagnoses Nausea & vomiting R11.2 Acute renal failure (ARF) N17.9 Acute hyponatremia E87.1 Metabolic alkalosis E87.3 End-stage renal disease (ESRD) N18.6 Hypokalemia E87.6 Kidney transplant status Z94.0 History of immunosuppressive therapy Z92.25 Tethered spinal cord Q06.8 Self-catheterizes urinary bladder Z78.9
[2020-10-21] MEDS: NORMOSOL-R 1,000 ML IV SCH ×2 (03:39→19:03)
[2020-10-21 06:28] LABS: Hematocrit (blood only) 23.9 % (42-52); Hemoglobin 8.1 g/dL (14.0-18.0)
[2020-10-21] MEDS ORDERED: SODIUM CHLORIDE 0.9% 1000ML 1,000 ML IV PRN (07:00)
[2020-10-21] MEDS ORDERED: HEPARIN SOD (PORCINE) 1000 UNIT/ML IV ONE (07:00)
[2020-10-21 07:16] LABS: Albumin Level 3.4 gm/dl (3.4-5.0); BUN Creatinine Ratio 7.1 (10-20); Calcium 9.2 mg/dl (8.5-10.1); Creatinine Clr Calc Pharmacy 23.9 ml/min; Est GFR (African American) 18.7 ml/min; Est GFR (Non-African American) 16.1 ml/min; Phosphorus 3.3 mg/dl (2.5-4.9); Potassium 3.8 mmol/L (3.5-5.1)
[2020-10-21] MEDS: TACROLIMUS 1 MG CAP PO SCH ×2 (07:21→19:56)
[2020-10-21] MEDS: CHOLECALCIFEROL 1,000 UNITS 25 MCG TAB PO SCH (07:21)
[2020-10-21] MEDS: PRAVASTATIN SOD 20 MG TAB PO SCH (07:21)
[2020-10-21] MEDS: POTASSIUM CHLORIDE CRTAB 20 MEQ TABCR PO SCH (07:21)
[2020-10-21] MEDS: NEPHROCAPS PO SCH (07:22)
[2020-10-21] MEDS: CALCITRIOL 0.25 MCG CAPSULE PO SCH (07:22)
[2020-10-21] MEDS: SEVELAMER HCL 800 MG TABLET PO SCH ×3 (07:22→16:08)
[2020-10-21] MEDS: FAMOTIDINE 20 MG in SYRINGE 3 ML IV SCH (08:02)
--- NOTE | 2020-10-21 14:27 | Hospitalist Progress Note ---
Date of Service October 21, 2020 Assessment & Plan (1) Nausea & vomiting: Plan: Metabolic in the negative acute renal failure -Tacrolimus stable for many years, level drawn 10/17 pending. Low suspicion for toxicity CTabdomen/pelvis: No acute findings -symptoms improved following dialysis, patient feels nearly back to normal - Zofran and Reglan IV for nausea/vomiting - Famotidine 20mg IV (2) Acute renal failure (ARF): Plan: Acute renal failure Acute on chronic ESRD, transplantation Creatinine increase from 3-9.8 prior to dialysis Patient completed dialysis sessions, 10/21 session delayed due to staffing to [facility] able to start dialysis Wednesday if patient discharged 10/22. Case discussed with Dr. Mcconnell and dialysis information communicated with the help of case management (3) Acute hyponatremia: Plan: 2/2 volume contraction and vomiting, normalized with repletion and treatment as otherwise noted Asymptomatic (4) Metabolic alkalosis: Plan: -Consistent with vomiting and contraction alkalosis - treated with Hemodialysis. (5) End-stage renal disease (ESRD): Plan: Worsened with acute renal failure, dialysis catheter placed as noted in ARF - Continue sevelimir, cholecalciferol, vitamin D Anticipate MWF dialysis as outpatient follow-up to GI (6) Hypokalemia: Plan: As above replaced. 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 He reports he feels better, 95% back to normal, and 5% tired. He feels like the dialysis has helped, and he feels like he is almost ready to go home. He denies pain, confusion, lightheadedness, dizziness, chest pain, chest pressure, fever, chills at time of assessment. No voiced additional questions or concerns. Review of Systems Review of Systems: Constitutional: See HPI Eyes: Denies vision change ENT: Denies ear pain, sore throat, sinus pain Cardiovascular: Denies Chest pain, chest pressure, palpitations, extremity swelling Respiratory: Denies shortness of breath, cough, sputum production, difficulty breathing Gastrointestinal: Denies abdominal pain, nausea, vomiting, constipation, diarrhea Genitourinary: Denies dysuria, urinary frequency Musculoskeletal: Denies acute pain Integumentary:Denies acute rash, lesions, bruising Neurological: Denies headache, numbness, tingling, acute focal weakness Physical Exam Physical Exam: General: A&Ox3. NAD. Cooperative. HEENT: Atraumatic, normocephalic. Pupils equal and responsive to light. Visual acuity grossly intact, hearing grossly intact. Right IJ tunnel catheter in place, C/D/I. Pulm: CTAB A&P. -wheezes, -rales, -rhonchi. Symmetrical chest rise. No increase work of breathing. No respiratory distress. Cardiac: RRR, -mrg. Radial pulses intact and symmetrical. Abdominal: Nontender, nondistended, soft. BS present. Extremities: Warm, dry Results & Data Results & Data ([facility]) Vital Signs (Past 12 Hours) Vital Signs Temp Pulse Pulse Pulse Resp BP Pulse Ox 10/21/20 11:56 36.5 C 74 20 131/79 96 10/21/20 08:00 87 10/21/20 07:27 36.5 C 91 H 20 126/77 100 10/21/20 03:46 36.7 C 81 81 16 112/70 99 PG Care Time/CCT Total # of Minutes Spent Total Time Spent with Patient: Total time spent is greater than 50% in coordin ation of care (as documented) at patient's floor/unit and/or counseling patient: Coding Level of Care Code 77097 Subseq Hosp Care Lvl 3 Diagnoses Nausea & vomiting R11.2 Acute renal failure (ARF) N17.9 Acute hyponatremia E87.1 Metabolic alkalosis E87.3 End-stage renal disease (ESRD) N18.6 Hypokalemia E87.6 Kidney transplant status Z94.0 History of immunosuppressive therapy Z92.25 Tethered spinal cord Q06.8 Self-catheterizes urinary bladder Z78.9
--- NOTE | 2020-10-21 16:49 | Nephrology Progress Note ---
Date of Service October 21, 2020 Assessment & Plan (1) ESRD needing dialysis: Plan: TDC placed by Dr. Tobin 10/18. 1st HD treatment completed 10/18 without complications. 2nd treatment completed Wednesday. Adequate clearance achieved with dialysis. Orders for dialysis today entered into EMR and reviewed with HD nurse. Medications are appropriately dosed for IHD. Care coordination consulted to assist with arranging outpatient HD at [facility] as outpatient. (2) Anemia: Plan: Epogen 48517 units provided 10/18. Hgb stable. Tsat 36 is acceptable. Will monitor. (3) Secondary hyperparathyroidism of renal origin: Plan: Calcitriol 0.5 daily. Sevelamer QAC. (4) Kidney transplant status: Plan: Remains on tacro + Cellcept per home Rx. Tacro trough pending. Admission and Anticipated Discharge Date Admission Date: October 17, 2020 Subjective No acute events overnight. Petros was seen and evaluated this AM. No complaints. Appetite notably improved. Denied significant nausea. Review of Systems Constitutional: no weight loss, no weight gain and no problem reported Eyes: no problem reported Ear, Nose, Mouth, Throat: no problem reported Respiratory: no problem reported Cardiovascular: no problem reported Gastrointestinal: no problem reported Musculoskeletal: no problem reported Integumentary: no problem reported Neurologic: no problem reported Psychiatric: no problem reported Endocrine: no problem reported Hematologic / Lymphatic: no problem reported Physical Exam Constitutional: well developed; no acute distress Eyes: no scleral abnormality and no corneal abnormality ENMT: Mouth: no oral mucosal abnormality and oral mucous membranes not dry Neck: normal visual inspection and trachea midline Respiratory: normal respiratory effort Auscultation: lungs clear to auscultation bilaterally Cardiovascular: Rate/Rhythm: regular rate Heart Sounds: normal S1 and normal S2 Extremities: no edema Musculoskeletal: Extremities: no cyanosis and no clubbing Skin: normal turgor; no lesions Neurologic: Motor/Sensory: no tremor and no asterixis Psychiatric: Orientation: alert and oriented x 3 Results & Data ([facility]) Vital Signs (Past 12 Hours) Vital Signs Temp Pulse Pulse Pulse Resp BP Pulse Ox 10/21/20 16:11 37.1 C 80 10/21/20 16:00 73 10/21/20 11:56 36.5 C 74 20 131/79 96 10/21/20 08:00 87 10/21/20 07:27 36.5 C 91 H 20 126/77 100 Laboratory Results Laboratory Results - last 24 hr 10/18/20 10/21/20 10/21/20 14:14 06:08 06:08 Hgb 8.1 L Hct 23.9 L Sodium 137 Potassium 3.8 Chloride 101 Carbon Dioxide 28 Anion Gap 8.0 BUN 33 H Creatinine 4.57 H* D Est Cr Clr Drug Dosing 23.9 Est GFR ( Amer) 18.7 Est GFR (Non-Af Amer) 16.1 BUN/Creatinine Ratio 7.1 L Glucose 132 H Calcium 9.2 Phosphorus 3.3 D Albumin 3.4 Crossmatch See Detail PG Care Time/CCT Total # of Minutes Spent Total Time Spent with Patient: Total time spent is greater than 50% in coordination of care (as documented) at patient's floor/unit and/or counseling patient: Coding Level of Care Code 62421 Subseq Hosp Care Lvl 3 Diagnoses ESRD needing dialysis N18.6; Z99.2 Anemia D64.9 Secondary hyperparathyroidism of renal origin N25.81 Kidney transplant status Z94.0
[2020-10-21] MEDS: HEPARIN SOD (PORCINE) 1000 UNIT/ML IV SCH ×2 (18:34→18:35)
[2020-10-21] MEDS: MELATONIN 3 MG TAB PO PRN (23:22)
[2020-10-22] MEDS: TACROLIMUS 1 MG CAP PO SCH (06:13)
[2020-10-22] MEDS: SEVELAMER HCL 800 MG TABLET PO SCH ×2 (07:54→11:50)
[2020-10-22] MEDS: CHOLECALCIFEROL 1,000 UNITS 25 MCG TAB PO SCH (07:55)
[2020-10-22] MEDS: CALCITRIOL 0.25 MCG CAPSULE PO SCH (07:55)
[2020-10-22] MEDS: PRAVASTATIN SOD 20 MG TAB PO SCH (07:55)
[2020-10-22] MEDS: NEPHROCAPS PO SCH (07:55)
[2020-10-22 08:21] LABS: BUN Creatinine Ratio 5.5 (10-20); Calcium 8.9 mg/dl (8.5-10.1); Creatinine Clr Calc Pharmacy 29.3 ml/min; Est GFR (African American) 24.1 ml/min; Est GFR (Non-African American) 20.8 ml/min; Phosphorus 2.7 mg/dl (2.5-4.9); Potassium 4.1 mmol/L (3.5-5.1)
[2020-10-22] MEDS: FAMOTIDINE 20 MG in SYRINGE 3 ML IV SCH (08:39)
[2020-10-22] MEDS: POTASSIUM CHLORIDE CRTAB 20 MEQ TABCR PO SCH (08:39)
--- NOTE | 2020-10-22 09:58 | Nephrology Progress Note ---
Date of Service October 22, 2020 Assessment & Plan (1) ESRD needing dialysis: Plan: No need for additional dialysis today. TDC placed by Dr. Tobin 10/18. 1st HD treatment completed 10/18 without complications. Medications are appropriately dosed for IHD. Care coordination consulted to assist with arranging outpatient HD at [facility] as outpatient. (2) Anemia: Plan: Epogen 29574 units provided 10/18. Hgb stable. Tsat 36 is acceptable. Will monitor. (3) Secondary hyperparathyroidism of renal origin: Plan: Calcitriol 0.5 daily. Sevelamer QAC. (4) Kidney transplant status: Plan: Remains on tacro + Cellcept per home Rx. Tacro trough pending. Admission and Anticipated Discharge Date Admission Date: October 17, 2020 Subjective No acute events overnight. HD completed last evening without complications. Petros feels well this AM. Review of Systems Review of Systems: All systems reviewed & are unremarkable except as noted in HPI & below Physical Exam Constitutional: well developed; no acute distress Eyes: no scleral abnormality and no corneal abnormality ENMT: Mouth: no oral mucosal abnormality and oral mucous membranes not dry Neck: normal visual inspection and trachea midline Respiratory: normal respiratory effort Auscultation: lungs clear to auscultation bilaterally Cardiovascular: Rate/Rhythm: regular rate Heart Sounds: normal S1 and normal S2 Extremities: no edema Musculoskeletal: Extremities: no cyanosis and no clubbing Skin: normal turgor; no lesions Neurologic: Motor/Sensory: no tremor and no asterixis Psychiatric: Orientation: alert and oriented x 3 Results & Data ([facility]) Vital Signs (Past 12 Hours) Vital Signs Temp Pulse Pulse Resp BP BP Pulse Ox 10/22/20 08:00 81 10/22/20 07:25 37.0 C 89 19 120/79 99 10/22/20 03:56 37.0 C 85 16 107/62 98 10/21/20 23:08 36.8 C 95 H 20 111/66 100 10/21/20 22:20 96 H Laboratory Results Laboratory Results - last 24 hr 10/17/20 10/18/20 10/22/20 13:42 14:14 06:58 Sodium 141 Potassium 4.1 Chloride 110 H Carbon Dioxide 27 Anion Gap 4.0 BUN 20 H Creatinine 3.70 H D Est Cr Clr Drug Dosing 29.3 Est GFR ( Amer) 24.1 Est GFR (Non-Af Amer) 20.8 BUN/Creatinine Ratio 5.5 L Glucose 103 H Calcium 8.9 Phosphorus 2.7 Tacrolimus 3.7 L Crossmatch See Detail PG Care Time/CCT Total # of Minutes Spent Total Time Spent with Patient: Total time spent is greater than 50% in coordination of care (as documented) at patient's floor/unit and/or counseling patient: Coding Level of Care Code 36446 Subseq Hosp Care Lvl 3 Diagnoses ESRD needing dialysis N18.6; Z99.2 Anemia D64.9 Secondary hyperparathyroidism of renal origin N25.81 Kidney transplant status Z94.0
[2020-10-22] MEDS: NORMOSOL-R 1,000 ML IV SCH (11:33)
--- NOTE | 2020-10-22 12:05 | Discharge Summary ---
Date of Service October 22, 2020 Admission HPI Per Admitting Provider 30 YOM with past medical history of: COVID, CKD 4, chronic allograft nephropathy, CNI toxicity and recurrent NATHANIEL, renal transplant (14 years ago), spina bifida, cloacal exstrophy and myelomeningocele repair, bladder augmentation, catheterization channel for bladder emptying at age 7, does have urine come through urethra as well. He is currently back on the transplant list secondary to length of time from first transplant and CKD. He is maintained on mycophenolate and tacrolimus for his transplant medications. His baseline [employer] is normally around 3. Patient has been following with vascular surgery for cre ation and planning of fistula creation. He had a creation x3 to his left brachiocephalic which failed x3, he is supposed to have another attempt next month and vein mapping to his right arm has been completed. Patient comes in today for nausea/vomiting, weakness, and feeling run down. The patient states that this has been ongoing for the past week but got worse over the past 24 hours. He denies any food intake that started these symptoms and denies any other sick contacts with same symptoms. The patient reports that he has thrown up about 3-4 times per day for the past 2 days and it is green bilious in nature. He denies any fevers or chills, or any abdominal pain. He also has an ostomy with no change in his output in terms of volume or consistency. He continues to straight cath himself through his channel 3-4 times per day and has not noticed any change in his urine color or odor. The vomiting starts with nausea, and then followed by a wave of heat and then cold feeling, he has felt like he was going pass out twice since this started, but he denies any room spinning or other vertiginousness feelings. In the EMD the patient received 10meq of KCL, 500ml saline bolus, and CT scan of the abdomen and pelvis and routine labs. His lab work resulted with hypokalemia, hyponatremia, elevated HCO3, and increase in [employer]NA[employer]ST to 9.89. I have added on a tacrolimus level, VBG, and lactate levels. IVF of LR of 125ml/hour, and continue with potassium supplementation and symptom control. Nephrology has been consulted and appreciate Dr. Hinson assistance. Admission Exam Per Admitting Provider PHYSICAL EXAM: General: awake, alert, no apparent distress Head: Normocephalic, atraumatic ENT: PERRL, EOMI, no pharyngeal exudate, mucous membranes dry Neuro: AAO x 3, speech clear and appropriate, Chest: equal rise and fall of the chest, no accessory muscle use, no heaves or thrills, Clear to auscultation, on room air, Cardiac: Regular rate and rhythm, telemetry reviewed-NSR, skin warm dry, cap refill <3 seconds, peripheral pulses +2 no JVD, no murmur, no edema GI: NABS x 4 quadrants, soft, nontender to palpation, no rebound, guarding or tenderness : catheterization channel has no drainage and not tender, no CVA tenderness, Extremities: Normal inspection, no peripheral edema or erythema, calfs nontender to palpation Psych: Normal mood and affect Skin: no rash or erythema Principal Diagnosis Acute renal failure/ESRD requiring dialysis Discharge Exam General: A&Ox3. NAD. Cooperative. HEENT: Atraumatic, normocephalic. Dual acuity and hearing grossly intact. Pulm: CTAB A&P. -wheezes, -rales, -rhonchi. Symmetrical chest rise. No increase work of breathing. No respiratory distress. Cardiac: RRR, -mrg. Radial pulses intact and symmetrical. Abdominal: Nontender, nondistended, soft. BS present. Extremities: Lower extremities in contracted position, slightly spastic at baseline. Moves upper extremities equally, 5/5 mosaic layer strength. Station to soft touch in fingers intact. Radial pulse PT pulse intact and symmetrical bilaterally. No peripheral edema appreciated. Discharge Data Allergies Allergy/AdvReac Type Severity Reaction Status Date / Time bee venom protein (honey bee) Allergy Intermediate Edema, Verified 10/17/20 16:44 hives latex Allergy Unknown Unknown Verified 10/17/20 16:44 morphine AdvReac Mild N/V Verified 10/17/20 16:44 Consultations 10/17/20 15:07 ED Decision to Admit Stat 10/17/20 18:03 Consult Nephrology Routine 10/18/20 08:08 Consult Vascular Surgery Stat Procedures Performed Operation Date: 10/18/20 10:00 Actual Procedures p Perm Catheter Insertion, Right Internal Jugular Approach, Ultrasound Localization of Right Internal Jugular Vein, Fluroscopy for Positioning, Moderate Sedation [id number](Right) - Christos oTbin MD Ordered Studies 10/17/20 14:30 CT abd pelvis wo con Stat 10/18/20 09:45 EV cvc insrt tunnel wo prt/retail coordinator Routine US EV guide vascular access Routine Hospital Course (1) Nausea & vomiting: Petros Rand is a 30-year-old male who presented with nausea/vomiting and fatigue in the setting of acute renal failure. He has a history of kidney transplantation on immunosuppressive medications. Tacrolimus level drawn on admission was low. Suspect patient has had acute renal failure with low levels of tacrolimus potentially contributing to decline. He was treated with dialysis following placement of a tunneled catheter with rapid improvement in his symptoms. He has been scheduled with follow-up to his outpatient providers and with vascular surgery for creation of a dialysis fistula, anticipate continuing Wednesday dialysis. To do as outpatient 1. Follow-up with vascular for fistula evaluation/formation 2. Follow-up with nephrology for continued monitoring 3. Mondays dialysis Metabolic in the setting of acute renal failure -Tacrolimus stable for many years, level drawn 10/17 pending. Low suspicion for toxicity on admission. CTabdomen/pelvis: No acute findings -symptoms improved following dialysis, patient rapidly felt back to normal. - Zofran and Reglan IV given for nausea/vomiting which resolved following dialysis - Famotidine 20mg IV for gastric protection was used, (2) Acute renal failure (ARF): Acute renal failure 2/2 likely 2/2 allograft rejection Acute on chronic ESRD, transplantation Creatinine increase from 3-9.8 prior to dialysis Tunneled dialysis catheter placed during admission without complication. Patient was assessed and scheduled to vascular, anticipate fistula formation as outpatient. Patient completed dialysis as noted [email or web address] able to start dialysis Monday 10/23. Patient was assessed day of discharge by nephrology, did not require urgent dialysis that day and was discharged to a follow-up dialysis on Wednesday. (3) Acute hyponatremia: 2/2 volume contraction and vomiting, normalized with repletion and treatment as otherwise noted Asymptomatic (4) Metabolic alkalosis: -Consistent with vomiting and contraction alkalosis - treated with Hemodialysis. (5) End-stage renal disease (ESRD): Worsened with acute renal failure, dialysis catheter placed as noted in ARF - Continue sevelimir, cholecalciferol, vitamin D Anticipate MWF dialysis as outpatient follow-up to nephrology, pending fistula formation with ocular follow-up (6) Hypokalemia: As above replaced. (7) Kidney transplant status: Continue tacrolimus and mycophenelate - Tacrolimus level sent 10/17, 3.7. 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 Discharge Plan Discharge Items Patient Disposition: Home - Self-Care Reason For Visit: VOMITING, WITH NATHANIEL, HYPONATREMIA, HYPOKALEMIA Discharge Diagnosis: Acute renal failure Activity: Resume your previous activity Non-emergency contact: Primary Care Provider and Shipping Coordinator Call non-emergency contact if: you have any medication questions, your symptoms worsen, your pain is not controlled, your pain is worsening, your pain is unusual for you, your pain is concerning for you and you have a fever Follow-up/Referrals: Alayna Boss MD [Physician] - Grecia Bravo-DO Shelley [Primary Care Provider] - Christos Tobin MD [Physician] - Diet: Dialysis Renal Addtl Attending Provider Instructions: You were seen in the hospital for nausea/vomiting, weakness, and fatigue. You were found to be in acute renal failure, and were treated with dialysis after a tunneled dialysis line was placed. Your symptoms improved, but you will continue to require dialysis as an outpatient. Follow-up is being scheduled for you with vascular surgery for fistula formation evaluation. Being scheduled with dialysis as noted below. You will require additional follow-up as noted below. An appointment is being made for you with your primary care provider Dr. Bravo. You should be seen within 1 week. If you do not receive a call within 48 hours to confirm your appointment, please call her office at [phone]. An appointment is being made for you for follow-up with nephrology. You should be seen within 2 weeks. If you do not receive a call to confirm your appointment, please call their office at [phone]. A follow-up appointment for evaluation for fistula creation for dialysis treatment is being scheduled for you with vascular surgery. You should be seen within 2 weeks. If you do not receive a call to confirm your appointment, please call their office at You have had care established with [facility], and it is anticipated that you will likely have dialysis on a Wednesday schedule. If you do not receive a call from their office, or need to change her appointment please call their office at [phone], If you develop any new or worsening symptoms including fever, chills, sweats, chest pain, chest pressure, difficulty breathing, uncontrolled nausea/vomiting, rash, wheezing, passing out or nearly passing out, bleeding, black/bloody bowel movements, or other new or concerning symptoms please call your primary care physician at [phone], or call 911 for re-evaluation in the emergency department if you are very concerned. Pending Studies at Discharge: No Stand-Alone Forms: My [facility], Smoking Cessation Medications and DC Order Prescriptions: New Renal Caps 1 mg Capsule 1 cap PO QAM 30 Days Qty: 30 RF: 0 Continued calcitriol 0.5 mcg capsule 0.5 mcg PO DAILY Qty: 90 RF: 3 potassium chloride [Klor-Con M20] 20 mEq tablet,ER particles/crystals 20 meq PO QAM Qty: 90 RF: 3 sevelamer carbonate [Renvela] 800 mg tablet 800 mg PO TID Qty: 90 RF: 2 mycophenolate mofetil 250 mg capsule 250 mg PO .COMPLEX Qty: 270 RF: 3 pravastatin 20 mg tablet 20 mg PO QAM RF: 0 cholecalciferol (vitamin D3) 50 mcg (2,000 unit) capsule 50 mcg PO QAM RF: 0 testosterone 1 % (50 mg/5 gram) gel in packet 50 mg transdermal QAM RF: 0 loperamide 2 mg capsule 4 mg PO QAM PRN (Reason: Loose Stool) RF: 0 tacrolimus [Prograf] 1 mg capsule 5 mg PO Q12H Qty: 0 RF: 0 Discharge Orders: Discharge Order (Routine); Ordered 10/22/20 Ordered By: Cj Juan Admission Data Admit Date/Time: 10/17/20 16:29 Attending Provider: Cj Juan Admit Provider: Kush Morse Primary Care Provider: Grecia Bravo Other Providers: Kush Morse ; Alayna Boss ; Christos Tobin Coding Level of Care Code D/C DAY MANAGEMENT >30 MINS Diagnoses Nausea & vomiting R11.2 Acute renal failure (ARF) N17.9 Acute hyponatremia E87.1 Metabolic alkalosis E87.3 End-stage renal disease (ESRD) N18.6 Hypokalemia E87.6 Kidney transplant status Z94.0 History of immunosuppressive therapy Z92.25 Tethered spinal cord Q06.8 Self-catheterizes urinary bladder Z78.9
== END 2020-10-22 15:38 | disposition home or self-care (01) | DRG 683 ==
LOC: ED 12:59 → SUATTDRO 16:29 → 2S 16:29

== ENCOUNTER 2022-08-21 02:37 | Inpatient (IN) ==
[2022-08-21] MEDS ORDERED: SODIUM CHLORIDE 0.9% 1000ML 500 ML IV ONE (02:48)
--- NOTE | 2022-08-21 02:57 | Emergency Department Note ---
History of Present Illness General Chief complaint: Urinary Symptoms Stated complaint: UTI Time Seen by Provider: 08/21/22 02:43 History of Present Illness This is a 32-year-old male presenting to the emergency department for evaluation of possible UTI. Patient has an extensive and complicated past medical history. He is a kidney transplant patient (april 2022 at [facility]) with chronic kidney disease. He does have colostomy. He was admitted to [facility] in [place] last month from 07/26 to 07/31 for complicated urinary tract infection. Patient was treated with vancomycin, but had a allergic reaction to this. Cultures of the urine were resistant to Bactrim but susceptible to cephalosporins. Patient was treated with cefepime in the hospital and ultimately discharged and transition to [facility]. The patient is on tacrolimus and Prograf. He is considered immune compromised. Patient states his fever at home was 102 F, and he elected to come to this facility. He has had symptoms for about 12 hours. He did take Tylenol prior to coming to the ER, this seems to have improved his fever. Home Medications Medication Instructions Recorded Confirmed Type diphenhydramine HCl 25 mg capsule 25 mg PO DAILY PRN Insomnia 05/27/22 08/21/22 History (Benadryl) docusate sodium 100 mg tablet 100 mg PO DAILY PRN 05/27/22 07/31/22 History famotidine 20 mg tablet 20 mg PO DAILY 05/27/22 08/21/22 History melatonin 3 mg capsule 6 mg PO HS PRN Insomnia 05/27/22 08/21/22 History mycophenolate mofetil 250 mg 500 mg PO BID 05/27/22 08/21/22 History capsule nystatin 100,000 unit/mL oral 5 ml PO TID 05/27/22 07/31/22 History suspension prednisone 10 mg tablet 5 mg PO DAILY 05/27/22 08/21/22 History sulfamethoxazole 400 1 tab PO DAILY 05/27/22 08/21/22 History mg-trimethoprim 80 mg tablet (Bactrim) valganciclovir 450 mg tablet 450 mg PO DAILY 05/27/22 08/21/22 History (Valcyte) Ostomy supplies to include wafers #60 ea 07/21/22 07/31/22 Rx and pouches cefdinir 300 mg capsule 300 mg PO BID 07/31/22 07/31/22 History tacrolimus 0.5 mg capsule, 0.5 mg PO PM 07/31/22 08/21/22 History immediate-release tacrolimus 1 mg capsule, 1 mg PO .am 07/31/22 08/21/22 History immediate-release tacrolimus 5 mg capsule, 5 mg PO Q12H 07/31/22 08/21/22 History immediate-release needle (disp) 18 G 18 gauge x 1" #100 ea 08/18/22 Rx (BD Regular Bevel [place]) syringe with needle 3 mL 25 x 5/8" #100 ea 08/18/22 Rx (CareTouch Luer Lock Syringe with needle) testosterone cypionate 100 mg/mL 100 mg subcut Q7D #10 mL 08/18/22 08/21/22 Rx intramuscular oil pravastatin 20 mg tablet 40 mg PO QPM 08/21/22 08/21/22 History Allergies Allergy/AdvReac Type Severity Reaction Status Date / Time bee venom protein (honey bee) Allergy Intermediate Edema, Verified 05/27/22 12:39 hives latex Allergy Unknown Unknown Verified 05/27/22 12:39 morphine AdvReac Mild N/V Verified 05/27/22 12:39 Past Med/Surg History Medical History Acute hyponatremia Anemia Secondary to chronic disease and iron deficiency AV fistula LUE (non-functioning) Chronic kidney disease, stage 4 (severe) s/p kidney transplant (2006), 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 Boss End-stage renal disease (ESRD) ESRD on hemodialysis Dialysis Wed/Wed/Wed in [facility] (started beginning October 2020) History of COVID-19 Dx 12/28/19 ([facility]) > symptoms at time of decreased taste and smell, mild cough > recovered at home/resolved Hyperlipidemia Hypokalemia Kidney transplant recipient (~2006) Low bone mass Metabolic alkalosis Nausea & vomiting Primary hypogonadism in male Problem with dialysis access Secondary hyperparathyroidism of renal origin Self-catheterizes urinary bladder ~4x/day Tethered spinal cord Tethered spinal cord Spina Bifida - s/p neurosurgical intervention "several years ago" - has had gradually progressive subsequent distal weakness/numbness Vitamin D deficiency Surgical History A-V fistula Left AVF creation (04/19/20): MAC + PNB at [facility] Revision left AV fistula (05/31/20): LMA#5.0 unique Revision Left AV fistula (07/18/20) Colostomy status Since H/O hernia repair spinal hernia History of colonoscopy History of esophagogastroduodenoscopy History of orchiectomy History of surgery s/p Gastrocystoplasty, 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[employer] Feels Safe at Home: Yes Do you think of yourself as: don't know Gender Identity: Male Assistive Devices: Contacts, Walker and Wheelchair Review of Systems A total of 10 systems reviewed and were otherwise negative Physical Exam Vital Signs Vital Signs - 24 hr 08/21/22 02:40 08/21/22 03:37 08/21/22 04:13 Temperature 36.7 C Temperature Source Temporal Artery Scan Pulse Rate 110 H 94 H 89 Respiratory Rate 18 20 22 Respiratory Effort / Characteristics Non-Labored Respiratory Depth Normal Blood Pressure 120/70 106/68 Blood Pressure Mean 86 80 Pulse Oximetry 97 96 95 Oxygen Delivery Method Room Air Room Air Room Air Sepsis Recent Fever Within 48 Hours Yes Sepsis New/Unexplained Change in Mental Status No Sepsis Action Taken by Nursing No Action Required VITALS: Vitals are noted on the nurse's note and reviewed by myself. Vital signs stable. GENERAL: White male who appears in no acute distress. HEAD: Normocephalic atraumatic. HEART: Regular rate and rhythm without murmurs gallops or rubs. LUNGS: Clear to auscultation bilaterally without wheezes, rales or rhonchi. No retractions or accessory muscle use. ABDOMEN: Positive normal bowel sounds x 4. Soft, nontender, without masses or organomegaly. No guarding or rebound tenderness. MUSCULOSKELETAL: No muscle atrophy, erythema, or edema noted. Full range of motion in all extremities Course Administered Medications Discontinued Medications Cefepime HCl (Cefepime 2,000 Mg/20 Ml Vial) Confirm Administered Dose 2,000 mg .ROUTE .[facility] ONE Stop: 08/21/22 03:40 Last Admin: 08/21/22 03:43 Dose: Not Given Documented By: QGV Sodium Chloride (Nss 1000ml) 500 mls @ 999 mls/hr IV .Q31M ONE Stop: 08/21/22 03:18 Last Infusion: 08/21/22 05:07 Dose: 0 mls/hr Documented By: Admin: 08/21/22 03:43 Dose: 999 mls/hr Documented By: QGV Cefepime HCl 2,000 mg/ Syringe 20 mls @ 5 mls/min IV NOW STA; Protocol Stop: 08/21/22 03:01 Last Admin: 08/21/22 03:42 Dose: 5 mls/min Documented By: QGV Medical Decision Making Differential Diagnosis Differential diagnosis: Etiologies such as viral syndrome, otitis, pharyngitis, pneumonia, influenza, meningitis, urinary tract infection, septic arthritis, soft tissue infectious process, intra-abdominal process, sepsis, bacteremia, as well as others were entertained. Laboratory Data 08/21/22 03:10 08/21/22 03:10 Lab Results 08/21/22 08/21/22 08/21/22 Range/Units 03:01 03:10 03:10 WBC 3.69 L (4.8-10.8) K/ul RBC 3.27 L (4.70-6.10) M/uL Hgb 10.1 L (14.0-18.0) g/dl Hct 29.4 L (42.0-52.0) % MCV 89.9 (80.0-100.0) fL MCH 30.9 (25.0-34.0) pg MCHC 34.4 (32.0-36.0) g/dL RDW Std Deviation 41.4 (36.4-46.3) fL RDW Coeff of Abigail 12.6 (11.5-14.5) % Plt Count 238 (130-400) K/uL MPV 9.4 (9.4-12.4) fL Immature Gran % (Auto) 0.8 % Neut % (Auto) 68.0 % Lymph % (Auto) 14.4 % [place] % (Auto) 15.7 % Eos % (Auto) 0.3 % Baso % (Auto) 0.8 % Neut # (Auto) 2.51 (1.40-6.50) K/uL Lymph # (Auto) 0.53 L (1.2-3.4) K/uL [place] # (Auto) 0.58 (0.11-0.59) K/uL Eos # (Auto) 0.01 (0-0.50) K/uL Baso # (Auto) 0.03 (0-0.2) K/uL Immature Gran # (Auto) 0.03 (0.01-0.20) K/uL RBC Morphology Unremarkable Sodium 133 L (136-145) mmol/L Potassium 4.0 (3.5-5.1) mmol/L Chloride 101 (98-107) mmol/L Carbon Dioxide 24 (21-32) mmol/L Anion Gap 8 (3-11) BUN 28 H (6-23) mg/dl Creatinine 1.56 H (0.6-1.4) mg/dl Est Cr Clr Drug Dosing Not Reportable Est GFR ( Amer) 67.6 ml/min Est GFR (Non-Af Amer) 58.3 ml/min BUN/Creatinine Ratio 17.9 (10-20) Glucose 130 H (70-99(Fasting)) mg/dl Lactate (0.4-2.0) mmol/L Calcium 9.2 (8.6-10.3) mg/dl Magnesium 1.4 L (1.7-2.4) mg/dl Total Bilirubin 0.4 (0.2-1.0) mg/dl Direct Bilirubin 0.1 (0-0.2) mg/dl AST 18 (13-39) U/L ALT 28 (7-52) U/L Alkaline Phosphatase 141 H (34-104) U/L Troponin I High Sens < 2.3 (0-20) pg/ml Total Protein 7.3 (6.0-8.3) gm/dl Albumin 4.1 (3.4-5.0) gm/dl Procalcitonin (0-0.5) ng/ml Urine Color Urine Appearance (Clear) Urine pH (4.5-7.5) Ur Specific [place] (1.000-1.030) Urine Protein (Negative) Urine Glucose (UA) (Negative) Urine Ketones (Negative) Urine Blood (Negative) Urine Nitrite (Negative) Urine Bilirubin (Negative) Urine Urobilinogen (Negative) Ur Leukocyte Esterase (Negative) Urine WBC (Auto) (0-5) /hpf Urine RBC (Auto) (0-4) /hpf U Hyaline Cast (Auto) (0-5) /lpf U Epithel Cells (Auto) (0-5) /lpf Urine Bacteria (Auto) (Negative) Ur Renal Epithelial Cell SARS-CoV-2, RNA, NAAT NEGATIVE (NEGATIVE) 08/21/22 08/21/22 08/21/22 Range/Units 03:10 03:10 03:51 WBC (4.8-10.8) K/ul RBC (4.70-6.10) M/uL Hgb (14.0-18.0) g/dl Hct (42.0-52.0) % MCV (80.0-100.0) fL MCH (25.0-34.0) pg MCHC (32.0-36.0) g/dL RDW Std Deviation (36.4-46.3) fL RDW Coeff of Abigail (11.5-14.5) % Plt Count (130-400) K/uL MPV (9.4-12.4) fL Immature Gran % (Auto) % Neut % (Auto) % Lymph % (Auto) % [place] % (Auto) % Eos % (Auto) % Baso % (Auto) % Neut # (Auto) (1.40-6.50) K/uL Lymph # (Auto) (1.2-3.4) K/uL [place] # (Auto) (0.11-0.59) K/uL Eos # (Auto) (0-0.50) K/uL Baso # (Auto) (0-0.2) K/uL Immature Gran # (Auto) (0.01-0.20) K/uL RBC Morphology Sodium (136-145) mmol/L Potassium (3.5-5.1) mmol/L Chloride (98-107) mmol/L Carbon Dioxide (21-32) mmol/L Anion Gap (3-11) BUN (6-23) mg/dl Creatinine (0.6-1.4) mg/dl Est Cr Clr Drug Dosing Est GFR ( Amer) ml/min Est GFR (Non-Af Amer) ml/min BUN/Creatinine Ratio (10-20) Glucose (70-99(Fasting)) mg/dl Lactate 0.6 (0.4-2.0) mmol/L Calcium (8.6-10.3) mg/dl Magnesium (1.7-2.4) mg/dl Total Bilirubin (0.2-1.0) mg/dl Direct Bilirubin (0-0.2) mg/dl AST (13-39) U/L ALT (7-52) U/L Alkaline Phosphatase (34-104) U/L Troponin I High Sens (0-20) pg/ml Total Protein (6.0-8.3) gm/dl Albumin (3.4-5.0) gm/dl Procalcitonin 0.11 (0-0.5) ng/ml Urine Color Dark Yellow Urine Appearance Turbid A (Clear) Urine pH 5.0 (4.5-7.5) Ur Specific [place] 1.022 (1.000-1.030) Urine Protein 3+ H (Negative) Urine Glucose (UA) Negative (Negative) Urine Ketones Negative (Negative) Urine Blood 3+ H (Negative) Urine Nitrite Negative (Negative) Urine Bilirubin Negative (Negative) Urine Urobilinogen Negative (Negative) Ur Leukocyte Esterase 3+ H (Negative) Urine WBC (Auto) >30 H (0-5) /hpf Urine RBC (Auto) 5-10 H (0-4) /hpf U Hyaline Cast (Auto) 0 (0-5) /lpf U Epithel Cells (Auto) >30 H (0-5) /lpf Urine Bacteria (Auto) Negative (Negative) Ur Renal Epithelial Cell Not Reportable SARS-CoV-2, RNA, NAAT (NEGATIVE) MDM Narrative Physical exam and history were performed. Nursing notes, EMR, and Medication List were personally reviewed. No social concerns were identified as barriers to patients care. Patient appears to have concerns for urinary tract infection. Medically he is complicated and is considered immunocompromise. IV access was established and labs were obtained. Urine collected. Blood culture was gathered. Patient was gently hydrated with normal saline. After reviewing the [facility] records he was given IV cefepime, as the seem to be treatment for his previous UTI. Patient's blood work is as above and was reviewed. He does not have a significantly elevated white blood cell count or bandemia. He is mildly anemic, which is expected. BUN and creatinine are slightly elevated from his [facility] labs, where his creat was 1.3, and now it is 1.5. Urine does have esterase and white cells, but also has a large amount of epithelial. His mag is low at 1.4. COVID is negative. Case was discussed with the on-call hospitalist team. The patient does not seem well for discharge and will likely need monitoring for his symptoms. Case was discussed with the hospitalist who will evaluate the patient in ER. Please see their dictation for further patient course, plan, disposition. The chart was completed utilizing [employer] Speech Voice Recognition Software. Grammatical errors, random word insertions, pronoun errors, and incomplete sentences are an occasional consequence of this system due to software limitations, ambient noise, and hardware issues. Any formal questions or concerns about the content, text, or information contained within the body of this dictation should be directly addressed to the provider for clarification. . Attending Attestation: Dallas Peters MD independently saw and evaluated this patient and agree with history and physical is otherwise documented by the physician seismic survey assistant. See their note for full details. Patient immuno suppressed with recent renal transplant. Renal function not far off however does have evidence of infection. Reviewed cultures from [facility] as well as prior cultures here. Given that the cultures from prior episode here were from several years ago we will cover with cefepime. Given immunosuppressed state will bring in for further care. Patient resting comfortably in bed. Impression & Plan Hypomagnesemia, Urinary tract infection, Kidney transplant status Discharge Plan Visit Data Chief Complaint: Urinary Symptoms Stated Complaint: UTI ED Provider: Cipriano Peters ED Midlevel Provider: Jae Manning Discharge Problem: Hypomagnesemia, Urinary tract infection, Kidney transplant status Forms Stand Alone Forms: My [facility] [employer] Prescriptions Prescriptions: No Action (DME) Ostomy supplies to include wafers and pouches See Rx Instructions .Route .MEDSUPPLY Qty: 60 0RF Rx Instructions: As directed (DME) needle (disp) 18 G [BD Regular Bevel [place]] 18 gauge x 1" needle See Rx Instructions .ROUTE .MEDSUPPLY Qty: 100 0RF Rx Instructions: use with testosterone (DME) CareTouch Luer Lock Syr-needle 3 mL 25 x 5/8" syringe See Rx Instructions .Route Qty: 100 0RF Rx Instructions: use with testosterone testosterone cypionate 100 mg/mL oil 100 mg subcut Q7D Qty: 10 0RF Rx Instructions: PDMP Queried ok to fill DS 08/18/22 mycophenolate mofetil 250 mg capsule 500 mg PO BID sulfamethoxazole-trimethoprim [Bactrim] 400-80 mg tablet 1 tab PO DAILY valganciclovir [Valcyte] 450 mg tablet 450 mg PO DAILY nystatin 100,000 unit/mL suspension 5 ml PO TID Patient Comments: after every meal. Rx Instructions: swish and swallow famotidine 20 mg tablet 20 mg PO DAILY prednisone 10 mg tablet 5 mg PO DAILY docusate sodium 100 mg tablet 100 mg PO DAILY PRN melatonin 3 mg capsule 6 mg PO HS PRN (Reason: Insomnia) diphenhydramine HCl [Benadryl] 25 mg capsule 25 mg PO DAILY PRN (Reason: Insomnia) tacrolimus 1 mg capsule 1 mg PO .am Rx Instructions: Take with 5 mg for a total of 6 mg in the am cefdinir 300 mg capsule 300 mg PO BID Rx Instructions: x 10 days tacrolimus 0.5 mg capsule 0.5 mg PO PM Rx Instructions: Take with 5mg for a total of 5.5mg in pm tacrolimus 5 mg capsule 5 mg PO Q12H pravastatin 20 mg tablet 40 mg PO QPM Referrals Referrals: Grecia Bravo DO [Primary Care Provider] -
[2022-08-21] MEDS ORDERED: CEFEPIME 2,000 MG in SYRINGE 0 ML IV STA (02:58)
[2022-08-21 03:28] LABS: Hematocrit (blood only) 29.4 % (42.0-52.0); Hemoglobin 10.1 g/dl (14.0-18.0); Mean Corpuscular Hemoglobin 30.9 pg (25.0-34.0); Mean Corpuscular Hgb Conc 34.4 g/dL (32.0-36.0); Mean Corpuscular Volume 89.9 fL (80.0-100.0); Mean Platelet Volume 9.4 fL (9.4-12.4); Platelet Count 238 K/uL (130-400); RDW Coefficient of Variation 12.6 % (11.5-14.5); RDW Standard Deviation 41.4 fL (36.4-46.3); Red Blood Count 3.27 M/uL (4.70-6.10); White Blood Count 3.69 K/ul (4.8-10.8)
[2022-08-21] MEDS ORDERED: CEFEPIME 2,000 MG/20 ML VIAL ONE (03:39)
[2022-08-21 03:45] LABS: Alanine Aminotransferase 28 U/L (7-52); Albumin Level 4.1 gm/dl (3.4-5.0); Alkaline Phosphatase 141 U/L (34-104); Anion Gap 8 (3-11); Aspartate Aminotransferase 18 U/L (13-39); BUN Creatinine Ratio 17.9 (10-20); Bilirubin Direct 0.1 mg/dl (0-0.2); Bilirubin,Total 0.4 mg/dl (0.2-1.0); Blood Urea Nitrogen 28 mg/dl (6-23); Calcium 9.2 mg/dl (8.6-10.3); Carbon Dioxide 24 mmol/L (21-32); Chloride 101 mmol/L (98-107); Est GFR (African American) 67.6 ml/min; Est GFR (Non-African American) 58.3 ml/min; Glucose 130 mg/dl (70-99(Fasting)); Magnesium 1.4 mg/dl (1.7-2.4); Sodium 133 mmol/L (136-145); Total Protein 7.3 gm/dl (6.0-8.3)
[2022-08-21 03:50] LABS: Troponin I High Sensitivity < 2.3 pg/ml (0-20)
[2022-08-21 03:51] LABS: Basophils # (auto) 0.03 K/uL (0-0.2); Basophils % (auto) 0.8 %; Eosinophils # (auto) 0.01 K/uL (0-0.50); Eosinophils % (auto) 0.3 %; Immature Granulocytes # (auto) 0.03 K/uL (0.01-0.20); Immature Granulocytes % (auto) 0.8 %; Lymphocytes # (auto) 0.53 K/uL (1.2-3.4); Lymphocytes % (auto) 14.4 %; Monocytes # (auto) 0.58 K/uL (0.11-0.59); Monocytes % (auto) 15.7 %; Neutrophils # (auto) 2.51 K/uL (1.40-6.50); RBC Morphology Unremarkable
[2022-08-21 04:01] LABS: Appearance Urine Turbid (Clear); Bacteria Urine Automated Negative (Negative); Bilirubin Urine Negative (Negative); Blood Urine 3+ (Negative); Color Urine Dark Yellow; Epithelial Cell Urine Auto >30 /lpf (0-5); Glucose Urine UA Negative (Negative); Ketones Urine Negative (Negative); Leukocyte Esterase Urine 3+ (Negative); Nitrite Urine Negative (Negative); Protein Urine 3+ (Negative); Specific Gravity Urine 1.022 (1.000-1.030); Urobilinogen Urine Negative (Negative); WBC Urine Automated >30 /hpf (0-5)
[2022-08-21 05:02] LABS: Cast Urine Automated 0 /lpf (0-5)
--- NOTE | 2022-08-21 05:49 | History & Physical Report ---
Date of Service August 21, 2022 Assessment & Plan (1) Fever: Plan: 32yo male with history of ESRD s/p renal transplant in April 2022 at [facility], on immunosuppressive therapy with CellCept, Prograf and Prednisone presents with symptom of fever/chills/nausea and vomiting x 1 prior to arrival. Also states his urine is cloudy - concern for UTI. Has history of ESBL Klebsiella bacteremia in the past. Afebrile, tachycardic on arrival otherwise HD stable. Nontoxic in appearance. Labs as above, UA does not strongly suggest infection - culture sent -Admit to medical -Follow blood and urine cultures -Meropenem empiric treatment given history of ESBL bacteremia until culture negative -Tylenol as needed (2) Kidney transplant status: Plan: BUN of 28, Cr of 1.56 Continue Prograf and Cellcept. Continue Prednisone (3) Hyperlipidemia: Plan: Chronic. Continue Pravastatin F/E/N - Heplock. Mg repletion ordered with 2gm IV Mg, Heart healthy diet as tolerated Ppx - Lovenox Code - Full Dispo - Admit to medical History of Present Illness Chief Complaint: fever Primary Care Provider: DO Petros Frederick Jann is a 32yo male with history of renal failure s/p renal transplant performed at [facility] in April 2022 on antirejection therapy with Prograf and CellCept as well as Prednisone 5mg daily presenting with fever, concern for UTI. Patient was recently admitted to [facility] in [place] from 07/26/22 - 07/31/22 with complicated UTI. He was treated with Vancomycin which he had an allergic reaction to then transitioned to Cefepime. Patient overall did well. He was discharged home to complete a course of Omnicef. He reports fever and chills for the last two days as high as 102.3 as well as cloudy urine. He has had some nausea as well and one episode of non-bloody/non-bilious emesis. Patient denies abdominal pain or pain over his transplant. Denies chest pain, palpitations, cough SOB. Denies dysuria, hematuria. No additional complaints at this time. In the ER he is afebrile, initially Tachycardic with HR of 110 bpm now normal at 89. HD stable and non-toxic in appearance. ER Course: Cefepime NSS Allergies Allergy/AdvReac Type Severity Reaction Status Date / Time bee venom protein (honey bee) Allergy Intermediate Edema, Verified 05/27/22 12:39 hives latex Allergy Unknown Unknown Verified 05/27/22 12:39 vancomycin Allergy Unknown Verified 08/21/22 06:03 morphine AdvReac Mild N/V Verified 05/27/22 12:39 Home Medications Medication Instructions Recorded Confirmed Type diphenhydramine HCl 25 mg capsule 25 mg PO DAILY PRN Insomnia 05/27/22 08/21/22 History (Benadryl) docusate sodium 100 mg tablet 100 mg PO DAILY PRN 05/27/22 07/31/22 History famotidine 20 mg tablet 20 mg PO DAILY 05/27/22 08/21/22 History melatonin 3 mg capsule 6 mg PO HS PRN Insomnia 05/27/22 08/21/22 History mycophenolate mofetil 250 mg 500 mg PO BID 05/27/22 08/21/22 History capsule nystatin 100,000 unit/mL oral 5 ml PO TID 05/27/22 07/31/22 History suspension prednisone 10 mg tablet 5 mg PO DAILY 05/27/22 08/21/22 History sulfamethoxazole 400 1 tab PO DAILY 05/27/22 08/21/22 History mg-trimethoprim 80 mg tablet (Bactrim) valganciclovir 450 mg tablet 450 mg PO DAILY 05/27/22 08/21/22 History (Valcyte) Ostomy supplies to include wafers #60 ea 07/21/22 07/31/22 Rx and pouches cefdinir 300 mg capsule 300 mg PO BID 07/31/22 07/31/22 History tacrolimus 0.5 mg capsule, 0.5 mg PO PM 07/31/22 08/21/22 History immediate-release tacrolimus 1 mg capsule, 1 mg PO .am 07/31/22 08/21/22 History immediate-release tacrolimus 5 mg capsule, 5 mg PO Q12H 07/31/22 08/21/22 History immediate-release needle (disp) 18 G 18 gauge x 1" #100 ea 08/18/22 Rx (BD Regular Bevel [place]) syringe with needle 3 mL 25 x 5/8" #100 ea 08/18/22 Rx (CareTouch Luer Lock Syringe with needle) testosterone cypionate 100 mg/mL 100 mg subcut Q7D #10 mL 08/18/22 08/21/22 Rx intramuscular oil pravastatin 20 mg tablet 40 mg PO QPM 08/21/22 08/21/22 History Past Med/Surg History Medical History (Updated 08/21/22 @ 06:06 by Kaylan Mayfield DO) Anemia Secondary to chronic disease and iron deficiency AV fistula LUE (non-functioning) Chronic kidney disease, stage 4 (severe) s/p kidney transplant (2006), 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 Boss Hyperlipidemia Kidney transplant recipient (~2006) Low bone mass Metabolic alkalosis Primary hypogonadism in male Problem with dialysis access Secondary hyperparathyroidism of renal origin Self-catheterizes urinary bladder ~4x/day Tethered spinal cord Tethered spinal cord Spina Bifida - s/p neurosurgical intervention "several years ago" - has had gradually progressive subsequent distal weakness/numbness Vitamin D deficiency Surgical History A-V fistula Left AVF creation (04/19/20): MAC + PNB at [facility] Revision left AV fistula (05/31/20): LMA#5.0 unique Revision Left AV fistula (07/18/20) Colostomy status Since H/O hernia repair spinal hernia History of colonoscopy History of esophagogastroduodenoscopy History of orchiectomy History of surgery s/p Gastrocystoplasty, 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, [employer] Feels Safe at Home: Yes Do you think of yourself as: don't know Gender Identity: Male Assistive Devices: Contacts, Walker and Wheelchair Review of Systems Review of Systems: All systems reviewed & are unremarkable except as noted in HPI & below Physical Exam Physical Exam: General: patient resting comfortably, NAD, non-toxic in appearance, AA&O x 4 Skin: warm, dry, intact, no rashes or lesions HEENT: NC/AT, PERRL, EOMI, anicteric sclera, conjunctiva without injection, external ear normal to inspection and nontender, nares patent, moist mucus membranes, dentition intact, no oropharyngeal lesions, neck supple, trachea midline, no LAD, no thyromegaly, no JVD Heart: +S1/S2, regular, no m/r/g Lungs: equal air entry bilaterally, no rales/rhonchi/wheezes Abd: +BS, soft, NT/ND, no masses/organomegaly/ascites, no pain over transplant in RLQ Ext: warm, 2+ pulses in UE/LE bilaterally, no clubbing/cyanosis or edema Neuro: nonfocal, patient AA&O x 4, speech intact, no facial droop, moving all extremities on command with equal strength 5/5 Results & Data Results & Data Vital Signs (Past 12 Hours) Vital Signs Temp Pulse Resp BP Pulse Ox O2 Del Method 08/21/22 04:13 89 22 106/68 95 Room Air 08/21/22 03:37 94 H 20 96 Room Air 08/21/22 02:40 36.7 C 110 H 18 120/70 97 Room Air Laboratory Results Laboratory Results WBC 3.69 K/ul (4.8-10.8) L 08/21/22 03:10 RBC 3.27 M/uL (4.70-6.10) L 08/21/22 03:10 Hgb 10.1 g/dl (14.0-18.0) L 08/21/22 03:10 Hct 29.4 % (42.0-52.0) L 08/21/22 03:10 MCV 89.9 fL (80.0-100.0) 08/21/22 03:10 MCH 30.9 pg (25.0-34.0) 08/21/22 03:10 MCHC 34.4 g/dL (32.0-36.0) 08/21/22 03:10 RDW Std Deviation 41.4 fL (36.4-46.3) 08/21/22 03:10 RDW Coeff of Abigail 12.6 % (11.5-14.5) 08/21/22 03:10 Plt Count 238 K/uL (130-400) 08/21/22 03:10 MPV 9.4 fL (9.4-12.4) 08/21/22 03:10 Immature Gran % (Auto) 0.8 % 08/21/22 03:10 Neut % (Auto) 68.0 % 08/21/22 03:10 Lymph % (Auto) 14.4 % 08/21/22 03:10 Park % (Auto) 15.7 % 08/21/22 03:10 Eos % (Auto) 0.3 % 08/21/22 03:10 Baso % (Auto) 0.8 % 08/21/22 03:10 Neut # (Auto) 2.51 K/uL (1.40-6.50) 08/21/22 03:10 Lymph # (Auto) 0.53 K/uL (1.2-3.4) L 08/21/22 03:10 Park # (Auto) 0.58 K/uL (0.11-0.59) 08/21/22 03:10 Eos # (Auto) 0.01 K/uL (0-0.50) 08/21/22 03:10 Baso # (Auto) 0.03 K/uL (0-0.2) 08/21/22 03:10 Immature Gran # (Auto) 0.03 K/uL (0.01-0.20) 08/21/22 03:10 RBC Morphology Unremarkable 08/21/22 03:10 Sodium 133 mmol/L (136-145) L 08/21/22 03:10 Potassium 4.0 mmol/L (3.5-5.1) 08/21/22 03:10 Chloride 101 mmol/L (98-107) 08/21/22 03:10 Carbon Dioxide 24 mmol/L (21-32) 08/21/22 03:10 Anion Gap 8 (3-11) 08/21/22 03:10 BUN 28 mg/dl (6-23) H 08/21/22 03:10 Creatinine 1.56 mg/dl (0.6-1.4) H 08/21/22 03:10 Est Cr Clr Drug Dosing Not Reportable 08/21/22 03:10 Est GFR ( Amer) 67.6 ml/min 08/21/22 03:10 Est GFR (Non-Af Amer) 58.3 ml/min 08/21/22 03:10 BUN/Creatinine Ratio 17.9 (10-20) 08/21/22 03:10 Glucose 130 mg/dl (70-99(Fasting)) H 08/21/22 03:10 Lactate 0.6 mmol/L (0.4-2.0) 08/21/22 03:10 Calcium 9.2 mg/dl (8.6-10.3) 08/21/22 03:10 Magnesium 1.4 mg/dl (1.7-2.4) L 08/21/22 03:10 Total Bilirubin 0.4 mg/dl (0.2-1.0) 08/21/22 03:10 Direct Bilirubin 0.1 mg/dl (0-0.2) 08/21/22 03:10 AST 18 U/L (13-39) 08/21/22 03:10 ALT 28 U/L (7-52) 08/21/22 03:10 Alkaline Phosphatase 141 U/L (34-104) H 08/21/22 03:10 Troponin I High Sens < 2.3 pg/ml (0-20) 08/21/22 03:10 Total Protein 7.3 gm/dl (6.0-8.3) 08/21/22 03:10 Albumin 4.1 gm/dl (3.4-5.0) 08/21/22 03:10 Procalcitonin 0.11 ng/ml (0-0.5) 08/21/22 03:10 Urine Color Dark Yellow 08/21/22 03:51 Urine Appearance Turbid (Clear) A 08/21/22 03:51 Urine pH 5.0 (4.5-7.5) 08/21/22 03:51 Ur Specific [place] 1.022 (1.000-1.030) 08/21/22 03:51 Urine Protein 3+ (Negative) H 08/21/22 03:51 Urine Glucose (UA) Negative (Negative) 08/21/22 03:51 Urine Ketones Negative (Negative) 08/21/22 03:51 Urine Blood 3+ (Negative) H 08/21/22 03:51 Urine Nitrite Negative (Negative) 08/21/22 03:51 Urine Bilirubin Negative (Negative) 08/21/22 03:51 Urine Urobilinogen Negative (Negative) 08/21/22 03:51 Ur Leukocyte Esterase 3+ (Negative) H 08/21/22 03:51 Urine WBC (Auto) >30 /hpf (0-5) H 08/21/22 03:51 Urine RBC (Auto) 5-10 /hpf (0-4) H 08/21/22 03:51 U Hyaline Cast (Auto) 0 /lpf (0-5) 08/21/22 03:51 U Epithel Cells (Auto) >30 /lpf (0-5) H 08/21/22 03:51 Urine Bacteria (Auto) Negative (Negative) 08/21/22 03:51 Ur Renal Epithelial Cell Not Reportable 08/21/22 03:51 SARS-CoV-2, RNA, NAAT NEGATIVE (NEGATIVE) 08/21/22 03:01 PG Care Time/CCT Total # of Minutes Spent Total Time Spent with Patient: Total time spent is greater than 50% in coordination of care (as documented) at patient's floor/unit and/or counseling patient: Coding Level of Care Code 94847 INT INP/OBS CARE 2/55MIN Diagnoses Fever R50.9 Kidney transplant status Z94.0 Hyperlipidemia E78.5
--- NOTE | 2022-08-21 06:55 | XRay Report ---
XR chest 1V portable HISTORY: 32 years-old Male Sepsis COMPARISON: 03/27/2020 TECHNIQUE: AP view of the chest FINDINGS: Cardiomediastinal and hilar silhouettes are within normal limits. No pneumothorax, pleural effusion, airspace consolidation or pulmonary edema. Bones appear grossly intact. IMPRESSION: No acute process. ACT 112: Negative or not required by law. The above report was generated using voice recognition software. It may contain grammatical, syntax o r spelling errors. Electronically signed by: Cholo Bonilla M.D. 08/21/2022 6:54 AM
[2022-08-21] MEDS ORDERED: ONDANSETRON INJ 2 MG/ML 2 ML VIAL IV PRN (08:20)
--- NOTE | 2022-08-21 09:08 | Hospitalist Progress Note ---
Date of Service August 21, 2022 Assessment & Plan (1) Fever: Plan: 32 yo male with history of ESRD s/p renal transplant in April 2022 at [facility], on immunosuppressive therapy with CellCept, Prograf and Prednisone presents with symptom of fever/chills/nausea and vomiting x 1 prior to arrival. Also states his urine is cloudy - concern for UTI. Has history of ESBL Klebsiella bacteremia in the past. Afebrile and tachycardic on arrival, otherwise HD stable. Non-toxic in appearance. UA negative for bacteria, >30 WBCs, neg nitrites, 3+ LE, 3+ blood. UCx pending, recent history of Enterobacter UTI 3 weeks ago. Placed on meropenem in ER due to Hx ESBL bacteremia, can continue this at this time and await cultures. (2) Kidney transplant status: Plan: Hx horseshoe kidney s/p renal transplant in April 2022 (second renal transplant in life) Last creatinine in early August of 1.[address] Gil Hernandez ([facility]) BUN of 28, Cr of 1.56 on admission, possibly prerenal azotemia, received IVF on admission and now encouraging oral intake Continue Prograf, Cellcept, Prednisone (3) Hyperlipidemia: Plan: Chronic. Continue Pravastatin Admission and Anticipated Discharge Date Admission Date: August 21, 2022 Subjective Patient with improvement in fevers, chills, no further nausea or emesis. Denies abdominal pain. Review of Systems Review of Systems: All systems reviewed & are unremarkable except as noted in Subjective Physical Exam Constitutional: WD/WN, vitals as above Respiratory: normal respiratory effort, lungs clear to auscultation Cardiovascular: RRR, no murmur, no edema Gastrointestinal (Abdomen): normal bowel sounds, soft, nontender, no hepatosplenomegaly vertical midline scar noted to abdomen, colostomy bag left abdomen Skin: no rashes, warm and dry Psychiatric: A+Ox3, euthymic affect Results & Data Results & Data Vital Signs (Past 12 Hours) Vital Signs Temp Pulse Pulse Pulse Resp BP BP 08/21/22 08:00 36.4 C L 97 H 18 118/74 08/21/22 07:48 95 H 18 119/72 08/21/22 06:01 74 18 113/67 08/21/22 04:13 36.9 C 08/21/22 04:13 89 22 106/68 08/21/22 03:37 94 H 20 08/21/22 02:40 36.7 C 110 H 18 120/70 Pulse Ox O2 Del Method 08/21/22 08:00 99 Room Air 08/21/22 07:48 98 Room Air 08/21/22 06:01 96 Room Air 08/21/22 04:13 08/21/22 04:13 95 Room Air 08/21/22 03:37 96 Room Air 08/21/22 02:40 97 Room Air PG Care Time/CCT Total # of Minutes Spent Total Time Spent with Patient: Total time spent is greater than 50% in coordination of care (as documented) at patient's floor/unit and/or counseling patient: Coding Level of Care Code None Diagnoses Fever R50.9 Kidney transplant status Z94.0 Hyperlipidemia E78.5
[2022-08-21] MEDS: MAGNESIUM SULFATE / D5W 1 GM/100 ML BAG IV SCH ×2 (09:54→11:57)
[2022-08-21] MEDS: SULFA/TRIMETH 400/80MG TAB PO SCH (10:01)
[2022-08-21] MEDS: FAMOTIDINE 20 MG TAB PO SCH (10:01)
[2022-08-21] MEDS: VALGANCICLOVIR HCL 450 MG TABLET PO SCH (10:02)
[2022-08-21] MEDS: MYCOPHENOLATE MOFETIL 250 MG CAP PO SCH ×2 (10:02→21:23)
[2022-08-21] MEDS: predniSONE 5 MG TAB PO SCH (10:02)
[2022-08-21] MEDS: ENOXAPARIN INJ 40 MG/0.4 ML SYR SQ SCH (10:03)
[2022-08-21] MEDS: TACROLIMUS 1 MG CAP PO SCH ×3 (10:03→21:24)
[2022-08-21] MEDS: MEROPENEM 500 MG in SYRINGE 0 ML IV SCH ×3 (10:03→21:23)
--- NOTE | 2022-08-21 12:13 | Electrocardiogram Report ---
Test Reason : Blood Pressure : / mmHG Vent. Rate : 101 BPM Atrial Rate : 101 BPM P-R Int : 126 ms QRS Dur : 084 ms QT Int : 326 ms P-R-T Axes : 027 046 023 degrees QTc Int : 422 ms Sinus tachycardia Nonspecific T wave abnormality Abnormal ECG When compared with ECG of 04-NOV-2020 09:00, No significant change was found Confirmed by Hernesto Juárez ([id number]) on 08/21/2022 12:13:07 PM Referred By: REFERRED SELF Confirmed By:Amol Juárez
[2022-08-21] MEDS: ACETAMINOPHEN 325 MG TAB PO PRN (17:33)
[2022-08-21] MEDS: TACROLIMUS 0.5 MG CAP PO SCH (21:24)
[2022-08-21] MEDS: PRAVASTATIN SOD 40 MG TAB PO SCH (21:24)
[2022-08-21] MEDS: diphenhydrAMINE Capsule 25 MG CAP PO PRN (21:28)
[2022-08-21] MEDS: MELATONIN 3 MG TAB PO PRN (21:28)
[2022-08-22] MEDS: ACETAMINOPHEN 325 MG TAB PO PRN ×2 (03:25→09:06)
[2022-08-22] MEDS: MEROPENEM 500 MG in SYRINGE 0 ML IV SCH ×4 (03:26→20:40)
[2022-08-22 07:57] LABS: Hematocrit (blood only) 30.1 % (42.0-52.0); Hemoglobin 10.4 g/dl (14.0-18.0); Mean Corpuscular Hemoglobin 31.1 pg (25.0-34.0); Mean Corpuscular Hgb Conc 34.6 g/dL (32.0-36.0); Mean Corpuscular Volume 90.1 fL (80.0-100.0); Mean Platelet Volume 9.3 fL (9.4-12.4); Platelet Count 247 K/uL (130-400); RDW Coefficient of Variation 12.4 % (11.5-14.5); RDW Standard Deviation 40.7 fL (36.4-46.3); Red Blood Count 3.34 M/uL (4.70-6.10); White Blood Count 3.44 K/ul (4.8-10.8)
--- NOTE | 2022-08-22 08:02 | Hospitalist Progress Note ---
Date of Service August 22, 2022 Assessment & Plan (1) Fever: Plan: 32 yo male with history of ESRD s/p renal transplant in April 2022 at [facility], on immunosuppressive therapy with CellCept, Prograf and Prednisone presents with symptom of fever/chills/nausea and vomiting x 1 prior to arrival. Also states his urine is cloudy - concern for UTI. Has history of ESBL Klebsiella bacteremia in the past. Afebrile and tachycardic on arrival, otherwise HD stable. Non-toxic in appearance. UA negative for bacteria, >30 WBCs, neg nitrites, 3+ LE, 3+ blood. UCx with GNR x2 (awaiting finished results), recent history of Enterobacter UTI 3 weeks ago. Placed on meropenem in ER due to Hx ESBL bacteremia, can continue this at this time and await cultures. BCx will be 48 hours 08/23 at 6am. (2) Kidney transplant status: Plan: Hx horseshoe kidney s/p renal transplant in April 2022 (second renal transplant in life) Last creatinine in early August of 1.[address] Gil gonzalez ([facility]), case discussed with him this admission BUN of 28, Cr of 1.56 on admission improved to 1.3, possibly prerenal azotemia, received IVF on admission and now encouraging oral intake Continue Prograf, Cellcept, Prednisone (3) Hyperlipidemia: Plan: Chronic. Continue Pravastatin Admission and Anticipated Discharge Date Admission Date: August 21, 2022 Subjective No acute overnight events. No fevers, abdominal pain, chills, nausea. Review of Systems Review of Systems: All systems reviewed & are unremarkable except as noted in Subjective Physical Exam Constitutional: WD/WN, vitals as above Respiratory: normal respiratory effort, lungs clear to auscultation Cardiovascular: RRR, no murmur, no edema Gastrointestinal (Abdomen): normal bowel sounds, soft, nontender, no hepatosplenomegaly vertical midline scar noted to abdomen, colostomy bag left abdomen Skin: no rashes, warm and dry Psychiatric: A+Ox3, euthymic affect Results & Data Results & Data Vital Signs (Past 12 Hours) Vital Signs Temp Pulse Resp BP Pulse Ox O2 Del Method 08/21/22 21:21 36.6 C 81 18 144/98 H 97 Room Air PG Care Time/CCT Total # of Minutes Spent Total Time Spent with Patient: Total time spent is greater than 50% in coordination of care (as documented) at patient's floor/unit and/or counseling patient: Coding Level of Care Code 62027 SUB INP/OBS CARE 3/50MIN Diagnoses Fever R50.9 Kidney transplant status Z94.0 Hyperlipidemia E78.5
[2022-08-22 08:06] LABS: Albumin Level 3.8 gm/dl (3.4-5.0); BUN Creatinine Ratio 17.6 (10-20); Bilirubin Direct 0.1 mg/dl (0-0.2); Bilirubin,Total 0.3 mg/dl (0.2-1.0); Calcium 9.3 mg/dl (8.6-10.3); Creatinine Clr Calc Pharmacy 88.1 ml/min; Est GFR (African American) 83.5 ml/min; Potassium 3.9 mmol/L (3.5-5.1); Total Protein 7.1 gm/dl (6.0-8.3)
[2022-08-22] MEDS: SULFA/TRIMETH 400/80MG TAB PO SCH (08:51)
[2022-08-22] MEDS: TACROLIMUS 1 MG CAP PO SCH ×2 (08:51→20:39)
[2022-08-22] MEDS: MYCOPHENOLATE MOFETIL 250 MG CAP PO SCH ×2 (08:51→20:39)
[2022-08-22] MEDS: FAMOTIDINE 20 MG TAB PO SCH (08:51)
[2022-08-22] MEDS: ENOXAPARIN INJ 40 MG/0.4 ML SYR SQ SCH (08:52)
[2022-08-22] MEDS: VALGANCICLOVIR HCL 450 MG TABLET PO SCH (08:52)
[2022-08-22] MEDS: predniSONE 5 MG TAB PO SCH (08:52)
[2022-08-22] MEDS: TACROLIMUS 0.5 MG CAP PO SCH (20:39)
[2022-08-22] MEDS: PRAVASTATIN SOD 40 MG TAB PO SCH (20:40)
[2022-08-22] MEDS: diphenhydrAMINE Capsule 25 MG CAP PO PRN (20:46)
[2022-08-22] MEDS: MELATONIN 3 MG TAB PO PRN (20:46)
[2022-08-23] MEDS: MEROPENEM 500 MG in SYRINGE 0 ML IV SCH (04:26)
--- NOTE | 2022-08-23 07:39 | Discharge Summary ---
Discharge Summary Date of Service August 23, 2022 Admission HPI Per Admitting Provider Petros Forte is a 32yo male with history of renal failure s/p renal transplant performed at [facility] in April 2022 on antirejection therapy with Prograf and CellCept as well as Prednisone 5mg daily presenting with fever, concern for UTI. Patient was recently admitted to [facility] in [place] from 07/26/22 - 07/31/22 with complicated UTI. He was treated with Vancomycin which he had an allergic reaction to then transitioned to Cefepime. Patient overall did well. He was discharged home to complete a course of Omnicef. He reports fever and chills for the last two days as high as 102.3 as well as cloudy urine. He has had some nausea as well and one episode of non-bloody/non-bilious emesis. Patient denies abdominal pain or pain over his transplant. Denies chest pain, palpitations, cough SOB. Denies dysuria, hematuria. No additional complaints at this time. In the ER he is afebrile, initially Tachycardic with HR of 110 bpm now normal at 89. HD stable and non-toxic in appearance. ER Course: Cefepime NSS Admission Exam Per Admitting Provider General: patient resting comfortably, NAD, non-toxic in appearance, AA&O x 4 Skin: warm, dry, intact, no rashes or lesions HEENT: NC/AT, PERRL, EOMI, anicteric sclera, conjunctiva without injection, external ear normal to inspection and nontender, nares patent, moist mucus membranes, dentition intact, no oropharyngeal lesions, neck supple, trachea midline, no LAD, no thyromegaly, no JVD Heart: +S1/S2, regular, no m/r/g Lungs: equal air entry bilaterally, no rales/rhonchi/wheezes Abd: +BS, soft, NT/ND, no masses/organomegaly/ascites, no pain over transplant in RLQ Ext: warm, 2+ pulses in UE/LE bilaterally, no clubbing/cyanosis or edema Neuro: nonfocal, patient AA&O x 4, speech intact, no facial droop, moving all extremities on command with equal strength 5/5 Principal Dx & Hospital Course #1 = Principal Diagnosis (1) Fever: 32 yo male with history of ESRD s/p renal transplant in April 2022 at [facility], on immunosuppressive therapy with CellCept, Prograf and Prednisone presents with symptom of fever/chills/nausea and vomiting x 1 prior to arrival. Also states his urine is cloudy - concern for UTI. Has history of ESBL Klebsiella bacteremia in the past. Afebrile and tachycardic on arrival, otherwise HD stable. Non-toxic in appearance. UA negative for bacteria, >30 WBCs, neg nitrites, 3+ LE, 3+ blood. UCx with Enterobacter cloacae sensitive to cipro. Placed on meropenem in ER due to Hx ESBL bacteremia, BCx negative, transitioned to ciprofloxacin for 7 days on discharge. (2) Kidney transplant status: Hx horseshoe kidney s/p renal transplant in April 2022 (second renal transplant in life) Last creatinine in early August of 1.[address] Gil Hernandez ([facility]), case discussed with him this admission BUN of 28, Cr of 1.56 on admission improved to 1.09 on discharge, suspected prerenal azotemia, received IVF on admission and now encouraging oral intake Continue Prograf, Cellcept, Prednisone (3) Hyperlipidemia: Chronic. Continue Pravastatin Discharge Exam Constitutional WD/WN, vitals as above Psychiatric A+Ox3, euthymic affect Updated Medication List Medication Instructions Recorded Confirmed Type diphenhydramine HCl 25 mg capsule 25 mg PO DAILY PRN Insomnia 05/27/22 08/21/22 History (Benadryl) docusate sodium 100 mg tablet 100 mg PO DAILY PRN 05/27/22 07/31/22 History famotidine 20 mg tablet 20 mg PO DAILY 05/27/22 08/21/22 History melatonin 3 mg capsule 6 mg PO HS PRN Insomnia 05/27/22 08/21/22 History mycophenolate mofetil 250 mg 500 mg PO BID 05/27/22 08/21/22 History capsule nystatin 100,000 unit/mL oral 5 ml PO TID 05/27/22 07/31/22 History suspension prednisone 10 mg tablet 5 mg PO DAILY 05/27/22 08/21/22 History sulfamethoxazole 400 1 tab PO DAILY 05/27/22 08/21/22 History mg-trimethoprim 80 mg tablet (Bactrim) valganciclovir 450 mg tablet 450 mg PO DAILY 05/27/22 08/21/22 History (Valcyte) Ostomy supplies to include wafers #60 ea 07/21/22 07/31/22 Rx and pouches tacrolimus 0.5 mg capsule, 0.5 mg PO PM 07/31/22 08/21/22 History immediate-release tacrolimus 1 mg capsule, 1 mg PO .am 07/31/22 08/21/22 History immediate-release tacrolimus 5 mg capsule, 5 mg PO Q12H 07/31/22 08/21/22 History immediate-release needle (disp) 18 G 18 gauge x 1" #100 ea 08/18/22 Rx (BD Regular Bevel [place]) syringe with needle 3 mL 25 x 5/8" #100 ea 08/18/22 Rx (CareTouch Luer Lock Syringe with needle) testosterone cypionate 100 mg/mL 100 mg subcut Q7D #10 mL 08/18/22 08/21/22 Rx intramuscular oil pravastatin 20 mg tablet 40 mg PO QPM 08/21/22 08/21/22 History ciprofloxacin HCl 500 mg tablet 500 mg PO BID 7 days #14 tabs 08/23/22 Rx Hospital Stay Data Consultations 08/21/22 05:32 ED Decision to Admit Stat Discharge Instructions Given to Patient (Per Discharging Provider) You were admitted for evaluation of fevers and vomiting. Given your history of k idney transplant, we placed you on IV antibiotics and awaiting blood cultures, which fortunately are not growing any bacteria. You grew Enterobacter cloacae in your urine, the same bacteria you grew three weeks ago with your last UTI. Your creatinine was 1.09 on your day of discharge. Your bacteria was sensitive to Cipro, so we have prescribed a course of Cipro twice daily x7 days on discharge. Please follow up with your Transplant providers and your family doctor about your hospitalization. If you have concerns for your medical safety, or have return or worsening of symptoms, seek medical care. Total Time Total Time Spent Total Time Spent (In Minutes): 35 min Coding Level of Care Code 04330 INP/OBS DISCH >30 MIN Diagnoses Fever R50.9 Kidney transplant status Z94.0 Hyperlipidemia E78.5
[2022-08-23] MEDS ORDERED: SULFA/TRIMETH 400/80MG TAB PO SCH (07:45)
[2022-08-23] MEDS: TACROLIMUS 1 MG CAP PO SCH (08:45)
[2022-08-23] MEDS: VALGANCICLOVIR HCL 450 MG TABLET PO SCH (08:45)
[2022-08-23] MEDS: predniSONE 5 MG TAB PO SCH (08:45)
[2022-08-23] MEDS: MYCOPHENOLATE MOFETIL 250 MG CAP PO SCH (08:45)
[2022-08-23] MEDS: FAMOTIDINE 20 MG TAB PO SCH (08:46)
[2022-08-23] MEDS: ENOXAPARIN INJ 40 MG/0.4 ML SYR SQ SCH (08:48)
[2022-08-23] MEDS ORDERED: CIPROFLOXACIN 500 MG TAB PO SCH (09:00)
[2022-08-23 10:07] LABS: Calcium 9.5 mg/dl (8.6-10.3); Magnesium 1.9 mg/dl (1.7-2.4); Potassium 4.4 mmol/L (3.5-5.1)
[2022-08-23 10:10] LABS: Basophils # (auto) 0.03 K/uL (0-0.2); Eosinophils # (auto) 0.07 K/uL (0-0.50); Eosinophils % (auto) 2.3 %; Hematocrit (blood only) 30.7 % (42.0-52.0); Hemoglobin 10.6 g/dl (14.0-18.0); Immature Granulocytes # (auto) 0.03 K/uL (0.01-0.20); Lymphocytes % (auto) 35.4 %; Mean Corpuscular Hemoglobin 30.6 pg (25.0-34.0); Mean Corpuscular Hgb Conc 34.5 g/dL (32.0-36.0); Mean Corpuscular Volume 88.7 fL (80.0-100.0); Mean Platelet Volume 9.4 fL (9.4-12.4); Monocytes # (auto) 0.37 K/uL (0.11-0.59); Monocytes % (auto) 11.9 %; Neutrophils # (auto) 1.51 K/uL (1.40-6.50); Neutrophils % (auto) 48.4 %; Platelet Count 313 K/uL (130-400); RDW Coefficient of Variation 12.5 % (11.5-14.5); RDW Standard Deviation 40.5 fL (36.4-46.3); Red Blood Count 3.46 M/uL (4.70-6.10); White Blood Count 3.11 K/ul (4.8-10.8)
[2022-08-23 10:13] LABS: BUN Creatinine Ratio 22.9 (10-20); Creatinine Clr Calc Pharmacy 105.8 ml/min; Est GFR (African American) 104.3 ml/min
== END 2022-08-23 11:24 | disposition home or self-care (01) | DRG 690 ==
LOC: ED 02:37 → 3E 05:48 → SUATTDRO 05:48 → 3E 07:48

== ENCOUNTER 2022-09-18 06:20 | Inpatient (IN) ==
[2022-09-18] MEDS ORDERED: SODIUM CHLORIDE 0.9% 1000ML 1,000 ML IV SCH (07:15)
--- NOTE | 2022-09-18 07:15 | Emergency Department Note ---
Impression & Plan Severe sepsis, Acute UTI (urinary tract infection), Immunocompromised, Acute kidney injury, Hypomagnesemia ED Provider Note Name: SAMSON GIBBONS Age: 32 Sex: M Arrives Via: Walk-In Informant: Patient ED Provider: Liam Kay MD Chief Complaint: Illness Impression: As per impressions above Medical Decision Makin-year-old immunocompromised male secondary to kidney transplant who straight caths through Urostomy and has frequent complicated UTIs/hospitalizations arri ves with 12 to 24 hours of worsening illness. Patient with fevers, lightheadedness, chills at home. Urinalysis concerning for UTI. Patient does not have elevated white count or procalcitonin or lactic acid but he is somewhat hypotensive and renal insufficiency is new from a creatinine of 1.0-1.6. He does appear a bit dry and this was ordered a total 2 L bolus saline. Patient was given empiric IV cefepime which previous UTI has been susceptible to. Given his immunocompromise state he will require hospitalization. He is not having any significant abdominal pain tenderness palpation other concerning findings requiring imaging at this time. Prior Medical Record and Triage/Nursing Notes reviewed by Me Extensive external chart reviewed by me including PCP visit recently, recent hospitalization discharge instructions and summary and previous laboratory findings Differentials:Viral syndrome, UTI, sepsis, electrolyte imbalance amongst many other pathologies considered Vital Signs: reviewed and remarkable for moderate hypotension Interventions: Normal Saline bolus 2 L IV, cefepime 2 g IV A 30/kg IV fluid bolus was not used based on actual body weight as his ideal body weight is 50 kg. [place] body weight was used to determine initial fluid bolus of 1.5L NSS he was given an extra 500 mL on top of that. Labs:Reviewed and remarkable for mild bump in creatinine consistent with NATHANIEL in setting of sepsis EKG:As per my interpretation. Indication sepsis. Normal sinus rhythm at 93 beats minute QTc of 437. There is no ectopy nor ischemia. When compared to an EKG of August 21, 2022 there is no significant change Cardiac/Tele Monitoring: Cardiac Monitoring: An Order was placed for continuous cardiac monitoring. The monitor shows a rate of 70 with a normal sinus rhythm. Consults: Dr Lito YATES Hospitalist Plan: Disposition: Hospitalization Condition: Good History of Present Illness:32-year-old male arrives for evaluation of illness. 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 Patient notes recurrent abdominal surgeries over the years. He has a colostomy in the left abdomen and uses a urinary stoma just below umbilicus for cathing himself. Over the last 12 to 24 hours patient notes increasing illness. Associated fever, chills, fatigue, nausea, lack of appetite. This morning when he cathed himself he noted thick discolored urine. Denies any shortness of breath, chest pain, headache, neck stiffness, rashes, leg swelling or other concerning signs or symptoms. He still has some urine output through his penis but is really just leaking of urine periodically. He took Tylenol earlier with improvement of fever. Past History:See Below Home Medications:See Below Allergies:See Below Vitals:Blood Pressure: 91//57, Pulse 89, RR 18, T 36.7C, O2 97% on RA Physical Exam: GENERAL: Patient is tired appearing and in minimal distress. Dehydrated EYES: No scleral icterus, unremarkable pupils. RESPIRATORY: No dyspnea. Clear to auscultation and equal bilaterally. No wheeze, no rhonchi. CARDIOVASCULAR: Regular rate and rhythm.No murmurs, rubs, gallops appreciated. GASTROINTESTINAL: Abdomen soft, non-tender, no peritonitis. Ostomy left abdomen. Large amount of scarring anterior vertical with urostomy stoma noted EXTREMITIES: Normal motion all extremities, no cyanosis, no edema. NEUROLOGIC: Alert and oriented, no focal neuro deficits SKIN: No rash, no jaundice, no diaphoresis. PSYCH: Appropriate GCS: 15 ED Course: Times/Reassessments: Patient seen on arrival and several times after that. He is agreeable to hospitalization after initial workup reveals urinary infection with sepsis. 10:45 AM on 09/18/2022. Repeat volume status exam. Patient is awake alert oriented no distress. He is sitting up. No current complaints. Current blood pressure 130/70. Pulse 75. Satting 98% on room air. He has systems negative and he is feeling well. 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 Boss Hyperlipidemia Kidney transplant recipient (~2006) Low bone mass Metabolic alkalosis Primary hypogonadism in male Problem with dialysis access Secondary hyperparathyroidism of renal origin Self-catheterizes urinary bladder ~4x/day Tethered spinal cord Tethered spinal cord Spina Bifida - s/p neurosurgical intervention "several years ago" - has had gradually progressive subsequent distal weakness/numbness Vitamin D deficiency Surgical History A-V fistula Left AVF creation (04/19/20): MAC + PNB at [facility] Revision left AV fistula (05/31/20): LMA#5.0 unique Revision Left AV fistula (07/18/20) Colostomy status Since H/O hernia repair spinal hernia History of colonoscopy History of esophagogastroduodenoscopy History of orchiectomy History of surgery s/p Gastrocystoplasty, 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, [employer] Feels Safe at Home: Yes Do you think of yourself as: don't know Gender Identity: Male Assistive Devices: Contacts and Wheelchair Allergies Allergies Allergy/AdvReac Type Severity Reaction Status Date / Time bee venom protein (honey bee) Allergy Intermediate Edema, Verified 05/27/22 12:39 hives latex Allergy Unknown Unknown Verified 05/27/22 12:39 vancomycin Allergy Unknown Verified 08/21/22 06:03 morphine AdvReac Mild N/V Verified 05/27/22 12:39 Home Meds Home Medications Medication Instructions Recorded Confirmed diphenhydramine HCl 25 mg capsule 25 mg PO DAILY PRN Insomnia 05/27/22 09/18/22 (Benadryl) docusate sodium 100 mg tablet 100 mg PO DAILY PRN Constipation 05/27/22 09/18/22 famotidine 20 mg tablet 20 mg PO DAILY 05/27/22 09/18/22 melatonin 3 mg capsule 6 mg PO HS PRN Insomnia 05/27/22 09/18/22 mycophenolate mofetil 250 mg 500 mg PO BID 05/27/22 09/18/22 capsule prednisone 10 mg tablet 5 mg PO DAILY 05/27/22 09/18/22 sulfamethoxazole 400 1 tab PO DAILY 05/27/22 09/18/22 mg-trimethoprim 80 mg tablet (Bactrim) tacrolimus 1 mg capsule, 1 mg PO BID 07/31/22 09/18/22 immediate-release tacrolimus 5 mg capsule, 5 mg PO BID 07/31/22 09/18/22 immediate-release pravastatin 20 mg tablet 40 mg PO QPM 08/21/22 09/18/22 Previous Rx's Medication Instructions Recorded Ostomy supplies to include wafers #60 ea 07/21/22 and pouches needle (disp) 18 G 18 gauge x 1" #100 ea 08/18/22 (BD Regular Bevel [place]) syringe with needle 3 mL 25 x 5/8" #100 ea 08/18/22 (CareTouch Luer Lock Syringe with needle) testosterone cypionate 100 mg/mL 100 mg subcut Q7D #10 mL 08/18/22 intramuscular oil Results & Data (ED) Vital Signs Vital Signs - 24 hr 09/18/22 06:25 09/18/22 06:37 09/18/22 07:13 Temperature 36.7 C Temperature Source Temporal Artery Scan Pulse Rate 103 H 89 Pulse Rate [Apical] Respiratory Rate 18 Respiratory Effort / Characteristics Non-Labored Spontaneous Respiratory Depth Normal Blood Pressure 91/57 L Blood Pressure Mean 68 Blood Pressure Position Sitting Pulse Oximetry 97 93 Oxygen Delivery Method Room Air Room Air Sepsis Recent Fever Within 48 Hours Yes Sepsis New/Unexplained Change in Mental Status No Sepsis Action Taken by Nursing No Action Required 09/18/22 08:07 Temperature Temperature Source Pulse Rate Pulse Rate [Apical] 85 Respiratory Rate 18 Respiratory Effort / Characteristics Non-Labored Respiratory Depth Normal Blood Pressure Blood Pressure Mean Blood Pressure Position Pulse Oximetry 93 Oxygen Delivery Method Room Air Sepsis Recent Fever Within 48 Hours Sepsis New/Unexplained Change in Mental Status Sepsis Action Taken by Nursing Laboratory Data 09/18/22 06:50 09/18/22 06:50 Lab Results 09/18/22 09/18/22 09/18/22 Range/Units 06:50 06:50 06:50 WBC 9.42 (4.8-10.8) K/ul RBC 3.24 L (4.70-6.10) M/uL Hgb 9.9 L (14.0-18.0) g/dl Hct 28.8 L (42.0-52.0) % MCV 88.9 (80.0-100.0) fL MCH 30.6 (25.0-34.0) pg MCHC 34.4 (32.0-36.0) g/dL RDW Std Deviation 40.8 (36.4-46.3) fL RDW Coeff of Abigail 12.5 (11.5-14.5) % Plt Count 307 (130-400) K/uL MPV 10.0 (9.4-12.4) fL Immature Gran % (Auto) 1.7 % Neut % (Auto) 72.0 % Lymph % (Auto) 10.1 % [place] % (Auto) 15.4 % Eos % (Auto) 0.4 % Baso % (Auto) 0.4 % Neut # (Auto) 6.78 H (1.40-6.50) K/uL Lymph # (Auto) 0.95 L (1.2-3.4) K/uL [place] # (Auto) 1.45 H (0.11-0.59) K/uL Eos # (Auto) 0.04 (0-0.50) K/uL Baso # (Auto) 0.04 (0-0.2) K/uL Immature Gran # (Auto) 0.16 (0.01-0.20) K/uL Platelet Estimate Normal (Normal) Sodium 133 L (136-145) mmol/L Potassium 4.4 (3.5-5.1) mmol/L Chloride 99 (98-107) mmol/L Carbon Dioxide 25 (21-32) mmol/L Anion Gap 9 (3-11) BUN 18 (6-23) mg/dl Creatinine 1.65 H (0.6-1.4) mg/dl Est Cr Clr Drug Dosing 73.7 ml/min Est GFR ( Amer) 63.2 ml/min Est GFR (Non-Af Amer) 54.5 ml/min BUN/Creatinine Ratio 10.9 (10-20) Glucose 136 H (70-99(Fasting)) mg/dl Lactate 0.7 (0.4-2.0) mmol/L Calcium 8.9 (8.6-10.3) mg/dl Magnesium 1.4 L (1.7-2.4) mg/dl Total Bilirubin 0.3 (0.2-1.0) mg/dl Direct Bilirubin 0.1 (0-0.2) mg/dl AST 15 (13-39) U/L ALT 14 (7-52) U/L Alkaline Phosphatase 97 (34-104) U/L Troponin I High Sens 5.8 (0-20) pg/ml Total Protein 6.9 (6.0-8.3) gm/dl Albumin 3.6 (3.4-5.0) gm/dl Procalcitonin (0-0.5) ng/ml Urine Color Urine Appearance (Clear) Urine pH (4.5-7.5) Ur Specific [place] (1.000-1.030) Urine Protein (Negative) Urine Glucose (UA) (Negative) Urine Ketones (Negative) Urine Blood (Negative) Urine Nitrite (Negative) Urine Bilirubin (Negative) Urine Urobilinogen (Negative) Ur Leukocyte Esterase (Negative) Urine WBC (Auto) (0-5) /hpf Urine RBC (Auto) (0-4) /hpf U Hyaline Cast (Auto) (0-5) /lpf U Epithel Cells (Auto) (0-5) /lpf Urine Bacteria (Auto) (Negative) 09/18/22 09/18/22 Range/Units 06:50 07:21 WBC (4.8-10.8) K/ul RBC (4.70-6.10) M/uL Hgb (14.0-18.0) g/dl Hct (42.0-52.0) % MCV (80.0-100.0) fL MCH (25.0-34.0) pg MCHC (32.0-36.0) g/dL RDW Std Deviation (36.4-46.3) fL RDW Coeff of Abigail (11.5-14.5) % Plt Count (130-400) K/uL MPV (9.4-12.4) fL Immature Gran % (Auto) % Neut % (Auto) % Lymph % (Auto) % [place] % (Auto) % Eos % (Auto) % Baso % (Auto) % Neut # (Auto) (1.40-6.50) K/uL Lymph # (Auto) (1.2-3.4) K/uL [place] # (Auto) (0.11-0.59) K/uL Eos # (Auto) (0-0.50) K/uL Baso # (Auto) (0-0.2) K/uL Immature Gran # (Auto) (0.01-0.20) K/uL Platelet Estimate (Normal) Sodium (136-145) mmol/L Potassium (3.5-5.1) mmol/L Chloride (98-107) mmol/L Carbon Dioxide (21-32) mmol/L Anion Gap (3-11) BUN (6-23) mg/dl Creatinine (0.6-1.4) mg/dl Est Cr Clr Drug Dosing ml/min Est GFR ( Amer) ml/min Est GFR (Non-Af Amer) ml/min BUN/Creatinine Ratio (10-20) Glucose (70-99(Fasting)) mg/dl Lactate (0.4-2.0) mmol/L Calcium (8.6-10.3) mg/dl Magnesium (1.7-2.4) mg/dl Total Bilirubin (0.2-1.0) mg/dl Direct Bilirubin (0-0.2) mg/dl AST (13-39) U/L ALT (7-52) U/L Alkaline Phosphatase (34-104) U/L Troponin I High Sens (0-20) pg/ml Total Protein (6.0-8.3) gm/dl Albumin (3.4-5.0) gm/dl Procalcitonin 0.20 (0-0.5) ng/ml Urine Color Dark Yellow Urine Appearance Turbid A (Clear) Urine pH 5.0 (4.5-7.5) Ur Specific [place] 1.018 (1.000-1.030) Urine Protein 1+ H (Negative) Urine Glucose (UA) Negative (Negative) Urine Ketones Trace H (Negative) Urine Blood 3+ H (Negative) Urine Nitrite Negative (Negative) Urine Bilirubin Negative (Negative) Urine Urobilinogen Negative (Negative) Ur Leukocyte Esterase 3+ H (Negative) Urine WBC (Auto) >30 H (0-5) /hpf Urine RBC (Auto) 0-4 (0-4) /hpf U Hyaline Cast (Auto) 1-5 (0-5) /lpf U Epithel Cells (Auto) >30 H (0-5) /lpf Urine Bacteria (Auto) 1+ H (Negative) Administered Medications Discontinued Medications Sodium Chloride (Nss 1000ml) 1,000 mls @ 999 mls/hr IV .Q1H1M IGNACIO Stop: 09/18/22 08:15 Last Infusion: 09/18/22 08:33 Dose: 0 mls/hr Documented By: Admin: 09/18/22 07:28 Dose: 999 mls/hr Documented By: ESTELA Sodium Chloride (Nss 1000ml) 1,000 mls @ 999 mls/hr IV .Q1H1M ONE Stop: 09/18/22 08:56 Last Infusion: 09/18/22 09:03 Dose: 0 mls/hr Documented By: Admin: 09/18/22 08:01 Dose: 999 mls/hr Documented By: HS Cefepime HCl (Maxipime) 2,000 mg in 20 mls @ 5 mls/min IV NOW STA; Protocol Stop: 09/18/22 07:59 Last Admin: 09/18/22 08:00 Dose: 5 mls/min Documented By: HS Magnesium Sulfate/Dextrose (Magnesium Sulfate / D5w) 1 gm in 100 mls @ 100 mls/hr IV NOW STA Stop: 09/18/22 09:54 Last Infusion: 09/18/22 10:12 Dose: 0 mls/hr Documented By: Admin: 09/18/22 09:10 Dose: 100 mls/hr Documented By: ESTELA Imaging Data Radiologist's Impression: Chest X-Ray 09/18/22 07:09 SINGLE VIEW CHEST CLINICAL HISTORY: Sepsis. FINDINGS: An AP, portable, upright chest radiograph is compared to study dated 08/21/2022. The cardiomediastinal silhouette is unremarkable. The lungs and pleural spaces are clear. No pneumothorax is seen. The bony thorax is grossly intact. IMPRESSION: No active disease in the chest. ACT 112: Negative or not required by law. Electronically signed by: Brian Soares M.D. 09/18/2022 7:22 AM Discharge Plan Visit Data Chief Complaint: Urinary Symptoms Stated Complaint: UTI ED Provider: Liam Kay Discharge Problem: Severe sepsis, Acute UTI (urinary tract infection), Immunocompromised, Acute kidney injury, Hypomagnesemia Patient Disposition: Admitted As Inpatient Discharge Instructions Interventions: ED Discharge Assessment Last Done: 09/18/22 09:14
--- NOTE | 2022-09-18 07:23 | XRay Report ---
SINGLE VIEW CHEST CLINICAL HISTORY: Sepsis. FINDINGS: An AP, portable, upright chest radiograph is compared to study dated 08/21/2022. The cardiom ediastinal silhouette is unremarkable. The lungs and pleural spaces are clear. No pneumothorax is see n. The bony thorax is grossly intact. IMPRESSION: No active disease in the chest. ACT 112: Negative or not required by law. Electronically signed by: Brian Soares M.D. 09/18/2022 7:22 AM
[2022-09-18 07:41] LABS: Appearance Urine Turbid (Clear); Bacteria Urine Automated 1+ (Negative); Bilirubin Urine Negative (Negative); Blood Urine 3+ (Negative); Color Urine Dark Yellow; Epithelial Cell Urine Auto >30 /lpf (0-5); Glucose Urine UA Negative (Negative); Ketones Urine Trace (Negative); Leukocyte Esterase Urine 3+ (Negative); Nitrite Urine Negative (Negative); Protein Urine 1+ (Negative); RBC Urine Automated 0-4 /hpf (0-4); Specific Gravity Urine 1.018 (1.000-1.030); Urobilinogen Urine Negative (Negative); WBC Urine Automated >30 /hpf (0-5)
[2022-09-18 07:56] LABS: Albumin Level 3.6 gm/dl (3.4-5.0); BUN Creatinine Ratio 10.9 (10-20); Bilirubin Direct 0.1 mg/dl (0-0.2); Bilirubin,Total 0.3 mg/dl (0.2-1.0); Calcium 8.9 mg/dl (8.6-10.3); Creatinine Clr Calc Pharmacy 73.7 ml/min; Est GFR (African American) 63.2 ml/min; Est GFR (Non-African American) 54.5 ml/min; Magnesium 1.4 mg/dl (1.7-2.4); Potassium 4.4 mmol/L (3.5-5.1); Total Protein 6.9 gm/dl (6.0-8.3); Troponin I High Sensitivity 5.8 pg/ml (0-20)
[2022-09-18] MEDS ORDERED: CEFEPIME 2,000 MG/20 ML VIAL IV STA (07:56)
[2022-09-18] MEDS ORDERED: SODIUM CHLORIDE 0.9% 1000ML 1,000 ML IV ONE (07:56)
[2022-09-18 08:02] LABS: Basophils # (auto) 0.04 K/uL (0-0.2); Basophils % (auto) 0.4 %; Eosinophils # (auto) 0.04 K/uL (0-0.50); Eosinophils % (auto) 0.4 %; Hematocrit (blood only) 28.8 % (42.0-52.0); Hemoglobin 9.9 g/dl (14.0-18.0); Immature Granulocytes # (auto) 0.16 K/uL (0.01-0.20); Immature Granulocytes % (auto) 1.7 %; Lymphocytes # (auto) 0.95 K/uL (1.2-3.4); Lymphocytes % (auto) 10.1 %; Mean Corpuscular Hemoglobin 30.6 pg (25.0-34.0); Mean Corpuscular Hgb Conc 34.4 g/dL (32.0-36.0); Mean Corpuscular Volume 88.9 fL (80.0-100.0); Monocytes # (auto) 1.45 K/uL (0.11-0.59); Monocytes % (auto) 15.4 %; Neutrophils # (auto) 6.78 K/uL (1.40-6.50); Platelet Count 307 K/uL (130-400); Platelet Estimate Normal (Normal); RDW Coefficient of Variation 12.5 % (11.5-14.5); RDW Standard Deviation 40.8 fL (36.4-46.3); Red Blood Count 3.24 M/uL (4.70-6.10); White Blood Count 9.42 K/ul (4.8-10.8)
--- NOTE | 2022-09-18 08:28 | Electrocardiogram Report ---
Test Reason : Blood Pressure : / mmHG Vent. Rate : 093 BPM Atrial Rate : 093 BPM P-R Int : 126 ms QRS Dur : 092 ms QT Int : 352 ms P-R-T Axes : 032 044 011 degrees QTc Int : 437 ms Normal sinus rhythm Nonspecific ST and T wave abnormality Abnormal ECG When compared with ECG of 21-AUG-2022 02:55, No significant change was found Confirmed by Hernesto Juárez ([id number]) on 09/18/2022 8:27:33 AM Referred By: REFERRED SELF Confirmed By:Amol Juárez
[2022-09-18] MEDS ORDERED: MAGNESIUM SULFATE / D5W 1 GM/100 ML BAG IV STA (08:55)
--- NOTE | 2022-09-18 09:03 | History & Physical Report ---
Date of Service September 18, 2022 Assessment & Plan (1) Complicated UTI (urinary tract infection): Plan: 32-year-old male past medical history of renal transplant admitted for complicated UTI and reported subjective fevers at home. 24 hours of self-reported fevers and chills at home, with change in urine color/quality. Self-catheterizes from site below umbilicus. Presented mildly tachycardic to 103, blood pressure of 91/57 (runs 100s/70s at baseline), no fever in hospital, lactate normal, with WBC count normal, with NATHANIEL (most recent creatinine check last week per patient was 1.0) with creatinine 1.65. Patient was given 2 L of normal saline in the ER and given cefepime (does have a history of E. faecalis UTI, but also a history of ESBL bacteremia). BCx and UCx collected. Have ordered ertapenem which his previous UCx and BCx have been sensitive to. Repeat basic metabolic panel tomorrow morning to evaluate renal function. Case discussed with Dr. Gil Hernandez from [facility], patient transplant physician, who is amenable to above plan and also recommends decreasing his dose of mycophenolate to 250mg BID. (2) Immunocompromised: Plan: Continue patient's home mycophenolate, tacrolimus, valganciclovir. Holding Bactrim as patient is receiving ertapenem for suspected UTI. (3) Hypomagnesemia: Plan: Magnesium slightly low on admission of 1.4, received 1 g of magnesium sulfate, repeat magnesium level in the morning. (4) Chronic Kidney Disease: Plan: Secondary to history of renal transplant, past medical history of horseshoe kidney, immunosuppressive agents as described above. Baseline creatinine 1.01.5, creatinine today 1.65 so not true NATHANIEL based on most recent values however had been better about a week ago at ~1.0. Treating as renal insufficiency in the setting of mild dehydration and complicated UTI. IV fluids as above, repeat BMP tomorrow. (5) Anemia: Plan: Patient with a known history of anemia of chronic disease as well as a history of iron deficiency, no evidence of active bleeding nor hematuria, hemoglobin 9.9 today (relatively within patient's normal range), last check on 08/23/2022 was 10.6. Continue to monitor. (6) Colostomy status: Plan: Continue appropriate colostomy care. History of Present Illness Chief Complaint: fevers, concern for UTI Primary Care Provider: Grecia Bravo DO 32-year-old male past medical history significant for ileostomy, history of horseshoe kidney s/p renal transplant most recently in April 2022, history of self cathing, frequent UTIs who presents to the ER for cloudy and foul-smelling urine and subjective fevers at home. He notes that this has been going on for around 24 hours. He denies any shortness of breath, chest pain, abdominal pain. In the ER patient was noted to have a blood pressure in the 90s systolic, resolved appropriately with some IV fluids for dehydration. CBC notable for WBC count of 9.42, hemoglobin 9.9, creatinine 1.65, sodium 133, magnesium 1.4. Urinalysis with evidence of bacteria and leukocyte esterase. Given his history of immunosuppression and frequent UTIs, as well as a history of ESBL bacteremia, hospitalist service was consulted for admission. He notes that he feels better today than he did yesterday, still having chills, no other symptoms right now. Allergies Allergy/AdvReac Type Severity Reaction Status Date / Time bee venom protein (honey bee) Allergy Intermediate Edema, Verified 05/27/22 12:39 hives latex Allergy Unknown Unknown Verified 05/27/22 12:39 vancomycin Allergy Unknown Verified 08/21/22 06:03 morphine AdvReac Mild N/V Verified 05/27/22 12:39 Home Medications Medication Instructions Recorded Confirmed Type diphenhydramine HCl 25 mg capsule 25 mg PO DAILY PRN Insomnia 05/27/22 09/18/22 History (Benadryl) docusate sodium 100 mg tablet 100 mg PO DAILY PRN Constipation 05/27/22 09/18/22 History famotidine 20 mg tablet 20 mg PO DAILY 05/27/22 09/18/22 History melatonin 3 mg capsule 6 mg PO HS PRN Insomnia 05/27/22 09/18/22 History mycophenolate mofetil 250 mg 500 mg PO BID 05/27/22 09/18/22 History capsule prednisone 10 mg tablet 5 mg PO DAILY 05/27/22 09/18/22 History sulfamethoxazole 400 1 tab PO DAILY 05/27/22 09/18/22 History mg-trimethoprim 80 mg tablet (Bactrim) Ostomy supplies to include wafers #60 ea 07/21/22 07/31/22 Rx and pouches tacrolimus 1 mg capsule, 1 mg PO BID 07/31/22 09/18/22 History immediate-release tacrolimus 5 mg capsule, 5 mg PO BID 07/31/22 09/18/22 History immediate-release needle (disp) 18 G 18 gauge x 1" #100 ea 08/18/22 Rx (BD Regular Bevel Bowman) syringe with needle 3 mL 25 x 5/8" #100 ea 08/18/22 Rx (CareTouch Luer Lock Syringe with needle) testosterone cypionate 100 mg/mL 100 mg subcut Q7D #10 mL 08/18/22 09/18/22 Rx intramuscular oil pravastatin 20 mg tablet 40 mg PO QPM 08/21/22 09/18/22 History Past Med/Surg History Medical History Anemia Secondary to chronic disease and iron deficiency AV fistula LUE (non-functioning) Chronic kidney disease, stage 4 (severe) s/p kidney transplant (2006), 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 Boss Hyperlipidemia Kidney transplant recipient (~2006) Low bone mass Metabolic alkalosis Primary hypogonadism in male Problem with dialysis access Secondary hyperparathyroidism of renal origin Self-catheterizes urinary bladder ~4x/day Tethered spinal cord Tethered spinal cord Spina Bifida - s/p neurosurgical intervention "several years ago" - has had gradually progressive subsequent distal weakness/numbness Vitamin D deficiency Surgical History A-V fistula Left AVF creation (04/19/20): MAC + PNB at [facility] Revision left AV fistula (05/31/20): LMA#5.0 unique Revision Left AV fistula (07/18/20) Colostomy status Since H/O hernia repair spinal hernia History of colonoscopy History of esophagogastroduodenoscopy History of orchiectomy History of surgery s/p Gastrocystoplasty, 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 S/P hemodialysis catheter insertion S/P kidney transplant (~2006) Family History Mother Diabetes Heart disease Father Diabetes Other No family history of adverse response to anesthesia Social History Smoking Status: Never smoker Second Hand Exposure: No; Do You Dip or Chew Tobacco: No; Hx Alcohol Use: Yes Alcohol type: beer and wine Hx Substance Use: No Preferred Language: [place] Communication Ability: Effective Bacteriology Research Assistant Required: No Beliefs That Will Affect Care: None marital status: Single Current Living Situation: Parent current occupational status: 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[employer] Other Information That Helps Us Care for You: No Feels Safe at Home: Yes Safety Concerns: Feels Safe At This Time Do you think of yourself as: don't know Gender Identity: Male Assistive Devices: Contacts and Wheelchair Review of Systems Constitutional: + fever and + chills Respiratory: no cough and no dyspnea Cardiovascular: no chest pain and no palpitations Gastrointestinal: no abdominal pain, no nausea and no vomiting Physical Exam Constitutional: well developed and well nourished; no acute distress Eyes: PERRL, conjunctivae normal, anicteric sclerae ENMT: external ear and nose normal, oropharynx normal Respiratory: normal respiratory effort, lungs clear to auscultation Cardiovascular: RRR, no murmur, no edema Gastrointestinal (Abdomen): normal bowel sounds, soft, nontender, no hepatosplenomegaly (vertical scarring noted to abdomen,sub-umbilical urinary stoma not infected) Musculoskeletal: no cyanosis or clubbing Skin: no rashes, warm and dry Neurologic: AAOx3, normal speech. PERRLA, EOMI, no nystagmus. Normal visual acuity bilaterally. Bilateral UE, LE, and face without sensory or motor deficits. Psychiatric: A+Ox3, euthymic affect Results & Data Results & Data Vital Signs (Past 12 Hours) Vital Signs Temp Pulse Pulse Resp BP Pulse Ox O2 Del Method 09/18/22 08:07 85 18 93 Room Air 09/18/22 07:13 93 Room Air 09/18/22 06:37 89 08/11/23 06:25 36.7 C 103 H 18 91/57 L 97 Room Air PG Care Time/CCT Total # of Minutes Spent Total Time Spent with Patient: Total time spent is greater than 50% in coordination of care (as documented) at patient's floor/unit and/or counseling patient: Coding Level of Care Code 07029 INT INP/OBS CARE 3/75MIN Diagnoses Complicated UTI (urinary tract infection) N39.0 Immunocompromised D84.9 Hypomagnesemia E83.42 Chronic Kidney Disease N18.9 Anemia D64.9 Colostomy status Z93.3
[2022-09-18] MEDS ORDERED: ONDANSETRON INJ 2 MG/ML 2 ML VIAL IV PRN (09:45)
[2022-09-18] MEDS ORDERED: POLYETHYLENE (MIRALAX) 17 GM PACK PO PRN (09:45)
[2022-09-18] MEDS ORDERED: DOCUSATE SODIUM 100 MG CAP PO PRN (10:10)
[2022-09-18] MEDS ORDERED: MEROPENEM 500 MG in SYRINGE 0 ML IV SCH (10:30)
[2022-09-18] MEDS: TACROLIMUS 1 MG CAP PO SCH ×3 (12:06→20:39)
[2022-09-18] MEDS: ERTAPENEM SODIUM 1,000 MG in SYRINGE 0 ML IV SCH (12:06)
[2022-09-18] MEDS: ACETAMINOPHEN 325 MG TAB PO PRN ×2 (13:44→19:52)
[2022-09-18] MEDS: TACROLIMUS 0.5 MG CAP PO SCH (20:38)
[2022-09-18] MEDS: HEPARIN SOD 5,000 UNIT/0.5 ML VIAL SQ SCH (20:38)
[2022-09-18] MEDS: PRAVASTATIN SOD 40 MG TAB PO SCH (20:39)
[2022-09-18] MEDS: MYCOPHENOLATE MOFETIL 250 MG CAP PO SCH (20:39)
[2022-09-18] MEDS: MELATONIN 3 MG TAB PO PRN (20:40)
[2022-09-18] MEDS: diphenhydrAMINE Capsule 25 MG CAP PO PRN (20:40)
[2022-09-18] MEDS ORDERED: MYCOPHENOLATE MOFETIL 250 MG CAP PO SCH (21:00)
[2022-09-19 06:33] LABS: Basophils # (auto) 0.03 K/uL (0-0.2); Basophils % (auto) 0.4 %; Eosinophils # (auto) 0.05 K/uL (0-0.50); Eosinophils % (auto) 0.7 %; Hematocrit (blood only) 27.5 % (42.0-52.0); Hemoglobin 9.4 g/dl (14.0-18.0); Immature Granulocytes # (auto) 0.12 K/uL (0.01-0.20); Immature Granulocytes % (auto) 1.6 %; Lymphocytes # (auto) 1.15 K/uL (1.2-3.4); Mean Corpuscular Hemoglobin 30.2 pg (25.0-34.0); Mean Corpuscular Hgb Conc 34.2 g/dL (32.0-36.0); Mean Corpuscular Volume 88.4 fL (80.0-100.0); Mean Platelet Volume 9.3 fL (9.4-12.4); Monocytes # (auto) 1.34 K/uL (0.11-0.59); Monocytes % (auto) 17.5 %; Neutrophils # (auto) 4.98 K/uL (1.40-6.50); Neutrophils % (auto) 64.8 %; Platelet Count 289 K/uL (130-400); RDW Coefficient of Variation 12.7 % (11.5-14.5); RDW Standard Deviation 41.1 fL (36.4-46.3); Red Blood Count 3.11 M/uL (4.70-6.10); White Blood Count 7.67 K/ul (4.8-10.8)
[2022-09-19 06:48] LABS: BUN Creatinine Ratio 9.9 (10-20); Calcium 9.1 mg/dl (8.6-10.3); Creatinine Clr Calc Pharmacy 74.7 ml/min; Est GFR (African American) 65.1 ml/min; Est GFR (Non-African American) 56.1 ml/min; Magnesium 1.7 mg/dl (1.7-2.4); Potassium 4.2 mmol/L (3.5-5.1)
[2022-09-19] MEDS ORDERED: SODIUM CHLORIDE 0.9% 1000ML 1,000 ML IV ONE (07:35)
--- NOTE | 2022-09-19 07:53 | Hospitalist Progress Note ---
Date of Service September 19, 2022 Assessment & Plan (1) Complicated UTI (urinary tract infection): Plan: 32-year-old male past medical history of renal transplant admitted for complicated UTI and reported subjective fevers at home. 24 hours of self-reported fevers and chills at home, with change in urine color/quality. Self-catheterizes from site below umbilicus. Presented to ER mildly tachycardic to 103, blood pressure of 91/57 (runs 100s/70s at baseline), lactate normal, with WBC count normal (7.67 on review today), with renal insufficiency (most recent creatinine check last week per patient was 1.0) with creatinine 1.65. Patient was given 2 L of normal saline in the ER and given cefepime (does have a history of E. faecalis UTI, but also a history of ESBL bacteremia). BCx and UCx collected, UCx growing >100,000 CFU E. coli, sensitivities pending. Continue ertapenem which his previous UCx and BCx have been sensitive to, and would cover E. coli. Trend fever curve, did have fever yesterday afternoon but none since. Daily basic metabolic panel to evaluate renal function. Case discussed with Dr. Gil Hernandez from [facility], patient transplant physician, who is amenable to above plan and also recommends decreasing his dose of mycophenolate to 250mg BID. Will confirm if this decreased dose will continue on discharge, or if this is just in the immediate infectious period. (2) Chronic Kidney Disease: Plan: Secondary to history of renal transplant, past medical history of horseshoe kidney, immunosuppressive agents as described above. Baseline creatinine 1.01.5, creatinine today 1.60 so not true NATHANIEL based on most recent values however had been better about a week ago at ~1.0. Treating as renal insufficiency in the setting of mild dehydration and complicated UTI. IV fluids as above, also gave 1L NSS today, encourage oral fluids, daily BMP. (3) Immunocompromised: Plan: Continue patient's home mycophenolate (decreased dose as above), tacrolimus, valganciclovir. Holding Bactrim as patient is receiving ertapenem for suspected UTI. (4) Hypomagnesemia: Plan: Magnesium slightly low on admission of 1.4, received 1 g of magnesium sulfate, repeat magnesium reviewed at 1.7. (5) Anemia: Plan: Patient with a known history of anemia of chronic disease as well as a history of iron deficiency, no evidence of active bleeding nor hematuria, hemoglobin 9.4 today (relatively within patient's normal range), last check on 08/23/2022 was 10.6. Continue to monitor. (6) Colostomy status: Plan: Continue appropriate colostomy care. Plan Continue to monitor BCx and await UCx sensitivities. I suspect patient may need some assistance with urinary stoma care education; he notes he uses a new catheter for every use, however does not sanitize the surrounding skin with each catheterization, which may explain to some extent why he is having recurrent UTI. He has an ileostomy so it is not impossible that he could have some ostomy leakage, and then incomplete sanitization of the urinary stoma area causing introduction of that bacteria to the urinary tract. Admission and Anticipated Discharge Date Admission Date: September 18, 2022 Subjective Fever at 7pm last night, no fevers since that time and denies further chills today. No complaints of abdominal pain or chest pain, SOB, nausea. Physical Exam Constitutional: WD/WN, vitals as above Respiratory: normal respiratory effort, lungs clear to auscultation Cardiovascular: RRR, no murmur, no edema Gastrointestinal (Abdomen): normal bowel sounds, soft, nontender, no hepatosplenomegaly (vertical scarring noted to abdomen,sub-umbilical urinary stoma not infected) Skin: no rashes, warm and dry Psychiatric: A+Ox3, euthymic affect Results & Data Results & Data Vital Signs (Past 12 Hours) Vital Signs Temp Pulse Resp BP Pulse Ox O2 Del Method 09/19/22 07:33 36.8 C 101 H 18 117/71 93 Room Air 09/19/22 03:16 36.9 C 104 H 20 103/66 95 Room Air 09/18/22 22:48 36.9 C 90 22 116/75 97 Room Air 09/18/22 20:00 Room Air PG Care Time/CCT Total # of Minutes Spent Total Time Spent with Patient: Total time spent is greater than 50% in coordination of care (as documented) at patient's floor/unit and/or counseling patient: Coding Level of Care Code 30393 SUB INP/OBS CARE 3/50MIN Diagnoses Complicated UTI (urinary tract infection) N39.0 Chronic Kidney Disease N18.9 Immunocompromised D84.9 Hypomagnesemia E83.42 Anemia D64.9 Colostomy status Z93.3
[2022-09-19] MEDS: FAMOTIDINE 20 MG TAB PO SCH (08:08)
[2022-09-19] MEDS: HEPARIN SOD 5,000 UNIT/0.5 ML VIAL SQ SCH ×2 (08:08→21:13)
[2022-09-19] MEDS: predniSONE 5 MG TAB PO SCH (08:08)
[2022-09-19] MEDS: MYCOPHENOLATE MOFETIL 250 MG CAP PO SCH ×2 (08:08→21:14)
[2022-09-19] MEDS: VALGANCICLOVIR HCL 450 MG TABLET PO SCH (08:09)
[2022-09-19] MEDS: TACROLIMUS 1 MG CAP PO SCH ×3 (08:09→21:14)
[2022-09-19] MEDS: ERTAPENEM SODIUM 1,000 MG in SYRINGE 0 ML IV SCH (09:24)
[2022-09-19] MEDS: ACETAMINOPHEN 325 MG TAB PO PRN (17:16)
[2022-09-19] MEDS: PRAVASTATIN SOD 40 MG TAB PO SCH (21:13)
[2022-09-19] MEDS: TACROLIMUS 0.5 MG CAP PO SCH (21:14)
[2022-09-19] MEDS: MELATONIN 3 MG TAB PO PRN (22:13)
[2022-09-19] MEDS: diphenhydrAMINE Capsule 25 MG CAP PO PRN (22:13)
[2022-09-20 05:02] LABS: Hematocrit (blood only) 29.6 % (42.0-52.0); Mean Corpuscular Hemoglobin 30.3 pg (25.0-34.0); Mean Corpuscular Hgb Conc 33.8 g/dL (32.0-36.0); Mean Corpuscular Volume 89.7 fL (80.0-100.0); Mean Platelet Volume 9.3 fL (9.4-12.4); Platelet Count 306 K/uL (130-400); RDW Coefficient of Variation 12.4 % (11.5-14.5); RDW Standard Deviation 40.8 fL (36.4-46.3); White Blood Count 4.84 K/ul (4.8-10.8)
[2022-09-20 05:19] LABS: BUN Creatinine Ratio 15.8 (10-20); Calcium 9.2 mg/dl (8.6-10.3); Creatinine Clr Calc Pharmacy 100.2 ml/min; Est GFR (African American) 92.8 ml/min; Est GFR (Non-African American) 80.1 ml/min; Potassium 4.3 mmol/L (3.5-5.1)
[2022-09-20] MEDS: MYCOPHENOLATE MOFETIL 250 MG CAP PO SCH ×2 (08:21→21:35)
[2022-09-20] MEDS: FAMOTIDINE 20 MG TAB PO SCH (08:21)
[2022-09-20] MEDS: VALGANCICLOVIR HCL 450 MG TABLET PO SCH (08:22)
[2022-09-20] MEDS: predniSONE 5 MG TAB PO SCH (08:22)
[2022-09-20] MEDS: HEPARIN SOD 5,000 UNIT/0.5 ML VIAL SQ SCH ×2 (08:23→21:35)
[2022-09-20] MEDS: TACROLIMUS 1 MG CAP PO SCH ×3 (08:23→21:36)
--- NOTE | 2022-09-20 09:03 | Hospitalist Progress Note ---
Date of Service September 20, 2022 Assessment & Plan (1) Complicated UTI (urinary tract infection): Plan: 32-year-old male past medical history of renal transplant admitted for complicated UTI and reported subjective fevers at home. 24 hours of self-reported fevers and chills at home, with change in urine color/quality. Self-catheterizes from site below umbilicus. Presented to ER mildly tachycardic to 103, blood pressure of 91/57 (runs 100s/70s at baseline), lactate normal, with WBC count normal (4.84 on review today), with renal insufficiency (most recent creatinine check last week per patient was 1.0) with creatinine Now improved to 1.2. Patient was given 2 L of normal saline in the ER and given cefepime (does have a history of E. faecalis UTI, but also a history of ESBL bacteremia). BCx and UCx collected, UCx growing >100,000 CFU E. coli, sensitivities pending but should be back tomorrow per microbiology. Continue ertapenem which his previous UCx and BCx have been sensitive to, and would cover E. coli. Trend fever curve, last fever 09/18. Daily basic metabolic panel to evaluate renal function. Case discussed with Dr. Gil Hernandez from [facility], patient transplant physician, who is amenable to above plan and also recommends decreasing his dose of mycophenolate to 250mg BID. Will confirm if this decreased dose will continue on discharge, or if this is just in the immediate infectious period. Did provide education including adequate hydration and urinary stoma care, patient seems amenable in the room but it sounds like overnight did not appear to understand the teaching. Teaching also stressed to his sister today while seeing the patient. I did impress upon both of them that I feel that drinking more water and cleaning his urinary stoma site before each catheterization will help decrease his risk of UTIs moving forward. (2) Chronic Kidney Disease: Plan: Secondary to history of renal transplant, past medical history of horseshoe kidney, immunosuppressive agents as described above. Baseline creatinine 1.01.5, creatinine today 1.2, improving. Treating as renal insufficiency in the setting of mild dehydration and complicated UTI. Received IV fluids in the ER and yesterday, can encourage oral intake moving forward. (3) Immunocompromised: Plan: Continue patient's home mycophenolate (decreased dose as above), tacrolimus, valganciclovir. Holding Bactrim as patient is receiving ertapenem for suspected UTI, but would resume on discharge. (4) Hypomagnesemia: Plan: Resolved with IV Mag Sulfate 1g earlier in admission. (5) Anemia: Plan: Patient with a known history of anemia of chronic disease as well as a history of iron deficiency, no evidence of active bleeding nor hematuria, hemoglobin 10.0 today, at baseline. (6) Colostomy status: Plan: Continue appropriate colostomy care. Plan Continue to monitor BCx and await UCx sensitivities. I suspect patient may need some assistance with urinary stoma care education; he notes he uses a new catheter for every use, however does not sanitize the surrounding skin with each catheterization, which may explain to some extent why he is having recurrent UTI. He has an ileostomy so it is not impossible that he could have some ostomy leakage, and then incomplete sanitization of the urinary stoma area causing introduction of that bacteria to the urinary tract. These concerns were expressed to the patient, as well as to his sister today. Admission and Anticipated Discharge Date Admission Date: September 18, 2022 Subjective Patient without any acute events overnight. Per nursing staff, was not overwhelmingly receptive/understanding of urinary stoma site cleaning overnight. He does admit that he does not drink much water, which his sister corroborates. He denies any fevers or chills today, no abdominal pain. Physical Exam Constitutional: WD/WN, vitals as above Respiratory: normal respiratory effort, lungs clear to auscultation Cardiovascular: RRR, no murmur, no edema Gastrointestinal (Abdomen): normal bowel sounds, soft, nontender, no hepatosplenomegaly (vertical scarring noted to abdomen,sub-umbilical urinary stoma not infected) Skin: no rashes, warm and dry Psychiatric: A+Ox3, euthymic affect Results & Data Results & Data Vital Signs (Past 12 Hours) Vital Signs Temp Pulse Pulse Resp BP Pulse Ox O2 Del Method 09/20/22 07:46 36.4 C L 73 18 117/76 97 Room Air 09/19/22 22:45 78 09/20/22 03:00 36.2 C L 63 20 125/85 97 Room Air 09/19/22 22:27 36.9 C 79 20 122/81 97 Room Air PG Care Time/CCT Total # of Minutes Spent Total Time Spent with Patient: Total time spent is greater than 50% in coordination of care (as documented) at patient's floor/unit and/or counseling patient: Coding Level of Care Code 05735 SUB INP/OBS CARE 3/50MIN Diagnoses Complicated UTI (urinary tract infection) N39.0 Chronic Kidney Disease N18.9 Immunocompromised D84.9 Hypomagnesemia E83.42 Anemia D64.9 Colostomy status Z93.3
[2022-09-20] MEDS: ERTAPENEM SODIUM 1,000 MG in SYRINGE 0 ML IV SCH (09:41)
[2022-09-20] MEDS: PRAVASTATIN SOD 40 MG TAB PO SCH (21:35)
[2022-09-20] MEDS: MELATONIN 3 MG TAB PO PRN (21:37)
[2022-09-20] MEDS: diphenhydrAMINE Capsule 25 MG CAP PO PRN (21:37)
[2022-09-21 07:23] LABS: Hematocrit (blood only) 29.5 % (42.0-52.0); Hemoglobin 9.9 g/dl (14.0-18.0); Mean Corpuscular Hemoglobin 30.3 pg (25.0-34.0); Mean Corpuscular Hgb Conc 33.6 g/dL (32.0-36.0); Mean Corpuscular Volume 90.2 fL (80.0-100.0); Platelet Count 329 K/uL (130-400); RDW Coefficient of Variation 12.4 % (11.5-14.5); RDW Standard Deviation 41.2 fL (36.4-46.3); Red Blood Count 3.27 M/uL (4.70-6.10); White Blood Count 6.37 K/ul (4.8-10.8)
[2022-09-21 07:42] LABS: BUN Creatinine Ratio 17.2 (10-20); Calcium 9.1 mg/dl (8.6-10.3); Creatinine Clr Calc Pharmacy 121.2 ml/min; Est GFR (African American) 117.1 ml/min; Est GFR (Non-African American) 101.1 ml/min; Potassium 4.5 mmol/L (3.5-5.1)
--- NOTE | 2022-09-21 08:26 | Discharge Summary ---
Discharge Summary Date of Service September 21, 2022 Notes For Next Care Provider ertapenem x5 days on discharge for complicated UTI Discussed appropriate stoma hygiene to decrease UTI risk Admission HPI Per Admitting Provider 32-year-old male past medical history significant for ileostomy, history of horseshoe kidney s/p renal transplant most recently in April 2022, history of self cathing, frequent UTIs who presents to the ER for cloudy and foul-smelling urine and subjective fevers at home. He notes that this has been going on for around 24 hours. He denies any shortness of breath, chest pain, abdominal pain. In the ER patient was noted to have a blood pressure in the 90s systolic, resolved appropriately with some IV fluids for dehydration. CBC notable for WBC count of 9.42, hemoglobin 9.9, creatinine 1.65, sodium 133, magnesium 1.4. Urinalysis with evidence of bacteria and leukocyte esterase. Given his history of immunosuppression and frequent UTIs, as well as a history of ESBL bacteremia, hospitalist service was consulted for admission. He notes that he feels better today than he did yesterday, still having chills, no other symptoms right now. Admission Exam Per Admitting Provider Constitutional: well developed and well nourished; no acute distress Eyes: PERRL, conjunctivae normal, anicteric sclerae ENMT: external ear and nose normal, oropharynx normal Respiratory: normal respiratory effort, lungs clear to auscultation Cardiovascular: RRR, no murmur, no edema Gastrointestinal (Abdomen): normal bowel sounds, soft, nontender, no hepatosplenomegaly (vertical scarring noted to abdomen,sub-umbilical urinary stoma not infected) Musculoskeletal: no cyanosis or clubbing Skin: no rashes, warm and dry Neurologic: AAOx3, normal speech. PERRLA, EOMI, no nystagmus. Normal visual acuity bilaterally. Bilateral UE, LE, and face without sensory or motor deficits. Psychiatric: A+Ox3, euthymic affect Principal Dx & Hospital Course #1 = Principal Diagnosis (1) Complicated UTI (urinary tract infection): 32-year-old male past medical history of renal transplant admitted for complicated UTI and reported subjective fevers at home. 24 hours of self-reported fevers and chills at home, with change in urine color/quality. Self-catheterizes from site below umbilicus. Presented to ER mildly tachycardic to 103, blood pressure of 91/57 (runs 100s/70s at baseline), lactate normal, with WBC count normal (6.37 on review today), with renal insufficiency (most recent creatinine check last week per patient was 1.0) with creatinine now improved to 0.99. BCx and UCx collected, UCx growing >100,000 CFU E. coli, sensitive to ertapenem (little oral option sensitivity). Continue ertapenem x7 another 5 days on discharge for complicated UTI. Case discussed with Dr. Gil Hernandez from [facility], patient transplant physician, who is amenable to above plan. Did provide education including adequate hydration and urinary stoma care, patient seems amenable in the room but it sounds like overnight did not appear to understand the teaching. Teaching also stressed to his parents over the phone. I did impress upon both of them that I feel that drinking more water and cleaning his urinary stoma site before each catheterization will help decrease his risk of UTIs moving forward. (2) Chronic Kidney Disease: Secondary to history of renal transplant, past medical history of horseshoe kidney, immunosuppressive agents as described above. Baseline creatinine 1.01.5, creatinine today 0.99 NATHANIEL resolved. Treating as renal insufficiency in the setting of mild dehydration and complicated UTI. (3) Immunocompromised: Continue patient's home mycophenolate, tacrolimus, valganciclovir, Bactrim. (4) Hypomagnesemia: Resolved with IV Mag Sulfate 1g earlier in admission. (5) Anemia: Patient with a known history of anemia of chronic disease as well as a history of iron deficiency, no evidence of active bleeding nor hematuria, hemoglobin 9.9 today, at baseline. (6) Colostomy status: Continue appropriate colostomy care. Plan I suspect patient may need some assistance with urinary stoma care education; he notes he uses a new catheter for every use, however does not sanitize the surrounding skin with each catheterization, which may explain to some extent why he is having recurrent UTI. He has an ileostomy so it is not impossible that he could have some ostomy leakage, and then incomplete sanitization of the urinary stoma area causing introduction of that bacteria to the urinary tract. These concerns were expressed to the patient, as well as to his parents on discharge. Discharge Exam Constitutional WD/WN, vitals as above Gastrointestinal (Abdomen) normal bowel sounds, soft, nontender, no hepatosplenomegaly Psychiatric A+Ox3, euthymic affect Updated Medication List Medication Instructions Recorded Confirmed Type diphenhydramine HCl 25 mg capsule 25 mg PO DAILY PRN Insomnia 05/27/22 09/18/22 History (Benadryl) docusate sodium 100 mg tablet 100 mg PO DAILY PRN Constipation 05/27/22 09/18/22 History famotidine 20 mg tablet 20 mg PO DAILY 05/27/22 09/18/22 History melatonin 3 mg capsule 6 mg PO HS PRN Insomnia 05/27/22 09/18/22 History mycophenolate mofetil 250 mg 500 mg PO BID 05/27/22 09/18/22 History capsule prednisone 10 mg tablet 5 mg PO DAILY 05/27/22 09/18/22 History sulfamethoxazole 400 1 tab PO DAILY 05/27/22 09/18/22 History mg-trimethoprim 80 mg tablet (Bactrim) Ostomy supplies to include wafers #60 ea 07/21/22 07/31/22 Rx and pouches tacrolimus 1 mg capsule, 1 mg PO BID 07/31/22 09/18/22 History immediate-release tacrolimus 5 mg capsule, 5 mg PO BID 07/31/22 09/18/22 History immediate-release needle (disp) 18 G 18 gauge x 1" #100 ea 08/18/22 Rx (BD Regular Bevel [place]) syringe with needle 3 mL 25 x 5/8" #100 ea 08/18/22 Rx (CareTouch Luer Lock Syringe with needle) testosterone cypionate 100 mg/mL 100 mg subcut Q7D #10 mL 08/18/22 09/18/22 Rx intramuscular oil pravastatin 20 mg tablet 40 mg PO QPM 08/21/22 09/18/22 History fosfomycin tromethamine 3 gram 3 g PO DAILY 6 days #6 ea 09/21/22 Rx oral packet tacrolimus 0.5 mg capsule, 0.5 mg PO QPM #14 caps 09/21/22 Rx immediate-release Hospital Stay Data Consultations 09/18/22 08:48 ED Decision to Admit Stat Discharge Instructions Given to Patient (Per Discharging Provider) You were admitted for a urinary tract infection. You were given IV antibiotics, which you will take once daily for the next 5 days at the medical treatment unit at [facility]. You should make sure to use a new catheter for every urination, and be sure to cleanse the area before inserting the catheter. This will decrease the amount that you have UTIs. It is also important to stay hydrated with water. Try to aim for about 60 ounces of water a day, to help your transplant kidney flush out toxins. Follow up with Dr. Hernandez with [facility]. None of your home medications were changed. If you have medical concerns call your family doc or kidney doc. If urgently concerned, seek urgent attention at a hospital. Total Time Total Time Spent Total Time Spent (In Minutes): 35 min Coding Level of Care Code 43233 INP/OBS DISCH >30 MIN Diagnoses Complicated UTI (urinary tract infection) N39.0 Chronic Kidney Disease N18.9 Immunocompromised D84.9 Hypomagnesemia E83.42 Anemia D64.9 Colostomy status Z93.3
[2022-09-21] MEDS: HEPARIN SOD 5,000 UNIT/0.5 ML VIAL SQ SCH (09:17)
[2022-09-21] MEDS: FAMOTIDINE 20 MG TAB PO SCH (09:17)
[2022-09-21] MEDS: TACROLIMUS 1 MG CAP PO SCH ×2 (09:18)
[2022-09-21] MEDS: VALGANCICLOVIR HCL 450 MG TABLET PO SCH (09:18)
[2022-09-21] MEDS: ERTAPENEM SODIUM 1,000 MG in SYRINGE 0 ML IV SCH (09:19)
[2022-09-21] MEDS: predniSONE 5 MG TAB PO SCH (09:19)
[2022-09-21] MEDS: MYCOPHENOLATE MOFETIL 250 MG CAP PO SCH (09:19)
== END 2022-09-21 17:01 | disposition home or self-care (01) | DRG 699 ==
LOC: ED 06:20 → EDINP 09:09 → 2S 12:00 → 4W 09-19 19:03 → 3W 09-20 13:48

== ENCOUNTER 2023-10-21 17:40 | Observation (INO) ==
--- NOTE | 2023-10-21 18:36 | Emergency Department Note ---
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 Patient is on his second kidney transplant which was completed at [facility] in April 2022. States over the weekend he felt maybe a little feverish and chilly but has been feeling well the last day or 2. Hydrating okay. Okay urine output with self cathing without difficulty or hematuria reported. No significant abdominal pain or nausea or vomiting reported. Blood work completed yesterday was concerning for worsening renal function with creatinine rising to 2.7 with his report of baseline around 1.7. States compliance with home medications including chronic prednisone, CellCept and tacrolimus. Patient was sent here for further evaluation. States he has a history of UTIs as well but again denies fever today. No trauma reported. PAST MEDICAL HISTORY: As noted above MEDICATIONS: Reviewed home medication list and he states compliance SOCIAL HISTORY: PHYSICAL EXAM: GENERAL: alert and oriented in no acute distress on stretcher Head: normocephalic and atraumatic EYES: No injection, discharge or icterus. EOMI. NECK: Trachea midline. ENT: Mucous membranes pink and moist. LUNGS: Airway patent. No retractions or tachypnea HEART: Regular rate and rhythm. No chest wall tenderness ABDOMEN: Soft and non-tender, without guarding or rebound. No abdominal tenderness. Ostomy present in the left abdomen without tenderness. SKIN: Acyanotic, warm, dry, without rashes EXTREMITIES: Without swelling, tenderness or deformity NEUROLOGICAL: No focal deficits. No aphasia. No facial droop or slurred speech. Ambulatory. EK beats per minute. Normal sinus rhythm. No PVC or PAC. No acute ST segment elevation or depression with nonspecific inferior lateral T wave inversions QTc 408. CONTINUOUS CARDIAC MONITORING: was ordered and showed a heart rate of 80s to 90s bpm in normal sinus rhythm Patient's laboratory studies and imaging reviewed. Differential includes electrolyte abnormality, acute kidney injury, dehydration, obstruction, transplant rejection, UTI, sepsis, among other conditions were considered. IMPRESSION/MEDICAL DECISION MAKING: Patient well-appearing in no distress. No significant abdominal tenderness. Vitals reassuring without fever. Patient is immunosuppressed with the renal transplant and supposedly worsened renal function. Blood work checked today determine where kidney function electrolytes were at at this time. Urine sample sent to exclude infection patient does have significant history of UTIs as well as ESBL urine infections. Not currently on antibiotics. Blood culture was sent given immunocompromise state and this history. Given a small gentle IV fluid bolus of 500 mL and sent for renal transplant ultrasound to evaluate for any collections and adequate flow. Blood work here without significant leukocytosis. Renal function slightly improved creatinine 2.4. Procalcitonin lactate not severely elevated. Urinalysis concerning for infection. Reviewed prior microbiology here. History of ESBL and multiple resistance E. coli in the past. Patient does not appear septic however. Immunocompromised however given the suppressants for the transplant. Again given some gentle IV fluid hydration. Tylenol for little bit of a headache but does not appear meningitic or to be suffering from the CVA or intracranial hemorrhage. Believe likely related to his illness. Ultrasound with flow but also some inflammatory changes of the bladder. Will treat with ertapenem given past resistances and bring in for further care. Discussed with the hospitalist team here. His [place] renal transplant team was made aware of the situation agree with plan of care. DIAGNOSIS: UTI, NATHANIEL, renal transplant DISPOSITION: Hospitalist will evaluate Patient was agreeable with this plan. 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 Acute on chronic renal failure UTI (urinary tract infection) (Acute) Hypomagnesemia (Acute) Hyperlipidemia Ileostomy care (Chronic) Kidney transplant status (Acute) Vitamin D deficiency Secondary hyperparathyroidism of renal origin Anemia Secondary to chronic disease and iron deficiency Primary hypogonadism in male Low bone mass Tethered spinal cord (Acute) Spina Bifida - s/p neurosurgical intervention "several years ago" - has had gradually progressive subsequent distal weakness/numbness Self-catheterizes urinary bladder (Chronic) ~4x/day Colostomy status (Acute) Since Medical History (Updated 10/22/23 @ 00:00 by Cipriano Peters M.D.) Metabolic alkalosis AV fistula LUE (non-functioning) Surgical History (Updated 10/22/23 @ 00:00 by Cipriano Peters M.D.) S/P kidney transplant (~2006) S/P hemodialysis catheter insertion S/P arteriovenous (AV) fistula repair Left upper revision 07/2020. 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) LENA Boyce as History of orchiectomy Kidney transplanted H/O hernia repair spinal hernia Hx of removal of testicle bilateral Hx of laminectomy lumbar spinal cord release History of esophagogastroduodenoscopy Hx of colonoscopy Family History Mother Diabetes Heart disease Father Diabetes Other No family history of adverse response to anesthesia Social History Smoking Status: Never smoker Second Hand Exposure: No; Do You Dip or Chew Tobacco: No; Hx Alcohol Use: Yes Alcohol type: beer Hx Substance Use: No Preferred Language: Uzbek Communication Ability: Effective Membership Secretary Required: No Beliefs That Will Affect Care: None marital status: Single Current Living Situation: Family current occupational status: 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[employer], [employer] Feels Safe at Home: Yes Safety Concerns: Feels Safe At This Time Do you think of yourself as: don't know Gender Identity: Male Assistive Devices: Wheelchair Assistive Devices Comment: contacts Allergies Allergies Allergy/AdvReac Type Severity Reaction Status Date / Time bee venom protein (honey bee) Allergy Intermediate Edema, Verified 10/21/23 21:17 hives latex Allergy Unknown Unknown Verified 10/21/23 21:17 vancomycin Allergy Unknown Unknown Verified 10/21/23 21:17 morphine AdvReac Mild N/V Verified 10/21/23 21:17 Home Meds Home Medications Medication Instructions Recorded Confirmed diphenhydramine HCl 25 mg capsule 25 mg PO DAILY PRN Insomnia 05/27/22 10/21/23 (Benadryl) famotidine 20 mg tablet 20 mg PO QAM 05/27/22 10/21/23 melatonin 3 mg capsule 6 mg PO HS PRN Insomnia 05/27/22 10/21/23 mycophenolate mofetil 250 mg 500 mg PO BID 05/27/22 10/21/23 capsule ascorbic acid (vitamin C) 500 mg 500 mg PO BID 01/27/23 10/21/23 tablet ezetimibe 10 mg tablet 10 mg PO QAM 01/27/23 10/21/23 methenamine mandelate 1 gram tablet 1 g PO BID 01/27/23 10/21/23 tacrolimus 1 mg capsule, See Rx Instructions PO Q12H 01/27/23 10/21/23 immediate-release cholecalciferol (vitamin D3) 250 250 mcg PO QAM 10/21/23 10/21/23 mcg (10,000 unit) capsule pravastatin 40 mg tablet 40 mg PO QPM 10/21/23 10/21/23 prednisone 5 mg tablet 5 mg PO QAM 10/21/23 10/21/23 Previous Rx's Medication Instructions Recorded ostomy adhesive #15 ea 10/15/22 ostomy supplies 2 1/4" #60 ea 10/15/22 ostomy supplies 2 1/4" #60 ea 10/15/22 needle (disp) 18 G 18 gauge x 1" #100 ea 05/03/23 (BD Regular Bevel [place]) syringe with needle 3 mL 25 x 5/8" #100 ea 05/03/23 (CareTouch Luer Lock Syringe with needle) testosterone cypionate 100 mg/mL 100 mg subcut Q7D #10 mL 10/04/23 intramuscular oil Results & Data (ED) Vital Signs Vital Signs - 24 hr 10/21/23 17:43 10/21/23 17:58 10/21/23 17:59 Temperature 36.8 C Temperature Source Temporal Artery Scan Pulse Rate 92 H 88 Pulse Rate [Right Finger] 87 Pulse Rhythm Regular Pulse Rhythm [Right Finger] Regular Pulse Strength [Right Finger] Normal Respiratory Rate 18 16 16 Respiratory Effort / Characteristics Non-Labored Spontaneous Non-Labored Respiratory Depth Normal Normal Respiratory Pattern Regular Blood Pressure 118/81 Blood Pressure [Left Arm] 125/75 Blood Pressure Mean 93 Blood Pressure Mean [Left Arm] 91 Blood Pressure Position Sitting Blood Pressure Position [Left Arm] Lying Pulse Oximetry 93 96 96 Oxygen Delivery Method Room Air Room Air Room Air Sepsis Recent Fever Within 48 Hours No Sepsis New/Unexplained Change in Mental Status N/A Sepsis Action Taken by Nursing No Action Required 10/21/23 19:02 10/21/23 20:02 Temperature Temperature Source Pulse Rate Pulse Rate [Right Finger] 87 Pulse Rhythm Pulse Rhythm [Right Finger] Pulse Strength [Right Finger] Respiratory Rate 18 Respiratory Effort / Characteristics Non-Labored Spontaneous Respiratory Depth Normal Respiratory Pattern Blood Pressure Blood Pressure [Left Arm] 112/71 Blood Pressure Mean Blood Pressure Mean [Left Arm] 84 Blood Pressure Position Blood Pressure Position [Left Arm] Pulse Oximetry 97 97 Oxygen Delivery Method Room Air Room Air Sepsis Recent Fever Within 48 Hours Sepsis New/Unexplained Change in Mental Status Sepsis Action Taken by Nursing Laboratory Data 10/21/23 18:44 10/21/23 18:44 Lab Results 10/21/23 10/21/23 10/21/23 Range/Units 17:38 18:44 20:16 WBC 8.57 (4.8-10.8) K/ul RBC 3.47 L (4.70-6.10) M/uL Hgb 9.6 L (14.0-18.0) g/dl Hct 28.9 L (42.0-52.0) % MCV 83.3 (80.0-100.0) fL MCH 27.7 (25.0-34.0) pg MCHC 33.2 (32.0-36.0) g/dL RDW Std Deviation 38.5 (36.4-46.3) fL RDW Coeff of Abigail 12.7 (11.5-14.5) % Plt Count 381 (130-400) K/uL MPV 9.6 (9.4-12.4) fL Immature Gran % (Auto) 0.6 % Neut % (Auto) 73.6 % Lymph % (Auto) 15.9 % Union % (Auto) 9.0 % Eos % (Auto) 0.4 % Baso % (Auto) 0.5 % Neut # (Auto) 6.32 (1.40-6.50) K/uL Lymph # (Auto) 1.36 (1.20-3.40) K/uL Union # (Auto) 0.77 H (0.11-0.59) K/uL Eos # (Auto) 0.03 (0.00-0.50) K/uL Baso # (Auto) 0.04 (0.00-0.20) K/uL Immature Gran # (Auto) 0.05 (0.01-0.20) K/uL Sodium 136 (136-145) mmol/L Potassium 3.5 (3.5-5.1) mmol/L Chloride 93 L (98-107) mmol/L Carbon Dioxide 32 (21-32) mmol/L Anion Gap 11 (3-11) BUN 48 H (6-23) mg/dl Creatinine 2.44 H (0.6-1.4) mg/dl Est Cr Clr Drug Dosing Not Reportable Est GFR ( Amer) 39.1 ml/min Est GFR (Non-Af Amer) 33.7 ml/min BUN/Creatinine Ratio 19.7 (10-20) Glucose 120 H (70-99(Fasting)) mg/dl Lactate 0.7 (0.4-2.0) mmol/L Calcium 9.5 (8.6-10.3) mg/dl Phosphorus 3.5 (2.5-4.9) mg/dl Magnesium 1.8 (1.7-2.4) mg/dl Total Bilirubin 0.2 (0.2-1.0) mg/dl AST 13 (13-39) U/L ALT 18 (7-52) U/L Alkaline Phosphatase 58 (34-104) U/L Total Protein 7.8 (6.0-8.3) gm/dl Albumin 4.4 (3.4-5.0) gm/dl Globulin 3.4 (2.5-4.0) gm/dl Albumin/Globulin Ratio 1.3 (0.9-2) Procalcitonin 0.08 (0-0.5) ng/ml TSH 0.690 (0.300-4.500) uIu/ml Urine Color Yellow Urine Appearance Turbid A (Clear) Urine pH 5.0 (4.5-7.5) Ur Specific [place] 1.011 (1.000-1.030) Urine Protein Negative (Negative) Urine Glucose (UA) Negative (Negative) Urine Ketones Negative (Negative) Urine Blood 2+ H (Negative) Urine Nitrite Negative (Negative) Urine Bilirubin Negative (Negative) Urine Urobilinogen Negative (Negative) Ur Leukocyte Esterase 3+ H (Negative) Urine WBC (Auto) >50 H (0-5) /hpf Urine RBC (Auto) 0-2 (0-2) /hpf U Hyaline Cast (Auto) 3-5 H (0-2) /lpf U Epithel Cells (Auto) 0-2 (0-2) /hpf Urine Bacteria (Auto) 3+ H (None Seen) SARS-CoV-2, RNA, NAAT NEGATIVE (NEGATIVE) Administered Medications Lactated Ringer's (Lr) 1,000 mls @ 125 mls/hr IV .Q8H IGNACIO Stop: 10/22/23 13:44 Last Admin: 10/21/23 22:34 Dose: 125 mls/hr Documented By: ANDRADE Discontinued Medications Acetaminophen (Acetaminophen 325 Mg Tab) 650 mg PO NOW STA Stop: 10/21/23 20:08 Last Admin: 10/21/23 20:11 Dose: 650 mg Documented By: DALLIN Diphenhydramine HCl (Diphenhydramine Capsule 25 Mg Cap) 25 mg PO NOW ONE Stop: 10/21/23 23:10 Last Admin: 10/21/23 23:34 Dose: 25 mg Documented By: HARIS Sodium Chloride (Nss) 500 mls @ 999 mls/hr IV .Q31M IGNACIO Stop: 10/21/23 18:45 Last Infusion: 10/21/23 20:51 Dose: Infused Documented By: Admin: 10/21/23 20:00 Dose: 999 mls/hr Documented By: ANDRADE Ertapenem (Invanz) 10 mls @ 2 mls/min IV NOW STA Stop: 10/21/23 20:53 Last Admin: 10/21/23 21:02 Dose: 2 mls/min Documented By: ANDRADE Melatonin (Melatonin 3 Mg Tab) 3 mg PO HS PRN PRN Reason: Sleep Stop: 11/20/23 23:08 Last Admin: 10/21/23 23:34 Dose: 3 mg Documented By: HARIS Mycophenolate Mofetil (Mycophenolate Mofetil 250 Mg Cap) 500 mg PO NOW STA Stop: 10/21/23 21:57 Last Admin: 10/21/23 23:35 Dose: 500 mg Documented By: HARIS Tacrolimus (Tacrolimus 1 Mg Cap) 3 mg PO NOW STA Stop: 10/21/23 21:57 Last Admin: 10/21/23 23:35 Dose: 3 mg Documented By: GND Imaging Data Radiologist's Impression: Renal Ultrasound 10/21/23 18:02 Exam(s): US RENAL EXAM: US Renal Transplant With Doppler CLINICAL HISTORY: NATHANIEL. TECHNIQUE: Real-time ultrasound of a transplant kidney with color Doppler flow imaging, spectral waveform analysis and image documentation. COMPARISON: Transplant renal ultrasound dated 10/29/2022 FINDINGS: Transplant kidney: The right kidney measures 13.1 cm in length. Similar degree of previously noted hydronephrosis. No stones. Renal artery: The main renal artery is patent with peak systolic velocities measuring between 223 cm/s proximally, 136 cm/s at the mid section and 145 cm/s distally near the hilum. Common iliac arteries: The right iliac artery is patent with peak systolic velocities between 120 and 100. 48 cm/s. Renal vein: The renal vein is patent. Common iliac vein: The iliac vein is patent. Bladder: The bladder is mildly distended. Minimal questionable echogenic debris suggested posteriorly. No bladder stones. A ureteral jet is noted. Other findings: Segmental arteries are patent with resistive indices measuring between 0.52 and 0.73. No tardus parvus waveforms identified. IMPRESSION: 1. Stable mild hydronephrosis of the transplant kidney when compared to the previous examination. 2. No arterial occlusion or critical stenosis. 3. The transplant renal vein is patent. Electronically signed by: Lang Duke MD 10/21/23 23:06 PM Discharge Plan Visit Data Chief Complaint: Abnormal Labs/Diagnostic Testing Stated Complaint: ABN BLOODWORK DOC WANTS CHECK ED Provider: Cipriano Peters Discharge Problem: UTI (urinary tract infection), Kidney transplant status, NATHANIEL (acute kidney injury) Patient Disposition: Admitted As Inpatient Condition: Fair Discharge Instructions Interventions: ED Discharge Assessment Last Done: 10/21/23 22:44
[2023-10-21 19:01] LABS: Basophils # (auto) 0.04 K/uL (0.00-0.20); Basophils % (auto) 0.5 %; Eosinophils # (auto) 0.03 K/uL (0.00-0.50); Eosinophils % (auto) 0.4 %; Hematocrit (blood only) 28.9 % (42.0-52.0); Hemoglobin 9.6 g/dl (14.0-18.0); Immature Granulocytes # (auto) 0.05 K/uL (0.01-0.20); Immature Granulocytes % (auto) 0.6 %; Lymphocytes # (auto) 1.36 K/uL (1.20-3.40); Lymphocytes % (auto) 15.9 %; Mean Corpuscular Hemoglobin 27.7 pg (25.0-34.0); Mean Corpuscular Hgb Conc 33.2 g/dL (32.0-36.0); Mean Corpuscular Volume 83.3 fL (80.0-100.0); Mean Platelet Volume 9.6 fL (9.4-12.4); Monocytes # (auto) 0.77 K/uL (0.11-0.59); Neutrophils # (auto) 6.32 K/uL (1.40-6.50); Neutrophils % (auto) 73.6 %; Platelet Count 381 K/uL (130-400); RDW Coefficient of Variation 12.7 % (11.5-14.5); RDW Standard Deviation 38.5 fL (36.4-46.3); Red Blood Count 3.47 M/uL (4.70-6.10); White Blood Count 8.57 K/ul (4.8-10.8)
[2023-10-21 19:16] LABS: Alanine Aminotransferase 18 U/L (7-52); Albumin Globulin Ratio 1.3 (0.9-2); Albumin Level 4.4 gm/dl (3.4-5.0); Alkaline Phosphatase 58 U/L (34-104); Anion Gap 11 (3-11); Aspartate Aminotransferase 13 U/L (13-39); BUN Creatinine Ratio 19.7 (10-20); Bilirubin,Total 0.2 mg/dl (0.2-1.0); Blood Urea Nitrogen 48 mg/dl (6-23); Calcium 9.5 mg/dl (8.6-10.3); Carbon Dioxide 32 mmol/L (21-32); Chloride 93 mmol/L (98-107); Est GFR (African American) 39.1 ml/min; Est GFR (Non-African American) 33.7 ml/min; Globulin 3.4 gm/dl (2.5-4.0); Glucose 120 mg/dl (70-99(Fasting)); Magnesium 1.8 mg/dl (1.7-2.4); Phosphorus 3.5 mg/dl (2.5-4.9); Potassium 3.5 mmol/L (3.5-5.1); Sodium 136 mmol/L (136-145); Total Protein 7.8 gm/dl (6.0-8.3)
[2023-10-21 19:23] LABS: Appearance Urine Turbid (Clear); Bacteria Urine Automated 3+ (None Seen); Bilirubin Urine Negative (Negative); Blood Urine 2+ (Negative); Color Urine Yellow; Epithelial Cell Urine Auto 0-2 /hpf (0-2); Glucose Urine UA Negative (Negative); Ketones Urine Negative (Negative); Leukocyte Esterase Urine 3+ (Negative); Nitrite Urine Negative (Negative); Protein Urine Negative (Negative); RBC Urine Automated 0-2 /hpf (0-2); Specific Gravity Urine 1.011 (1.000-1.030); Urobilinogen Urine Negative (Negative); WBC Urine Automated >50 /hpf (0-5)
[2023-10-21] MEDS: SODIUM CHLORIDE 0.9% 500 ML IV SCH (20:00)
[2023-10-21] MEDS: ACETAMINOPHEN 325 MG TAB PO STA (20:11)
[2023-10-21] MEDS: ERTAPENEM SODIUM 10 ML IV STA (21:02)
--- NOTE | 2023-10-21 21:18 | History & Physical Report ---
Date of Service October 21, 2023 Assessment & Plan (1) UTI (urinary tract infection): Plan: Patient came in on 10/20 for elevated creatinine on outpatient blood work UA infected with 2+ positive blood on arrival No leukocytosis; afebrile Renal ultrasound pending Hx of UCxs with ESBL E. coli and MDR IV ertapenem q24h IVF with LR at 125mL/hr x 2L IV antiemetics PRN Acetaminophen PRN Infectious disease consulted Follow current UCx A.m. CBC, BMP (2) Acute on chronic renal failure: Plan: BUN 48, creatinine 2.44 (baseline around 2.11), EGFR 33.7 Avoid nephrotoxic agents for possible Renal dose current medications Nephrology consulted (3) Kidney transplant status: Plan: Follows with Dr. Gil Hernandez ([facility]) Continue mycophenolate, tacrolimus Tacrolimus level ordered, pending Mycophenolate level ordered, pending (4) Anemia: Plan: Chronic; secondary to kidney; Hgb 9.6 on arrival No signs of active bleeding on physical exam Continue to monitor H&H (5) Self-catheterizes urinary bladder: Plan: 4x per day (6) Ileostomy care: Plan: Daily colostomy care (7) History of extended-spectrum beta-lactamase producing Escherichia coli infection: Plan Disposition: Admit to [facility] Full code Regular diet VTE PPx: Heparin 5000u SQ q12h History of Present Illness Chief Complaint: Abnormal labs/diagnostic testing Primary Care Provider: Grecia Bravo DO Petros is a pleasant 33-year-old male with PMH of spina bifida, neurogenic bladder, colostomy, ESBL E. 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 He presented on 10/20 for elevated creatinine on outpatient labs (2.7) and feeling feverish over the weekend. While he did not take his temperature over the weekend, he reports he might of had a low-grade fever which resolved within 1 day. He reach out to his doctors at [facility], who recommended he come into the ED. The ED also reach out to [facility], who confirmed he would be okay to stay at [facility] until his creatinine improves. Patient reports he is currently asymptomatic at this time except for a mild headache, and ongoing dry cough. Patient took all his regular morning medications today; no recent change in medications. He manages own medicine at home. He reports he is still producing urine. He drinks plenty of fluids and reports he drinks 64 ounces of water per day. No history of kidney stones. He is largely bound to his wheelchair at baseline. He denies any smoking, tobacco use, or recent alcohol use. Patient's vitals are stable at time of admission. ED course: Ertapenem 10 mL IV Tylenol 650 mg p.o. NSS 500 mL IV ROS: Patient endorses low-grade fever (resolved), PLUNKETT, and dry cough. Patient denies chills, night sweats, dizziness, lightheadedness, chest pain, chest palpitations, pleuritic CP, SOB, abdominal pain, N/V/D, burning with urination, decreased urinary frequency, or changes in colostomy output. Allergies Allergy/AdvReac Type Severity Reaction Status Date / Time bee venom protein (honey bee) Allergy Intermediate Edema, Verified 10/21/23 21:17 hives latex Allergy Unknown Unknown Verified 10/21/23 21:17 vancomycin Allergy Unknown Unknown Verified 10/21/23 21:17 morphine AdvReac Mild N/V Verified 10/21/23 21:17 Home Medications Medication Instructions Recorded Confirmed Type diphenhydramine HCl 25 mg capsule 25 mg PO DAILY PRN Insomnia 05/27/22 10/21/23 History (Benadryl) famotidine 20 mg tablet 20 mg PO QAM 05/27/22 10/21/23 History melatonin 3 mg capsule 6 mg PO HS PRN Insomnia 05/27/22 10/21/23 History mycophenolate mofetil 250 mg 500 mg PO BID 05/27/22 10/21/23 History capsule ostomy adhesive #15 ea 10/15/22 10/21/23 Rx ostomy supplies 2 1/4" #60 ea 10/15/22 10/21/23 Rx ostomy supplies 2 1/4" #60 ea 10/15/22 10/21/23 Rx ascorbic acid (vitamin C) 500 mg 500 mg PO BID 01/27/23 10/21/23 History tablet ezetimibe 10 mg tablet 10 mg PO QAM 01/27/23 10/21/23 History methenamine mandelate 1 gram tablet 1 g PO BID 01/27/23 10/21/23 History tacrolimus 1 mg capsule, See Rx Instructions PO Q12H 01/27/23 10/21/23 History immediate-release needle (disp) 18 G 18 gauge x 1" #100 ea 05/03/23 10/21/23 Rx (BD Regular Bevel Emlenton) syringe with needle 3 mL 25 x 5/8" #100 ea 05/03/23 10/21/23 Rx (CareTouch Luer Lock Syringe with needle) testosterone cypionate 100 mg/mL 100 mg subcut Q7D #10 mL 10/04/23 10/21/23 Rx intramuscular oil cholecalciferol (vitamin D3) 250 250 mcg PO QAM 10/21/23 10/21/23 History mcg (10,000 unit) capsule pravastatin 40 mg tablet 40 mg PO QPM 10/21/23 10/21/23 History prednisone 5 mg tablet 5 mg PO QAM 10/21/23 10/21/23 History 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 Acute on chronic renal failure UTI (urinary tract infection) (Acute) Hypomagnesemia (Acute) Hyperlipidemia Ileostomy care (Chronic) Kidney transplant status (Acute) Vitamin D deficiency Secondary hyperparathyroidism of renal origin Anemia Secondary to chronic disease and iron deficiency Primary hypogonadism in male Low bone mass Tethered spinal cord (Acute) Spina Bifida - s/p neurosurgical intervention "several years ago" - has had gradually progressive subsequent distal weakness/numbness Self-catheterizes urinary bladder (Chronic) ~4x/day Colostomy status (Acute) Since Medical History (Updated 10/22/23 @ 00:00 by Cipriano Peters M.D.) Metabolic alkalosis AV fistula LUE (non-functioning) Surgical History (Updated 10/22/23 @ 00:00 by Cipriano Peters M.D.) S/P kidney transplant (~2006) S/P hemodialysis catheter insertion S/P arteriovenous (AV) fistula repair Left upper revision 07/2020. A-V fistula Left AVF creation (04/19/20): MAC + PNB at 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) LENA Boyce as History of orchiectomy Kidney transplanted H/O hernia repair spinal hernia Hx of removal of testicle bilateral Hx of laminectomy lumbar spinal cord release History of esophagogastroduodenoscopy Hx of colonoscopy Family History Mother Diabetes Heart disease Father Diabetes Other No family history of adverse response to anesthesia Social History Smoking Status: Never smoker Second Hand Exposure: No; Do You Dip or Chew Tobacco: No; Hx Alcohol Use: Yes Alcohol type: beer Hx Substance Use: No Preferred Language: Armenian Communication Ability: Effective Substance Abuse Rn Required: No Beliefs That Will Affect Care: None marital status: Single Current Living Situation: Family current occupational status: 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[employer] Feels Safe at Home: Yes Safety Concerns: Feels Safe At This Time Do you think of yourself as: don't know Gender Identity: Male Assistive Devices: Wheelchair Assistive Devices Comment: contacts Review of Systems Review of Systems: See HPI above Physical Exam Physical Exam: General: no acute distress; pleasant affect; non-toxic appearing; well- nourished; cooperative; SpO2 97% on room HEENT: normocephalic, atraumatic; no scleral icterus; PERRLA; vision and hearing grossly intact Neck: supple; no lymphadenopathy; trachea midline Skin: warm, dry without signs of tenting; no cyanosis; no rashes, bruising, lesions, or erythema noted CV: chest wall NTP; RRR; S1/S2 normal; no murmurs/rubs/gallops; pulses intact and symmetric at radial, DP, and PT Lungs: no acute respiratory distress; symmetrical chest wall expansion; clear breath sounds across all lung roberson w/o adventitious sounds; no wheezing ABD: Soft, NTP; colostomy without signs of erythema or infection; BS present; no rebound/guarding; no distention Back: Negative CVA tenderness MSK: no tics or fasciculations; no edema noted in the LEs b/l, nonerythematous Neuro: A&Ox3; normal mood and affect; fluent speech; no focal deficits Results & Data Results & Data Vital Signs (Past 12 Hours) Vital Signs Temp Pulse Pulse Resp BP BP Pulse Ox 10/21/23 20:02 87 18 112/71 97 10/21/23 19:02 97 10/21/23 17:59 88 16 96 10/21/23 17:58 87 16 125/75 96 10/21/23 17:43 36.8 C 92 H 18 118/81 93 O2 Del Method 10/21/23 20:02 Room Air 10/21/23 19:02 Room Air 10/21/23 17:59 Room Air 10/21/23 17:58 Room Air 10/21/23 17:43 Room Air Laboratory Results Abnormal lab results 10/21/23 10/21/23 Range/Units 17:38 18:44 RBC 3.47 L (4.70-6.10) M/uL Hgb 9.6 L (14.0-18.0) g/dl Hct 28.9 L (42.0-52.0) % [place] # (Auto) 0.77 H (0.11-0.59) K/uL Chloride 93 L (98-107) mmol/L BUN 48 H (6-23) mg/dl Creatinine 2.44 H (0.6-1.4) mg/dl Glucose 120 H (70-99(Fasting)) mg/dl Urine Appearance Turbid A (Clear) Urine Blood 2+ H (Negative) Ur Leukocyte Esterase 3+ H (Negative) Urine WBC (Auto) >50 H (0-5) /hpf U Hyaline Cast (Auto) 3-5 H (0-2) /lpf Urine Bacteria (Auto) 3+ H (None Seen) ECG Additional Comments: ECG revealed NSR at 82 bpm; QTc 408 Code Status & VTE Plan Code Status Full code VTE Prophylaxis Plan VTE Prophylaxis will be ordered: Yes Supervising Physician Co-Signing Physician Notes Attending addendum: I have physically seen this patient, have supervised the TOM's activities, and agree with the H&P unless as otherwise noted. Assessment and Plan: Urinary tract infection/kidney transplant status- Previous urinary tract infections: 03/27/2020 ESBL E. coli. 08/21/2022 Enterobacter cloacae. 10/27/2022 MDR E. coli Follow urine culture and sensitivity Continue ertapenem 1 g IV every 24 hours begun in the ED Status post 500 mL normal saline bolus from the ED LR at 125 mL/h x 2 L Consult nephrology Consult infectious disease [facility] has been contacted by the ED, and is aware of the patient Continue mycophenolate and tacrolimus, with evening doses to be given. Check drug levels Patient will continue to self catheterize Acute kidney injury/kidney transplant status- Patient reportedly had outpatient laboratories performed yesterday which showed creatinine 2.7 Creatinine in the ED this evening is 2.44, with most recent baseline on 10/04/2023 being 2.1 IV fluids as noted, recheck laboratories in the a.m. Presence of ileostomy- Daily care PG Care Time/CCT Total # of Minutes Spent Total Time Spent with Patient: Total time spent is greater than 50% in coordination of care (as documented) at patient's floor/unit and/or counseling patient: C[place] [address] INT INP/OBS CARE 3/75MIN Patient Type Established Medical Decision Making High Complexity Diagnoses UTI (urinary tract infection) N39.0 Acute on chronic renal failure N17.9; N18.4 Acute renal failure type: unspecified Chronic kidney disease stage: stage 4 (severe) Kidney transplant status Z94.0 Anemia D64.9 Self-catheterizes urinary bladder Z78.9 Ileostomy care Z43.2 History of extended-spectrum beta-lactamase producing Escherichia coli infection Z86.19 (2) Acute on chronic renal failure Acute renal failure type: unspecified Chronic kidney disease stage: stage 4 (severe) Qualified Code(s): N17.9 - Acute kidney failure, unspecified; N18.4 - Chronic kidney disease, stage 4 (severe)
[2023-10-21] MEDS: LACTATED RINGER'S 1,000 ML IV SCH (22:34)
--- NOTE | 2023-10-21 23:08 | Ultrasound Report ---
Exam(s): US RENAL EXAM: US Renal Transplant With Doppler CLINICAL HISTORY: NATHANIEL. TECHNIQUE: Real-time ultrasound of a transplant kidney with color Doppler flow imaging, spectral waveform analysis and image documentation. COMPARISON: Transplant renal ultrasound dated 10/29/2022 FINDINGS: Transplant kidney: The right kidney measures 13.1 cm in length. Similar degree of previously noted hydronephrosis. No stones. Renal artery: The main renal artery is patent with peak systolic velocities measuring between 223 cm/s proximally, 136 cm/s at the mid section and 145 cm/s distally near the hilum. Common iliac arteries: The right iliac artery is patent with peak systolic velocities between 120 and 100. 48 cm/s. Renal vein: The renal vein is patent. Common iliac vein: The iliac vein is patent. Bladder: The bladder is mildly distended. Minimal questionable echogenic debris suggested posteriorly. No bladder stones. A ureteral jet is noted. Other findings: Segmental arteries are patent with resistive indices measuring between 0.52 and 0.73. No tardus parvus waveforms identified. IMPRESSION: 1. Stable mild hydronephrosis of the transplant kidney when compared to the previous examination. 2. No arterial occlusion or critical stenosis. 3. The transplant renal vein is patent. Electronically signed by: Lang Duke MD 10/21/23 23:06 PM
[2023-10-21] MEDS ORDERED: ONDANSETRON INJ 2 MG/ML 2 ML VIAL IV PRN (23:27)
[2023-10-21] MEDS ORDERED: diphenhydrAMINE Capsule 25 MG CAP PO PRN (23:27)
[2023-10-21] MEDS: diphenhydrAMINE Capsule 25 MG CAP PO ONE (23:34)
[2023-10-21] MEDS: MELATONIN 3 MG TAB PO PRN (23:34)
[2023-10-21] MEDS: TACROLIMUS 1 MG CAP PO STA (23:35)
[2023-10-21] MEDS: MYCOPHENOLATE MOFETIL 250 MG CAP PO STA (23:35)
--- OUTSIDE RECORDS SUMMARY | 2023-10-22 03:24 | External Medical Summary | Summary of Care ---
Author Name Unknown Organization [facility] Address [address] [facility] [place] [address] Phone [phone] Care Team Providers Care Home Decorator Name Role Phone Grecia Bravo DO Primary Care Provider + Reason for Visit * Reason Comments Outpatient Testing Encounter Details Date Type Department Care Team (Late st Contact Info) Description 10/04/2023 2:40 PM EDT Laboratory Laboratory, [place] [address] [place] [phone] [place] [address] [place] [id number] Kidney replaced by transplant; Immunocompromised, acquired (HCC); Urinary tract infection; Aspirin intolerance; Vitamin D deficiency; Testicular hypofunction; Hyperparathyroidism, secondary renal (HCC) Allergies Active Allergy Reactions Criticality Noted Date Comments Bee Venom Edema Other,Hives 11/17/2010 Latex 05/12/2009 sensitivity Morphine Nausea/vomiting 11/17/2010 Vancomycin Flushing,Itching 07/28/2022 documented as of this encounter (statuses as of 10/04/2023) Medications Medication Sig Dispensed Refills Start Date End Date Status Tacrolimus 1 MG Oral Capsule (PROGRAF)Indications :Kidney replaced by transplant TAKE FOUR CAPSULES BY MOUTH IN THE MORNING AND TAKE FOUR CAPSULES BY MOUTH IN THE EVENING 720 Cap 2 01/21/2020 Active Additional Information Patient taking differently: TAKE SIX CAPSULES BY MOUTH IN THE MORNING AND TAKE FIVE AND A HALF CAPSULES BY MOUTH IN THE EVENING, Reported on 07/28/2022 Famotidine 20 MG Oral Tablet (Pepcid) Take 1 Tablet by mouth in the morning. Active Mycophenolate Mofetil 250 MG Oral Capsule Take 2 Capsules by mouth in the morning and 2 Capsules before bedtime. Active Sulfamethoxazole-Tri methoprim 400-80 MG Oral Tablet Take 1 Tablet by mouth in the morning. Active valGANciclovir HCl 450 MG Oral Tablet (Valcyte) Take 1 Tablet by mouth in the morning. Active melatonin 0.25 MG OR TABS 6 Tablets. 05/27/2022 Active diphenhydrAMINE HCl 25 MG Oral Capsule (Benadryl) 1 Capsule. 05/27/2022 Active Docusate Sodium 100 MG Oral Capsule (Colace) 05/06/2022 Active Tacrolimus 5 MG Oral Capsule (Prograf) 06/29/2022 Active Pravastatin Sodium 40 MG Oral Tablet (Pravachol) 06/03/2022 Active predniSONE 5 MG Oral Tablet (Deltasone) 07/27/2022 Active documented as of this encounter (statuses as of 10/04/2023) Active Problems Problem Noted Date Diagnosed Date Obesity 07/28/2022 Anemia due to stage 4 chronic kidney disease Anemia 07/30/2020 Complicated UTI (urinary tract infection) 2019 Anemia of chronic renal failure 06/19/2019 Anemia of chronic renal failure, stage 4 (severe ) 06/19/2019 Stage 4 chronic kidney disease 02/17/2019 Renal transplant disorder 11/24/2018 Vitamin D deficiency 12/15/2016 Anemia due to vitamin B12 deficiency 06/02/2016 Neurogenic bladder 03/19/2016 Overview: pt self catheterizes Nephropathy, 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 Overview: Genital aplasia, 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: defect - omphalocele, bladder exstrophy, spinal defect Appendico-vesicostomy in place 07/20/2005 Overview: Due to cloacal exstrophy - self caths Osteochondropathy 06/08/2005 documented as of this encounter (statuses as of 10/04/2023) Resolved Problems Problem Noted Date Diagnosed Date Resolved Date Sepsis secondary to UTI 10/31/201910/10 Aplastic anemia 12/01/2018 03/19/2020 Acute renal failure superimp osed on stage 3 chronic kidney disease 11/16/2018 11/05/2019 Hyponatremia 11/02/2018 04/13/2019 Chronic kidney disease, stage III (moderate) 9 04/26/2019 Stage 3 chronic kidney disease 10/17/2018 11/11/2019 Overview: ICD-10 update of inactive term Acute gastroenteritis 10/14/20182018 Hypokalemia 10/11/2018 04/13/2019 Anemia 10/11/2018 10/17/2018 NATHANIEL (acute kidney injury) 07/22/2017 Vitamin B 12 deficiency 10/19/201604/08 Overview: Injections started 10/2016 Acute cystitis with hematuria 03/21/2016 03/26/2016 Colostomy status 03/19/2016 03/19/2020 Overview: Since , secondary to cloacal extrophy. UTI (urinary tract infection) 03/14/2016 07/29/2017 Renal transplant disorder 03/14/2016 Azotemia 03/14/2016 09/08/2016 Splenomegaly 08/31/2015 04/26/2019 ARF (acute renal failure) 08/29/2015 Iron deficiency anemia 08/26/201504/25 Overview: Followed by hematology - getting iron infusions 2017 Dehydration 08/14/2015 03/26/2016 Acute renal failure (ARF) 05/29/2015 Overview: Hospitalized 05/28/15 due to dehydration - resolved w/ IVF. 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 Right L4-5 fascetectomy. Microscopic Epidural and intradural untethering of spinal cord and lipomyelomeningocele.Sectioning of Fatty filum terminale. Scoliosis associated with other condition 10/10/2013 12/15/2016 Proteinuria 12/05/2011 06/18/2014 Chronic renal insufficiency 07/20/2005 03/15/2008 Overview: Resolved per Duplicate Protocol #2. Chronic renal insufficiency 06/08/2005 06/06/2015 Anemia of chronic renal failure 06/08/2005 12/05/2011 Renal osteodystrophy 06/08/2005 012 documented as of this encounter (statuses as of 10/04/2023) Immunizations Name Administration Dates Next Due Seasonal Influenza, PF, 6 M & above, IM , (FluLaval or Fluzone) 10/17/2018 documented as of this encounter Social History Tobacco Use Types Packs/Day Years Used Date Smoking Tobacco: Never Smokeless Tobacco: Never Alcohol Use Standard Drinks/Week Comments Yes 0 (1 standard drink = 0.6 oz pur e alcohol) social PHQ-2 Answer Date Recorded PHQ-2 Score 0 11/09/2019 Hunger Vital Sign Answer Date Recorded Worried About Running Out of Food in the Last Ye ar Never true 10/17/2018 Ran Out of Food in the Last Year Never true 10/17/2018 Personal Safety Answer Date Recorded Do you feel unsafe or have concerns for your saf ety? No 07/28/2022 Do you have concerns for you r family's safety? (Household - for ages 0-17 years) Not on file 07/28/2022 Utilities Answer Date Recorded Do you have trouble paying y our heating, water, or electric bill? (Adult - for ages 18 years and over) Not on file 07/30/2023 Is your family able to pay t he heat, water, or electric bill? (Household - for ages 0-17 years) Not on file 07/30/2023 Does your family have access to good internet? (Household - for ages 0-17 years) Not on file 07/30/2023 Social Connections Answer Date Recorded How often do you feel lonely or isolated from those around you? (Adult - for ages 18 years and over) Not on file 07/27/2023 Transportation Needs Answer Date Record ed READ ONLY Do you have troubl e getting a ride to medical visits or work? Never True 07/28/2022 Does your family have a hard time getting a ride to doctors visits? (Household - for ages 0-17 years) Not on file 07/28/2022 Has lack of transportation k ept you from medical appointments, meetings, work, or from getting things needed for daily living? Check all that apply. (Adult - for ages 18 years and over) Not on file 07/28/2022 Do you (or your family) have trouble finding or paying for a ride (transportation)? (Household - for ages 0-17 years) Not on file 07/28/2022 Housing Stability Answer Date Recorded Do you currently live in a s helter or have no steady place to sleep at night? (Adult - for ages 18 years and over) Not on file 07/28/2022 READ ONLY Do you think you a re at risk of becoming homeless? No 07/28/2022 Does your family worry about paying for your home or becoming homeless? (Household - for ages 0-17 years) Not on file 0 07/28/2022 Are you homeless or worried that you might be in the future? (Adult - for ages 18 years and over) Not on file Are you (or your family) tee eless or worried that you might be in the future? (Household - for ages 0-17 years) Not on file Food Insecurity Answer Date Recorded Do you need food for this week? No 07/28/2022 Are you able to get enough f ood for your family? (Household - for ages 0-17 years) Not on file 07/28/2022 Does your family need food t his week? (Household - for ages 0-17 years) Not on file 07/28/2022 Do you always have enough fo od for your family? (Household - for ages 0-17 years) Not on file 07/28/2022 Sex and Gender Information Value Date Recorded Sex Assigned at Male 12/01/2018 9:29 AM EDT Gender Identity Male 12/01/2018 9:29 AM EDT Sexual Orientation Straight 12/01/2018 9: 29 AM EDT Job Start Date Occupation Industry Not on file Not on file Not on file documented as of this encounter Functional Status Functional Status Response Date of Assess ment Are you deaf or do you have serious difficulty h earing? No 07/28/2022 Are you blind or do you have serious difficulty seeing, even when wearing glasses? No 07/28/2022 Do you have serious difficul ty walking or climbing stairs? (5 years old or older) Yes 07/28/2022 Do you have difficulty dress ing or bathing? (5 years old or older) No 07/28/2022 Because of a physical, menta l, or emotional condition, do you have difficulty doing errands alone such as visiting a doctor s office or shopping? (15 years old or older) No 07/29/19 Cognitive Status Response Date of Assessm ent Because of a physical, menta l, or emotional condition, do you have serious difficulty concentrating, remembering, or making decisions? 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, acquired (HCC) 10/04/2023 3:04 PM EDT CBC WITH WBC DIFFERENTIAL Lab Routine Kidney 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, acquired (HCC) 10/04/2023 3:04 PM EDT TACROLIMUS LEVEL Lab Routine Kidney 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, acquired (HCC) 10/04/2023 3:04 PM EDT MAGNESIUM Lab Routine Kidney 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, acquired (HCC) 10/04/2023 3:04 PM EDT PHOSPHORUS Lab Routine Kidney 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, acquired (HCC) 10/04/2023 3:04 PM EDT LIPID PANEL WITH DIRECT LDL IF TG IS HIGH Lab Routine Kidney 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, acquired (HCC) 10/04/2023 3:04 PM EDT 25-HYDROXY VITAMIN D Lab Routine Vitamin D deficiency Testicular hypofunction Hyperparathyroidism, secondary renal (HCC) 10/04/2023 3:04 PM EDT PTH Lab Routine Vitamin D deficiency Testicular hypofunction Hyperparathyroidism, secondary renal (HCC) 10/04/2023 3:04 PM EDT CALCIUM, IONIZED Lab Routine Vitamin D deficiency Testicular hypofunction Hyperparathyroidism, secondary renal (HCC) 10/04/2023 3:04 PM EDT CBC Lab Routine Kidney 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, acquired (HCC) 10/04/2023 3:04 PM EDT DIFFERENTIAL, AUTOMATED Lab Routine Kidney 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, acquired (HCC) 10/04/2023 3:04 PM EDT Health Maintenance Due Date Last Done Comments Hepatitis C Screening 06/08/2009 Nephrology Referral 06/08/2009 DTaP,Tdap,and Td Vaccines (1 - Tdap) 06/08/2010 Albumin/Creatinine Ratio 12/14/2011 12/13/2010 PTH 05/23/2020 05/24/2019, 12/09, 10/11/2018, Additional history exists COVID-19 Vaccine (3 - Pfizer risk series) 06/12/2020 05/15/2020, 04/24/2020 Depression Screening 11/08/2020 11/09/2019 Influenza Vaccine (FLU shot) (#1) 2023 10/17/2018 GFR 03/02/2024 08/31/2023, 2 04/2023, 08/30/2023, Additional history exists Hgb 08/29/2024 08/30/2023, 07/0 06/2023, 07/02/2023, Additional history exists Phosphate 08/29/2024 08/30/2023, 07/0 06/2023, 07/02/2023, Additional history exists Pneumococcal Vaccine: Pediatrics (0 to 5 Years) and At-Risk Patients (6 to 64 Years) (3 of 3 - PPSV23 or PCV20) 01/20/2026 01/20/2021, 10/30/2020 Hepatitis B Vaccine Completed 02/23/2021, 12/23/2020, 11/25/2020, Additional history exists HIV Screening Completed 06/02/2022, 04/09, 03/17/2022, Additional history exists HPV (Gardasil) Vaccine Aged Out No lo nger eligible based on patient's age to complete this topic MENINGOCOCCAL (MENACTRA/MENVEO) Aged Out No longer eligible based on patient's age to complete this topic documented as of this encounter Medical Devices Implanted Type Area Treasury Manager Device Identifier Shelf Expiration Date Model / Serial / Lot Graft Duramatrix Onlay 1x3 In - [id number] Implanted:Qty: 1 on 12/11/2013 at [place] [facility] [place]A: Back COLLAGEN MATRIX 07/09/2015 [facility] / / [id number] Duragen Plus 3x3 Dp 1033 Min5 - [id number] Implanted:Qty: 1 on 12/11/2013 at [place] [facility] [place]/A: Back [employer] CHAPITO 03/10/2016 DP-1033 / / [id number] documented as of this encounter Visit Diagnoses Diagnosis Kidney 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 Question Answer Comments Discussion of Advance Directives occurred with: Patient * Full Code Date Activated Date Inactivated Comments 10/31/2019 9:34 PM 11/05/2019 6:41 PM This order r eflects the patients wishes and were consensually agreed upon. Question Answer Comments Discussion of Advance Directives occurred with: Not Discussed * Full Code Date Activated Date Inactivated Comments 04/11/2019 8:21 PM 04/13/2019 4:56 PM This order ref lects the patients wishes and were consensually agreed upon. * Full Code Date Activated Date Inactivated Comments 10/11/2018 8:39 PM 10/14/2018 7:27 PM This order ref lects the patients wishes and were consensually agreed upon. Question Answer Comments Discussion of Advance Directives occurred with: Not Discussed * Full Code Date Activated Date Inactivated Comments 07/22/2017 3:43 PM 07/25/2017 6:50 PM This order r eflects the patients wishes and were consensually agreed upon. Question Answer Comments Discussion of Advance Directives occurred with: Patient Does the patient have a Living Will? No Does the patient have Health Care Power of Attor rachael? No Care Teams Home Decorator Relationship Specialty Start Date End Date Grecia Bravo DO [address] [place] [address] PCP - General Family Medicine 08/13/23 documented as of this encounter
--- OUTSIDE RECORDS SUMMARY | 2023-10-22 03:24 | External Medical Summary | Summary of Care ---
Author Name Unknown Organization [facility] Address [address] [facility] [address] Phone [phone] Care Team Providers Care Technology Education Instructor Name Role Phone Grecia Bravo DO Primary Care Provider + Reason for Visit * Reason Comments Outpatient Testing Encounter Details Date Type Department Care Team (Late st Contact Info) Description 10/20/2023 2:10 PM EDT Laboratory Laboratory, [place] [address] [place] [phone] [facility] [address] [place] [address] Kidney replaced by transplant Allergies Active Allergy Reactions Criticality Noted Date Comments Bee Venom Edema Other,Hives 11/17/2010 Latex 05/12/2009 sensitivity Morphine Nausea/vomiting 11/17/2010 Vancomycin Flushing,Itching 07/28/2022 documented as of this encounter (statuses as of 10/20/2023) Medications Medication Sig Dispensed Refills Start Date [...] as of this encounter (statuses as of 10/20/2023) Active Problems Problem Noted Date Diagnosed Date [...] Overview: Repaired when [address] 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 Overview: defect - omphalocele, bladder exstrophy, spinal defect Appendico-vesicostomy in place 07/20/2005 Overview: Due to cloacal exstrophy - self caths Osteochondropathy 06/08/2005 documented as of this encounter (statuses as of 10/20/2023) Resolved Problems Problem Noted Date Diagnosed Date [...] as of this encounter (statuses as of 10/20/2023) Immunizations Name Administration Dates Next Due Seasonal [...] 18 years and over) Not on file 3 Are you (or your family) tee eless [...] 11/08/2023 10:40 AM EDT Office Visit Dermatology [address] [address] Demetrice Lovell PA-C [address] [facility] [place] [address] Pending Results Name Type Priority Associated Diagnoses Date /Time COMPREHENSIVE METABOLIC PANEL Lab Routine Kidney replaced by transplant 10/20/2023 2:19 PM EDT CBC WITH WBC DIFFERENTIAL Lab Routine Kidney replaced by transplant 10/20/2023 2:19 PM EDT CBC Lab Routine Kidney replaced by transplant 10/20/2023 2:19 PM EDT DIFFERENTIAL, AUTOMATED Lab Routine Kidney replaced by transplant 10/20/2023 2:19 PM EDT PROTEIN/ CREATININE RATIO, URINE Lab Routine Kidney replaced by transplant 10/20/2023 2:53 PM EDT Health Maintenance Due Date Last Done Comments Hepatitis C Screening 06/08/2009 Nephrology Referral 06/08/2009 DTap/Tdap Vaccines (1 - Tdap) 06/08/2010 Albumin/Creatinine Ratio 12/14/2011 12/13/2010 COVID-19 Vaccine (3 - Pfizer risk series) 06/12/2020 05/15/2020, 04/24/2020 Depression Screening 11/08/2020 11/09/2019 Influenza Vaccine (FLU shot) (#1) 2023 10/17/2018 GFR 04/05/2024 10/04/2023, 08/09, 08/31/2023, Additional history exists Hgb 10/03/2024 10/04/2023, 08/09, 08/13/2023, Additional history exists PTH 10/03/2024 10/04/2023, 05/09, 12/19/2018, Additional history exists Phosphate 10/03/2024 10/04/2023, 08/09, 08/13/2023, Additional history exists Pneumococcal Vaccine: Pediatrics (0 [...] this encounter Medical Devices Implanted Type Area Developmental Writing Instructor Device Identifier Shelf Expiration Date Model / Serial / Lot Graft Duramatrix Onlay 1x3 In - [id number] Implanted:Qty: 1 on 12/11/2013 at [place] [facility] [place]/A: Back COLLAGEN MATRIX 07/09/2015 [facility]13 / / [id number] Duragen Plus 3x3 Dp 1033 Min5 - [id number] Implanted:Qty: 1 on 12/11/2013 at [place] [facility] [place] N/A: Back [employer] [place] 03/10/2016 DP-1033 / / [id number] documented as of this encounter Visit Diagnoses Diagnosis Kidney replaced by transplant documented in this encounter Advance Directives * [...] Power of Attor rachael? No Care Teams Technology Education Instructor Relationship Specialty Start Date End Date Grecia Bravo DO [address] [facility] [place] [address] PCP - General Family Medicine 08/13/23 documented as of this encounter
--- OUTSIDE RECORDS SUMMARY | 2023-10-22 03:24 | External Medical Summary ---
Author Name Unknown Address Unknown Organization [id number]:LABORATORY [place] [address] [facility] [address] [facility] [address] Laboratory Report Ordering Provider Test Date Status MADELINE ZULUAGA 10/20/2023 14:19:39 Final Observation Date Value Abnormality Reference (Units ) Status WBC, Total 10/20/2023 14:19:39 7.19 4.00-10.80 (K/uL) Final RBC 10/20/2023 14:19:39 3.64 4.50-5.25 (M/uL) Final Hemoglobin 10/20/2023 14:19:39 10.1 Below low normal 14.0-16.8 (g/dL) Final HCT 10/20/2023 14:19:39 32.4 Below low normal 40.0-48.4 (%) Final MCV 10/20/2023 14:19:39 89.0 82.0-99.5 (fL) Final MCH 10/20/2023 14:19:39 27.7 27.0-34.0 (pg) Final MCHC 10/20/2023 14:19:39 31.2 32.0-36.0 (g/dL) Final RDW 10/20/2023 14:19:39 12.8 11.5-15.5 (%) Final Platelets 10/20/2023 14:19:39 395 140-400 (K/uL) Final MPV 10/20/2023 14:19:39 10.2 6.6-11.1 (fL) Final Nucleated erythrocytes/100 leukocytes [Ratio] in Blood by Automated count 10/20/2023 14:19:39 0 <=0 (/100 WBCs) Final Performing Location [facility] [place] [address] [place] [address] [place] [address]
--- OUTSIDE RECORDS SUMMARY | 2023-10-22 03:24 | External Medical Summary ---
Author Name Unknown Address Unknown Organization [id number]:LABORATORY [facility] [place] - [address] [facility] [place] [address] Laboratory Report Ordering Provider Test Date Status MADELINE ZULUAGA 10/20/2023 14:19:39 Final Observation Date Value Abnormality Reference (Units ) Status SYNC LEUKOCYTES IN BLOOD BY AUTOMATED COUNT 10/20/2023 14:19:39 7.19 4.00-10.80 (K/uL) Final Segs 10/20/2023 14:19:39 74.7 40.0-75.0 (%) Final Lymphs % 10/20/2023 14:19:39 14.0 Below low normal 18.0-42.0 (%) Final Monos 10/20/2023 14:19:39 9.7 1.0-11.0 (%) Final Eosinophils 10/20/2023 14:19:39 0.4 0.0-6.0 (%) Final Basos 10/20/2023 14:19:39 0.6 0.0-2.0 (%) Final Immature Granulocyte, Percent 10/20/2023 14:19:39 0.6 0.0-2.0 (%) Final Absolute Segs 10/20/2023 14:19:39 5.37 1.80-7.70 (K/uL) Final Lymphs, absolute 10/20/2023 14:19:39 1.01 1.00-4.80 (K/ul) Final Monos, Abs 10/20/2023 14:19:39 0.70 0.00-1.10 (K/uL) Final Eos, Abs 10/20/2023 14:19:39 0.03 0.00-0.70 (K/uL) Final Basos, Abs 10/20/2023 14:19:39 0.04 0.00-0.20 (K/uL) Final Immature Granulocytes, Number 10/20/2023 14:19:39 0.04 0.00-0.20 (K/uL) Final Performing Location LABORATORY [facility] [place] - [address] [facility] [address]
--- OUTSIDE RECORDS SUMMARY | 2023-10-22 03:24 | External Medical Summary ---
Author Name Unknown Address Unknown Organization [id number]:LABORATORY [facility] [place] - [address] [facility] [address] Laboratory Report Ordering Provider Test Date Status MADELINE ZULUAGA 10/20/2023 14:53:55 Final Normal: <150 mg/ g creatinine
High: 150-500 mg/g creatinine
Very High: >500 mg/g creatinine
Nephrotic: >3000 mg/g creatinine Observation Date Value Abnormality Reference (Units ) Status Protein/Creatinine [Ratio] in Urine 10/20/2023 14:53:55 404 Above high normal <150 (mg/g ) Final Protein, Urine 10/20/2023 14:53:55 36 (mg/dL) Final Creatinine, Urine 10/20/2023 14:53:55 89 (mg/dL) Final Performing Location LAB[facility]ORY [facility] [place] - [address] [facility] [address]
--- OUTSIDE RECORDS SUMMARY | 2023-10-22 03:24 | External Medical Summary ---
Author Name Unknown Address Unknown Organization K01:[facility] [place] 100 [facility]. [facility] [address] Laboratory Report Ordering Provider Test Date Status YOLANDE PEREZ 10/04/2023 16:00:11 Final Observation Date Value Abnormality Reference (Units ) Status Color of Urine by Auto 10/04/2023 16:00:11 Yellow Colorless, Light Yellow, Yellow, Dark Yellow Final Clarity, Urine 10/04/2023 16:00:11 Slightly Cloudy Abnormal Clear Final Glucose [Mass/volume] in Urine by Automated test strip 10/04/2023 16:00:11 Negative Negative (mg/dL) Final Bilirubin.total [Presence] in Urine by Automated test strip 10/04/2023 16:00:11 Negative Negative Final Ketones [Mass/volume] in Urine by Automated test strip 10/04/2023 16:00:11 Negative Negative (mg/dL) Final Specific gravity, Urine 10/04/2023 16:00:11 1.015 1.003-1.030 Final Hemoglobin [Presence] in Urine by Automated test strip 10/04/2023 16:00:11 Large Abnormal Negative Final pH, Urine 10/04/2023 16:00:11 5.5 5.0-7.5 (Units) Final Protein [Mass/volume] in Urine by Automated test strip 10/04/2023 16:00:11 30 Abnormal Negative (mg/dL) Final Urobilinogen [Mass/volume] in Urine by Automated test strip 10/04/2023 16:00:11 Normal Normal (mg/dL) Final Nitrite [Presence] in Urine by Automated test strip 10/04/2023 16:00:11 Negative Negative Final Leukocyte esterase [Presence] in Urine by Automated test strip 10/04/2023 16:00:11 Large Abnormal Negative Final RBC, Urine 10/04/2023 16:00:11 30-49 Abnormal 0-2 (/HPF) Final WBC, Urine 10/04/2023 16:00:11 50+ Abnormal 0-2 (/HPF) Final Bacteria [#/area] in Urine sediment by Microscopy high power field 10/04/2023 16:00:11 151-200 Abnormal 0-25 (/HPF) Final Leukocyte clumps [#/area] in Urine sediment by Microscopy high power field 10/04/2023 16:00:11 Present Abnormal None (/HPF) Final Performing Location [facility] [place] [facility] [place] [address] [facility] [address]
--- OUTSIDE RECORDS SUMMARY | 2023-10-22 03:24 | External Medical Summary | Summary of Care ---
Author Name Unknown Organization [facility] Address [address] [facility] [address] Phone [phone] Care Team Providers Care Tester Wafer Substrate Name Role Phone Grecia Bravo DO Primary Care Provider + Reason for Visit * Reason Comments Outpatient Testing Encounter Details Date Type Department Care Team (Late st Contact Info) Description 10/20/2023 2:10 PM EDT Laboratory Laboratory, [place] [address] [place] [place] [phone] [facility] [address] [place] [place] [address] Kidney replaced by transplant Allergies Active Allergy [...] Overview: Repaired when 3 months old at [facility] 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 contracture, right 10/10/2013 [...] 11/08/2023 10:40 AM EDT Office Visit Dermatology [address] [address] Demetrice Lovell PA-C [address] [facility] [place] [address] Pending Results Name Type Priority Associated Diagnoses Date /Time COMPREHENSIVE METABOLIC PANEL Lab Routine Kidney replaced by transplant 10/20/2023 2:19 PM EDT CBC WITH WBC DIFFERENTIAL Lab Routine Kidney replaced by transplant 10/20/2023 2:19 PM EDT CBC Lab Routine Kidney replaced by transplant 10/20/2023 2:19 PM EDT DIFFERENTIAL, AUTOMATED Lab Routine Kidney replaced by transplant 10/20/2023 2:19 PM EDT Health Maintenance Due Date Last [...] this encounter Medical Devices Implanted Type Area Space Controller Device Identifier Shelf Expiration Date Model / Serial / Lot Graft Duramatrix Onlay 1x3 In - [id number] Implanted:Qty: 1 on 12/11/2013 at [place] [facility] N/A: Back COLLAGEN MATRIX 07/09/2015 [facility]13 / / [id number] Duragen Plus 3x3 Dp 1033 Min5 - [id number] Implanted:Qty: 1 on 12/11/2013 at OR [facility] N/A: Back [employer] [place] 03/10/2016 DP-1033 / / [id number] documented as of this encounter Visit Diagnoses [...] Power of Attor rachael? No Care Teams Tester Wafer Substrate Relationship Specialty Start Date End Date Grecia Bravo DO [address] [place] [id number] PCP - General Family Medicine 08/13/23 documented as of this encounter
--- OUTSIDE RECORDS SUMMARY | 2023-10-22 03:24 | External Medical Summary ---
Author Name Unknown Address Unknown Organization K01:[facility]ORY [facility] [place] 100 [facility] [place] [address] Laboratory Report Ordering Provider Test Date Status MADELINE ZULUAGA 10/20/2023 14:19:39 Final Observation Date Value Abnormality Reference (Units ) Status BUN 10/20/2023 14:19:39 49 Above high normal 6-20 (mg/dL) Final Creatinine 10/20/2023 14:19:39 2.7 Above high normal 0.6-1.2 (mg/dL) Final Glomerular filtration rate/1.73 sq M.predicted [Volume Rate/Area] in Serum, Plasma or Blood by Creatinine-based formula (CKD-EPI) 10/20/2023 14:19:39 32 Below low normal >=60 (mL/min) Final eGFR is calculated based on the CKD-EPI 2020 equation. Sodium 10/20/2023 14:19:39 135 135-146 (m mol/L) Final Potassium 10/20/2023 14:19:39 4.0 3.5-5.1 (m mol/L) Final Cl 10/20/2023 14:19:39 91 Below low normal 98- 107 (mmol/L) Final CO2 10/20/2023 14:19:39 26 22-32 (mmo l/L) Final Anion gap 10/20/2023 14:19:39 18 Above high normal 7- 15 (mmol/L) Final Glucose 10/20/2023 14:19:39 208 Above high normal 70 -120 (mg/dL) Final Albumin 10/20/2023 14:19:39 4.4 3.8-5.0 (g /dL) Final AST (Aspartate aminotransferase) 10/20/2023 14:19:39 <10 Below low normal 10-50 (U/L) Final Alk Phos 10/20/2023 14:19:39 68 35-130 (U/ L) Final Bilirubin, Total 10/20/2023 14:19:39 <0.2 <=1 .2 (mg/dL) Final Calcium 10/20/2023 14:19:39 9.5 8.4-10.2 ( mg/dL) Final Protein 10/20/2023 14:19:39 7.1 6.0-8.3 (g /dL) Final ALT (Alanine aminotransferase) 10/20/2023 14:19:39 17 10-50 (U/L) Shamar conner Performing Location LAB[facility]ATORY [facility] [place] - [address] [facility] [address]
--- OUTSIDE RECORDS SUMMARY | 2023-10-22 03:24 | External Medical Summary | Summary of Care ---
Author Name Unknown Organization [facility] Address [address] [facility] [address] Phone [phone] Care Team Providers Care Resp Therapist Name Role Phone Grecia Bravo DO Primary Care Provider + Reason for Visit * Reason Comments Outpatient Testing Encounter Details Date Type Department Care Team (Late st Contact Info) Description 10/13/2023 10:40 AM EDT Laboratory Laboratory, [place] [address] [place] [phone] [facility] Lab [address] [place] [address] Arrived Allergies Active Allergy Reactions Criticality Noted Date Comments Bee Venom Edema Other,Hives 11/17/2010 Latex 05/12/2009 sensitivity Morphine Nausea/vomiting 11/17/2010 Vancomycin Flushing,Itching 07/28/2022 documented as of this encounter (statuses as of 10/13/2023) Medications Medication Sig Dispensed Refills Start Date [...] as of this encounter (statuses as of 10/13/2023) Active Problems Problem Noted Date Diagnosed Date [...] Overview: Repaired when 3 months old at [facility] 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 [place] [place] [address] [facility] [place] [address] Demetrice Lovell PA-C [address] [facility] [place] [place] [address] Health Maintenance Due Date Last Done Comments [...] this encounter Medical Devices Implanted Type Area Mammalogy Teacher Device Identifier Shelf Expiration Date Model / Serial / Lot Graft Duramatrix Onlay 1x3 In - [id number] Implanted:Qty: 1 on 12/11/2013 at OR [facility] N/A: Back COLLAGEN MATRIX 07/09/2015 [facility]13 / / [id number] Duragen Plus 3x3 Dp 1033 Min5 - [id number] Implanted:Qty: 1 on 12/11/2013 at [place] [facility] N/A: Back [employer] [place] 03/10/2016 DP-1033 / / [id number] documented as of this encounter Advance Directives * Full Code [...] Power of Attor rachael? No Care Teams Resp Therapist Relationship Specialty Start Date End Date Grecia Bravo DO [address] [facility] [place] [address] PCP - General Family Medicine 08/13/23 documented as of this encounter
--- OUTSIDE RECORDS SUMMARY | 2023-10-22 03:24 | External Medical Summary | Summary of Care ---
Author Name Unknown Organization [facility] Address [address] [place] [facility] [place] [address] Phone [phone] Care Team Providers Care Spacecraft Systems Engineer Name Role Phone Grecia Braov DO Primary Care Provider + Reason for Visit * Reason Comments Outpatient Testing Encounter Details Date Type Department Care Team (Late st Contact Info) Description 10/04/2023 2:40 PM EDT Laboratory Laboratory, [place] [address] [place] [phone] [place], Lab [address] [place] [phone] Kidney replaced by transplant; Immunocompromised, acquired (HCC); [...] Overview: Repaired when 3 months old at [facility] 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 contracture, right [...] 11/08/2023 10:40 AM EDT Office Visit Dermatology [facility] [place] [address] [place] [address] Demetrice Lovell PA-C [address] [facility] [place] [address] Pending Results Name Type [...] Immunocompromised, acquired (HCC) 10/04/2023 3:04 PM EDT URINALYSIS, REFLEX TO MICROSCOPIC Lab Routine Urinary tract infection Aspirin intolerance Immunocompromised, acquired (HCC) 10/04/2023 4:00 PM EDT CULTURE, URINE, QUANTITATIVE Lab Routine Urinary tract infection Aspirin intolerance Immunocompromised, acquired (HCC) 10/04/2023 4:00 PM EDT Health Maintenance Due Date Last [...] this encounter Medical Devices Implanted Type Area Heel Lining Paster Device Identifier Shelf Expiration Date Model / Serial / Lot Graft Duramatrix Onlay 1x3 In - [id number] Implanted:Qty: 1 on 12/11/2013 at [place] [facility] N/A: Back COLLAGEN MATRIX 07/09/2015 [facility]13 / / [id number] Duragen Plus 3x3 Dp 1033 Min5 - [id number] Implanted:Qty: 1 on 12/11/2013 at [place] [facility] N/A: Back Layer CHAPITO 03/10/2016 DP-1033 / / [id number] documented as of this encounter Visit Diagnoses [...] Power of Attor rachael? No Care Teams Spacecraft Systems Engineer Relationship Specialty Start Date End Date Grecia Bravo DO [address] [place] [address] PCP - General Family Medicine 08/13/23 documented as of this encounter
--- OUTSIDE RECORDS SUMMARY | 2023-10-22 03:24 | External Medical Summary | Summary of Care ---
Author Name Unknown Organization [facility] Address [address] [place] [facility] [place] [address] Phone [phone] Care Team Providers Care Hearing Aid Fitter Name Role Phone Grecia Bravo DO Primary Care Provider + Reason for Visit * Reason Comments Outpatient Testing Encounter Details Date Type Department Care Team (Late st Contact Info) Description 10/04/2023 2:40 PM EDT Laboratory Laboratory, [place] [address] [place] [phone] [place], Lab [address] [place] [phone] Kidney replaced by transplant; Immunocompromised, acquired (HCC); [...] Overview: Repaired when 3 months old at [facility] 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 contracture, right 10/10/2013 [...] 11/08/2023 10:40 AM EDT Office Visit Dermatology [facility] [place] [address] [facility] [place] [address] Demetrice Lovell PA-C [address] [facility] [place] [address] Pending Results Name [...] this encounter Medical Devices Implanted Type Area Belt Changer Device Identifier Shelf Expiration Date Model / Serial / Lot Graft Duramatrix Onlay 1x3 In - [id number] Implanted:Qty[place] 1 on 12[place]11/[place] [facility] [place] COLLAGEN MATRIX 07/09/2015 [facility]13 / / [id number] Duragen Plus 3x3 Dp 1033 Min5 - [id number] Implanted:Qty: 1 on 12/11/2013 [place] [facility] [place]: Back [employer] [place]APITO 03/10/2016 DP-1033 / / [id number] documented as of this encounter Visit Diagnoses [...] Power of Attor rachael? No Care Teams Hearing Aid Fitter Relationship Specialty Start Date End Date Grecia Bravo DO [address] [place] [address] PCP - General Family Medicine 08/13/23 documented as of this encounter
--- OUTSIDE RECORDS SUMMARY | 2023-10-22 03:24 | External Medical Summary ---
Author Name Unknown Address Unknown Organization K01:[facility] [place] [address] [place] [address] Laboratory Report Ordering Provider Test Date Status YOLANDE PEREZ 10/04/2023 16:00:11 Final Observation Date Value Abnormality Reference (Units) Status Bacteria identified in Specimen by Culture 10/04/2023 16:00:11 No significant growth Final Test: Culture, Urine, Quant itative
Specimen Source: Urine, Clean Catch
Specimen Type: Urine
Specimen Date: 10/04/2023 1600
Result Date: 10/06/2023 0953
Result Status: Final result
Resulting Lab: [facility] [place]
[address]
[place] [address]

CULTURE

No significant growth

null Performing Location [facility] [place] [address] [facility] [address]
--- OUTSIDE RECORDS SUMMARY | 2023-10-22 03:25 | External Medical Summary ---
Author Name Unknown Address Unknown Organization K01:[facility] - [address] [facility] [place] [address] Laboratory Report Ordering Provider Test Date Status MADELINE ZULUAGA 10/04/2023 15:04:02 Final Observation Date Value Abnormality Reference (Units ) Status Triglyceride 10/04/2023 15:04:02 120 <=174 ( mg/dL) Final Triglyceride Reference Range s (mg/dL):
<150 Acceptable
150-174 Borderline high
175-499 High
>=500 Very high Cholesterol 10/04/2023 15:04:02 208 Above high normal <200 (mg/dL) Final Total Cholesterol Reference Ranges (mg/dL):
<200 Desirable
200-239 Borderline high
>=240 High HDL 10/04/2023 15:04:02 40 >39 (mg/dL ) Final HDL Cholesterol Reference Ra nges (mg/dL):
>=60 High (Desirable)
<50 Low (Undesirable) For Females
<40 Low (Undesirable) For Males NON-HDL CHOLESTEROL 10/04/2023 15:04:02 168 Above high normal <=159 (mg/dL) Final Non-HDL Cholesterol Referenc e Range (mg/dL):
<100 Target level for high risk ASCVD patient
<130 Optimal for general population
130-159 Near optimal for general population
160-189 Borderline High
190-219 High
>=220 Very High LDL, (calculated) 10/04/2023 15:04:02 144 Above high n ormal <=129 (mg/dL) Final LDL Cholesterol Reference Ra nges (mg/dL):
<70 Target level for high risk ASCVD patient
<100 Optimal for general population
100-129 Near optimal for general population
130-159 Borderline high
160-189 High
>=190 Very high Performing Location [facility] [place] [address] [facility] [address]
--- OUTSIDE RECORDS SUMMARY | 2023-10-22 03:25 | External Medical Summary ---
Author Name Unknown Address Unknown Organization K01:[facility] - [address] [place] [address] Laboratory Report Ordering Provider Test Date Status MADELINE ZULUAGA 10/04/2023 15:04:02 Final Observation Date Value Abnormality Reference (Units ) Status Magnesium 10/04/2023 15:04:02 1.9 1.5-2.6 (m g/dL) Final Performing Location LAB[facility]AT[facility] - [address] [place] [address]
--- OUTSIDE RECORDS SUMMARY | 2023-10-22 03:25 | External Medical Summary ---
Author Name Unknown Address Unknown Organization K01:[facility] [place] 100 [facility] [place] [address] Laboratory Report Ordering Provider Test Date Status MADELINE ZLUUAGA 10/04/2023 15:04:02 Final Observation Date Value Abnormality Reference (Units ) Status SYNC LEUKOCYTES IN BLOOD BY AUTOMATED COUNT 10/04/2023 15:04:02 8.34 4.00-10.80 (K/uL) Final Segs 10/04/2023 15:04:02 76.4 Above high normal 40.0-75.0 (%) Final Lymphs % 10/04/2023 15:04:02 17.4 Below low normal 18.0-42.0 (%) Final Monos 10/04/2023 15:04:02 4.7 1.0-11.0 (%) Final Eosinophils 10/04/2023 15:04:02 0.4 0.0-6.0 (%) Final Basos 10/04/2023 15:04:02 0.6 0.0-2.0 (%) Final Immature Granulocyte, Percent 10/04/2023 15:04:02 0.5 0.0-2.0 (%) Final Absolute Segs 10/04/2023 15:04:02 6.38 1.80-7.70 (K/uL) Final Lymphs, absolute 10/04/2023 15:04:02 1.45 1.00-4.80 (K/ul) Final Monos, Abs 10/04/2023 15:04:02 0.39 0.00-1.10 (K/uL) Final Eos, Abs 10/04/2023 15:04:02 0.03 0.00-0.70 (K/uL) Final Basos, Abs 10/04/2023 15:04:02 0.05 0.00-0.20 (K/uL) Final Immature Granulocytes, Number 10/04/2023 15:04:02 0.04 0.00-0.20 (K/uL) Final Performing Location [facility] [place] [address] [facility] [address]
--- OUTSIDE RECORDS SUMMARY | 2023-10-22 03:25 | External Medical Summary ---
Author Name Unknown Address Unknown Organization K01:LABORATORY [place] - [address] [place] [address] Laboratory Report Ordering Provider Test Date Status YOLANDE PEREZ 10/04/2023 15:04:02 Final Observation Date Value Abnormality Reference (Units ) Status Parathyrin.intact [Mass/volume] in Serum or Plasma 10/04/2023 15:04:02 378 Above high normal 15-65 (pg/mL) Final Performing Location LABORATORY [place] - [address] [place] [address]
--- OUTSIDE RECORDS SUMMARY | 2023-10-22 03:25 | External Medical Summary ---
Author Name Unknown Address Unknown Organization K01:LABORATORY [facility] [place] - [address] [place] [address] Laboratory Report Ordering Provider Test Date Status YOLANDE PEREZ 10/04/2023 15:04:02 Final Deficient: <20 ng/mL
Ins ufficient: 20-29 ng/mL
Recommended/Optimum:30-50 ng/mL

Vitamin D intoxication is rare. If suspicious of Vitamin D toxicity, evaluation of serum Calcium and PTH is recommended. Observation Date Value Abnormality Reference (Units ) Status 25-OH Vitamin D total 10/04/2023 15:04:02 50 >19 (ng/mL) Final Performing Location [facility] - [address] [place] [address]
--- OUTSIDE RECORDS SUMMARY | 2023-10-22 03:25 | External Medical Summary ---
Author Name Unknown Address Unknown Organization K01:LAB[facility]ORY [facility] [place] - [address] [place] [facility] [place] [address] Laboratory Report Ordering Provider Test Date Status MADELINE ZULUAGA 10/04/2023 15:04:02 Final Observation Date Value Abnormality Reference (Units ) Status BUN 10/04/2023 15:04:02 44 Above high normal 6-20 (mg/dL) Final Creatinine 10/04/2023 15:04:02 2.1 Above high normal 0.6-1.2 (mg/dL) Final Glomerular filtration rate/1.73 sq M.predicted [Volume Rate/Area] in Serum, Plasma or Blood by Creatinine-based formula (CKD-EPI) 10/04/2023 15:04:02 43 Below low normal >=60 (mL/min) Final eGFR is calculated based on the CKD-EPI 2020 equation. Sodium 10/04/2023 15:04:02 137 135-146 (m mol/L) Final Potassium 10/04/2023 15:04:02 4.1 3.5-5.1 (m mol/L) Final Cl 10/04/2023 15:04:02 96 Below low normal 98- 107 (mmol/L) Final CO2 10/04/2023 15:04:02 25 22-32 (mmo l/L) Final Anion gap 10/04/2023 15:04:02 16 Above high normal 7- 15 (mmol/L) Final Glucose 10/04/2023 15:04:02 119 70-120 (mg /dL) Final Albumin 10/04/2023 15:04:02 4.6 3.8-5.0 (g /dL) Final AST (Aspartate aminotransferase) 10/04/2023 15:04:02 18 10-50 (U/L) Fin al Alk Phos 10/04/2023 15:04:02 80 35-130 (U/ L) Final Bilirubin, Total 10/04/2023 15:04:02 <0.2 <=1 .2 (mg/dL) Final Calcium 10/04/2023 15:04:02 9.4 8.4-10.2 ( mg/dL) Final Protein 10/04/2023 15:04:02 7.2 6.0-8.3 (g /dL) Final ALT (Alanine aminotransferase) 10/04/2023 15:04:02 30 10-50 (U/L) Shamar conner Performing Location LABORATORY [facility] [place] - [address] [facility] [address]
--- OUTSIDE RECORDS SUMMARY | 2023-10-22 03:25 | External Medical Summary ---
Author Name Unknown Address Unknown Organization K01:LAB[facility] - [address] [place] [address] Laboratory Report Ordering Provider Test Date Status MADELINE ZULUAGA 10/04/2023 15:04:02 Final Observation Date Value Abnormality Reference (Units ) Status Phosphate 10/04/2023 15:04:02 4.5 2.5-4.8 (m g/dL) Final Performing Location LAB[facility] - [address] [place] [address]
[2023-10-22 07:04] LABS: Basophils # (auto) 0.04 K/uL (0.00-0.20); Basophils % (auto) 0.5 %; Eosinophils # (auto) 0.07 K/uL (0.00-0.50); Eosinophils % (auto) 0.9 %; Hematocrit (blood only) 27.8 % (42.0-52.0); Immature Granulocytes # (auto) 0.06 K/uL (0.01-0.20); Immature Granulocytes % (auto) 0.8 %; Lymphocytes # (auto) 1.69 K/uL (1.20-3.40); Lymphocytes % (auto) 22.2 %; Mean Corpuscular Hemoglobin 27.2 pg (25.0-34.0); Mean Corpuscular Hgb Conc 32.4 g/dL (32.0-36.0); Mean Platelet Volume 9.6 fL (9.4-12.4); Monocytes # (auto) 0.89 K/uL (0.11-0.59); Monocytes % (auto) 11.7 %; Neutrophils # (auto) 4.86 K/uL (1.40-6.50); Neutrophils % (auto) 63.9 %; Platelet Count 374 K/uL (130-400); RDW Coefficient of Variation 12.8 % (11.5-14.5); RDW Standard Deviation 38.7 fL (36.4-46.3); Red Blood Count 3.31 M/uL (4.70-6.10); White Blood Count 7.61 K/ul (4.8-10.8)
[2023-10-22 07:28] LABS: BUN Creatinine Ratio 21.6 (10-20); Calcium 9.3 mg/dl (8.6-10.3); Creatinine Clr Calc Pharmacy 57.4 ml/min; Est GFR (African American) 46.1 ml/min; Est GFR (Non-African American) 39.7 ml/min; Potassium 3.6 mmol/L (3.5-5.1)
--- NOTE | 2023-10-22 08:08 | Hospitalist Progress Note ---
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 Creatinine improving. 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 No concerning acute findings. UA/microscopy c/w UTI. Electrolytes acceptable. Volume status relatively euvolemic. Medications appropriate for kidney function. Continue LR to maintain positive fluid balance. Document strict I/O's. Repeat metabolic profile tomorrow AM. (9) Dehydration: Plan: Continue LR today to encourage positive fluid balance. Plan Disposition: Admit to [facility] Full code Regular diet VTE PPx: Heparin 5000u SQ q12h Admission and Anticipated Discharge Date Admission Date: October 21, 2023 Supervising Physician Co-Signing Physician Notes I personally examined the patient and verified all restrepo points of history and exam, discussed case, and agree with decision making with Dr Hutson Feeling a little bit better. Discussed with nephrology. Vitals noted, in general he is awake and alert pleasant no distress. HEENT normocephalic atraumatic mucous membranes moist. Breathing unlabored no accessory muscle use good effort. Skin shows no rashes no pallor or icterus. Neuro without focal deficits. NATHANIEL on CKD in the setting of transplanted kidney with superimposed urinary tract infectionseems to be overall improving on ertapenem IV fluids and supportive care. Continue. Continue to follow. Icd 9 Coder input appreciated. DVT prophylaxisheparin subcu Subjective Patient was seen in his room this AM, currently in his wheelchair appearing in good spirits and not in acute distress. Patient denies being in any pain or discomfort. Notes his baseline creatinine is 1.7-1.8 with a goal level of 1.2. Endorses being hospitalized about 5x last year for UTI. Endorses having no issues with his self-catheterization nor ostomy bag, both functioning well. Has had an appetite and been eating well, denies any nausea or vomiting. Denies any fever, body aches, chills, headache, dizziness, chest pain, abdominal pain, or back pain. Review of Systems Review of Systems: per HPI Physical Exam Physical Exam: constitutional: A&Ox3, not in acute distress HEENT: anicteric sclerae, EOM intact cardiovascular: RRR, no murmurs heard on auscultation pulmonary: clear to auscultation b/l GI: normoactive bowel sounds, soft, nontender to palpation MSK: no CVA tenderness b/l, 5/5 strength b/l UE Results & Data Results & Data Vital Signs (Past 12 Hours) Vital Signs Temp Pulse Resp BP Pulse Ox O2 Del Method 10/22/23 07:56 36.5 C 88 16 107/58 L 96 Room Air 10/21/23 23:09 Room Air 10/21/23 23:09 36.5 C 92 H 16 110/73 95 Room Air 10/21/23 22:00 93 H 18 118/79 94 Room Air Resident Activity Tracking Resident Involvement: Resident Care Provided Care Provided: Adult Hospital Medicine (2) Acute on chronic renal failure Acute renal failure type: unspecified Chronic kidney disease stage: stage 4 (severe) Qualified Code(s): N17.9 - Acute kidney failure, unspecified; N18.4 - Chronic kidney disease, stage 4 (severe)
[2023-10-22] MEDS: predniSONE 5 MG TAB PO SCH (08:51)
[2023-10-22] MEDS: EZETIMIBE 10 MG TAB PO SCH (08:51)
[2023-10-22] MEDS: FAMOTIDINE 20 MG TAB PO SCH (08:51)
[2023-10-22] MEDS: MYCOPHENOLATE MOFETIL 250 MG CAP PO SCH (08:51)
[2023-10-22] MEDS: TACROLIMUS 1 MG CAP PO SCH ×2 (08:52→20:08)
[2023-10-22] MEDS: HEPARIN SOD 5,000 UNIT/0.5 ML VIAL SQ SCH (08:59)
--- NOTE | 2023-10-22 10:09 | Nephrology Consultation ---
Date of Consultation October 22, 2023 Assessment & Plan (1) NATHANIEL (acute kidney injury): Non-oliguric. Creatinine improving. 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 No concerning acute findings. UA/microscopy c/w UTI. Electrolytes acceptable. Volume status relatively euvolemic. Medications appropriate for kidney function. Continue LR to maintain positive fluid balance. Document strict I/O's. Repeat metabolic profile tomorrow AM. (2) Kidney transplant status: Tacro level pending is not a true trough. Continue tacro (4 mg QAM, 3 mg QPM) per home Rx. Continue Mycophenolate mofetil 500 mg twice daily. Continue prednisone 5 mg daily. (3) Dehydration: Continue LR today to encourage positive fluid balance. (4) Self-catheterizes urinary bladder: (5) UTI (urinary tract infection): Remains on Ertapenem. Cultures and ID consultation pending. (6) History of extended-spectrum beta-lactamase producing Escherichia coli infection: I discussed the plan of care with Dr. Guardado this AM. History of Present Illness Reason for Consultation: NATHANIEL; hx of renal transplant Requesting Physician: Jamaal Guardado DO Attending Physician: Jamaal Guardado DO History of Present Illness Mr. Petros Forte is a 33 year-old male with a complex urologic history and end- stage kidney disease. He has a functional kidney transplant with baseline crea tinine ~1.7 mg/dL. 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 Petros underwent a preemptive donor kidney transplant in 2006. He returned to dialysis in ~2020 due to chronic allograft dysfunction/nephropathy. Petros was maintained on hemodialysis. He has had multiple vascular access surgeries -- 3 failed attempts at LUE AVF creation, including failed endovascular AVF creation. Right BC AVF performed by Dr. Garcia in April 29 matured for use but unfortunately thrombosed following most recent kidney transplant. Thankfully, successful living unrelated transplant was able to be performed on May 05 2022 at [facility]. Creatinine araceli was 1.1 mg/dL. There is no delayed graft function. CMV D+ R+. EBV D- R+. He has had some episodes of NATHANIEL and fluctuating creatinine associated with dehydration and UTI. DSA negative. BK testing has been negative. Petros has been maintained on triple maintenance IS with tacrolimus, mycophenolate mofetil, and prednisone. He is tolerating therapy well. Petros follows most closely in the transplant clinic in [place] with Dr. Gil Hernandez. Petros has a very complex urologic history. 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 He is s/p bladder augmentation with gastrocystoplasty and appendicovesicostomy with colostomy (s/p proctocolectomy) and urinary catheterization channel. Petros has has had recurrent UTI and ureteral reflux since he was a child. He also has a history of neobladder stones. He follows with urology at [facility] (Dr. Oquendo). Petros also has spina bifida with spinal cord tethering complicated by neurogenic bladder and distal weakness with associated debility. He has limited use of the lower extremities and is wheelchair dependent. 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 Petros presented to the ER at [facility] yesterday for evaluation of elevated serum creatinine noted on routine labs. Serum creatinine was slightly elevated at 2.1 mg/dL a couple weeks ago and subsequently 2.7 mg/dL. Petros was feeling feverish over the weekend and states he suspected that he may have developed a UTI due to changes in urine color. He discussed with the transplant team from [place] and was advised to present to [facility] for evaluation. Petros was admitted with suspected UTI and NATHANIEL. He is being treated with IV antibiotics and fluids. He reports improvement overall. He has not had any concerns with medications and he has been adherent with prescribed medical therapy. Prior urine cultures have grown ESBL E coli. Allergies Allergy/AdvReac Type Severity Reaction Status Date / Time bee venom protein (honey bee) Allergy Intermediate Edema, Verified 10/21/23 21:17 hives latex Allergy Unknown Unknown Verified 10/21/23 21:17 vancomycin Allergy Unknown Unknown Verified 10/21/23 21:17 morphine AdvReac Mild N/V Verified 10/21/23 21:17 Home Medications Medication Instructions Recorded Confirmed Type diphenhydramine HCl 25 mg capsule 25 mg PO DAILY PRN Insomnia 05/27/22 10/21/23 History (Benadryl) famotidine 20 mg tablet 20 mg PO QAM 05/27/22 10/21/23 History melatonin 3 mg capsule 6 mg PO HS PRN Insomnia 05/27/22 10/21/23 History mycophenolate mofetil 250 mg 500 mg PO BID 05/27/22 10/21/23 History capsule ostomy adhesive #15 ea 10/15/22 10/21/23 Rx ostomy supplies 2 1/4" #60 ea 10/15/22 10/21/23 Rx ostomy supplies 2 1/4" #60 ea 10/15/22 10/21/23 Rx ascorbic acid (vitamin C) 500 mg 500 mg PO BID 01/27/23 10/21/23 History tablet ezetimibe 10 mg tablet 10 mg PO QAM 01/27/23 10/21/23 History methenamine mandelate 1 gram tablet 1 g PO BID 01/27/23 10/21/23 History tacrolimus 1 mg capsule, See Rx Instructions PO Q12H 01/27/23 10/21/23 History immediate-release needle (disp) 18 G 18 gauge x 1" #100 ea 05/03/23 10/21/23 Rx (BD Regular Bevel Huntley) syringe with needle 3 mL 25 x 5/8" #100 ea 05/03/23 10/21/23 Rx (CareTouch Luer Lock Syringe with needle) testosterone cypionate 100 mg/mL 100 mg subcut Q7D #10 mL 10/04/23 10/21/23 Rx intramuscular oil cholecalciferol (vitamin D3) 250 250 mcg PO QAM 10/21/23 10/21/23 History mcg (10,000 unit) capsule pravastatin 40 mg tablet 40 mg PO QPM 10/21/23 10/21/23 History prednisone 5 mg tablet 5 mg PO QAM 10/21/23 10/21/23 History Patient History Medical History Metabolic alkalosis AV fistula LUE (non-functioning) Surgical History S/P kidney transplant (~2006) S/P hemodialysis catheter insertion S/P arteriovenous (AV) fistula repair Left upper revision 07/2020. A-V fistula Left AVF creation (04/19/20): MAC + PNB at [facility] Revision left AV fistula (05/31/20): LMA#5.0 unique Revision Left AV fistula (07/18/20) History of colonoscopy History of surgery s/p Gastrocystoplasty, 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 History of orchiectomy Kidney transplanted H/O hernia repair spinal hernia Hx of removal of testicle bilateral Hx of laminectomy lumbar spinal cord release History of esophagogastroduodenoscopy Hx of colonoscopy Family History Mother Diabetes Heart disease Father Diabetes Other No family history of adverse response to anesthesia Social History Smoking Status: Never smoker Second Hand Exposure: No; Do You Dip or Chew Tobacco: No; Hx Alcohol Use: Yes Alcohol type: beer Hx Substance Use: No Preferred Language: Frisian Communication Ability: Effective Senior Operations Analyst Required: No Beliefs That Will Affect Care: None marital status: Single Current Living Situation: Family current occupational status: 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[employer] Feels Safe at Home: Yes Safety Concerns: Feels Safe At This Time Do you think of yourself as: don't know Gender Identity: Male Assistive Devices: Wheelchair Assistive Devices Comment: contacts Review of Systems Review of Systems: All systems reviewed & are unremarkable except as noted in HPI & below Physical Exam Constitutional: well developed; no acute distress Eyes: no scleral abnormality and no corneal abnormality ENMT: Mouth: no oral mucosal abnormality and oral mucous membranes not dry Neck: normal visual inspection and trachea midline Respiratory: normal respiratory effort Auscultation: lungs clear to auscultation bilaterally Cardiovascular: Rate/Rhythm: regular rate Heart Sounds: normal S1 and normal S2 Extremities: + AV fistula (RUE thrombosed without thrill or bruit); no edema Gastrointestinal (Abdomen): LLQ colostomy Musculoskeletal: Extremities: no cyanosis and no clubbing Skin: normal turgor; no lesions Neurologic: Motor/Sensory: no tremor and no asterixis Psychiatric: Orientation: alert and oriented x 3 Genitourinary: no CVA tenderness R Upper pelvis functional renal allograft without bruit; atrophic LLQ allograft Results & Data Vital Signs (Past 12 Hours) Vital Signs Temp Pulse Resp BP Pulse Ox O2 Del Method 10/22/23 07:56 36.5 C 88 16 107/58 L 96 Room Air 10/21/23 23:09 Room Air 10/21/23 23:09 36.5 C 92 H 16 110/73 95 Room Air Laboratory Results Laboratory Results - last 24 hr 10/21/23 10/21/23 10/21/23 17:38 18:44 20:16 WBC 8.57 RBC 3.47 L Hgb 9.6 L Hct 28.9 L MCV 83.3 MCH 27.7 MCHC 33.2 RDW Std Deviation 38.5 RDW Coeff of Abigail 12.7 Plt Count 381 MPV 9.6 Immature Gran % (Auto) 0.6 Neut % (Auto) 73.6 Lymph % (Auto) 15.9 [place] % (Auto) 9.0 Eos % (Auto) 0.4 Baso % (Auto) 0.5 Neut # (Auto) 6.32 Lymph # (Auto) 1.36 [place] # (Auto) 0.77 H Eos # (Auto) 0.03 Baso # (Auto) 0.04 Immature Gran # (Auto) 0.05 Sodium 136 Potassium 3.5 Chloride 93 L Carbon Dioxide 32 Anion Gap 11 BUN 48 H Creatinine 2.44 H Est Cr Clr Drug Dosing Not Reportable Est GFR ( Amer) 39.1 Est GFR (Non-Af Amer) 33.7 BUN/Creatinine Ratio 19.7 Glucose 120 H Lactate 0.7 Calcium 9.5 Phosphorus 3.5 Magnesium 1.8 Total Bilirubin 0.2 AST 13 ALT 18 Alkaline Phosphatase 58 Total Protein 7.8 Albumin 4.4 Globulin 3.4 Albumin/Globulin Ratio 1.3 Procalcitonin 0.08 TSH 0.690 Urine Color Yellow Urine Appearance Turbid A Urine pH 5.0 Ur Specific [place] 1.011 Urine Protein Negative Urine Glucose (UA) Negative Urine Ketones Negative Urine Blood 2+ H Urine Nitrite Negative Urine Bilirubin Negative Urine Urobilinogen Negative Ur Leukocyte Esterase 3+ H Urine WBC (Auto) >50 H Urine RBC (Auto) 0-2 U Hyaline Cast (Auto) 3-5 H U Epithel Cells (Auto) 0-2 Urine Bacteria (Auto) 3+ H Mycophenolic Acid MPA Glucuronide Tacrolimus SARS-CoV-2, RNA, NAAT NEGATIVE 10/22/23 06:13 WBC 7.61 RBC 3.31 L Hgb 9.0 L Hct 27.8 L MCV 84.0 MCH 27.2 MCHC 32.4 RDW Std Deviation 38.7 RDW Coeff of Abigail 12.8 Plt Count 374 MPV 9.6 Immature Gran % (Auto) 0.8 Neut % (Auto) 63.9 Lymph % (Auto) 22.2 [place] % (Auto) 11.7 Eos % (Auto) 0.9 Baso % (Auto) 0.5 Neut # (Auto) 4.86 Lymph # (Auto) 1.69 [place] # (Auto) 0.89 H Eos # (Auto) 0.07 Baso # (Auto) 0.04 Immature Gran # (Auto) 0.06 Sodium 141 Potassium 3.6 Chloride 99 Carbon Dioxide 32 Anion Gap 10 BUN 46 H Creatinine 2.13 H D Est Cr Clr Drug Dosing 57.4 Est GFR ( Amer) 46.1 Est GFR (Non-Af Amer) 39.7 BUN/Creatinine Ratio 21.6 H Glucose 112 H Lactate Calcium 9.3 Phosphorus Magnesium Total Bilirubin AST ALT Alkaline Phosphatase Total Protein Albumin Globulin Albumin/Globulin Ratio Procalcitonin TSH Urine Color Urine Appearance Urine pH Ur Specific [place] Urine Protein Urine Glucose (UA) Urine Ketones Urine Blood Urine Nitrite Urine Bilirubin Urine Urobilinogen Ur Leukocyte Esterase Urine WBC (Auto) Urine RBC (Auto) U Hyaline Cast (Auto) U Epithel Cells (Auto) Urine Bacteria (Auto) Mycophenolic Acid Pending MPA Glucuronide Pending Tacrolimus Pending SARS-CoV-2, RNA, NAAT Diagnostic Findings US Renal Transplant With Doppler COMPARISON: Transplant renal ultrasound dated 10/29/2022 FINDINGS: Transplant kidney: The right kidney measures 13.1 cm in length. Similar degree of previously noted hydronephrosis. No stones. Renal artery: The main renal artery is patent with peak systolic velocities measuring between 223 cm/s proximally, 136 cm/s at the mid section and 145 cm/s distally near the hilum. Common iliac arteries: The right iliac artery is patent with peak systolic velocities between 120 and 100. 48 cm/s. Renal vein: The renal vein is patent. Common iliac vein: The iliac vein is patent. Bladder: The bladder is mildly distended. Minimal questionable echogenic debris suggested posteriorly. No bladder stones. A ureteral jet is noted. Other findings: Segmental arteries are patent with resistive indices measuring between 0.52 and 0.73. No tardus parvus waveforms identified. IMPRESSION: 1. Stable mild hydronephrosis of the transplant kidney when compared to the previous examination. 2. No arterial occlusion or critical stenosis. 3. The transplant renal vein is patent. PG Care Time/CCT Total # of Minutes Spent Total Time Spent with Patient: Total time spent is greater than 50% in coordination of care (as documented) at patient's floor/unit and/or counseling patient: Coding Level of Care Code 95642 IN/OBS CONSULT LVL 4,60M Diagnoses NATHANIEL (acute kidney injury) N17.9 Kidney transplant status Z94.0 Dehydration E86.0 Self-catheterizes urinary bladder Z78.9 UTI (urinary tract infection) N39.0 History of extended-spectrum beta-lactamase producing Escherichia coli infection Z86.19
--- NOTE | 2023-10-22 13:48 | Electrocardiogram Report ---
Test Reason : Blood Pressure : */* mmHG Vent. Rate : 82 BPM Atrial Rate : 82 BPM P-R Int : 132 ms QRS Dur : 100 ms QT Int : 350 ms P-R-T Axes : 62 52 17 degrees QTcB Int : 408 ms Normal sinus rhythm Nonspecific ST and T wave abnormality Abnormal ECG When compared with ECG of 27-Oct-2022 18:26, Nonspecific T wave abnormality now evident in Lateral leads Confirmed by Keon Perla ([id number]) on 10/22/2023 1:47:26 PM Referred By: [facility] Confirmed By: Keon Perla
--- NOTE | 2023-10-22 14:21 | Infectious Disease Consult ---
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 He then underwent living unrelated transplant 05/06/22 (CMV D+ R+. EBV D- R+. ), baseline Cr 1.1 but in recent months increasing to low 2s, currently on MMF, tacrolimus and prednisone (follows at [facility]) Currently self caths 4x/day, h/o UTIs and ESBL UTIs in past a/w increasing fatigue and elevated Creatinine He presented to ED on 10/20 with Cr 2.7 mg/dL. He discussed with the transplant team from [place] and was advised to present to [facility] for evaluation. On admission, he was afebrile., VSS, WBC 8.57, Cr 2.44 UA >50 wbcs, 3+LE, 2+blood Renal U/S Stable mild hydronephrosis of the transplant kidney when compared to the previous examination. 2. No arterial occlusion or critical stenosis. 3. The transplant renal vein is patent. RECOMMEND: -Clinically improved on Ertapenem -Await UCX likely back this weekend can base treatment on those results ID will RT on Wednesday but pageable through [facility] Cary Nicole MD Infectious Diseases Consultation Information Consultation was provided via telemedicine using two-way real-time interactive telecommunication between the patient and the telemedicine provider. For the duration of the visit, the provider was performing the assessment from a different facility than the patient. This includesuse of bluetooth stethoscope forauscultationperformed by the telepresenter that the telemedicine provider can hear if described in the physical exam. Loop Drier Operator contact information: Please call [facility] . (Phone Number For Physician Use Only) After establishing a telemedicine visit, patient was: Patient was verified with two unique identifiers, Patient/authorized rep acknowledged consent and understanding and Gave permission to continue telehealth session Time Spent with Patient: Initial => 55 min History of Present Illness Reason for Consultation: Renal TP with UTI Requesting Physician: Dr. 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 He then underwent living unrelated transplant 05/06/22 (CMV D+ R+. EBV D- R+. ), baseline Cr 1.1 but in recent months increasing to low 2s, currently on MMF, tacrolimus and prednisone (follows at [facility]) Currently self caths 4x/day, h/o UTIs and ESBL UTIs in past a/w increasing fatigue and elevated Creatinine He presented to ED on 10/20 with Cr 2.7 mg/dL. He discussed with the transplant team from [place] and was advised to present to [facility] for evaluation. On admission, he was afebrile., VSS, WBC 8.57, Cr 2.44 UA >50 wbcs, 3+LE, 2+blood Renal U/S Stable mild hydronephrosis of the transplant kidney when compared to the previous examination. 2. No arterial occlusion or critical stenosis. 3. The transplant renal vein is patent. On my interview today, patient states he is feeling much better Allergies Allergy/AdvReac Type Severity Reaction Status Date / Time bee venom protein (honey bee) Allergy Intermediate Edema, Verified 10/21/23 21:17 hives latex Allergy Unknown Unknown Verified 10/21/23 21:17 vancomycin Allergy Unknown Unknown Verified 10/21/23 21:17 morphine AdvReac Mild N/V Verified 10/21/23 21:17 Home Medications Medication Instructions Recorded Confirmed Type diphenhydramine HCl 25 mg capsule 25 mg PO DAILY PRN Insomnia 05/27/22 10/21/23 History (Benadryl) famotidine 20 mg tablet 20 mg PO QAM 05/27/22 10/21/23 History melatonin 3 mg capsule 6 mg PO HS PRN Insomnia 05/27/22 10/21/23 History mycophenolate mofetil 250 mg 500 mg PO BID 05/27/22 10/21/23 History capsule ostomy adhesive #15 ea 10/15/22 10/21/23 Rx ostomy supplies 2 1/4" #60 ea 10/15/22 10/21/23 Rx ostomy supplies 2 1/4" #60 ea 10/15/22 10/21/23 Rx ascorbic acid (vitamin C) 500 mg 500 mg PO BID 01/27/23 10/21/23 History tablet ezetimibe 10 mg tablet 10 mg PO QAM 01/27/23 10/21/23 History methenamine mandelate 1 gram tablet 1 g PO BID 01/27/23 10/21/23 History tacrolimus 1 mg capsule, See Rx Instructions PO Q12H 01/27/23 10/21/23 History immediate-release needle (disp) 18 G 18 gauge x 1" #100 ea 05/03/23 10/21/23 Rx (BD Regular [place]) syringe with needle 3 mL 25 x 5/8" #100 ea 05/03/23 10/21/23 Rx (CareTouch Luer Lock Syringe with needle) testosterone cypionate 100 mg/mL 100 mg subcut Q7D #10 mL 10/04/23 10/21/23 Rx intramuscular oil cholecalciferol (vitamin D3) 250 250 mcg PO QAM 10/21/23 10/21/23 History mcg (10,000 unit) capsule pravastatin 40 mg tablet 40 mg PO QPM 10/21/23 10/21/23 History prednisone 5 mg tablet 5 mg PO QAM 10/21/23 10/21/23 History Patient History Medical History Metabolic alkalosis AV fistula LUE (non-functioning) Surgical History S/P kidney transplant (~2006) S/P hemodialysis catheter insertion S/P arteriovenous (AV) fistula repair Left upper revision 07/2020. A-V fistula Left AVF creation (04/19/20): MAC + PNB at [facility] Revision left AV fistula (05/31/20): LMA#5.0 unique Revision Left AV fistula (07/18/20) History of colonoscopy History of surgery s/p Gastrocystoplasty, 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 History of orchiectomy Kidney transplanted H/O hernia repair spinal hernia Hx of removal of testicle bilateral Hx of laminectomy lumbar spinal cord release History of esophagogastroduodenoscopy Hx of colonoscopy Family History Mother Diabetes Heart disease Father Diabetes Other No family history of adverse response to anesthesia Social History Smoking Status: Never smoker Second Hand Exposure: No; Do You Dip or Chew Tobacco: No; Hx Alcohol Use: Yes Alcohol type: beer Hx Substance Use: No Preferred Language: [place] Citizen Communication Ability: Effective Employment Representative Required: No Beliefs That Will Affect Care: None marital status: Single Current Living Situation: Family current occupational status: 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[employer] Feels Safe at Home: Yes Safety Concerns: Feels Safe At This Time Do you think of yourself as: don't know Gender Identity: Male Assistive Devices: Cane Assistive Devices Comment: contacts Physical Exam Physical Exam: NAD In wheelchair Soft NT ND Surgical scars well healed No CVA TTP Results & Data Vital Signs (Past 12 Hours) Vital Signs Temp Pulse Resp BP Pulse Ox O2 Del Method 10/22/23 07:56 36.5 C 88 16 107/58 L 96 Room Air Laboratory Results Laboratory Results - last 48 hr 10/21/23 10/21/23 10/21/23 17:38 18:44 20:16 WBC 8.57 RBC 3.47 L Hgb 9.6 L Hct 28.9 L MCV 83.3 MCH 27.7 MCHC 33.2 RDW Std Deviation 38.5 RDW Coeff of Abigail 12.7 Plt Count 381 MPV 9.6 Immature Gran % (Auto) 0.6 Neut % (Auto) 73.6 Lymph % (Auto) 15.9 [place] % (Auto) 9.0 Eos % (Auto) 0.4 Baso % (Auto) 0.5 Neut # (Auto) 6.32 Lymph # (Auto) 1.36 [place] # (Auto) 0.77 H Eos # (Auto) 0.03 Baso # (Auto) 0.04 Immature Gran # (Auto) 0.05 Sodium 136 Potassium 3.5 Chloride 93 L Carbon Dioxide 32 Anion Gap 11 BUN 48 H Creatinine 2.44 H Est Cr Clr Drug Dosing Not Reportable Est GFR ( Amer) 39.1 Est GFR (Non-Af Amer) 33.7 BUN/Creatinine Ratio 19.7 Glucose 120 H Lactate 0.7 Calcium 9.5 Phosphorus 3.5 Magnesium 1.8 Total Bilirubin 0.2 AST 13 ALT 18 Alkaline Phosphatase 58 Total Protein 7.8 Albumin 4.4 Globulin 3.4 Albumin/Globulin Ratio 1.3 Procalcitonin 0.08 TSH 0.690 Urine Color Yellow Urine Appearance Turbid A Urine pH 5.0 Ur Specific [place] 1.011 Urine Protein Negative Urine Glucose (UA) Negative Urine Ketones Negative Urine Blood 2+ H Urine Nitrite Negative Urine Bilirubin Negative Urine Urobilinogen Negative Ur Leukocyte Esterase 3+ H Urine WBC (Auto) >50 H Urine RBC (Auto) 0-2 U Hyaline Cast (Auto) 3-5 H U Epithel Cells (Auto) 0-2 Urine Bacteria (Auto) 3+ H SARS-CoV-2, RNA, NAAT NEGATIVE 10/22/23 06:13 WBC 7.61 RBC 3.31 L Hgb 9.0 L Hct 27.8 L MCV 84.0 MCH 27.2 MCHC 32.4 RDW Std Deviation 38.7 RDW Coeff of Abigail 12.8 Plt Count 374 MPV 9.6 Immature Gran % (Auto) 0.8 Neut % (Auto) 63.9 Lymph % (Auto) 22.2 [place] % (Auto) 11.7 Eos % (Auto) 0.9 Baso % (Auto) 0.5 Neut # (Auto) 4.86 Lymph # (Auto) 1.69 [place] # (Auto) 0.89 H Eos # (Auto) 0.07 Baso # (Auto) 0.04 Immature Gran # (Auto) 0.06 Sodium 141 Potassium 3.6 Chloride 99 Carbon Dioxide 32 Anion Gap 10 BUN 46 H Creatinine 2.13 H D Est Cr Clr Drug Dosing 57.4 Est GFR ( Amer) 46.1 Est GFR (Non-Af Amer) 39.7 BUN/Creatinine Ratio 21.6 H Glucose 112 H Lactate Calcium 9.3 Phosphorus Magnesium Total Bilirubin AST ALT Alkaline Phosphatase Total Protein Albumin Globulin Albumin/Globulin Ratio Procalcitonin TSH Urine Color Urine Appearance Urine pH Ur Specific [place] Urine Protein Urine Glucose (UA) Urine Ketones Urine Blood Urine Nitrite Urine Bilirubin Urine Urobilinogen Ur Leukocyte Esterase Urine WBC (Auto) Urine RBC (Auto) U Hyaline Cast (Auto) U Epithel Cells (Auto) Urine Bacteria (Auto) SARS-CoV-2, RNA, NAAT Medications Administered Current Inpatient Medications Acetaminophen (Acetaminophen 325 Mg Tab) 650 mg PO Q4H PRN PRN Reason: pain/fever Stop: 11/20/23 23:26 Diphenhydramine HCl (Diphenhydramine Capsule 25 Mg Cap) 25 mg PO DAILY PRN PRN Reason: Insomnia Stop: 11/20/23 23:26 Ezetimibe (Ezetimibe 10 Mg Tab) 10 mg PO QAM [facility] Stop: 11/21/23 08:59 Last Admin: 10/22/23 08:51 Dose: 10 mg Famotidine (Famotidine 20 Mg Tab) 20 mg PO QAM IGNACIO Stop: 11/21/23 08:59 Last Admin: 10/22/23 08:51 Dose: 20 mg Heparin Sodium (Porcine) (Heparin Sod 5,000 Unit/0.5 Ml Vial) 5,000 units SQ Q12 IGNACIO Stop: 11/21/23 08:59 Last Admin: 10/22/23 08:59 Dose: 5,000 units Ertapenem 1,000 mg/ Syringe 10 mls @ 2 mls/min IV Q24H [facility] Stop: 11/01/23 20:59 Melatonin (Melatonin 3 Mg Tab) 6 mg PO HS PRN PRN Reason: Insomnia Stop: 11/20/23 23:45 Miscellaneous (Methenamine Mandelate 1gm - Order Awaiting Action) 1 each N/A QS [facility] Stop: 11/21/23 00:00 Last Admin: 10/22/23 14:20 Dose: Not Given Mycophenolate Mofetil (Mycophenolate Mofetil 250 Mg Cap) 500 mg PO BID IGNACIO Stop: 11/21/23 08:59 Last Admin: 10/22/23 08:51 Dose: 500 mg Ondansetron HCl (Ondansetron Inj 2 Mg/Ml 2 Ml Vial) 4 mg IV Q6H PRN PRN Reason: Nausea Stop: 11/20/23 23:26 Pravastatin Sodium (Pravastatin Sod 40 Mg Tab) 40 mg PO QPM [facility] Stop: 11/21/23 20:59 Prednisone (Prednisone 5 Mg Tab) 5 mg PO QAM [facility] Stop: 11/21/23 08:59 Last Admin: 10/22/23 08:51 Dose: 5 mg Tacrolimus (Tacrolimus 1 Mg Cap) 4 mg PO QAM [facility] Stop: 11/21/23 08:59 Last Admin: 10/22/23 08:52 Dose: 4 mg Tacrolimus (Tacrolimus 1 Mg Cap) 3 mg PO HS [facility] Stop: 11/21/23 20:59 (3) Acute on chronic renal failure Acute renal failure type: unspecified Chronic kidney disease stage: stage 4 (severe) Qualified Code(s): N17.9 - Acute kidney failure, unspecified; N18.4 - Chronic kidney disease, stage 4 (severe)
--- NOTE | 2023-10-22 19:11 | Billing Data ---
Date of Service October 22, 2023 Coding Level of Care Code 77519 SUB INP/OBS CARE MIN
[2023-10-22] MEDS: PRAVASTATIN SOD 40 MG TAB PO SCH (20:07)
[2023-10-22] MEDS: ACETAMINOPHEN 325 MG TAB PO PRN (20:08)
[2023-10-22] MEDS: ERTAPENEM SODIUM 1,000 MG in SYRINGE 0 ML IV SCH (20:09)
[2023-10-22] MEDS: MELATONIN 3 MG TAB PO PRN (20:10)
[2023-10-23 06:31] LABS: Basophils # (auto) 0.04 K/uL (0.00-0.20); Basophils % (auto) 0.6 %; Eosinophils # (auto) 0.09 K/uL (0.00-0.50); Eosinophils % (auto) 1.4 %; Hematocrit (blood only) 28.7 % (42.0-52.0); Hemoglobin 9.3 g/dl (14.0-18.0); Immature Granulocytes # (auto) 0.07 K/uL (0.01-0.20); Immature Granulocytes % (auto) 1.1 %; Lymphocytes # (auto) 1.82 K/uL (1.20-3.40); Lymphocytes % (auto) 27.3 %; Mean Corpuscular Hemoglobin 27.6 pg (25.0-34.0); Mean Corpuscular Hgb Conc 32.4 g/dL (32.0-36.0); Mean Corpuscular Volume 85.2 fL (80.0-100.0); Mean Platelet Volume 9.5 fL (9.4-12.4); Monocytes # (auto) 0.67 K/uL (0.11-0.59); Monocytes % (auto) 10.1 %; Neutrophils # (auto) 3.97 K/uL (1.40-6.50); Neutrophils % (auto) 59.5 %; Platelet Count 389 K/uL (130-400); RDW Coefficient of Variation 12.8 % (11.5-14.5); RDW Standard Deviation 39.6 fL (36.4-46.3); Red Blood Count 3.37 M/uL (4.70-6.10); White Blood Count 6.66 K/ul (4.8-10.8)
[2023-10-23 06:56] LABS: BUN Creatinine Ratio 21.7 (10-20); Calcium 9.2 mg/dl (8.6-10.3); Creatinine Clr Calc Pharmacy 64.7 ml/min; Est GFR (African American) 53.2 ml/min; Est GFR (Non-African American) 45.9 ml/min; Potassium 3.5 mmol/L (3.5-5.1)
--- NOTE | 2023-10-23 09:05 | Nephrology Progress Note ---
Date of Service October 23, 2023 Assessment & Plan (1) NATHANIEL (acute kidney injury): Plan: * NATHANIEL resolved. Creatinine 1.8 this morning. Patient likely was dehydrated. * DC IV fluid. Encourage oral hydration. * Chronic/stable hydro of renal allograft appreciated on US. No concerning acute findings * Urine culture negative for infection. * Blood cultures negative for infection. * Volume status and electrolyte balance are acceptable. * If discharge is anticipated, please have patient follow-up with Dr. Short in the nephrology office within 7-14 days. (2) Kidney transplant status: Plan: * Tacro level pending is not a true trough. * Continue tacro (4 mg QAM, 3 mg QPM) per home Rx. Continue Mycophenolate mofetil 500 mg twice daily. Continue prednisone 5 mg daily. (3) Dehydration: Plan: * Patient is now clinically euvolemic. DC IV fluid. Encourage oral hydration. (4) UTI (urinary tract infection): Plan: * Blood and urine cultures are negative. Discontinue antibiotic therapy. (5) History of extended-spectrum beta-lactamase producing Escherichia coli infection: Admission and Anticipated Discharge Date Admission Date: October 21, 2023 Subjective Mr. Forte was evaluated in his hospital room this morning. He denied fever, chest pain, productive cough. He denied any pain or tenderness overlying his renal allograft. Mr. Forte was breathing comfortably on room air. He hopes to be discharged to home soon. Review of Systems Constitutional: no fever Eyes: no problem reported Ear, Nose, Mouth, Throat: no problem reported Respiratory: no cough and no dyspnea Cardiovascular: no chest pain Gastrointestinal: no abdominal pain, no nausea, no vomiting and no diarrhea/loose stools Genitourinary: no dysuria or no hematuria Integumentary: no rash Physical Exam Constitutional: not in distress Eyes: PERRL, conjunctivae normal, anicteric sclerae ENMT: external ear and nose normal, oropharynx normal Neck: trachea midline, no thyromegaly Respiratory: normal respiratory effort, lungs clear to auscultation Cardiovascular: RRR, no murmur, no edema Gastrointestinal (Abdomen): normal bowel sounds, soft, nontender, no hepatosplenomegaly Renal allograft is palpable in the right lower quadrant of the abdomen. This is nontender to palpation. There is no arterial bruit. Skin: no rashes, warm and dry Neurologic: Speech / Cognition: normal speech and normal cognition Results & Data Vital Signs (Past 12 Hours) Vital Signs Temp Pulse Pulse Resp BP Pulse Ox O2 Del Method 10/23/23 08:18 36.7 C 70 16 123/77 97 Room Air 10/23/23 08:16 Room Air 10/22/23 21:34 36.6 C 83 18 115/66 96 Room Air Laboratory Results Laboratory Results - last 24 hr 10/23/23 05:50 WBC 6.66 RBC 3.37 L Hgb 9.3 L Hct 28.7 L MCV 85.2 MCH 27.6 MCHC 32.4 RDW Std Deviation 39.6 RDW Coeff of Abigail 12.8 Plt Count 389 MPV 9.5 Immature Gran % (Auto) 1.1 Neut % (Auto) 59.5 Lymph % (Auto) 27.3 [place] % (Auto) 10.1 Eos % (Auto) 1.4 Baso % (Auto) 0.6 Neut # (Auto) 3.97 Lymph # (Auto) 1.82 [place] # (Auto) 0.67 H Eos # (Auto) 0.09 Baso # (Auto) 0.04 Immature Gran # (Auto) 0.07 Sodium 142 Potassium 3.5 Chloride 100 Carbon Dioxide 32 Anion Gap 10 BUN 41 H Creatinine 1.89 H Est Cr Clr Drug Dosing 64.7 Est GFR ( Amer) 53.2 Est GFR (Non-Af Amer) 45.9 BUN/Creatinine Ratio 21.7 H Glucose 129 H Calcium 9.2 Microbiology 10/21/23 18:28 Blood Aerobic Blood Culture - Preliminary No growth in Aerobic bottle after 24 hours. 10/21/23 18:28 Blood Anaerobic Blood Culture - Preliminary No growth in Anaerobic bottle after 24 hours. 10/21/23 17:38 Urine,Clean Catch Urine Culture - Preliminary No growth - Less than 1,000 colonies/mL, Final report to follow. PG Care Time/CCT Total # of Minutes Spent Total Time Spent with Patient: Total time spent is greater than 50% in coordination of care (as documented) at patient's floor/unit and/or counseling patient: Coding Level of Care Code 93171 SUB INP/OBS CARE 3/50MIN Diagnoses NATHANIEL (acute kidney injury) N17.9 Kidney transplant status Z94.0 Dehydration E86.0 UTI (urinary tract infection) N39.0 History of extended-spectrum beta-lactamase producing Escherichia coli infection Z86.19
--- NOTE | 2023-10-23 09:54 | Discharge Summary ---
Date of Service October 23, 2023 Admission HPI Per Admitting Provider Petros is a pleasant 33-year-old male with PMH of spina bifida, neurogenic bladder, colostomy, ESBL E. 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 He presented on 10/20 for elevated creatinine on outpatient labs (2.7) and feeling feverish over the weekend. While he did not take his temperature over the weekend, he reports he might of had a low-grade fever which resolved within 1 day. He reach out to his doctors at [place], who recommended he come into the ED. The ED also reach out to [facility], who confirmed he would be okay to stay at [facility] until his creatinine improves. Patient reports he is currently asymptomatic at this time except for a mild headache, and ongoing dry cough. Patient took all his regular morning medications today; no recent change in medications. He manages own medicine at home. He reports he is still producing urine. He drinks plenty of fluids and reports he drinks 64 ounces of water per day. No history of kidney stones. He is largely bound to his wheelchair at baseline. He denies any smoking, tobacco use, or recent alcohol use. Patient's vitals are stable at time of admission. ED course: Ertapenem 10 mL IV Tylenol 650 mg p.o. NSS 500 mL IV ROS: Patient endorses low-grade fever (resolved), PLUNKETT, and dry cough. Patient denies chills, night sweats, dizziness, lightheadedness, chest pain, chest palpitations, pleuritic CP, SOB, abdominal pain, N/V/D, burning with urination, decreased urinary frequency, or changes in colostomy output. Admission Exam Per Admitting Provider General: no acute distress; pleasant affect; non-toxic appearing; well- nourished; cooperative; SpO2 97% on room HEENT: normocephalic, atraumatic; no scleral icterus; PERRLA; vision and hearing grossly intact Neck: supple; no lymphadenopathy; trachea midline Skin: warm, dry without signs of tenting; no cyanosis; no rashes, bruising, lesions, or erythema noted CV: chest wall NTP; RRR; S1/S2 normal; no murmurs/rubs/gallops; pulses intact and symmetric at radial, DP, and PT Lungs: no acute respiratory distress; symmetrical chest wall expansion; clear breath sounds across all lung roberson w/o adventitious sounds; no wheezing ABD: Soft, NTP; colostomy without signs of erythema or infection; BS present; no rebound/guarding; no distention Back: Negative CVA tenderness MSK: no tics or fasciculations; no edema noted in the LEs b/l, nonerythematous Neuro: A&Ox3; normal mood and affect; fluent speech; no focal deficits Principal Diagnosis UTI Discharge Exam General: NAD, WD/WN HEENT: NCAT, PERRL CV: RRR, no m/r/g Resp: CTAB, symmetrical chest, no acute respiratory distress Abd: Soft, NT/ND, +BS MSK: full ROM Neuro: AOx3, no focal deficits Skin: Warm, dry, no lesions or rashes Discharge Data Allergies Allergy/AdvReac Type Severity Reaction Status Date / Time bee venom protein (honey bee) Allergy Intermediate Edema, Verified 10/21/23 21:17 hives latex Allergy Unknown Unknown Verified 10/21/23 21:17 vancomycin Allergy Unknown Unknown Verified 10/21/23 21:17 morphine AdvReac Mild N/V Verified 10/21/23 21:17 Consultations 10/21/23 21:20 ED Decision to Admit Stat 10/21/23 21:38 Consult Nephrology Routine 10/21/23 23:27 Consult Infectious Diseases Routine Ordered Studies 10/23/23 05:50 10/23/23 05:50 10/21/23 18:02 US renal transplant RT Stat Hospital Course (1) UTI (urinary tract infection): - UA 10/21/23: 3+ bacteria, 3+ leuks, 2+ blood - Renal US 10/20: stable mild hydronephrosis of R (transplant) kidney compared to prior on 10/29/22 - h/o UCxs with ESBL E. coli and MDR; empirically tx w IV ertapenem q24h - reports no urinary sx, afebrile, no leukocytosis, UCx collected 10/20 negative - continuing abx uneeded at time of discharge (2) Acute on chronic renal failure: - downtrending BUN and Cr: Cr 1.89 at discharge vs reported baseline 1.7-1.8; BUN stable in 40s; GFR 45.9 at discharge - Avoid nephrotoxic agents as possible + renal dose current medications - continue seeing nephrology (3) Kidney transplant status: - Follows with Dr. 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: (8) Dehydration: - Resolved w IV LR Total Time Total Time Spent Total Time Spent (In Minutes): <30 Discharge Plan Discharge Items Patient Disposition: Home - Self-Care Reason For Visit: NATHANIEL, HX OF RENAL TRANSPLANT Discharge Diagnosis: UTI, NATHANIEL Condition on Discharge: Fair Activity: Per Instructions section Non-emergency contact: Primary Care Provider Call non-emergency contact if: you have any medication questions, your symptoms worsen and you have a fever Follow-up/Referrals: Grecia Bravo DO [Primary Care Provider] - Diet: Regular Addtl Attending Provider Instructions: You were admitted to the hospital for lab values suggesting acute kidney injury and urinalysis results showing UTI. You were given IV antibiotics until a urine culture came back negative. You will not need to continue antibiotics after being discharged. Your medication list has been reviewed and reconciled upon discharge. An updated list of all your medications is included with your hospital discharge paperwork. Please review this list closely, and make note of any changes. Make sure all of your doctors know every medicine you are taking (including xnew-rrx-horgmac medicines, vitamins, supplements). Take your medications as instructed; do not skip a dose. Continue tacrolimus 4 mg in the morning, 3 mg at night Continue Mycophenolate mofetil 500 mg twice daily Continue prednisone 5 mg daily A discharge summary will be sent to your primary care physician to ensure continuity of care. Please bring this discharge summary with you to your next office appointment so that your provider can review it at that time. Follow-up with your PCP within the next week. It is very important that you follow up with them shortly after discharge from the hospital. Continue following with nephrology. Keep all your follow-up appointments as already scheduled. If you cannot make an appointment, notify your provider. Contact your PCP if you feel feverish again or have urinary symptoms. Call 911 or go to the ER if you experience any of the following: Sudden, severe abdominal pain or nausea/vomiting Severe chest pain, or chest pain that moves to your jaw or arm Sudden, severe shortness of breath Thank you for allowing us to participate in your care. Pending Studies at Discharge: Yes Studies:: mycophenolate and tacrolimus levels Stand-Alone Forms: My [facility] [employer], Smoking Cessation Medications and DC Order Prescriptions: Continued (DME) ostomy adhesive Strip See Rx Instructions .Route Qty: 15 2RF Rx Instructions: Berrier rings/strips. Change weekly; PRN (DME) ostomy supplies 2 1/4 " misc See Rx Instructions .Route Qty: 60 3RF Rx Instructions: Closed pouch. Change weekly; PRN (DME) ostomy supplies 2 1/4 " misc See Rx Instructions .Route Qty: 60 2RF Rx Instructions: [place] New Image Soft convex skin berrier. Change weekly; PRN (DME) needle (disp) 18 G [BD Regular Bevel Riley] 18 gauge x 1" needle See Rx Instructions .ROUTE .MEDSUPPLY Qty: 100 0RF Rx Instructions: use with testosterone (DME) CareTouch Luer Lock Syr-needle 3 mL 25 x 5/8" syringe See Rx Instructions .Route Qty: 100 0RF Rx Instructions: use with testosterone testosterone cypionate 100 mg/mL oil 100 mg subcut Q7D Qty: 10 0RF Rx Instructions: Petros, Please have your labs done JULY.... mycophenolate mofetil 250 mg capsule 500 mg PO BID famotidine 20 mg tablet 20 mg PO QAM melatonin 3 mg capsule 6 mg PO HS PRN (Reason: Insomnia) diphenhydramine HCl [Benadryl] 25 mg capsule 25 mg PO DAILY PRN (Reason: Insomnia) ascorbic acid (vitamin C) 500 mg tablet 500 mg PO BID methenamine mandelate 1 gram tablet 1 g PO BID Rx Instructions: administer after meals and at bedtime tacrolimus 1 mg capsule See Rx Instructions PO Q12H Rx Instructions: 4mg in AM and 3 mg in PM orally every 12 hours; ezetimibe 10 mg tablet 10 mg PO QAM cholecalciferol (vitamin D3) 250 mcg (10,000 unit) capsule 250 mcg PO QAM pravastatin 40 mg tablet 40 mg PO QPM prednisone 5 mg tablet 5 mg PO QAM Discharge Orders: Discharge Order (Routine); Ordered 10/23/23 Ordered By: Kelli Yañez/Other Patient Handouts: Acute Kidney Failure Dc Admission Data Admit Date/Time: 10/21/23 21:37 Attending Provider: Jamaal Guardado Admit Provider: Trey Berger Primary Care Provider: Grecia Bravo Other Providers: Trey Berger; Jolie Xiong; Cary Nicole; Genevieve Young; Dimas Van; Annabelle Mcdonald; Marychuy Sheppard; Jae Short Other Interventions: Discharge Summary Assessment (RN) Last Done: 10/23/23 15:35 Supervising Physician Co-Signing Physician Notes I personally examined the patient and verified all restrepo points of history and exam, discussed case, and agree with decision making with Dr Contreras feeling better. Feels up to going home. Vitals noted, in general he is awake and alert pleasant no distress. HEENT normocephalic atraumatic mucous membranes moist. Breathing unlabored no accessory muscle use good effort. Skin shows no rashes no pallor or icterus. Neuro without focal deficits. NATHANIEL on CKD in the setting of transplanted kidneyInitial concern was urinary tract infection, at the same time his symptoms were largely constitutional and his urine culture is negativeso likely was viral rather than UTI. Given his prior multidrug-resistant bacteria, as well as his increased risk of being susceptible to iatrogenic harmdefinitely sending home off of antibiotics given a negative culture, with instructions to be reevaluated JULY should he have recurrence of fever or new onset of urinary symptoms. Basic metabolic panel next week with results to his geriatric physical therapist. Otherwise as above. DVT prophylaxisheparin subcu Resident Activity Tracking Resident Involvement: Resident Care Provided Care Provided: Adult Hospital Medicine
[2023-10-23 15:39] VITALS: BP 156/83; PULSE 97; RESP 17; TEMP 98.2; O2SAT 93
--- NOTE | 2023-10-23 17:05 | Billing Data ---
Date of Service October 23, 2023 Coding Level of Care Code 32188 IN/OBS DISCH 30 MIN/LESS
[2023-10-26 00:27] LABS: MPA Glucuronide 63.2 mcg/mL (35.0-100.0); Mycophenolic Acid 0.9 mcg/mL (1.0-3.5)
== END 2023-10-23 16:00 | disposition home or self-care (01) ==
LOC: 3W 17:40 → ED 17:40 → SUATTDRO 21:37 → 3W 22:44